=== PATIENT | male | born 1980 | race Caucasian/White ===

== ENCOUNTER 2024-08-05 12:19 | Emergency (ER) | payer OTHER, SELFPAY ==
[2024-08-05 12:33] VITALS: BP 235/115; PULSE 111; TEMP 37; O2SAT 96; BMI 40.0
--- NOTE | 2024-08-05 12:35 | ED_ITS ---
HPI HPI - General Adult General Chief complaint: Extremity Problem, Nontraumatic Stated complaint: LOWER EXTREMITY PAIN/SWELLING Time Seen by Provider: 08/05/24 12:32 History of Present Illness HPI narrative: 44-year-old male presents for swelling in his left leg. He has had this waxing and waning for the last month. No chest pain or shortness of breath. He has never had a problem like this before and he does not have swelling in the right leg. He has never had a DVT. There has been no injury. Related Data Previous Rx's ?Medication ?Instructions ?Recorded metoprolol tartrate 25 mg tablet 25 mg PO BID #30 tabs 08/05/24 Allergies Allergy/AdvReac Type Severity Reaction Status Date / Time No Known Drug Allergies Allergy Verified 08/05/24 12:32 Opioid HPI Opioid Management Most Recent Opioid Data: No Data to Display Review of Systems ROS Narrative A ten point review of systems is negative except as noted above. He had cold symptoms a week ago which resolved. PFSH PFSH Social History Little interest or pleasure in doing things: not at all Feeling down, depressed, or hopeless: not at all Exam Narrative Exam Narrative: Nurses note and vital signs reviewed and patient is not hypoxic. General: The patient appears well and in no apparent distress. Patient is resting comfortably on cart. Skin: Warm, dry, no pallor noted. There is no rash noted. Head: Normocephalic, atraumatic Eye: Normal conjunctiva, no drainage Ears, Nose, Mouth, and Throat: oral mucosa is moist. Nares patent. Cardiovascular: Regular Rate and Rhythm Respiratory: Patient is in no distress, no accessory muscle use, lungs are clear to auscultation, no wheezing, rales or rhonchi Back: non-tender GI: Soft and nontender Musculoskeletal: The right leg is swollen compared to the contralateral, significantly so. Dorsalis pedis pulses are 2+ bilaterally. Neurological: A&O, normal speech Psychiatric: Cooperative Constitutional Vital Signs, click to edit/add: Last Vital Signs Temp 98.6 F 08/05/24 12:33 Pulse 111 H 08/05/24 12:33 Resp 18 08/05/24 12:33 BP 192/100 H 08/05/24 12:50 Pulse Ox 96 08/05/24 12:33 O2 Del Method Room Air 08/05/24 12:33 Course Vital Signs Vital signs: Vital Signs Temperature 98.6 F 08/05/24 12:33 Pulse Rate 111 H 08/05/24 12:33 Respiratory Rate 18 08/05/24 12:33 Blood Pressure 235/115 H 08/05/24 12:33 Pulse Oximetry 96 08/05/24 12:33 Oxygen Delivery Method Room Air 08/05/24 12:33 Temperature 98.6 F 08/05/24 12:33 Pulse Rate 111 H 08/05/24 12:33 Respiratory Rate 18 08/05/24 12:33 Blood Pressure 192/100 H 08/05/24 12:50 Pulse Oximetry 96 08/05/24 12:33 Oxygen Delivery Method Room Air 08/05/24 12:33 Medical Decision Making MDM Narrative Medical decision making narrative: Doppler is negative for DVT. Cause uncertain but he is referred to vascular surgery for follow-up. His blood sugar was elevated but he did not take his insulin this morning and has not at home and he will take it when he gets home. Blood pressure is elevated. He does not recall his blood pressure medication, he has been off of it for a year. He was prescribed metoprolol and was given a list of PCPs to follow-up with. Treatment diagnosis and follow-up were discussed with the patient. Differential Diagnosis Differential Diagnosis: Peripheral edema, DVT Lab Data Lab results reviewed: Yes I reviewed the patient's lab results Labs: Lab Results 08/05/24 Range/Units 12:44 WBC 7.8 (4.0-11.0) 10^3/uL RBC 4.14 L (4.70-6.10) 10^6/uL Hgb 11.9 L (14.0-18.0) g/dL Hct 35.8 L (42.0-54.0) % MCV 86.5 (80.0-94.0) fL MCH 28.7 (25.9-34.0) pg MCHC 33.2 (29.9-35.2) g/dL RDW 13.0 (11.0-15.0) % Plt Count 293 (150-450) 10^3/uL MPV 9.9 (9.5-13.5) fL Neut % (Auto) 59.1 (43.0-75.0) % Lymph % (Auto) 22.2 (20.5-60.0) % [place] % (Auto) 9.2 (1.7-12.0) % Eos % (Auto) 8.0 H (0.9-7.0) % Baso % (Auto) 1.1 (0.2-2.0) % Neut # (Auto) 4.6 (1.4-6.5) 10^3/uL Lymph # (Auto) 1.7 (1.2-3.8) 10^3/uL [place] # (Auto) 0.7 (0.3-0.8) 10^3/uL Eos # (Auto) 0.6 (0.0-0.7) 10^3/uL Baso # (Auto) 0.1 (0.0-0.1) 10^3/uL Abs Immat Gran (auto) 0.03 (0.00-0.03) 10^3/uL Imm/Tot Granulo (auto) 0.4 (0.0-0.5) % Sodium 132 L (136-145) mmol/L Potassium 4.8 (3.5-5.1) mmol/L Chloride 97 L (98-107) mmol/L Carbon Dioxide 28.1 (21.0-32.0) mmol/L Anion Gap 11.7 BUN 25.0 H (7.0-18.0) mg/dL Creatinine 1.40 H (0.70-1.30) mg/dL Est GFR ( Amer) >60 (>=60 mL/min/1.73m^2) Est GFR (Non-Af Amer) 55 L (>=60 mL/min/1.73m^2) BUN/Creatinine Ratio 17.9 Glucose 479 H (74-106) mg/dL Calcium 9.2 (8.5-10.1) mg/dL Imaging Data Left leg Doppler: Radiologist's impression: No DVT in the left lower extremity Discharge Plan Discharge Chief Complaint: Extremity Problem, Nontraumatic Clinical Impression: Left leg swelling Patient Disposition: Home, Self-Care Time of Disposition Decision: 14:05 Condition: Good Mode of Transportation: Private Vehicle Prescriptions / Home Meds: New metoprolol tartrate 25 mg tablet 25 mg PO BID Qty: 30 0RF Print Language: Panamanian Instructions: Leg Edema (ED) Additional Instructions: See list of primary care physicians Referrals: Padmini Hopper MD [Physician] - 1 week Physician,Non-Staff, [Primary Care Provider] - 1 week
[2024-08-05 12:48] LABS: Basophils Absolute Auto 0.1 10^3/uL (0.0-0.1); Basophils Percent Auto 1.1 % (0.2-2.0); Eosinophils Absolute Auto 0.6 10^3/uL (0.0-0.7); Hematocrit 35.8 % (42.0-54.0); Hemoglobin 11.9 g/dL (14.0-18.0); Immature Granulocytes Abs Auto 0.03 10^3/uL (0.00-0.03); Immature Granulocytes Pct Auto 0.4 % (0.0-0.5); Lymphocytes Absolute Auto 1.7 10^3/uL (1.2-3.8); Lymphocytes Percent Auto 22.2 % (20.5-60.0); Mean Corpuscular HGB Conc 33.2 g/dL (29.9-35.2); Mean Corpuscular Hemoglobin 28.7 pg (25.9-34.0); Mean Corpuscular Volume 86.5 fL (80.0-94.0); Mean Platelet Volume 9.9 fL (9.5-13.5); Monocytes Absolute Auto 0.7 10^3/uL (0.3-0.8); Monocytes Percent Auto 9.2 % (1.7-12.0); Neutrophils Absolute Auto 4.6 10^3/uL (1.4-6.5); Neutrophils Percent Auto 59.1 % (43.0-75.0); Platelet Count 293 10^3/uL (150-450); Red Blood Count 4.14 10^6/uL (4.70-6.10); White Blood Count 7.8 10^3/uL (4.0-11.0)
[2024-08-05 12:50] VITALS: BP 192/100
[2024-08-05 12:58] LABS: Anion Gap 11.7; BUN Creatinine Ratio 17.9; Calcium 9.2 mg/dL (8.5-10.1); Carbon Dioxide 28.1 mmol/L (21.0-32.0); Chloride 97 mmol/L (98-107); Estimated GFR (African America >60 (>=60 mL/min/1.73m^2); Estimated GFR (Non-African Ame 55 (>=60 mL/min/1.73m^2); Glucose 479 mg/dL (74-106); Potassium 4.8 mmol/L (3.5-5.1); Sodium 132 mmol/L (136-145)
== END 2024-08-05 14:25 | disposition home or self-care (01) ==
PROVIDERS: Emergency Provider Emergency Medicine
DX: M79.89 Other specified soft tissue disorders (principal); Z79.4 Long term (current) use of insulin
CPT/HCPCS: 36415; 80048; 85025; 93971; 99285

== ENCOUNTER 2024-12-25 13:44 | Inpatient (IN) | payer SELFPAY ==
[2024-12-25 13:48] VITALS: BP 198/100; PULSE 116; TEMP 36.9; O2SAT 96; BMI 40.7
--- NOTE | 2024-12-25 14:04 | XR_ITS ---
The [address] [address] Patient Name: ANIL MORA MRN: [id number] date: 1980 Sex: M Assigned Patient Location: ER Current Patient Location: ER Accession/Order Number: [id number] Exam Date: 12/25/2024 14:38 Report Date: 12/25/2024 14:39 At the request of: TORSTEN CHAWLA Procedure: XR foot RT min 3V XR foot RT min 3V 12/25/2024 2:33 PM SIGNS AND SYMPTOMS: Puncture wound of the right great toe PROTOCOL: Frontal, lateral, and oblique radiographs of the right foot COMPARISON: None FINDINGS: The joint spaces are preserved. No fracture or dislocation. There is mild diffuse soft tissue swelling. No abnormal radiopaque foreign body. Mild subcutaneous emphysema is noted along the plantar aspect of the foot beneath the proximal phalanx of the great toe. XR/XR foot RT min 3V IMPRESSION: Mild subcutaneous emphysema is noted along the plantar aspect of the foot beneath the proximal phalanx of the great toe. No abnormal radiopaque foreign body. No acute bony injury. Impression dictated by: Elliott Braun M.D. 12/25/2024 2:39 PM Dictation Location: [place] [address] Electronically authenticated by: [id number] Y Date: 12/25/2024 14:39
--- NOTE | 2024-12-25 14:05 | ED.LOWEXI1 ---
HPI HPI - Extremity Injury (Lower) General Chief Complaint: Extremity Injury, Lower Stated Complaint: RT LOWER LEG PAIN Time Seen by Provider: 12/25/24 13:46 Source: patient Mode of arrival: walk-in Limitations: no limitations History of Present Illness HPI Narrative: Patient is a 44-year-old male with a history of insulin-dependent diabetes who presents to the emergency department for a puncture wound to the plantar aspect of the right foot. Patient states he inadvertently was poked by a nail that went through his shoe 2 days ago. He did not know the nail was there because he has peripheral neuropathy and did not know he was getting poked multiple times with the nail in the plantar aspect of his foot. He states over the last 2 days the area has become open with bleeding and drainage. In the last day he has noticed his right calf is swollen and red. No fevers or vomiting. Blood sugars have been controlled in the 120s. He has no significant pain at this time. Related Data Home Medications ?Medication ?Instructions ?Recorded ?Confirmed insulin NPH isoph U-100 human 100 40 unit subcut BID 12/25/24 12/25/24 unit/mL (3 mL) subcutaneous pen (Novolin N FlexPen) insulin regular human 100 unit/mL 1 sliding scale dose subcut 12/25/24 12/25/24 injection solution cartridge [id number] Previous Rx's ?Medication ?Instructions ?Recorded metoprolol tartrate 25 mg tablet 25 mg PO BID #30 tabs 08/05/24 Allergies Allergy/AdvReac Type Severity Reaction Status Date / Time No Known Drug Allergies Allergy Verified 12/25/24 13:48 Review of Systems ROS Constitutional Denies: fever or chills Cardiovascular Denies: chest pain Respiratory Denies: shortness of breath or cough Gastrointestinal Denies: nausea or vomiting Musculoskeletal Reports: extremity pain and extremity swelling Integumentary/Breast Reports: redness, skin tenderness and skin swelling Hematologic/Lymphatic Denies: easy bruising or easy bleeding [facility] Social History Little interest or pleasure in doing things: not at all Feeling down, depressed, or hopeless: not at all Exam Narrative Exam Narrative: Gen.: Awake, alert, in no distress Head: Normocephalic, atraumatic ENT: Moist mucous membranes Respiratory: No respiratory distress Extremities: Moves extremities equally, right lower extremity is diffusely edematous and erythematous distal to the knee. Calves are soft and compressible bilaterally. 2+ DP pulse in the right foot. 1 cm puncture wound noted to the plantar aspect of the right foot just proximal to the great toe. Surrounding minimal erythema and swelling. No active drainage. Normal flexion-extension of the toes. Psych: Normal mood and affect Neuro: No focal neuro deficit Skin: Warm, dry Constitutional Vital Signs, click to edit/add: Last Vital Signs Temp 98.4 F 12/25/24 13:48 Pulse 116 H 12/25/24 13:48 Resp 16 12/25/24 13:48 BP 198/100 H 12/25/24 13:48 Pulse Ox 96 12/25/24 13:48 O2 Del Method Room Air 12/25/24 13:48 Course Vital Signs Vital signs: Vital Signs Temperature 98.4 F 12/25/24 13:48 Pulse Rate 116 H 12/25/24 13:48 Respiratory Rate 16 12/25/24 13:48 Blood Pressure 198/100 H 12/25/24 13:48 Pulse Oximetry 96 12/25/24 13:48 Oxygen Delivery Method Room Air 12/25/24 13:48 Temperature 98.4 F 12/25/24 13:48 Pulse Rate 116 H 12/25/24 13:48 Respiratory Rate 16 12/25/24 13:48 Blood Pressure 198/100 H 12/25/24 13:48 Pulse Oximetry 96 12/25/24 13:48 Oxygen Delivery Method Room Air 12/25/24 13:48 MDM - Extremity Injury (Lower) MDM Narrative Medical decision making narrative: Sepsis labs obtained with x-ray of the foot and ultrasound of the right lower extremity. Zosyn and vancomycin ordered for the patient. Zosyn with Pseudomonas coverage. Patient with elevated blood pressures in the ER, likely secondary to noncompliance with his blood pressure medication. Medicated with labetalol. Discussed with hospitalist, Dr. Pandey and the patient is admitted for further evaluation and treatment of diabetic foot wound with cellulitis. Medical Records Attestation: I reviewed the patient's medical records. Lab Data Attestation: I reviewed the patient's lab results. Imaging Data XR foot: Attestation: I have reviewed the pertinent imaging results. Radiologist's impression: ITS Impressions Foot X-Ray 12/25/24 14:04 IMPRESSION: Mild subcutaneous emphysema is noted along the plantar aspect of the foot beneath the proximal phalanx of the great toe. No abnormal radiopaque foreign body. No acute bony injury. Impression dictated by: Elliott Braun M.D. 12/25/2024 2:39 PM Dictation Location: [employer] Electronically authenticated by: [id number] Y Date: 12/25/2024 14:39 Venous US: Attestation: I have reviewed the pertinent imaging results. Radiologist's impression: ITS Impressions Foot X-Ray 12/25/24 14:04 IMPRESSION: Mild subcutaneous emphysema is noted along the plantar aspect of the foot beneath the proximal phalanx of the great toe. No abnormal radiopaque foreign body. No acute bony injury. Impression dictated by: Elliott Braun M.D. 12/25/2024 2:39 PM Dictation Location: [employer] Electronically authenticated by: [id number] Y Date: 12/25/2024 14:39 Discharge Plan Discharge Chief Complaint: Extremity Injury, Lower Clinical Impression: Infected puncture wound of plantar aspect of foot, Type II diabetes mellitus, Cellulitis of leg, right Patient Disposition: Admitted As Inpatient Time of Disposition Decision: 15:05 Condition: Good
[2024-12-25 14:25] LABS: Hematocrit 33.7 % (42.0-54.0); Hemoglobin 11.2 g/dL (14.0-18.0); Immature Granulocytes Abs Auto 0.06 10^3/uL (0.00-0.03); Immature Granulocytes Pct Auto 0.5 % (0.0-0.5); Lymphocytes Absolute Auto 1.4 10^3/uL (1.2-3.8); Mean Corpuscular HGB Conc 33.2 g/dL (29.9-35.2); Mean Corpuscular Hemoglobin 29.2 pg (25.9-34.0); Mean Corpuscular Volume 87.8 fL (80.0-94.0); Platelet Count 196 10^3/uL (150-450); Red Blood Count 3.84 10^6/uL (4.70-6.10); White Blood Count 12.2 10^3/uL (4.0-11.0)
[2024-12-25] MEDS: PIPERACILLIN SODIUM/TAZOBACTAM 4.5 GM in 0.9 % SODIUM CHLORIDE 50 ML IV (14:30)
[2024-12-25] MEDS: DIPHTH,PERTUSS(ACELL),TET VAC 0.5 ML SYRINGE IM (14:31)
[2024-12-25] MEDS: 0.9 % SODIUM CHLORIDE 1,000 ML 999 ML IV (14:31)
[2024-12-25 14:46] LABS: Alanine Aminotransferase 28 U/L (16-63); Albumin Globulin Ratio 0.4; Albumin Level 2.1 g/dL (3.4-5.0); Alkaline Phosphatase 101 U/L (46-116); Anion Gap 12.1; Aspartate Amino Transferase 18 U/L (15-37); Blood Urea Nitrogen 30.0 mg/dL (7.0-18.0); Calcium 9.2 mg/dL (8.5-10.1); Carbon Dioxide 27.9 mmol/L (21.0-32.0); Chloride 93 mmol/L (98-107); Estimated GFR (African America 56 (>=60 mL/min/1.73m^2); Estimated GFR (Non-African Ame 46 (>=60 mL/min/1.73m^2); Globulin 5.1 g/dL; Glucose 325 mg/dL (74-106); Potassium 4.0 mmol/L (3.5-5.1); Sodium 129 mmol/L (136-145); Total Protein 7.2 g/dL (6.4-8.2)
[2024-12-25 14:49] LABS: Lactate/Lactic Acid 2.0 mmol/L (0.4-2.0)
[2024-12-25 14:50] LABS: Magnesium 1.7 mg/dL (1.8-2.4)
[2024-12-25] MEDS: VANCOMYCIN HCL 1,000 MG in 0.9 % SODIUM CHLORIDE 250 ML 250 MG IV (15:03)
[2024-12-25] MEDS: LABETALOL HCL 20 MG/4 ML SYRINGE IVP (15:05)
--- OUTSIDE RECORDS SUMMARY | 2024-12-25 15:05 | XMS_ITS | CCD ---
Author Organization [facility]iniSym[facility] Care Team Providers Care Biomedical Manager Name Role Phone WILFRIDO SONG Attending Unavailable WILFRIDO SONG Primary Care Unavailable Wilfrido Song Unavailable Unavailable Jere Asencio Unavailable Unavailable Kappus, Wilfrido F Unavailable Unavailable Kappus, Wilfrido F Unavailable Unavailable Unavailable MD SERAFIN SAINZ Attending Unavailab taylor Song, Dr. Wilfrido Nevarez Referring Unav ailable Kapp, Dr. Wilfrido Nevarez Primary Care Unav ailable Hanna, Dr. Wilfrido Nevarez Primary Care Unav ailable MD SERAFIN SAINZ Attending Unavailab taylor Song, Dr. Wilfrido Nevarez Referring Unav ailable REQUEST, DR HILL LISTED Primary Care Unavaila ble ASTRID ., DR ROCHELLE Maddox Admitting Unavailable RESENDIZ ., DR ROCHELLE Maddox Attending Unavailable RESENDIZ ., DR ROCHELLE Maddox Consulting Unavailable PAY ., DR ESQUEDA Consulting Unavailable TONI ., JUNIOR Consulting Unavailable SISTER, APOLINAR Consulting Unavailable MENDEZ RUSHING Consulting Unavailable Sherry Beal Unavailable No Pcp, No Pcp Primary Care Provider Unavailabl e Unavailable Primary Care Provider Unavailabl e SAÚL QUINTANA Attending Unavailable NO PCP, NO PCP Primary Care Unavailable SAÚL QUINTANA Referring Unavailable NO PCP, NO PCP Primary Care Unavailable DENA PARADA Attending Unavailable NO PCP, NO PCP Primary Care Unavailable SAÚL QUINTANA Attending Unavailable ALFONSO STUART Referring Unavailable SAÚL QUINTANA Referring Unavailable SAÚL QUINTANA Attending Unavailable NO PCP, NO PCP Primary Care Unavailable SAÚL QUINTANA Referring Unavailable NO PCP, NO PCP Primary Care Unavailable SAÚL QUINTANA Attending Unavailable NO PCP, NO PCP Primary Care Unavailable SAÚL QUINTANA Attending Unavailable NO PCP, NO PCP Primary Care Unavailable SAÚL QUINTANA Referring Unavailable NO PCP, NO PCP Primary Care Unavailable SAÚL QUINTANA Attending Unavailable NO PCP, NO PCP Primary Care Unavailable NO PCP, NO PCP Primary Care Unavailable No Pcp, No Pcp Primary Care Provider Unavailabl e Allergies Allergy Classification Reported Allergen(s) Allergy Type Date of Onset Reaction(s) Facility Latex (1 source) Latex rubber gloves; Translations: [Latex Gloves] Substance Allergy [facility] Work Phone: (1 source) Latex rubber gloves Allergy to drug (finding) [facility] Work Phone: (5 sources) natural latex rubber; Translations: [LATEX, NATURAL RUBBER] Drug allergy (disorder) 2 [facility] Repository (13 sources) Latex Propensity to adverse reactions to drug 2 Hives, Rash [facility] Medications Current Medications Medication Drug Class(es) Dates Sig (Normalized) Sig (Original) amLODIPine 5 mg / valsartan 320 mg oral tablet (1 source) Dihydropyridine Calcium Channel Veronica, Angiotensin 2 Receptor Veronica take 1 tablet by mouth once daily amLODIPine Besylate-Valsarta n 5-320 MG TAKE 1 TABLET BY MOUTH DAILY Oral for 30 Days Active atorvastatin 20 mg oral tablet (1 source) HMG-CoA Reductase Inhibitor take 1 tablet by mouth once daily Atorvastatin Calcium 20 MG TAKE 1 TABLET BY MOUTH DAILY Oral for 30 Days Active clindamycin 300 mg oral capsule (1 source) Lincosamide Antibacterial Start: 05-07-2023 take 1 capsule by mouth every eight hours Clindamycin HCl 300 MG 1 cap(s) Orally tid for 10 day(s) Apr, Active dapagliflozin 10 mg oral tablet (1 source) Sodium-Glucose Cotransporter 2 Inhibitor Farxiga 10 MG Oral for 30 Days Active insulin isophane, human 100 unt/ml injectable suspension (13 sources) inject 0.4 mL by subcutaneous injection in the morning insulin NPH (HumuLIN N,NovoLIN N) 100 unit/mL injection Inject 0.4 mL (40 Units total) under the skin in the morning and 0.4 mL (40 Units total) in the evening. Inject with meals. Active insulin, regular, human 100 unt/ml injectable solution (14 sources) Insulin inject 10-20 [IU] by subcutaneous injection three times daily before mealtime insulin regular (HumuLIN R,NovoLIN R) 100 unit/mL injection Inject under the skin 3 (three) times a day before meals. 10-20 units depending on BSL Active NovoLIN R FlexPe n 100 UNIT/ML INJECT 10-12-15 UNITS to meal size plus ISS#3 expect DAILY dose 50 UNITS Injection for 30 Days Active mupirocin 0.02 mg/mg topical ointment (1 source) RNA Synthetase Inhibitor Antibacterial Start: 05-07-2023 Mupirocin 2 % 1 application Externally Twice a day apply to left lower leg wound Apr, Active Completed/Discontinued Medications Medication Drug Class(es) Dates Sig (Normalized) Sig (Original) aflibercept (EYLEA) intravitreal injection 2 mg (1 source) Start: 07-06-2024 End: 07-06-2024 2 mg, intravitreal, One-Time Injection, Starting on Fri07/06/24 at 1630, For 1 dose 16 ml bevacizumab 25 mg/ml injection (1 source) Vascular Endothelial Growth Factor Inhibitor Start: 08-06-2024 End: 08-06-2024 1.25 mg, intravitreal, One-Time Injection, Starting on Fri08/06/24 at 1116, For 1 dose clomiPHENE citrate 50 mg oral tablet (1 source) Estrogen Agonist/Antagonist Start: 10-18-2020 take 0.5 tablet by mouth once daily clomiPHENE Citrate 50 MG Oral Tablet take 1/2 tablet daily Quantity: 15 Refills: 6 Ordered: 18-Oct-2020 Serafin Sainz MD Start : 18-Oct-2020 Active FreeStyle Lite Device (1 source) Start: 08-28-2018 FreeStyle Lite Device USE DIRECTED. DX; E11.65 testing twice daily Quantity: 1 Refills: 0 Wilfrido Song DO Start : 28-Aug-2018 Active sensor 3 ml insulin glargine 100 unt/ml pen injector (2 sources) Insulin Analog Start: 09-02-2018 Basaglar KwikPen 100 UNIT/ML Subcutaneous Solution Pen-injector TAKE 20 UNITS AT BEDTIME Quantity: 1 Refills: 3 Ordered: 25-Jul-2020 Wilfrido Song DO Start : 02-Sep-2018 Active Start: 09-02-2018 Basaglar KwikP en 100 UNIT/ML Subcutaneous Solution Pen- injector TAKE 20 UNITS AT BEDTIME Quantity: 1 Refills: 3 Wilfrido Song DO Start : 02-Sep-2018 Active 5 x 3 ML Pen metFORMIN hydrochloride 500 mg oral tablet (16 sources) Biguanide Start: 08-28-2018 take 1 tablet by mouth twice daily metFORMIN HCl - 500 MG Oral Tablet Take 1 tablet twice daily Quantity: 180 Refills: 1 Ordered: 25-Jun-2019 Jere Asencio MD Start : 28-Aug-2018 Active take 1 tablet by neda th in the morning, then take 1 tablet by mouth at mealtime metFORMIN (GLUCOPHAGE) 1000 mg tablet Take 1 tablet (1,000 mg total) by mouth in the morning and 1 tablet (1,000 mg total) in the evening. Take with meals. Active take 2 tablets by mouth twice da roberto metFORMIN HCl ER 500 MG TAKE 2 TABLETS BY MOUTH TWICE DAILY Oral for 30 Days Active sulfamethoxazole 800 mg / trimethoprim 160 mg oral tablet (2 sources) Dihydrofolate Reductase Inhibitor Antibacterial, Sulfonamide Antimicrobial Start: 12-27-2013 take 1 tablet by mouth every twelve hours Bactrim DS 800-160 MG 1 tablet Orally bid for 10 day(s) Jul, Not-Taking/PRN tadalafil 5 mg oral tablet (1 source) Phosphodiesterase 5 Inhibitor Start: 08-16-2020 take 1 tablet by mouth once daily Tadalafil 5 MG Oral Tablet Take 1 tablet daily Quantity: 30 Refills: 11 Ordered: 16-Aug-2020 Serafin Sainz MD Start : 16-Aug-2020 Active traMADol hydrochloride 50 mg oral tablet (1 source) Opioid Agonist Start: 12-27-2013 take 1 tablet by mouth every six hours as needed traMADol HCl 50 MG 1 tablet as neededfor severe pain Orally every 6 hrs,may cause fatigue, avoid driving, alcohol and machinery use,potentially addictiv for 5 days Dec, Not-Taking/PRN Problems Active Problems Problem Classification Problem Date Documented Date Episodic/Chronic Diabetes mellitus with complications (20 sources) 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 2 diabetes mellitus; Translations: [Type 2 diabetes mellitus with moderate nonproliferative diabetic retinopathy with macular edema, right eye] Onset: 02-25-2024 06-21-2024 Chronic Diabetes mellitus without complication (2 sources) Diabetes mellitus; Translations: [Diabetes mellitus without mention of complication, type II or unspecified type, not stated as uncontrolled] Chronic Disorders of lipid metabolism (2 sources) Hyperlipidemia; Translations: [Other and unspecified hyperlipidemia] Chronic Essential hypertension (2 sources) Hypertensive disorder; Translations: [Unspecified essential hypertension] Chronic Osteoarthritis (1 source) 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; Translations: [Osteoarthrosis, localized, secondary, pelvic region and thigh] Chronic Other bone disease and musculoskeletal deformities (2 sources) Juvenile osteochondrosis of lower extremity; Translations: [Juvenile osteochondrosis of hip and pelvis] Chronic Other male genital disorders (1 source) Male erectile dysfunction, unspecified; Translations: [Male erectile disorder] Chronic Other male genital disorders (1 source) Phimosis; Translations: [Redundant prepuce and phimosis] Episodic Other non-traumatic joint disorders (1 source) Hip pain; Translations: [Pain in joint, pelvic region and thigh] Episodic Other screening for suspected conditions (not mental disorders or infectious disease) (1 source) Decreased testosterone level ; Translations: [Other nonspecific findings on examination of blood] Episodic Residual codes; unclassified (1 source) History finding; Translations: [Other specified conditions influencing health status] Episodic Residual codes; unclassified (2 sources) Edema of left lower limb; Translations: [Localized edema] 08-09-2024 Episodic Residual codes; unclassified (1 source) Pain, unspecified; Translations: [Pain, unspecified] Onset: 08-06-2024 Episodic Skin and subcutaneous tissue infections (1 source) Cellulitis of left lower limb Episodic Unclassified (1 source) Diabetic retinopathy with macular edema associated with romana Onset: 02-25-2024 Past or Other Problems Problem Classification Problem Date Documented Da te Episodic/Chronic Blindness and vision defects (10 sources) Severe myopia; Translations: [Myopia, bilateral] Onset: 02-25-2024 06-21-2024 Episodic NEGATED: Highlighted row has not occurred!Residual codes; unclassified (5 sources) Disease Episodic Results Test Name Value Interpretation Reference Range Facility Intravitreal Injection, Phar macologic Agent - OD - Right Eyeon 08-06-2024 [facility] No Panel Informationon 08-06 [facility] Intravitreal Injection, Phar macologic Agent - OD - Right Eyeon 07-06-2024 [facility] No Panel Informationon 06-22 OD: DM; persistent D ME, slight increased; treat laser vs injections discussed OS: DM; improving DME; treat vs continue to follow discussed MANUALLY TRANSCRIBED RESULTS [facility] Focal Laser - OS - Left Eyeo n 03-17-2024 [facility] Focal Laser - OD - Right Eye on 03-10-2024 [facility] No Panel Informationon 03-10 OD: 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 Sonia Sommers CK.MB [Mass/Vol] 2.58 ng/mL Normal <=3.60 [facility] Comment on above: Performed By: #### C MREP #### [facility] [address] [address] [address] Sonia Sommers HSTROP 33.2 pg/mL Normal 4.0-76.1 [facility] Comment on above: Result Comment: CUT- OFF POINTS HAVE BEEN ESTABLISHED BASED ON THE FOURTH UNIVERSAL DEFINITIONS OF MYOCARDIAL INFARCTION. THE UPPER REFERENCE LIMIT (URL) OF TROPONIN, DEFINED THE 99TH PERCENTILE OF cTnI DISTRIBUTION IN A REFERENCE POPULATION, HAS BEEN CONFIRMED THE DECISION THRESHOLD FOR [place] DIAGNOSIS. Performed By: #### C MREP #### [facility] [address] [place], [place] [address] Dr. Sonia Sommers CBC AUTO DIFFon 09-07-2022 BASO # 0.0 103/ul Normal 0.0-0.1 [facility] Comment on above: Performed By: #### C BC #### [facility] [address] [address] [address] Sonia Sommers Basophils/100 WBC (Bld) 0.1 % Critically low 0.2-2.0 [facility] Comment on above: Performed By: #### C BC #### [facility] [address] [place] [address] Dr. Sonia Sommers EO # 0.0 103/ul Normal 0.0-0.7 [facility] Comment on above: Performed By: #### C BC #### [facility] [address] [place] [address] Dr. Sonia Sommers Eosinophils/100 WBC (Bld) 0.0 % Critically low 0.9-7.0 [facility] Comment on above: Performed By: #### C BC #### [facility] [address] [place] [address] Dr. Sonia Sommers Erythrocyte distribution width (RBC) [Ratio] 12.8 % Normal 11.0-15.0 [facility] Comment on above: Performed By: #### C BC #### [facility] [address] [place] [address] Dr. Sonia Sommers Hematocrit (Bld) [Volume fraction] 37.5 % Critically low 42.0-54.0 [facility] Comment on above: Performed By: #### C BC #### [facility] [address] [place] [address] Dr. Sonia Sommers Hemoglobin (Bld) [Mass/Vol] 12.7 g/dL Critically low 14.0-18.0 [facility] Comment on above: Performed By: #### C BC #### [facility] [address] [place] [address] Dr. Sonia Sommers IG # 0.05 10e3/ul Critically high 0.00-0.03 [facility] Comment on above: Performed By: #### C BC #### [facility] [address] [place] [address] Dr. Sonia Sommers IG % 0.6 % Critically high 0.0-0.5 [facility] Comment on above: Performed By: #### C BC #### [facility] [address] [place] [address] Dr. Sonia Sommers LYMPH # 0.9 103/ul Critically low 1.2-3.8 [facility] Comment on above: Performed By: #### C BC #### [facility] [address] [place] [address] Dr. Sonia Sommers Lymphocytes/100 WBC (Bld) 10.5 % Critically low 20.5-60.0 [facility] Comment on above: Performed By: #### C BC #### [facility] [address] [place] [address] Dr. Sonia Sommers MANUAL DIFF REQ NO Normal [facility] Comment on above: Performed By: #### C BC #### [facility] [address] [place] [address] Dr. Sonia Sommers MCH (RBC) [Entitic mass] 28.6 pg Normal 25.9-34.0 [facility] Comment on above: Performed By: #### C BC #### [facility] [address] [place] [address] Dr. Sonia Sommers MCHC (RBC) [Mass/Vol] 33.9 g/dL Normal 29.9-35.2 [facility] Comment on above: Performed By: #### C BC #### [facility] [address] [place] [address] Dr. Sonia Sommers MCV (RBC) [Entitic vol] 84.5 fL Normal 80.0-94.0 [facility] Comment on above: Performed By: #### C BC #### [facility] [address] [place] [address] Dr. Sonia Sommers MONO # 0.2 103/ul Critically low 0.3-0.8 [facility] Comment on above: Performed By: #### C BC #### [facility] [address] [place] [address] Dr. Sonia Sommers Monocytes/100 WBC (Bld) 2.1 % Normal 1.7-12.0 [facility] Comment on above: Performed By: #### C BC #### [facility] [address] [place] [address] Dr. Sonia Sommers NEUT # 7.2 103/ul Critically high 1.4-6.5 [facility] Comment on above: Performed By: #### C BC #### [facility] [address] [address] [address] Sonia Sommers Neutrophils/100 WBC (Bld) 86.7 % Critically high 43.0-75.0 [facility] Comment on above: Performed By: #### C BC #### [facility] [address] [address] [address] Sonia Sommers Platelet mean volume (Bld) [Entitic vol] 9.8 fL Normal 9.5-13.5 [facility] Comment on above: Performed By: #### C BC #### [facility] [address] [address] [address] Sonia Sommers PLT 290 103/ul Normal 150-450 [facility] Comment on above: Performed By: #### C BC #### [facility] [address] [address] [address] Sonia Sommers RBC 4.44 106/ul Critically low 4.70-6.10 [facility] Comment on above: Performed By: #### C BC #### [facility] [address] [address] [address] Sonia Sommers WBC 8.3 103/ul Normal 4.0-11.0 [facility] Comment on above: Performed By: #### C BC #### [facility] [address] [address] [address] Sonia Sommers POINT OF CARE GLUCOSEon 08-24 Glucose [Mass/Vol] 413 mg/dL Critically high 74-106 [facility] Comment on above: Performed By: #### P OCGLUC #### [facility] [address] [address] [address] Sonia Sommers Glucose [Mass/Vol] 318 mg/dL Critically high 74-106 [facility] Comment on above: Performed By: #### P OCGLUC ####[facility] [id number] [address]Dr. Sonia Sommers PROF 14(COMP METB)on 023 Albumin [Mass/Vol] 3.4 g/dL Normal 3.4-5.0 [facility] Comment on above: Performed By: #### C MP #### [facility] [address] [place] [address] Dr. Sonia Sommers Albumin/Globulin [Mass ratio] 0.8 {ratio} Normal [facility] Comment on above: Performed By: #### C MP #### [facility] [address] [place] [address] Dr. Sonia Sommres ALP [Catalytic activity/Vol] 104 U/L Normal 46-116 [facility] Comment on above: Performed By: #### C MP #### [facility] [address] [place] [address] Dr. Sonia Sommers ALT [Catalytic activity/Vol] 29 U/L Normal 16-63 [facility] Comment on above: Performed By: #### C MP #### [facility] [address] [place] [address] Dr. Sonia Sommers Anion gap [Moles/Vol] 16.3 mmol/L Normal [facility] Comment on above: Performed By: #### C MP #### [facility] [address] [place] [address] Dr. Sonia Sommers AST [Catalytic activity/Vol] 17 U/L Normal 15-37 [facility] Comment on above: Performed By: #### C MP #### [facility] [address] [place] [address] Dr. Sonia Sommers Bilirubin [Mass/Vol] 0.6 mg/dL Normal 0.2-1.0 [facility] Comment on above: Performed By: #### C MP #### [facility] [address] [place] [address] Dr. Sonia Sommers Calcium [Mass/Vol] 9.0 mg/dL Normal 8.5-10.1 [facility] Comment on above: Performed By: #### C MP #### [facility] [address] [place] [address] Dr. Sonia Sommers Chloride [Moles/Vol] 101 mmol/L Normal 98-107 [facility] Comment on above: Performed By: #### C MP #### [facility] [address] [address] [address] Sonia Sommers CO2 [Moles/Vol] 21.0 mmol/L Normal 21.0-32.0 [facility] Comment on above: Performed By: #### C MP #### [facility] [address] [address] [address] Sonia Sommers Creatinine [Mass/Vol] 1.25 mg/dL Normal 0.70-1.30 [facility] Comment on above: Performed By: #### C MP #### [facility] [address] [place] [address] Dr. Sonia Sommers EGFR-AF CITIZEN [place] >60 Normal >=60 [facility] Comment on above: Performed By: #### C MP #### [facility] [address] [place] [address] Dr. Sonia Sommers EGFR-NON AF CITIZEN OF [place] >60 Normal >=60 [facility] Comment on above: Performed By: #### C MP #### [facility] [address] [place] [address] Dr. Sonia Sommers Globulin (S) [Mass/Vol] 4.2 g/dL Normal [facility] Comment on above: Performed By: #### C MP #### [facility] [address] [place] [address] Dr. Sonia Sommers Glucose [Mass/Vol] 316 mg/dL Critically high 74-106 [facility] Comment on above: Performed By: #### C MP #### [facility] [address] [place] [address] Dr. Sonia Sommers Potassium [Moles/Vol] 5.3 mmol/L Critically high 3.5-5.1 [facility] Comment on above: Performed By: #### C MP #### [facility] [address] [place] [address] Dr. Sonia Sommers Protein [Mass/Vol] 7.6 g/dL Normal 6.4-8.2 [facility] Comment on above: Performed By: #### C MP #### [facility] [address] [place] [address] Dr. Sonia Sommers Sodium [Moles/Vol] 133 mmol/L Critically low 136-145 [facility] Comment on above: Performed By: #### C MP #### [facility] [address] [address] [address] Sonia Sommers Urea nitrogen [Mass/Vol] 42.0 mg/dL Critically high 7.0-18.0 [facility] Comment on above: Performed By: #### C MP #### [facility] [address] [address] [address] Sonia Sommers Urea nitrogen/Creatini ne [Mass ratio] 33.6 mg/mg Normal [facility] Comment on above: Performed By: #### C MP #### [facility] [address] [place] [address] Dr. Sonia Sommers BNPon 09-06-2022 Natriuretic peptide B (Bld) [Mass/Vol] 66.0 pg/mL Normal <=450.0 [facility] Comment on above: Performed By: #### H STROPN, BNP, CMP ####[facility] [id number] [address]Dr. Sonia Sommers CBC AUTO DIFFon 09-06-2022 BASO # 0.1 103/ul Normal 0.0-0.1 [facility] Comment on above: Performed By: #### C BC #### [facility] [address] [place] [address] Dr. Sonia Sommers Basophils/100 WBC (Bld) 0.6 % Normal 0.2-2.0 [facility] Comment on above: Performed By: #### C BC #### [facility] [address] [place] [address] Dr. Sonia Sommers EO # 0.2 103/ul Normal 0.0-0.7 [facility] Comment on above: Performed By: #### C BC #### [facility] Laboratory [address] [address] [address] Sonia Sommers Eosinophils/100 WBC (Bld) 1.9 % Normal 0.9-7.0 [facility] Comment on above: Performed By: #### C BC #### [facility] Laboratory [address] [place] [address] Dr. Sonia Sommers Erythrocyte distribution width (RBC) [Ratio] 12.9 % Normal 11.0-15.0 [facility] Comment on above: Performed By: #### C BC #### [facility] [address] [place] [address] Dr. Sonia Sommers Hematocrit (Bld) [Volume fraction] 41.7 % Critically low 42.0-54.0 [facility] Comment on above: Performed By: #### C BC #### [facility] [address] [place] [address] Dr. Sonia Sommers Hemoglobin (Bld) [Mass/Vol] 14.0 g/dL Normal 14.0-18.0 [facility] Comment on above: Performed By: #### C BC #### [facility] [address] [place] [address] Dr. Sonia Sommers IG # 0.08 10e3/ul Critically high 0.00-0.03 [facility] Comment on above: Performed By: #### C BC #### [facility] [address] [place] [address] Dr. Sonia Sommers IG % 0.7 % Critically high 0.0-0.5 [facility] Comment on above: Performed By: #### C BC #### [facility] [address] [place] [address] Dr. Sonia Sommers LYMPH # 1.6 103/ul Normal 1.2-3.8 [facility] Comment on above: Performed By: #### C BC #### [facility] [address] [place] [address] Dr. Sonia Sommers Lymphocytes/100 WBC (Bld) 13.3 % Critically low 20.5-60.0 [facility] Comment on above: Performed By: #### C BC #### [facility] [address] [place] [address] Dr. Sonia Sommers MANUAL DIFF REQ NO Normal [facility] Comment on above: Performed By: #### C BC #### [facility] [address] [address] [address] Sonia Sommers MCH (RBC) [Entitic mass] 28.9 pg Normal 25.9-34.0 [facility] Comment on above: Performed By: #### C BC #### [facility] [address] [place] [address] Dr. Sonia Sommers MCHC (RBC) [Mass/Vol] 33.6 g/dL Normal 29.9-35.2 [facility] Comment on above: Performed By: #### C BC #### [facility] [address] [place] [address] Dr. Sonia Sommers MCV (RBC) [Entitic vol] 86.0 fL Normal 80.0-94.0 [facility] Comment on above: Performed By: #### C BC #### [facility] [address] [place] [address] Dr. Sonia Sommers MONO # 0.9 103/ul Critically high 0.3-0.8 [facility] Comment on above: Performed By: #### C BC #### [facility] [address] [place] [address] Dr. Sonia Sommers Monocytes/100 WBC (Bld) 7.4 % Normal 1.7-12.0 [facility] Comment on above: Performed By: #### C BC #### [facility] [address] [place] [address] Dr. Sonia Sommers NEUT # 8.9 103/ul Critically high 1.4-6.5 [facility] Comment on above: Performed By: #### C BC #### [facility] [address] [place] [address] Dr. Sonia Sommers Neutrophils/100 WBC (Bld) 76.1 % Critically high 43.0-75.0 [facility] Comment on above: Performed By: #### C BC #### [facility] [address] [place] [address] Dr. Sonia Sommers Platelet mean volume (Bld) [Entitic vol] 10.2 fL Normal 9.5-13.5 [facility] Comment on above: Performed By: #### C BC #### [facility] [address] [place], [place] [address] Dr. Sonia Sommers PLT 378 103/ul Normal 150-450 [facility] Comment on above: Performed By: #### C BC #### [facility] [address] [address] [address] Sonia Sommers RBC 4.85 106/ul Normal 4.70-6.10 [facility] Comment on above: Performed By: #### C BC #### [facility] [address] [place], [place] [address] Dr. Sonia Sommers WBC 11.7 103/ul Critically high 4.0-11.0 [facility] Comment on above: Performed By: #### C BC #### [facility] [address] [address] [address] Sonia Sommers CTA CHEST WO W CONon 023 CTA CHEST WO W CON EXAMINATION: CTA CHEST WO W CON HISTORY: SHORTNESS OF BREATH COMPARISON: None. TECHNIQUE: CT angiography of the pulmonary arteries following the administration of intravenous contrast. Coronal and sagittal MIP (maximum intensity projection) images were performed. Dose reduction techniques were achieved by using automated exposure control and/or adjustment of mA and/or kV according to patient size and/or use of iterative reconstruction technique. FINDINGS: LUNGS/PLEURA: No visible pulmonary disease or effusion. VASCULATURE: No visible pulmonary arterial thrombus or attenuation. JOSE MARIA: No mass or adenopathy. MEDIASTINUM: No mass or adenopathy. CARDIAC: Normal. No enlargement, pericardial thickening, or significant calcification. AORTA: Normal. No aneurysm or dissection. CHEST WALL: No mass or axillary adenopathy LIMITED ABD: Limited images of the upper abdomen are unremarkable. BONES: Multilevel thoracic spondylosis commensurate with age. No bony lesion or fracture. OTHER: Negative. CONCLUSION: 1. No acute intrathoracic abnormality is identified. 2. No evidence for pulmonary embolism. Electronically authenticated by: Gita RUSHING Date: 2022-09-06 17:44 Normal [facility] Covid-19 PCR (CVDTB)on 08-24 SARS-CoV-2 (COVID-19) RNA CARLOS+probe Ql (Unsp spec) Not detected Normal NOT DETECTED [facility] Comment on above: Result Comment: When diagnostic testing is negative, the possibility of a false negative should be considered in the context of a patient's recent exposures and the presence of clinical signs and symptoms consistent with SARS-CoV-2. This test is not yet approved or cleared by the [place] FDA. When there are no FDA-approved or cleared tests available, and other criteria are met, FDA can make tests available under an emergency access mechanism called an Emergency Use Authorization (EUA). The EUA for this test is supported by the [place] of Health and Human Service's declaration that circumstances exist to justify the emergency use of in vitro diagnostics for the detection and/or diagnosis of the virus that causes COVID-19. This EUA will remain in effect for the duration of the COVID-19 declaration justifying emergency of IVDs, unless it is terminated or revoked by the FDA (after which the test may no longer be used). Performed By: #### C VDTB #### [facility] [address] [address] [address] Sonia Sommers PROF 14(COMP METB)on 023 Albumin [Mass/Vol] 4.0 g/dL Normal 3.4-5.0 [facility] Comment on above: Performed By: #### H STROPN, BNP, CMP ####[facility] [address] [address]DrVenkata Sommers Albumin/Globulin [Mass ratio] 0.8 {ratio} Normal [facility] Comment on above: Performed By: #### H STROPN, BNP, CMP ####[facility] [address] [address]DrVenkata Sommers ALP [Catalytic activity/Vol] 106 U/L Normal 46-116 [facility] Comment on above: Performed By: #### H STROPN, BNP, CMP ####[facility] [address] [address]DrVenkata Sommers ALT [Catalytic activity/Vol] 34 U/L Normal 16-63 [facility] Comment on above: Performed By: #### H STROPN, BNP, CMP ####[facility] [address] [address]DrVenkata Sommers Anion gap [Moles/Vol] 19.2 mmol/L Normal [facility] Comment on above: Performed By: #### H STROPN, BNP, CMP ####[facility] [address] [address]Dr. Sonia Sommers AST [Catalytic activity/Vol] 18 U/L Normal 15-37 [facility] Comment on above: Performed By: #### H STROPN, BNP, CMP ####[facility] [address] [address]Dr. Sonia Sommers Bilirubin [Mass/Vol] 1.0 mg/dL Normal 0.2-1.0 [facility] Comment on above: Performed By: #### H STROPN, BNP, CMP ####[facility] [address] [place], [place] [address]Dr. Sonia Sommers Calcium [Mass/Vol] 10.1 mg/dL Normal 8.5-10.1 [facility] Comment on above: Performed By: #### H STROPN, BNP, CMP ####[facility] [address] [place], [place] [address]Dr. Sonia Sommers Chloride [Moles/Vol] 93 mmol/L Critically low 98-107 [facility] Comment on above: Performed By: #### H STROPN, BNP, CMP ####[facility] [address] [place], [place] [address]Dr. Sonia Sommers CO2 [Moles/Vol] 24.0 mmol/L Normal 21.0-32.0 [facility] Comment on above: Performed By: #### H STROPN, BNP, CMP ####[facility] [address] [place], [place] [address]Dr. Sonia Sommers Creatinine [Mass/Vol] 2.23 mg/dL Critically high 0.70-1.30 [facility] Comment on above: Performed By: #### H STROPN, BNP, CMP ####[facility] [address] [place], [place] [address]Dr. Sonia Sommers EGFR[place]IZ[place] 40 mL/min/1.73m2 Critically low >=60 [facility] Comment on above: Performed By: #### H STROPN, BNP, CMP ####[facility] [address] [address]Dr. Sonia Sommers EGFR-NON AF CITIZEN OF [place] 33 mL/min/1.73m2 Critically low >=60 [facility] Comment on above: Performed By: #### H STROPN, BNP, CMP ####[facility] [address] [address]Dr. Sonia Sommers Globulin (S) [Mass/Vol] 5.2 g/dL Normal [facility] Comment on above: Performed By: #### H STROPN, BNP, CMP ####[facility] [address] [address]Dr. Sonia Sommers Glucose [Mass/Vol] 427 mg/dL Critically high 74-106 [facility] Comment on above: Performed By: #### H STROPN, BNP, CMP ####[facility] [address] [place], [place] [address]Dr. Sonia Sommers Potassium [Moles/Vol] 4.2 mmol/L Normal 3.5-5.1 [facility] Comment on above: Performed By: #### H STROPN, BNP, CMP ####[facility] [address] [place], [place] [address]Dr. Sonia Sommers Protein [Mass/Vol] 9.2 g/dL Critically high 6.4-8.2 [facility] Comment on above: Performed By: #### H STROPN, BNP, CMP ####[facility] [address] [place], [place] [address]Dr. Sonia Sommers Sodium [Moles/Vol] 132 mmol/L Critically low 136-145 [facility] Comment on above: Performed By: #### H STROPN, BNP, CMP ####[facility] [address] [place], [place] [address]Dr. Sonia Sommers Urea nitrogen [Mass/Vol] 59.0 mg/dL Critically high 7.0-18.0 [facility] Comment on above: Performed By: #### H STROPN, BNP, CMP ####[facility] [address] [address]Dr. Sonia Sommers Urea nitrogen/Creatini ne [Mass ratio] 26.5 mg/mg Normal [facility] Comment on above: Performed By: #### H STROPN, BNP, CMP ####[facility] [address] [address]Dr. Sonia Sommers PROTIMEon 09-06-2022 INR Coag (PPP) [Relative time] 1.03 {INR} Normal [facility] Comment on above: Performed By: #### P T, PTT #### [facility] [address] [address] [address] Sonia Sommers INR GUIDELINES SEE BELOW Normal [facility] Comment on above: Result Comment: ROSALVA RED INR: 2.0 - 3.0 CONDITIONS NOT LISTED BELOW 2.5 - 3.5 FOR PROSTHETIC HEART VALVE REPLACEMENT 2.5 - 3.5 RECURRENT THROMBOSIS Performed By: #### P T, PTT #### [facility] [address] [place] [address] Dr. Sonia Sommers PT Coag (PPP) [Time] 10.9 s Normal 9.0-11.6 [facility] Comment on above: Performed By: #### P T, PTT #### [facility] Laboratory [address] [place] [address] Dr. Sonia Sommers PTTon 09-06-2022 aPTT Coag (Bld) [Time] 27.3 s Normal 22.3-36.2 [facility] Comment on above: Performed By: #### P T, PTT #### [facility] Laboratory [address] [place] [address] Dr. Sonia Sommers TROPONIN, HIGH SENSITIVITYon 09-06-2022 HSTROP 49.4 pg/mL Normal 4.0-76.1 [facility] Comment on above: Result Comment: CUT- OFF POINTS HAVE BEEN ESTABLISHED BASED ON THE FOURTH UNIVERSAL DEFINITIONS OF MYOCARDIAL INFARCTION. THE UPPER REFERENCE LIMIT (URL) OF TROPONIN, DEFINED THE 99TH PERCENTILE OF cTnI DISTRIBUTION IN A REFERENCE POPULATION, HAS BEEN CONFIRMED THE DECISION THRESHOLD FOR [place] DIAGNOSIS. Performed By: #### H STROPN #### [facility] [address] [place], [place] [address] Dr. Sonia Sommers HSTROP 33.6 pg/mL Normal 4.0-76.1 [facility] Comment on above: Result Comment: CUT- OFF POINTS HAVE BEEN ESTABLISHED BASED ON THE FOURTH UNIVERSAL DEFINITIONS OF MYOCARDIAL INFARCTION. THE UPPER REFERENCE LIMIT (URL) OF TROPONIN, DEFINED THE 99TH PERCENTILE OF cTnI DISTRIBUTION IN A REFERENCE POPULATION, HAS BEEN CONFIRMED THE DECISION THRESHOLD FOR [place] DIAGNOSIS. Performed By: #### H STROPN, BNP, CMP ####[facility] [address] [place], [place] [address]DuDr. Sonia Sommers Office Visiton 04-24-2022 Follow-up visit Diagnoses/Problems Male erectile disorder (607.84) (N52.9) Low testosterone (790.99) (R79.89) Orders Low testosterone Testosterone, Level; Status:Active - Retrospective By Protocol Authorization; Requested for:24Apr2022; Male erectile disorder Start: Sildenafil Citrate 100 MG Oral Tablet; TAKE 1 TABLET DAILY 1 HOUR BEFORE NEEDED Patient Discussion/Summary 41 year old male with ED, DM, HTN, and HLD, presenting for follow up. The patient underwent a circumcision and frenuloplasty on 09/21/2020, performed by Dr. Serafin Sainz. States he is unable to obtain erections and isn't ejaculating. 1) ED -Previously discussed importance of exercise and well-controlled DM -Will start as needed sildenafil 100mg -Recheck T levels Patient was seen today with the complaint of erectile dysfunction (ED). I went over the definition of ED, which is the inability to obtain or maintain an erection sufficient for satisfactory sexual activity. I outlined that erectile function is a complex interplay of neural, vascular, hormonal and psychological factors. Disruption in any of these pathways may lead to ED. We discussed the role of Penile Doppler. It involves an injection of a vasodilator (Trimix) to induce an erection, then using an ultrasound probe we assess the blood flow to the penis, how well the penis traps the blood (venous leak), as well as the presence of plaques, calcifications, or curvature of the penis. He is to consider this option. In terms of treatment options; PDE5i (Viagra, Cialis, etc.), intracavernosal injections (ICI), vacuum erection devices (RADHA) and penile implants were discussed in detail. PDE-5 inhibitor The patient has been diagnosed with erectile dysfunction and cardiac assessment according to the [place] criteria allows use of oral PDE-5 inhibitor. The patient understands that these medications are not initiators of erection and that he will still require sexual stimulation. If prescribed vardenafil or sildenafil, he was advised to take the medication 30-60 minutes prior to sexual activity and that the efficacy of the medication is decreased following a high-fat meal. The patient verbalized understanding that nitrates such as nitroglycerine, isosorbide mononitrate, isosorbide dinitrate and any other nitrate preparations are absolutely contraindicated with the use of a PDE-5 inhibitor. The patient was advised to alert any medical personal of PDE-5 inhibitor use should he seek urgent medical attention for any reason. I explained the common adverse effects of therapy including, but not limited to headache, flushing, dizziness, rash, upset stomach, diarrhea, nasal congestion, abnormal vision, back pain, and myalgia. Less common side effects are lightheadedness or blood pressure drop upon standing. We discussed that patients have after using medications in this class, and sometimes the exact cause of was not able to be determined. There is a very small risk of non-arteritic ischemic optic neuropathy, a rare cause of blindness that may be permanent while using medications in this class. Patient is instructed to immediately stop this medication and seek medical attention if he develops visual disturbances in one or both eyes. We discussed that if he experiences erection lasting longer than four hours, he needs to seek immediate treatment at the emergency department as the longer he waits, the more damage that is done to the penile tissue. The patient states that he is not withholding any information about his condition or the use of medications in order to receive a PDE-5 inhibitor class medication. No barriers to learning were identified. After all of the patient?s questions were satisfactorily answered, he expressed understanding of the risks of therapy and wishes to proceed. Chief Complaint FUV History of Present [age]bw41 year old male with ED, DM, HTN, and HLD, presenting for follow up. In recap: The patient underwent a circumcision and frenuloplasty on 09/21/2020, performed by Dr. Serafin Sainz. Total testosterone 267 ng/dL as of 10/17/2020; previously 283 ng/dL as of 09/12/2020. States he is unable to obtain erections and isn't ejaculating. 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 Normal [employer] FRUCTOSAMINEon 03-09-2021 FRUCTOSAMINE 325 umol/L High 0-285 [facility] Comment on above: Result Comment: Publ ished reference interval for apparently healthy subjects between age 20 and 60 is 205 - 285 umol/L and in a poorly controlled diabetic population is 228 - 563 umol/L with a mean of 396 umol/L. Performed By: #### F RUCT #### [facility] [address] [place], [place] [id number] COMPREHENSIVE PANELon 2020 Albumin [Mass/Vol] 4.1 g/dL Normal 3.4 - 5.0 [facility] Comment on above: Performed By: #### C MP #### [facility] [place] [address] ALP [Catalytic activity/Vol] 89 U/L Normal 33 - 120 [facility] Comment on above: Performed By: #### C MP #### [address] [address] ALT [Catalytic activity/Vol] 20 U/L Normal 10 - 52 [facility] Comment on above: Result Comment: Hannah ents treated with Sulfasalazine may generate falsely decreased results for ALT. Performed By: #### C MP #### [address] [address] Anion gap [Moles/Vol] 14 mmol/L Normal 10 - 20 [facility] Comment on above: Performed By: #### C MP #### [address] [address] AST [Catalytic activity/Vol] 17 U/L Normal 9 - 39 [facility] Comment on above: Performed By: #### C MP #### [address] [address] Bilirubin [Mass/Vol] 0.6 mg/dL Normal 0.0 - 1.2 [facility] Comment on above: Performed By: #### C MP #### [address] [address] Calcium [Mass/Vol] 9.3 mg/dL Normal 8.6 - 10.3 [facility] Comment on above: Performed By: #### C MP #### [address] [address] Chloride [Moles/Vol] 100 mmol/L Normal 98 - 107 [facility] Comment on above: Performed By: #### C MP #### [address] [address] Creatinine [Mass/Vol] 0.87 mg/dL Normal 0.50 - 1.30 [facility] Comment on above: Performed By: #### C MP #### [address] [address] GFR- AM. >60 Normal >60 [facility] Comment on above: Result Comment: CALC ULATIONS OF ESTIMATED GFR ARE PERFORMED USING THE MDRD STUDY EQUATION FOR THE IDMS-TRACEABLE CREATININE METHODS. CLIN CHEM 2007;53:766-72 Performed By: #### C MP #### [address] [address] GFR-NON AM. >60 Normal >60 [facility] Comment on above: Performed By: #### C MP #### [facility] [address] [facility] [place] [address] Glucose [Mass/Vol] 164 mg/dL High 74 - 99 [facility] Comment on above: Performed By: #### C MP #### [facility] [address] [facility] [place] [address] HCO3 (Bld) [Moles/Vol] 27 mmol/L Normal 21 - 32 [facility] Comment on above: Performed By: #### C MP #### [address] [place] [address] Potassium [Moles/Vol] 4.3 mmol/L Normal 3.5 - 5.3 [facility] Comment on above: Performed By: #### C MP #### [address] [place] [address] Protein [Mass/Vol] 7.3 g/dL Normal 6.4 - 8.2 [facility] Comment on above: Performed By: #### C MP #### [address] [place] [address] Sodium [Moles/Vol] 137 mmol/L Normal 136 - 145 [facility] Comment on above: Performed By: #### C MP #### [address] [place] [address] Urea nitrogen [Mass/Vol] 19 mg/dL Normal 6 - 23 [facility] Comment on above: Performed By: #### C MP #### [address] [place] [address] HEMOGLOBIN A1Con 03-07-2021 Glucose [Mass/Vol] 280 mg/dL Normal [facility] Comment on above: Performed By: #### H BA1E #### [address] [place] [address] HbA1c (Bld) [Mass fraction] 11.4 % Abnormal [facility] Comment on above: Result Comment: Diag nosis of Diabetes-Adults Non-Diabetic: < or = 5.6% Increased risk for developing diabetes: 5.7-6.4% Diagnostic of diabetes: > or = 6.5% . Monitoring of Diabetes Age (y) Therapeutic Goal (%) Adults: >18 <7.0 Pediatrics: 13-18 <7.5 7-12 <8.0 0- 6 7.5-8.5 [place] [employer]. Diabetes Care 33(S1), May 2009. Performed By: #### H BA1E #### [facility] [address] [place] [address] VITAMIN D, 25-HYDROXYon 02-23 VITAMIN D, 25-HYDROXY 40 ng/mL Normal [facility] Comment on above: Result Comment: . DEFICIENCY: < 20 NG/ML INSUFFICIENCY: 20-29 NG/ML SUFFICIENCY: 30-100 NG/ML THIS ASSAY ACCURATELY QUANTIFIES THE SUM OF VITAMIN D3, 25-HYDROXY AND VIT D2,25-HYDROXY. Performed By: #### V TDOH #### [facility] [address] [place] [address] ESTRADIOLon 10-19-2020 ESTRADIOL 35 pg/mL Normal [facility] Comment on above: Result Comment: Test was ordered on a male or a child <18 years old. Suggest ordering Tandem Mass Spectrometry for Estradiol, Males or Children, Test Code 9145950. INTERPRETIVE INFORMATION: Estradiol, Adult Premenopausal Female Follicular phase .........27-122 pg/mL Mid Cycle phase ..........95-433 pg/mL Luteal Phase .............49-291 pg/mL Post-Menopausal ....Less than 41 pg/mL Performed By: [employer] [address] [place] [address] Airframe And Powerplant Mechanic: Julianne Whalen MD Performed By: #### 1 [id number] #### [facility] [address] [place] [address] Travel Agent: Edy Gramajo MD CBCNDon 10-17-2020 Erythrocyte distribution width (RBC) [Ratio] 13.7 % Normal 11.5-14.5 [facility] Comment on above: Performed By: #### 1 60631, 235588, 937205, 900397, [id number] #### [facility] [address] [place] [address] Travel Agent: Edy Gramajo MD Hematocrit (Bld) [Volume fraction] 45.1 % Normal 41.0-52.0 [facility] Comment on above: Performed By: #### 1 73694, 862289, 087349, 122202, [id number] #### [facility] [address] [place] [address] Travel Agent: Edy Gramajo MD Hemoglobin (Bld) [Mass/Vol] 15.1 g/dL Normal 13.5-17.5 [facility] Comment on above: Performed By: #### 1 43329, 860743, 000994, 696480, [id number] #### [facility] [address] [place], [place] [id number] Travel Agent: Edy Gramajo MD Instr WBC ND 7.4 Normal [facility] Comment on above: Performed By: #### 1 25006, 219024, 061682, 649406, [id number] #### [facility] [address] [place] [address] Travel Agent: Edy Gramajo MD MCH (RBC) [Entitic mass] 29.1 pg Normal 27.0-34.0 [facility] Comment on above: Performed By: #### 1 91048, 030304, 434766, 570905, [id number] #### [facility] [address] [place] [address] Travel Agent: Edy Gramajo MD MCHC (RBC) [Mass/Vol] 33.4 g/dL Normal 32.0-37.0 [facility] Comment on above: Performed By: #### 1 70143, 102626, 258298, 793428, [id number] #### [facility] [address] [place] [address] Travel Agent: Edy Gramajo MD MCV (RBC) [Entitic vol] 87.3 fL Normal 80.0-100.0 [facility] Comment on above: Performed By: #### 1 21082, 100188, 579253, 161140, [id number] #### [facility] [address] [place] [address] Travel Agent: Edy Gramajo MD Platelet 224 x1000 Normal 150-450 [facility] Comment on above: Performed By: #### 1 62967, 926958, 836460, 714135, [id number] #### [facility] [address] [place] [address] Travel Agent: Edy Gramajo MD Platelet mean volume (Bld) [Entitic vol] 8.8 fL Normal 7.4-10.4 [facility] Comment on above: Performed By: #### 1 80902, 952575, 388736, 341142, 1000769 #### [facility] [address] [place] [address] Travel Agent: Edy Gramajo MD RBC 5.17 x10 Normal 4.70-6.10 [facility] Comment on above: Result Comment: Note : RBC morphology is normal unless otherwise stated. Evaluation performed only if differential is requested. Performed By: #### 1 81614, 594391, 443709, 873826, [id number] #### [facility] [address] [place] [address] Travel Agent: Edy Gramajo MD WBC 7.4 x10 Normal 4.5-11.0 [facility] Comment on above: Performed By: #### 1 93927, 627636, 186100, 690264, [id number] #### [facility] [address] [place] [address] Travel Agent: Edy Gramajo MD FSHon 10-17-2020 FSH 3.8 IU/L Normal [facility] Comment on above: Result Comment: REFE RENCE INTERVAL: FOLLICLE STIMULATING HORMONE Prepubertal 0 - 2.0 IU/L Male (Adult) 1.0 - 8.0 IU/L Female: Follicular 1.0 - 10.0 IU/L Mid-cycle 3.0 - 25.0 IU/L Luteal 1.0 - 8.0 IU/L Postmenopausal 30.0 - 110.0 IU/L Performed By: #### 1 27370, 111691, 989069, 806290, [id number] #### [facility] [address] [place] [address] Travel Agent: Edy Gramajo MD LHon 10-17-2020 Luteinizing Hormone 4.1 IU/L Normal [facility] Comment on above: Result Comment: Refe rence Interval: Luteinizing Hormone Prepubertal 0 - 1.0 IU/L Male (Adult) 1.0 - 6.7 IU/L Female: Follicular 1.0 - 23.0 IU/L Mid-Cycle 25.0 - 60.0 IU/L Luteal 1.0 - 27.0 IU/L Postmenopausal 30.0 - 100.0 IU/L Performed By: #### 1 07087, 572562, 554137, 919127, [id number] #### [facility] [address] [place] [address] Travel Agent: Edy Gramajo MD PSAon 10-17-2020 Prostatic Specific Antigen 0.7 ng/mL Normal 0.0-4.0 [facility] Comment on above: Performed By: #### 1 29970, 479972, 947272, 584620, 2450154 #### [facility] [address] [place] [address] Travel Agent: Edy Gramajo MD TESTOS TOTon 10-17-2020 TESTOS TOT 267 ng/dL Normal 123-814 [facility] Comment on above: Result Comment: Refe rence ranges for females greater than or equal to 21 yrs old: Premenopausal females-Age 21-60 yrs 9 - 48 ng/dl Postmenopausal females-Age 45-89 yrs 0 - 46 ng/dl Samples with biotin concentrations greater than 30 ng/ml will cause erroneus results. Performed By: #### 1 66907, 200653, 170007, 688888, [id number] #### [facility] [address] [place], [place] [id number] Travel Agent: Edy Gramajo MD Tobacco Screening.on 021 Fall risk assessment a) No falls within the last year -[facility] Work Phone: Tobacco Screening. b) No [facility] Work Phone: Laboratory - Chemistry and C hemistry - challengeon 09-21-2020 Glucose [Mass/Vol] 280 mg/dL above high threshold 74 - 99 -[facility] Work Phone: Glucose [Mass/Vol] 282 mg/dL above high threshold 74 - 99 -[facility] Work Phone: No Panel Informationon 09-21 [facility] Work Phone: Coronavirus 2019 RNA by PCR, Screening Asymptomticon 09-19-2020 Coronavirus 2019 RNA by PCR, Screening Asymptomtic Not detected Normal See Below -[facility] Work Phone: Comment on above: SOURCE: Nasal, Nasop haryngealReference Range: Not Detected.This assay is designed to detect the N, ORF1ab and/or S genes of SARS-CoV-2 via nucleic acid amplification. A Negative (NOT DETECTED) result does not preclude 2019-nCoV infection since the adequacy of sample collection and/or low viral burden may result in presence of viral nucleic acids below the clinical sensitivity of this test method. Negative (NOT DETECTED) result should not be used as the sole basis for treatment or other patient management decisions. Rather negative results should be combined with clinical observations, patient history, and epidemiological information to make patient management decisions.Fact sheet for providers: https://www.fda.gov/media/755757/downloadFact sheet for patients: https://www.fda.gov/media/552323/downloadThis test has received FDA Emergency Use Authorization (EUA) and has been verified by [facility] ([facility]). This test is only authorized for the duration of time that circumstances exist to justify the authorization of the emergency use of in vitro diagnostic tests for the detection of SARS-CoV-2 virus and/or diagnosis of COVID-19 infection under section 564(b)(1) of the Act, 21 U.S.C. 360bbb-3(b)(1), unless the authorization is terminated or revoked sooner. [facility] is certified under CLIA-88 as qualified to perform high complexity testing. Testing is performed in the [facility] laboratories located at [address] [place] [address]. [facility] Office-Progress Notes-Pr ovideron 08-29-2020 [facility] Office-Progress Notes-Provider Patient: DANIEL DOWLING Age: 40 years Sex: Male : 1980 Associated Diagnoses: None Author: ELIJAH SHANKAR-MR, SHRUTHI No-show Normal [facility] TESTOS TOTon 08-23-2020 TESTOS TOT 298 ng/dL Normal 123-814 [facility] Comment on above: Result Comment: Refe rence ranges for females greater than or equal to 21 yrs old: Premenopausal females-Age 21-60 yrs 9 - 48 ng/dl Postmenopausal females-Age 45-89 yrs 0 - 46 ng/dl Samples with biotin concentrations greater than 30 ng/ml will cause erroneus results. Performed By: #### 4 [id number] #### [facility] [address] [place] [address] Travel Agent: Edy Gramajo MD Complete Blood Count + Diffe echotialmoriah 08-04-2020 Basophils (Bld) [#/Vol] 0.05 {x10E9/L} See Below [facility] Work Phone: Comment on above: Reference Range: 0.0 0 - 0.10 Basophils/100 WBC (Bld) 0.7 % 0.0 - 2.0 [facility] Work Phone: Eosinophils (Bld) [#/Vol] 0.39 {x10E9/L} See Below [facility] Work Phone: Comment on above: Reference Range: 0.0 0 - 0.70 Eosinophils/100 WBC (Bld) 5.1 % 0.0 - 6.0 [facility] Work Phone: Erythrocyte distribution width (RBC) [Ratio] 12.7 % See Below [facility] Work Phone: Comment on above: Reference Range: 11. 5 - 14.5 Hematocrit (Bld) [Volume fraction] 42.6 % See Below [facility] Work Phone: Comment on above: Reference Range: 41. 0 - 52.0 Hemoglobin (Bld) [Mass/Vol] 14.1 g/dL See Below [facility] Work Phone: Comment on above: Reference Range: 13. 5 - 17.5 Lymphocytes (Bld) [#/Vol] 2.16 {x10E9/L} See Below [facility] Work Phone: Comment on above: Reference Range: 1.2 0 - 4.80 Lymphocytes/100 WBC (Bld) 28.1 % See Below [facility] Work Phone: Comment on above: Reference Range: 13. 0 - 44.0 MCHC (RBC) [Mass/Vol] 33.1 g/dL See Below [facility] Work Phone: Comment on above: Reference Range: 32. 0 - 36.0 MCV (RBC) [Entitic vol] 89 fL 80 - 100 [facility] Work Phone: Monocytes (Bld) [#/Vol] 0.95 {x10E9/L} See Below [facility] Work Phone: Comment on above: Reference Range: 0.1 0 - 1.00 Monocytes/100 WBC (Bld) 12.4 % 2.0 - 10.0 [facility] Work Phone: Neutrophils (Bld) [#/Vol] 4.11 {x10E9/L} See Below [facility] Work Phone: Comment on above: Reference Range: 1.2 0 - 7.70 Neutrophils/100 WBC (Bld) 53.4 % See Below [facility] Work Phone: Comment on above: Reference Range: 40. 0 - 80.0 Platelets (Bld) [#/Vol] 235 {x10E9/L} 150 - 450 [facility] Work Phone: RBC (Bld) [#/Vol] 4.78 {x10E12/L} See Below [facility] Work Phone: Comment on above: Reference Range: 4.5 0 - 5.90 WBC (Bld) [#/Vol] 7.7 {x10E9/L} 4.4 - 11.3 [facility] Work Phone: WBC (Bld) [#/Vol] 0.0 {/100_WBC} 0.0-0.0 [facility] Work Phone: Complete Blood Count + Differential 0.3 % 0.0 - 0.9 [facility] Work Phone: Comment on above: Immature Granulocyte Count (IG) includes promyelocytes, myelocytes and metamyelocytes but does not include bands. Percent differential counts (%) should be interpreted in the context of the absolute cell counts (cells/L). Hemoglobin A1Con 08-04-2020 HbA1c (Bld) [Mass fraction] 332 {MG/DL} [facility] Work Phone: HbA1c (Bld) [Mass fraction] 13.2 % [facility] Work Phone: Comment on above: Diagnosis of Diabete s-Adults Non-Diabetic: < or = 5.6% Increased risk for developing diabetes: 5.7-6.4% Diagnostic of diabetes: > or = 6.5%. Monitoring of Diabetes Age (y) Therapeutic Goal (%) Adults: >18 <7.0 Pediatrics: 13-18 <7.5 7-12 <8.0 0- 6 7.5-8.5 [place] [employer]. Diabetes Care 33(S1), May 2009. Lipid Panelon 08-04-2020 Cholesterol [Mass/Vol] 261 mg/dL above high threshold 0 - 199 [facility] Work Phone: Comment on above: . AGE DESIRABLE BORD THEODORE HIGH HIGH 0-19 Y 0 - 169 170 - 199 >/= 200 20-24 Y 0 - 189 190 - 224 >/= 225 >24 Y 0 - 199 200 - 239 >/= 240 All ranges are based on fasting samples. Specific therapeutic targets will vary based on patient-specific cardiac risk.. Pediatric guidelines reference:Pediatrics 2011, 128(S5). Adult guidelines reference: NCEP ATPIII Guidelines, FLAKO 2001, 258:2486-97. Venipuncture immediately after or during the administration of Metamizole may lead to falsely low results. Testing should be performed immediately prior to Metamizole dosing. Cholesterol in HDL [Mass/Vol] 31.2 mg/dL Abnormal [facility] Work Phone: Comment on above: . AGE VERY LOW LOW N ORMAL HIGH 0-19 Y < 35 < 40 40-45 ---- 20- 24 Y ---- < 40 >45 ---- >24 Y ---- < 40 40-60 >60. Cholesterol in LDL [Mass/Vol] 154 mg/dL above high threshold 0 - 99 [facility] Work Phone: Comment on above: . NEAR BORD AGE ROSALVA RABLE OPTIMAL HIGH HIGH VERY HIGH 0-19 Y 0 - 109 --- 110-129 >/= 130 ---- 20-24 Y 0 - 119 --- 120-159 >/= 160 ---- >24 Y 0 - 99 100-129 130-159 160-189 >/=190. Cholesterol non HDL [Mass/Vol] 230 mg/dL [facility] Work Phone: Comment on above: AGE DESIRABLE BORDER LINE HIGH HIGH VERY HIGH 0-19 Y 0 - 119 120 - 144 >/= 145 >/= 160 20-24 Y 0 - 149 150 - 189 >/= 190 ---- >24 Y 30 MG/DL ABOVE LDL CHOLESTEROL GOAL. Cholesterol.total /Cholesterol in HDL [Mass ratio] 8.4 {ratio} Abnormal [facility] Work Phone: Comment on above: REF VALUESDESIRABLE < 3.4HIGH RISK > 5.0 Triglyceride [Mass/Vol] 378 mg/dL above high threshold 0 - 149 [facility] Work Phone: Comment on above: . AGE DESIRABLE BORD THEODORE HIGH HIGH VERY HIGH 0 D-90 D 19 - 174 ---- ---- ----91 D- 9 Y 0 - 74 75 - 99 >/= 100 ---- 10-19 Y 0 - 89 90 - 129 >/= 130 ---- 20-24 Y 0 - 114 115 - 149 >/= 150 ---- >24 Y 0 - 149 150 - 199 200- 499 >/= 500. Venipuncture immediately after or during the administration of Metamizole may lead to falsely low results. Testing should be performed immediately prior to Metamizole dosing. Lipid Panel 76 mg/dL above high threshold 0 - 40 [facility] Work Phone: Metabolic Panelon 08-04-2020 ALP [Catalytic activity/Vol] 87 U/L 33 - 120 [facility] Work Phone: Anion gap [Moles/Vol] 16 mmol/L 10 - 20 [facility] Work Phone: Bilirubin [Mass/Vol] 0.5 mg/dL 0.0 - 1.2 [facility] Work Phone: Calcium [Mass/Vol] 9.7 mg/dL 8.6 - 10.6 [facility] Work Phone: Chloride [Moles/Vol] 100 mmol/L 98 - 107 [facility] Work Phone: CO2 [Moles/Vol] 27 mmol/L 21 - 32 [facility] Work Phone: Creatinine [Mass/Vol] 0.90 mg/dL See Below [facility] Work Phone: Comment on above: Reference Range: 0.5 0 - 1.30 Glucose [Mass/Vol] 302 mg/dL above high threshold 74 - 99 [facility] Work Phone: Potassium [Moles/Vol] 4.9 mmol/L 3.5 - 5.3 [facility] Work Phone: Protein [Mass/Vol] 7.3 g/dL 6.4 - 8.2 [facility] Work Phone: Sodium [Moles/Vol] 138 mmol/L 136 - 145 [facility] Work Phone: Urea nitrogen [Mass/Vol] 29 mg/dL above high threshold 6 - 23 [facility] Work Phone: Otheron 08-04-2020 Albumin BCP dye [Mass/Vol] 4.2 g/dL 3.4 - 5.0 [facility] Work Phone: ALT With P-5'-P [Catalytic activity/Vol] 30 U/L 10 - 52 [facility] Work Phone: Comment on above: Patients treated wit h Sulfasalazine may generate falsely decreased results for ALT. AST With P-5'-P [Catalytic activity/Vol] 20 U/L 9 - 39 [facility] Work Phone: >60 >60 [facility] Work Phone: Comment on above: CALCULATIONS OF JESUS MATED GFR ARE PERFORMED USING THE MDRD STUDY EQUATION FOR THE IDMS-TRACEABLE CREATININE METHODS. CLIN CHEM 2007;53:766-72 TSH - Thyroid Stimulating Ho rmTheresa mcnair 08-04-2020 TSH Qn 2.25 {mIU/L} See Below -[facility] Work Phone: Comment on above: Reference Range: 0.4 4 - 3.98 TSH testing is performed using different testing methodology at [facility] than [facility]. Direct result comparisons should only be made within the same method. Vital Signs Date Time Vital Sign Value Performing Clinician Facility 08-09-2024 09:34-0400 Body weight 137.89 kg Dena Parada DO [facility] 08-09-2024 09:34-0400 Diastolic blood pressure 92 mm[Hg] Dena [facility] 08-09-2024 09:34-0400 Heart rate 103 /min Dena [facility] DO [facility] 08-09-2024 09:34-0400 Systolic blood pressure 187 mm[Hg] Dena [facility]ada DO [facility] 05-07-2023 11:45-0500 Body height 182.88 cm Sherry Beal Other [employer] Other 05-07-2023 11:45-0500 Body mass index (BMI) [Ratio] 38.24 kg/m2 Sherry Angulomond Other [employer] Other 05-07-2023 11:45-0500 Body temperature 97.9 [degF] Sherry Beal Other [employer] Other 05-07-2023 11:45-0500 Body weight 127.92 kg Sherry Angulomond Other [employer] Other 05-07-2023 11:45-0500 Diastolic blood pressure 96 mm[Hg] Sherry Lian Other [employer] Other 05-07-2023 11:45-0500 Respiratory rate 18 /min Sherry Beal Other [employer] Other 05-07-2023 11:45-0500 SaO2% (BldA) [Mass fraction] 97 % Sherry Beal Other [employer] Other 05-07-2023 11:45-0500 Systolic blood pressure 169 mm[Hg] Sherry Beal Other [employer] Other 10-11-2020 10:11-0400 Body height 182.88 cm Wilfrido Lillie Salehus Work Phone: [facility] Work Phone: 10-11-2020 10:11-0400 Body mass index (BMI) [Ratio] 35.7 kg/m2 Wilfrido Moreira Delfinous Work Phone: [facility] Work Phone: 10-11-2020 10:11-0400 Body surface area Derived from formula 2.39 m2 Wilfrido Moreira Delfinous Work Phone: [facility] Work Phone: 10-11-2020 10:11-0400 Body temperature 96.3 [degF] Wilfrido Moreira Delfinous Work Phone: [facility] Work Phone: 10-11-2020 10:11-0400 Body weight 119.41 kg Wilfrido Moreira Delfinous Work Phone: [facility] Work Phone: 10-11-2020 10:11-0400 Diastolic blood pressure 108 mm[Hg] Wilfrido Moreira Delfinous Work Phone: [facility] Work Phone: 10-11-2020 10:11-0400 Heart rate 111 /min Wilfrido Lillie Salehus Work Phone: [facility] Work Phone: 10-11-2020 10:11-0400 Systolic blood pressure 165 mm[Hg] Wilfrido Lillie Salehus Work Phone: [facility] Work Phone: 08-04-2020 11:56-0500 BMI (Body Mass Index) 36.48 kg/m2 Wilfrido Song -[facility] Work Phone: 08-04-2020 11:56-0500 Body weight 122.02 kg Wilfrido Song -[facility] Work Phone: 08-04-2020 11:56-0500 BP Diastolic 98 mm[Hg] Wilfrido Song -[facility] Work Phone: 08-04-2020 11:56-0500 BP Systolic 140 mm[Hg] Wilfrido Saleh -[facility] Work Phone: 08-04-2020 11:56-0500 BSA (Body Surface Area) 2.42 m2 Wilfrido Song -[facility] Work Phone: 08-04-2020 11:56-0500 Height 182.88 cm Wilfrido Song -[facility] Work Phone: 08-04-2020 11:56-0500 Pulse (Heart Rate) 107 /min Wilfrido Song -[facility] Work Phone: 08-04-2020 11:56-0500 Pulse Oximetry 98 % Wilfrido Song -[facility] Work Phone: Encounters Encounter Date Encounter Type Care Provider Facility Start: 09-24-2024 End: 09-24-2024 Telephone encounter [facility] Start: 08-09-2024 End: 08-09-2024 ambulatory DENA PARADA [facility] Start: 08-09-2024 End: 08-09-2024 Office outpatient new 30 minutes Dena Parada DO Work Phone: [facility] Comment on above: Leg edema, left (Margie libby Dx) Start: 08-06-2024 End: 08-06-2024 ambulatory [facility] Comment on above: Moderate nonprolifer ative diabetic retinopathy of right eye with macular edema associated with type 2 diabetes mellitus (CMS-HCC) Start: 08-06-2024 End: 08-06-2024 Patient encounter procedure Saúl Quintana MD Work Phone: [facility] Comment on above: Moderate nonprolifer ative diabetic retinopathy of right eye with macular edema associated with type 2 diabetes mellitus (CMS-HCC) (Primary Dx); Moderate nonproliferative diabetic retinopathy of left eye with macular edema associated with type 2 diabetes mellitus (CMS-HCC); High myopia, both eyes Start: 08-06-2024 ambulatory NO PCP NO PCP [facility] Start: 07-06-2024 End: 07-06-2024 ambulatory [facility] Rox[facility] Start: 07-06-2024 End: 07-06-2024 Patient encounter procedure Saúl Quintana MD Work Phone: [facility] Comment on above: Moderate nonprolifer ative diabetic retinopathy of right eye with macular edema associated with type 2 diabetes mellitus (CMS-HCC) (Primary Dx); Moderate nonproliferative diabetic retinopathy of left eye with macular edema associated with type 2 diabetes mellitus (CMS-HCC); High myopia, both eyes Start: 06-22-2024 End: 06-22-2024 ambulatory [facility] Comment on above: Moderate nonprolifer ative diabetic retinopathy of right eye with macular edema associated with type 2 diabetes mellitus (CMS-HCC); Moderate nonproliferative diabetic retinopathy of left eye with macular edema associated with type 2 diabetes mellitus (CMS-HCC) Start: 06-22-2024 End: 06-22-2024 Office outpatient visit 15 minutes Saúl Quintana MD Work Phone: [facility] Comment on above: Moderate nonprolifer ative diabetic retinopathy of right eye with macular edema associated with type 2 diabetes mellitus (CMS-HCC) (Primary Dx); Moderate nonproliferative diabetic retinopathy of left eye with macular edema associated with type 2 diabetes mellitus (CMS-HCC); High myopia, both eyes Start: 03-17-2024 End: 03-17-2024 ambulatory SAÚL QUINTANA [facility] Start: 03-17-2024 End: 03-17-2024 Patient encounter procedure Saúl Quintana MD Work Phone: [facility] Comment on above: Moderate nonprolifer ative diabetic retinopathy of left eye with macular edema associated with type 2 diabetes mellitus (CMS-HCC) (Primary Dx); Moderate nonproliferative diabetic retinopathy of right eye with macular edema associated with type 2 diabetes mellitus (CMS-HCC); High myopia, both eyes Start: 03-10-2024 End: 03-10-2024 ambulatory Ppww Ophth Imaging [facility] Comment on above: Moderate nonprolifer ative diabetic retinopathy of left eye with macular edema associated with type 2 diabetes mellitus (CMS-HCC); Moderate nonproliferative diabetic retinopathy of right eye with macular edema associated with type 2 diabetes mellitus (CMS-HCC) Start: 03-10-2024 End: 03-10-2024 Office outpatient visit 15 minutes Saúl Quintana MD Work Phone: [facility] Comment on above: Moderate nonprolifer ative diabetic retinopathy of left eye with macular edema associated with type 2 diabetes mellitus (CMS-HCC) (Primary Dx); Moderate nonproliferative diabetic retinopathy of right eye with macular edema associated with type 2 diabetes mellitus (CMS-HCC); High myopia, both eyes Start: 02-25-2024 End: 02-25-2024 ambulatory Ppww Ophth Imaging [facility] Comment on above: Both eyes affected b y mild nonproliferative diabetic retinopathy with macular edema, associated with type 2 diabetes mellitus (CMS-HCC); High myopia, both eyes Start: 02-25-2024 End: 02-25-2024 Office outpatient new 45 minutes Saúl Quintana MD Work Phone: [facility] Comment on above: Moderate nonprolifer ative diabetic retinopathy of right eye with macular edema associated with type 2 diabetes mellitus (CMS-HCC) (Primary Dx); Moderate nonproliferative diabetic retinopathy of left eye with macular edema associated with type 2 diabetes mellitus (CMS-HCC); High myopia, both eyes Start: 02-25-2024 End: 02-25-2024 ambulatory SAÚL QUINTANA [facility] Start: 02-16-2024 End: 02-25-2024 Telephone encounter Mary Rai [facility] Start: 05-07-2023 End: 05-07-2023 ambulatory Sherry Beal Other [employer] Other Start: 05-07-2023 Office outpatient ne w 20 minutes Sherry Beal [facility] Start: 09-06-2022 End: 09-07-2022 ambulatory NONE LISTED REQUEST Facility: Start: 07-17-[address] Wilfrido Song Facility:[id number] Start: 04-24-2022 ambulatory MD SERAFIN CHUA IN [facility] Facility:[id number] Start: 10-18-2020 Office outpatient vi sit 15 minutes Wilfrido Song Work Phone: [facility] Work Phone: Start: 08-04-2020 Patient encounter procedure Wilfrido Song [facility] Work Phone: Start: 06-28-2020 Patient encounter procedure Wilfrido Song [facility] Work Phone: Start: 06-25-2019 Patient encounter procedure Wilfrido Song [facility] Work Phone: Start: 09-02-2018 Patient encounter procedure Wilfrido Song [facility] Work Phone: Start: 08-28-2018 End: 08-29-2018 Patient encounter procedure WILFRIDO SALEH Facility:[id number] Start: 08-28-2018 Patient encounter procedure Wilfrido Song -[facility] Work Phone: Procedures Date Procedure Procedure Detail Performing Clinician Start: 08-06-2024 Intravitreal njx pharmacologic agt spx Saúl Quintana MD Work Phone: Start: 08-06-2024 Computerized ophthal maryanne imaging retina Saúl Quintana MD Work Phone: Start: 08-06-2024 Diabetic retinal eye exam Saúl Quintana MD Work Phone: Start: 07-06-2024 Intravitreal njx pharmacologic agt spx Saúl Quintana MD Work Phone: Start: 07-06-2024 Diabetic retinal eye exam Saúl Quintana MD Work Phone: Start: 06-22-2024 Computerized ophthal maryanne imaging retina Saúl Quintana MD Work Phone: Start: 06-22-2024 Diabetic retinal eye exam Saúl Quintana MD Work Phone: Start: 03-17-2024 Dstrj loclzd lesion retina 1/> sess pc Saúl Quintana MD Work Phone: Start: 03-17-2024 Diabetic retinal eye exam Saúl Quintana MD Work Phone: Start: 03-10-2024 Dstrj loclzd lesion retina 1/> sess pc Saúl Quintana MD Work Phone: Start: 03-10-2024 Fluorescein angrph w/multiframe i&r uni/bi Saúl Quintana MD Work Phone: Start: 03-10-2024 Diabetic retinal eye exam Saúl Quintana MD Work Phone: Start: 02-25-2024 End: 02-25-2024 Fundus photography w/interpretation & report Saúl Quintana MD Work Phone: Start: 02-25-2024 Diabetic retinal eye exam Mary Rai [employer] Start: 07-17-2022 Follow-up visit Operative procedure on hip B art Song Plan of Treatment Date Care Activity Detail Author Start: 08-09-2025 Tobacco Screening Tobacco Screening [facility] Start: 08-06-2025 Glaucoma screening Diabetic Op hthalmology Exam [facility] Start: 08-06-2025 Tobacco Screening Tobacco Screening [facility] Start: 07-06-2025 Glaucoma screening Diabetic Op hthalmology Exam [facility] Start: 06-22-2025 Glaucoma screening Diabetic Op hthalmology Exam [facility] Start: 06-22-2025 Tobacco Screening Tobacco Screening [facility] Start: 03-17-2025 Tobacco Screening Tobacco Screening [facility] Start: 03-10-2025 Glaucoma screening Diabetic Op hthalmology Exam [facility] Start: 03-10-2025 Tobacco Screening Tobacco Screening [facility] Start: 02-24-2025 Glaucoma screening Diabetic Op hthalmology Exam [facility] Start: 02-24-2025 Tobacco Screening Tobacco Screening [facility] Start: 01-24-2025 Influenza vaccination Influenza Vacc ine [facility] Start: 09-27-2024 End: 09-27-2024 Patient encounter procedure 09/27/2024 2:40 PM EDT Office Visit [facility] [address] [place] [phone] [place] [address] [place] [address], [address] [place] [address] [facility] Start: 09-14-2024 End: 09-14-2024 Patient encounter procedure 09/14/2024 2:30 PM EDT Appointment [facility] [address] [place] [phone] [facility] Start: 09-09-2024 End: 09-09-2024 Patient encounter procedure 09/09/2024 3:40 PM EDT Office Visit [facility] of [facility] [address] [place] [address] Saúl Quintana MD [address] [place] [address] [facility] of [facility] Start: 08-09-2024 End: 08-09-2025 US.doppler Lower extremity vein - left Vas venous duplex insufficiency lwr lt Vascular Ultrasound Routine Leg edema, left Expected: 08/09/2024, Expires: 08/09/2025 [facility] Work Phone: Comment on above: Expected: 08/09/2024 , Expires: 08/09/2025 Start: 08-09-2024 End: 08-09-2024 Patient encounter procedure 08/09/2024 9:10 AM EDT Office Visit [facility] [address] [place] [phone] Dena Parada, DO [facility], [address] [place] [address] [facility] Start: 08-05-2024 End: 08-05-2024 Patient encounter procedure 08/05/2024 3:40 PM EDT Office Visit [facility] [address] [place] [address] Saúl Quintana MD [address] [place] [address] [facility] Start: 07-06-2024 End: 07-06-2024 Patient encounter procedure 07/06/2024 3:40 PM EST Office Visit [facility] [address] [place] [address] Saúl Quintana MD [address] [place] [address] [facility] Start: 06-22-2024 End: 06-22-2024 Patient encounter procedure 06/22/2024 3:40 PM EST Office Visit [facility] [address] [place] [address] Saúl Quintana MD [address] [place] [address] [facility] Start: 03-17-2024 End: 03-17-2024 Patient encounter procedure 03/17/2024 3:40 PM EDT Office Visit [facility] [address] [place] [address] Saúl Quintana MD [address] [place] [address] [facility] Start: 03-10-2024 End: 03-10-2024 Patient encounter procedure 03/10/2024 3:40 PM EDT Office Visit [facility] [address] [place] [address] Saúl Quintana MD [address] [place] [address] [facility] Start: 01-25-2024 Influenza vaccination Influenza Vacc ine [facility] Start: 2000 DTaP,Tdap and Td Vaccines (1 - Tdap) DTaP,Tdap and Td Vaccines (1 - Tdap) [facility] Start: 1999 Adult BMI Screening Adult BMI Screen ing [facility] Start: 1999 Diabetic foot examination Diabetic Foot Exam [facility] Start: 1993 [facility] 1981 Statin Use: Diabetic Statin Use: [facility] Payers Date Payer Category Payer Managed Care Other (unspecified) [employer] [id number] 2022 Private Health Insurance [facility] [employer] [id number] 2022-Present [phone] [address] [address] [place] [address] [id number] 1981 Unknown [id number] 2.16.840.1.877293.3.579. 2.356 1981 Unknown [id number] 2.16.840.1.303380.3.579. 2.356 1981 Unknown [id number] 2.16.840.1.941939.3.579. 2.593 1981 Unknown [id number] 2.16.840.1.974169.3.579. 2.1286 1981 Unknown [id number] 2.16.840.1.456655.3.579. 2.1286 1981 Unknown [id number] 2.16.840.1.971344.3.579. 2.1286 1981 Unknown [id number] 2.16.840.1.331594.3.579. 2.1286 1981 Unknown [id number] 2.16.840.1.456130.3.579. 2.1285 1981 Unknown [id number] 2.16.840.1.869001.3.579. 2.1285 1981 Unknown [id number] 2.16.840.1.892878.3.579. 2.1285 1981 Unknown [id number] 2.16.840.1.113135.3.579. 2.1285 1981 Unknown [id number] 2.16.840.1.783099.3.579. 2.1285 1981 Unknown [id number] 2.16.840.1.312871.3.579. 2.1285 1981 Unknown [id number] 2.16.840.1.851032.3.579. 2.1285 1981 Unknown [id number] 2.16.840.1.295734.3.579. 2.1285 1981 Unknown [id number] 2.16.840.1.425378.3.579. 2.1285 1981 Unknown [id number] 2.16.840.1.484149.3.579. 2.1285 1959 Unknown [id number] Unknown [employer]ERCIAL Unknown [id number] Social History Date Type Detail Facility Start: 11-04-2018 End: 06-22-2024 Social alcohol use Social alcohol use -[facility] Work Phone: Start: 11-04-2018 End: 06-22-2024 Sex Assigned At [employer] Other Start: 02-25-2024 Tobacco smoking status [facility] Never smoked tobacco [facility] Start: 02-25-2024 Tobacco use and exposure Smokeless tobacco non-user [facility] Childcare Unknown [facility] Start: 1980 Sex assigned at Not on file [facility] Start: 12-29-2014 [facility] (finding[facility] Tobacco smoking status [facility] Tobacco smoking consumption unknown [facility] NEGATED: Highlighted row - - [facility] Work Phone: Medical Equipment Procedure Code Equipment Code Equipment Origin al Text Equipment Identifier Dates Tima Naik s Patient to test twice daily DX: 250 Quantity: 1 Refills: 2 Hanna Wilfrido MCKOY Start : 28-Aug-2018 Active 100 Unit Box Start: 08-28-2018 FreeStyle Lite T est In Vitro Strip TEST TWICE DAILY. Quantity: 1 Refills: 2 Wilfrido Song DO Start : 28-Aug-2018 Active 50 Strip Box Start: 08-28-2018 Pen [place] 3/16 31G X 5 MM MISC inject medication once daily Quantity: 1 Refills: 1 Wilfrido Song DO Start : 30-Nov-2018 Active 100 Unit Box Start: 11-30-2018 Functional Status Date Assessment Result Facility NEGATED: Highlighted row Functional performance Functional status health issues are not documented Disease [facility] Work Phone: Mental Status Date Assessment Result Facility NEGATED: Highlighted row Cognitive function [Interpretation] Cognitive status health issues are not documented Disease [facility] Work Phone: Clinical Notes 08-16-2020 to 09-24-2024 Telephone Encounter - Juan José Najera CMA - 09/24/2024 10:07 AM EDTTelephone Encounter - Juan José Najera CMA - 09/24/2024 10:07 AM EDTGkarine Parada DO - 08/09/2024 9:10 AM EDT Note Date & Type Note Facility 09-24-2024 Miscellaneous Notes Called patient and left message to notify him that he no showed to his test and he will need to get his test and his appointment with Dr. Parada rescheduled. documented in this encounter [facility] 09-24-2024 Telephone encounter Note Called patient and left message to notify him that he no showed to his test and he will need to get his test and his appointment with Dr. Parada rescheduled. [facility] 08-09-2024 History of Present illness Narrative Images from the original note were not included. Subjective Patient ID: Daniel Dowling is a 44 y.o. male. Chief Complaint Chief Complaint Patient presents with New Patient HPI Left leg edema. Slowly progressive over time. Is using some form of support stocking but unsure of degree of compression. Gets fairly decent relief of the swelling with use of compression but it will return once he takes it off. Elevation helps overnight and returns the leg almost back to normal. No history of blood clot. No history of significant injury or trauma to the left lower extremity. Venous study showed no evidence of DVT. He is having difficulty with discomfort when it is swollen and he is also having difficulty getting his work boots on due to the edema. Past Medical History Past Medical History: Diagnosis Date Diabetes mellitus ([facility]) Past Surgical History History reviewed. No pertinent surgical history. Family History Family History Problem Relation Age of Onset Hypertension Mother Diabetes Mother Hypertension Father Cataracts Neg Hx Glaucoma Neg Hx Macular degeneration Neg Hx Retinal detachment Neg Hx Social History Social History Socioeconomic History Marital status: Single Spouse name: Not on file Number of children: Not on file Years of education: Not on file Highest education level: Not on file Occupational History Not on file Tobacco Use Smoking status: Never Smokeless tobacco: Never Vaping Use Vaping status: Never Used Substance and Sexual Activity Alcohol use: Not on file Drug use: Not on file Sexual activity: Not on file Other Topics Concern Not on file Social History Narrative Not on file Social Drivers of Health Financial Resource Strain: Not on file Food Insecurity: Not on file Transportation Needs: Not on file Physical Activity: Not on file Stress: Not on file Social Connections: Not on file Interpersonal Safety: Not on file Housing Instability: Not on file Allergies Allergies Allergen Reactions Latex, Natural Rubber Hives and Rash Current Medications Current Outpatient Medications Medication Sig Dispense Refill insulin NPH (HumuLIN N,NovoLIN N) 100 unit/mL injection Inject 0.4 mL (40 Units total) under the skin in the morning and 0.4 mL (40 Units total) in the evening. Inject with meals. insulin regular (HumuLIN R,NovoLIN R) 100 unit/mL injection Inject under the skin 3 (three) times a day before meals. 10-20 units depending on BSL metFORMIN (GLUCOPHAGE) 1000 mg tablet Take 1 tablet (1,000 mg total) by mouth in the morning and 1 tablet (1,000 mg total) in the evening. Take with meals. No current facility-administered medications for this visit. Review of Systems Review of Systems All other systems reviewed and are negative. Objective Vitals BP (!) 187/92 Pulse 103 Wt (!) 137.9 kg (304 lb) Physical Exam Physical Exam Vitals and nursing note reviewed. Constitutional: General: He is not in acute distress. Appearance: Normal appearance. Neck: Vascular: No JVD. Cardiovascular: Rate and Rhythm: Normal rate. Pulses: Normal pulses. Heart sounds: No murmur heard. Comments: Significant swelling of the lower leg from the proximal calf all the way into the forefoot. He has what appears to be some hemosiderin deposition on the anterior lower leg and on the dorsum of the foot, this could also be some excoriation from really dry skin. The dry skin overlying these areas directly. Not sure if this is really consistent with venous stasis. Pulmonary: Breath sounds: Normal breath sounds. Abdominal: Palpations: Abdomen is soft. There is no mass. Tenderness: There is no abdominal tenderness. Musculoskeletal: General: Swelling present. No tenderness. Cervical back: Neck supple. Skin: General: Skin is warm. Coloration: Skin is not pale. Findings: No erythema. Neurological: Mental Status: He is alert and oriented to person, place, and time. CEAP classification (note all that apply or n/a): CEAP - Clinical class Right Left C0 - No visible or palpable signs of venous disease x C1 - Spider telangiectasias or reticular veins C2 - Varicose veins >3-4 mm C3 - Edema C4a - Hyperpigmentation or erythematous dermatitis x C4b - Lipodermatosclerosis or atrophie munira C5 - Healed venous ulcer C6 - Active venous ulcer S or A - Symptomatic, i.e. ache, pain, tightness, skin irritation, heaviness, muscle cramps, other complaints attributable to venous dysfunction vs. asymptomatic. Right C0 Left C4a S Studies Reviewed Venous studies have no DVT Assessment Daniel was seen today for new patient. Diagnoses and all orders for this visit: Leg edema, left - Jobst Compression Stockings, 20-30 Knee High ( at [employer] ) - Vas venous duplex insufficiency lwr lt; Future Plan We discussed proper use of compression. I gave him a prescription for a heavy a grade stocking. He should apply this in the morning when his swelling is the least. He should wear throughout the day on a daily basis until he is able to to elevate the leg in the evening. I will also get a venous insufficiency study to see if there is a venous component to his issues. The pattern of disease is a little bit suspicious for lymphedema with involvement of the foot. We also discussed use of moisturizer for the lower leg. He will return in about 6 weeks to review his testing and see what sort of progress he has made with improved compression. Dena Parada DO 08/09/2024 at 9:49 AM [facility] Note Time Out Confirmed correct patient, procedure, site, and patient consented. Anesthesia Topical anesthesia was used. Anesthetic medications included Proparacaine 0.5%. Procedure Preparation included 5% betadine to ocular surface. Injection: 1.25 mg bevacizumab 25 mg/mL Route: intravitreal, Site: Right Eye [facility]: [id number], Lot: [id number], Expiration date: 08/31/2024, Waste: 0 mL Post-op Post injection exam found visual acuity of at least counting fingers, perfused optic nerve. The patient tolerated the procedure well. There were no complications. The patient received written and verbal post procedure care education. Post injection medications were not given. Notes PROCEDURE: INTRAOCULAR INJECTION RIGHT EYE AVASTIN - 1 drop of 0.5% Proparacaine topical anesthetic was applied to the eye, followed by 1 drop of Polytrim, then a generous amount of 0.5% betadine into the surgical eye. Atken topical lidocaine was applied temporal to the limbus. Anesthetic effectiveness was verified by direct pressure with the blunt end of a sterile cotton tip applicator. Using aseptic technique, the 1ml pre-filled syringe of Avastin was removed from sterile bag; 0.07ml was expelled, the plunger tip was aligned with the 0.05ml melvin; sterile eye lid speculum was then placed into the surgical eye. 0.5% betadine was applied again to the ocular surface. Using the attached #31gauge needle, 0.05 ml of Avastin was injected through the pars plana posterior to the limbus without complication. Immediately after the injection, lid speculum was removed; another application of 0.5% betadine was applied to the ocular surface followed by a generous rinse of sterile eye wash. DESCRIPTION OF PROCEDURE: INTRAOCULAR INJECTION 25mg/ml Avastin (bevacizumab) [facility]#[id number] -plant pathologist overfill was appropriately discarded- The patient tolerated the procedure well and was escorted to the front end architect to schedule a follow up appointment. MANUALLY TRANSCRIBED RESULTS 08-06-2024 Note Right Eye Quality was good. Scan locations included subfoveal. Progression has improved. Findings include cystoid macular edema. Plan: reviewed testing with the patient, discuss intravitreal injection. Discussed intraocular antivegf. Did not discuss intraocular steroid implant. Follow up actions include continue present management. Left Eye Quality was good. Scan locations included subfoveal. Progression has been stable. Findings include cystoid macular edema. Plan: observe & monitor. Did not discuss intraocular antivegf. Did not discuss intraocular steroid implant. Follow up actions include continue present management. Notes OD: DM; improving persistent DME, treat discussed OS: DM; no significant change from prior; improved DME s/p laser; observe MANUALLY TRANSCRIBED RESULTS 08-06-2024 Note Right Eye Quality was good. Scan locations included subfoveal. Progression has improved. Findings include cystoid macular edema. Plan: reviewed testing with the patient, discuss intravitreal injection. Discussed intraocular antivegf. Did not discuss intraocular steroid implant. Follow up actions include continue present management. Left Eye Quality was good. Scan locations included subfoveal. Progression has been stable. Findings include cystoid macular edema. Plan: observe & monitor. Did not discuss intraocular antivegf. Did not discuss intraocular steroid implant. Follow up actions include continue present management. Notes OD: DM; improving persistent DME, treat discussed OS: DM; no significant change from prior; improved DME s/p laser; observe MANUALLY TRANSCRIBED RESULTS 08-06-2024 History of Present illness Narrative Daniel Dowling had concerns including diabetic retinopathy. HPI EP/ 4-5 weeks, Undilated exam, OCT, Possible injection, OD. Pt states no concerns. Pt denies treatment use. Pt denies flashes, floaters or eye pain. Last edited by BRIA Engel on 08/06/2024 10:20 AM. ROS Positive for: Musculoskeletal, Endocrine (DM type 2), Cardiovascular (hypertension), Eyes Negative for: Constitutional, Gastrointestinal, Neurological, Skin, Genitourinary, HENT, Respiratory, Psychiatric, Allergic/Imm, Heme/Lymph Last edited by BRIA Engel on 08/06/2024 10:20 AM. No current outpatient medications on file. (Ophthalmic Drugs) No current facility-administered medications for this visit. (Ophthalmic Drugs) Current Outpatient Medications (Other) Medication Sig insulin NPH (HumuLIN N,NovoLIN N) 100 unit/mL injection Inject 0.4 mL (40 Units total) under the skin in the morning and 0.4 mL (40 Units total) in the evening. Inject with meals. insulin regular (HumuLIN R,NovoLIN R) 100 unit/mL injection Inject under the skin 3 (three) times a day before meals. 10-20 units depending on BSL metFORMIN (GLUCOPHAGE) 1000 mg tablet Take 1 tablet (1,000 mg total) by mouth in the morning and 1 tablet (1,000 mg total) in the evening. Take with meals. No current facility-administered medications for this visit. (Other) Social History Socioeconomic History Marital status: Single Spouse name: Not on file Number of children: Not on file Years of education: Not on file Highest education level: Not on file Occupational History Not on file Tobacco Use Smoking status: Never Smokeless tobacco: Never Vaping Use Vaping status: Never Used Substance and Sexual Activity Alcohol use: Not on file Drug use: Not on file Sexual activity: Not on file Other Topics Concern Not on file Social History Narrative Not on file Social Drivers of Health Financial Resource Strain: Not on file Food Insecurity: Not on file Transportation Needs: Not on file Physical Activity: Not on file Stress: Not on file Social Connections: Not on file Interpersonal Safety: Not on file Housing Instability: Not on file Family History Problem Relation Age of Onset Hypertension Mother Diabetes Mother Hypertension Father Cataracts Neg Hx Glaucoma Neg Hx Macular degeneration Neg Hx Retinal detachment Neg Hx Mr. Dowling has no past medical history on file. He has no past surgical history on file. Base Eye Exam Visual Acuity (Snellen - Linear) Right Left Dist cc 20/25 20/30 Near cc J2 Tonometry (Tonopen, 10:26 AM) Right Left Pressure 15 14 Pupils Pupils Right PERRL Left PERRL Visual Ji Right Left Full Full Extraocular Movement Right Left Full Full Neuro/Psych Oriented x3: Yes Mood/Affect: Normal Additional Tests Amsler Right Left Normal Normal Slit Lamp and Fundus Exam External Exam Right Left External Normal Normal Slit Lamp Exam Right Left Lids/Lashes Normal Normal Conjunctiva/Sclera no injection no injection Cornea Clear Clear Anterior Chamber Deep and quiet Deep and quiet Iris Round and reactive, no NVI Round and reactive, no NVI Lens Clear lens Clear lens Fundus Exam Right Left Vitreous Normal Normal Disc Normal Normal C/D Ratio 0.35 0.25 Macula Moderate NPDR, improving persistent CSDME, Focal laser scars, no CNV Moderate NPDR, continually improving CSDME, Focal laser scars, no CNV Vessels Normal Normal Periphery Hemorrhages, no NVE, No evidence RT/RD Hemorrhages, no NVE, No evidence RT/RD Diagnosis 1. Moderate nonproliferative diabetic retinopathy of right eye with macular edema associated with type 2 diabetes mellitus (CMS-HCC) 2. Moderate nonproliferative diabetic retinopathy of left eye with macular edema associated with type 2 diabetes mellitus (CMS-HCC) 3. High myopia, both eyes ASSESSMENT/PLAN 1. Moderate nonproliferative diabetic retinopathy of right eye with macular edema associated with type 2 diabetes mellitus (CMS-HCC) (Primary) -Non-proliferative diabetic retinopathy present in the right eye -Last FA performed 03/10/24 -DM diagnosis: [id number] ; Last A1c was 10.8 about 2 years ago per pt. (Last one in [facility] was 11.4 on 03/07/21) -Persistent DME secondary to NPDR also noted on previous OCT -Discussed risks/benefits/alternatives to Anti-VEGF injection -Insurance requires step therapy with Avastin as well as Byooviz/Cimerli prior to Eylea use -Questions/concerns addressed. Patient elected to proceed with anti-VEGF treatment today -Avastin [#1] administered in the right eye without complication today -Eylea SAMPLE [#1] administered in the right eye 07/06/24; sample used d/t PA in progress -Currently treating at 4 week treatment interval; okay to go 4-6 at this time -Right eye is also s/p focal laser as of 03/10/24 -Prior treatment: Focal laser OU performed by [facility] about 3-4 years ago -Patient understands to call with any discomfort, vision loss, or changes 2. Moderate nonproliferative diabetic retinopathy of left eye with macular edema associated with type 2 diabetes mellitus ([facility]-HCC) -Non-proliferative diabetic retinopathy present in the left eye -Last FA performed 03/10/2024 -DM diagnosis: [id number] ; Last A1c was 10.8 about 2 years ago per pt. (Last one in Epic was 11.4 on 03/07/21) -Testing performed today reviewed with patient; Improving DME secondary to NPDR also noted -Left eye is now s/p focal laser as of 03/17/24 -No additional treatment warranted for left eye at this time -Prior treatment: Focal laser OU performed by [facility] about 3-4 years ago -Patient understands to call with any discomfort, vision loss, or discharge -Letter sent to PCP and/or gas cutting machine operator yearly 3. High myopia, both eyes -Recent refraction with Dr Stuart; OD -8.00; OS -7.75-0.50 x080 -Diagnosis and increased risk of retinal tear/detachment previously discussed -No signs of tears/detachment noted on previous dilated exam -Symptoms of retinal detachment discussed, including flashes/swarms of floaters/veil/curtain in vision -Patient understands to call with any new symptoms or vision changes ISaúl MD personally performed the services described in the documentation, as scribed by JACK Glasgow in my presence, and it is both accurate and complete. Patient Education: Questions were encouraged to stated satisfaction from the patient. Discussed with patient that failure to follow up as recommended (appointment time, onset of new ocular symptoms) can lead to permanent loss of vision and/or blindness. Patient understands and agrees. Return Visit: 4-6 weeks , Undilated exam, OCT, possible injection, OD Physician: Saúl Quintana MD Scribe: JACK Glasgow Scribe Statement: Scribed for and in the presence of Saúl Quintana MD by JACK Glasgow documented in this encounter [facility] 07-06-2024 Note Time Out Confirmed correct patient, procedure, site, and patient consented. Anesthesia Topical anesthesia was used. Anesthetic medications included Proparacaine 0.5%. Procedure Preparation included 5% betadine to ocular surface. A supplied needle was used. Injection: 2 mg aflibercept 2 mg/0.05 mL (Patient supplied) Route: intravitreal, Site: Right Eye [facility]: 38460-504-46, Lot: [id number], Expiration date: 02/22/2025, Waste: 0 mL Post-op Post injection exam found visual acuity of at least counting fingers, no retinal detachment. The patient tolerated the procedure well. There were no complications. Notes PROCEDURE: INTRAOCULAR INJECTION EYLEA- RIGHT EYE- 1 drop of 0.5% Proparacaine topical anesthetic was applied to the eye, a generous amount of 0.5% betadine into the surgical eye. 3.5% Atken topical lidocaine was applied temporal to the limbus. Anesthetic effectiveness was verified by direct pressure with the blunt end of a sterile cotton tip applicator. Using aseptic technique, pre-filled syringe was removed from sealed package and sterile 32g needle was applied to syringe; 0.15ml was expelled, the plunger tip was aligned with the 0.05ml melvin; sterile speculum was then placed into the surgical eye. 0.5% betadine was applied again to the ocular surface. Using #32gauge needle, 0.05 ml of Eylea was injected through the pars plana posterior to the limbus without complication. Immediately after the injection, lid speculum was removed; another application of 0.5% betadine was applied to the ocular surface followed by a generous rinse of sterile eye wash. DESCRIPTION OF PROCEDURE: INTRAOCULAR INJECTION- 2mg/0.5ml Eylea (aflibercept) -plant pathologist overfill was appropriately discarded- Reviewed with the patient post procedure instructions. Discussed in particular to contact the office immediately if any increase in pain, redness, or decrease in vision occurs. Patient understands. The patient tolerated the procedure well and was escorted to the front end architect to schedule a follow up appointment. MANUALLY TRANSCRIBED RESULTS 07-06-2024 History of Present illness Narrative Daniel Dowling had concerns including Moderate nonproliferative diabetic retinopathy of right eye. HPI EP/ME Patient is here today for 2 week follow up with injection in the right eye. He states no changes since last visit. Last edited by Sharon Hardwick on 07/06/2024 3:49 PM. ROS Positive for: Musculoskeletal, Endocrine (DM type 2), Cardiovascular (hypertension), Eyes Negative for: Constitutional, Gastrointestinal, Neurological, Skin, Genitourinary, HENT, Respiratory, Psychiatric, Allergic/Imm, Heme/Lymph Last edited by Sharon Hardwick on 07/06/2024 3:49 PM. No current outpatient medications on file. (Ophthalmic Drugs) No current facility-administered medications for this visit. (Ophthalmic Drugs) Current Outpatient Medications (Other) Medication Sig insulin NPH (HumuLIN N,NovoLIN N) 100 unit/mL injection Inject 0.4 mL (40 Units total) under the skin in the morning and 0.4 mL (40 Units total) in the evening. Inject with meals. insulin regular (HumuLIN R,NovoLIN R) 100 unit/mL injection Inject under the skin 3 (three) times a day before meals. 10-20 units depending on BSL metFORMIN (GLUCOPHAGE) 1000 mg tablet Take 1 tablet (1,000 mg total) by mouth in the morning and 1 tablet (1,000 mg total) in the evening. Take with meals. No current facility-administered medications for this visit. (Other) Social History Socioeconomic History Marital status: Single Spouse name: Not on file Number of children: Not on file Years of education: Not on file Highest education level: Not on file Occupational History Not on file Tobacco Use Smoking status: Never Smokeless tobacco: Never Vaping Use Vaping status: Never Used Substance and Sexual Activity Alcohol use: Not on file Drug use: Not on file Sexual activity: Not on file Other Topics Concern Not on file Social History Narrative Not on file Social Drivers of Health Financial Resource Strain: Not on file Food Insecurity: Not on file Transportation Needs: Not on file Physical Activity: Not on file Stress: Not on file Social Connections: Not on file Interpersonal Safety: Not on file Housing Instability: Not on file Family History Problem Relation Age of Onset Hypertension Mother Diabetes Mother Hypertension Father Cataracts Neg Hx Glaucoma Neg Hx Macular degeneration Neg Hx Retinal detachment Neg Hx Mr. Dowling has no past medical history on file. He has no past surgical history on file. Base Eye Exam Visual Acuity (Snellen - Linear) Right Left Dist cc 20/30 +2 20/25 -2 Correction: Glasses Tonometry (Tonopen, 3:52 PM) Right Left Pressure 12 15 Pupils Pupils Right PERRL Left PERRL Neuro/Psych Oriented x3: Yes Mood/Affect: Normal Dilation No dilation per chart notes. Slit Lamp and Fundus Exam External Exam Right Left External Normal Normal Slit Lamp Exam Right Left Lids/Lashes Normal Normal Conjunctiva/Sclera White and quiet White and quiet Cornea Clear Clear Anterior Chamber Deep and quiet Deep and quiet Iris Round and reactive, no rubeosis Round and reactive, no rubeosis Lens Clear lens Clear lens Fundus Exam Right Left Vitreous Normal Normal Disc Normal Normal C/D Ratio 0.35 0.25 Macula Moderate NPDR, persistent CSDME, Focal laser scars, no CNV Moderate NPDR, improving CSDME, Focal laser scars, no CNV Vessels Normal Normal Periphery Hemorrhages, no NVE, No evidence tears, holes, or detachments Hemorrhages, no NVE, No evidence tears, holes, or detachments Diagnosis 1. Moderate nonproliferative diabetic retinopathy of right eye with macular edema associated with type 2 diabetes mellitus (CMS-HCC) 2. Moderate nonproliferative diabetic retinopathy of left eye with macular edema associated with type 2 diabetes mellitus (CMS-HCC) 3. High myopia, both eyes ASSESSMENT/PLAN 1. Moderate nonproliferative diabetic retinopathy of right eye with macular edema associated with type 2 diabetes mellitus (CMS-HCC) (Primary) -Non-proliferative diabetic retinopathy present in the right eye -Last FA performed 03/10/24 -DM diagnosis: [id number] ; Last A1c was 10.8 about 2 years ago per pt. (Last one in Epic was 11.4 on 03/07/21) -Persistent DME secondary to NPDR also noted on previous OCT -Patient did not respond as well to focal laser; discussed risks/benefits/alternatives to Anti-VEGF injection -Questions/concerns addressed. Patient elected to proceed with anti-VEGF treatment today -Eylea SAMPLE [#1] administered in the right eye without complication today; sample used d/t PA in progress -Begin 4 week treatment interval for OD -Right eye is also s/p focal laser as of 03/10/24 -Prior treatment: Focal laser OU performed by [facility] about 3-4 years ago -Patient understands to call with any discomfort, vision loss, or changes 2. Moderate nonproliferative diabetic retinopathy of left eye with macular edema associated with type 2 diabetes mellitus (CMS-HCC) -Non-proliferative diabetic retinopathy present in the left eye -Last FA performed 03/10/2024 -DM diagnosis: [id number] ; Last A1c was 10.8 about 2 years ago per pt. (Last one in [facility] was 11.4 on 03/07/21) -Improving DME secondary to NPDR also noted on previous OCT -Left eye is now s/p focal laser as of 03/17/24 -No additional treatment warranted for left eye at this time -Prior treatment: Focal laser OU performed by [facility] about 3-4 years ago -Patient understands to call with any discomfort, vision loss, or discharge -Letter sent to PCP and/or gas cutting machine operator yearly 3. High myopia, both eyes -Recent refraction with Dr Stuart; OD -8.00; OS -7.75-0.50 x080 -Diagnosis and increased risk of retinal tear/detachment previously discussed -No signs of tears/detachment noted on previous dilated exam -Symptoms of retinal detachment discussed, including flashes/swarms of floaters/veil/curtain in vision -Patient understands to call with any new symptoms or vision changes I, Saúl Quintana MD personally performed the services described in the documentation, as scribed by JACK Glasgow in my presence, and it is both accurate and complete. Patient Education: Questions were encouraged to stated satisfaction from the patient. Discussed with patient that failure to follow up as recommended (appointment time, onset of new ocular symptoms) can lead to permanent loss of vision and/or blindness. Patient understands and agrees. Return Visit: 4-5 weeks, Undilated exam, OCT, possible injection, OD Physician: Saúl Quintana MD Scribe: JACK Glasgow Scribe Statement: Scribed for and in the presence of Saúl Quintana MD by JACK Glasgow documented in this encounter [facility] 06-22-2024 History of Present illness Narrative Daniel Dowling had concerns including Moderate nonproliferative diabetic retinopathy of left eye . HPI Ep/Me Patient reports vision OD is foggy. Pt states vision OD resembles it after sleeping in a contact. Pt reports improvement in floaters, denies flashes, ocular discomfort and gtts. BSL was 118. Last A1c was 10.2 years ago. Last edited by Malu Mcdonald on 06/22/2024 3:48 PM. ROS Positive for: Musculoskeletal, Endocrine (DM type 2), Cardiovascular (hypertension), Eyes Negative for: Constitutional, Gastrointestinal, Neurological, Skin, Genitourinary, HENT, Respiratory, Psychiatric, Allergic/Imm, Heme/Lymph Last edited by Malu Mcdonald on 06/22/2024 3:48 PM. No current outpatient medications on file. (Ophthalmic Drugs) No current facility-administered medications for this visit. (Ophthalmic Drugs) Current Outpatient Medications (Other) Medication Sig insulin NPH (HumuLIN N,NovoLIN N) 100 unit/mL injection Inject 0.4 mL (40 Units total) under the skin in the morning and 0.4 mL (40 Units total) in the evening. Inject with meals. insulin regular (HumuLIN R,NovoLIN R) 100 unit/mL injection Inject under the skin 3 (three) times a day before meals. 10-20 units depending on BSL metFORMIN (GLUCOPHAGE) 1000 mg tablet Take 1 tablet (1,000 mg total) by mouth in the morning and 1 tablet (1,000 mg total) in the evening. Take with meals. No current facility-administered medications for this visit. (Other) Social History Socioeconomic History Marital status: Single Spouse name: Not on file Number of children: Not on file Years of education: Not on file Highest education level: Not on file Occupational History Not on file Tobacco Use Smoking status: Never Smokeless tobacco: Never Vaping Use Vaping status: Never Used Substance and Sexual Activity Alcohol use: Not on file Drug use: Not on file Sexual activity: Not on file Other Topics Concern Not on file Social History Narrative Not on file Social Drivers of Health Financial Resource Strain: Not on file Food Insecurity: Not on file Transportation Needs: Not on file Physical Activity: Not on file Stress: Not on file Social Connections: Not on file Interpersonal Safety: Not on file Housing Instability: Not on file Family History Problem Relation Age of Onset Hypertension Mother Diabetes Mother Hypertension Father Cataracts Neg Hx Glaucoma Neg Hx Macular degeneration Neg Hx Retinal detachment Neg Hx Mr. Dowling has no past medical history on file. He has no past surgical history on file. Base Eye Exam Visual Acuity (Snellen - Linear) Right Left Dist cc 20/30 -1 20/30 Correction: Glasses Tonometry (Tonopen, 3:52 PM) Right Left Pressure 18 14 Pupils Pupils Right PERRL Left PERRL Visual Ji (Counting fingers) Right Left Full Full Extraocular Movement Right Left Full, Ortho Full, Ortho Neuro/Psych Oriented x3: Yes Mood/Affect: Normal Dilation Both eyes: 1.0% Tropicamide, 2.5% Phenylephrine Hydrochloride @ 3:52 PM Slit Lamp and Fundus Exam External Exam Right Left External Normal Normal Slit Lamp Exam Right Left Lids/Lashes Normal Normal Conjunctiva/Sclera Quiet and white Quiet and white Cornea Clear Clear Anterior Chamber Deep and quiet Deep and quiet Iris Round and reactive, no neovascularization Round and dilated, no neovascularization Lens Clear Clear Fundus Exam Right Left Vitreous Normal Normal Disc Normal Normal C/D Ratio 0.35 0.25 Macula Moderate NPDR, persistent CSDME, Focal laser scars, no CNV Moderate NPDR, improving CSDME, Focal laser scars, no CNV Vessels Normal Normal Periphery Hemorrhages, no peripheral NVE, No evidence RT/RD Hemorrhages, no peripheral NVE, No evidence RT/RD Diagnosis 1. Moderate nonproliferative diabetic retinopathy of right eye with macular edema associated with type 2 diabetes mellitus (CMS-HCC) 2. Moderate nonproliferative diabetic retinopathy of left eye with macular edema associated with type 2 diabetes mellitus (CMS-HCC) 3. High myopia, both eyes ASSESSMENT/PLAN 1. Moderate nonproliferative diabetic retinopathy of right eye with macular edema associated with type 2 diabetes mellitus (CMS-HCC) (Primary) -Non-proliferative diabetic retinopathy noted on exam -DM diagnosis: [id number] ; Last A1c was 10.8 about 2 years ago per pt. (Last one in Epic was 11.4 on 03/07/21) -Persistent Diabetic macular edema secondary to NPDR also noted. -Patient did not respond as well to focal laser and recommend treating with Antivegf injection. Patient wishes to proceed. -IBI submitted for Eylea -FA performed 03/10/24 showed focal leakage amenable to laser therapy present -Right eyes is s/p focal laser 03/10/2024 -Prior treatment: Focal laser OU performed by [facility] about 3-4 years ago -Patient understands to call with any discomfort, vision loss, or changes - OCT, Retina - OU - Both Eyes; Future 2. Moderate nonproliferative diabetic retinopathy of left eye with macular edema associated with type 2 diabetes mellitus (CMS-HCC) -Non-proliferative diabetic retinopathy noted on exam/imaging -DM diagnosis: [id number] ; Last A1c was 10.8 about 2 years ago per pt. (Last one in [facility] was 11.4 on 03/07/21) -Improving Diabetic macular edema secondary to NPDR also noted -FA performed 03/10/2024 showed focal leakage amenable to laser therapy present -Discussed diagnosis and risks/benefits/alternatives to laser therapy -Questions and concerns addressed -Prior treatment: Focal laser OU performed by [facility] about 3-4 years ago -Laser Treatment OS 03/17/24 -Patient understands to call with any discomfort, vision loss, or discharge -Letter sent to PCP and/or gas cutting machine operator yearly - OCT, [facility] - OU - Both Eyes; Future 3. High myopia, both eyes -Recent refraction with Dr Stuart; OD -8.00; OS -7.75-0.50 x080 -Diagnosis previously discussed -Previously discussed increased risk of retinal tear/detachment -No signs of tears/detachment noted on previous exam -Symptoms of retinal detachment discussed, including flashes/swarms of floaters/veil/curtain in vision -Patient understands to call with any new symptoms or vision changes ISaúl MD personally performed the services described in the documentation, as scribed by JACK Kendall in my presence, and it is both accurate and complete. Patient Education: Questions were encouraged to stated satisfaction from the patient. Discussed with patient that failure to follow up as recommended (appointment time, onset of new ocular symptoms) can lead to permanent loss of vision and/or blindness. Patient understands and agrees. Return Visit: 2 weeks injection only OD, no dilation Physician: Saúl Quintana MD Scribe: JACK KENDALL Scribe Statement: Scribed for and in the presence of Saúl Quintana MD by JACK KENDALL documented in this encounter [facility] 03-17-2024 Note Time Out Confirmed correct patient, procedure, site, and patient consented. Anesthesia Topical anesthesia was used. Anesthetic medications included Proparacaine 0.5%. Laser Information The type of laser was diode. Color was yellow. The duration in seconds was 50. The spot size was 50 microns. Laser power was 100. Total spots was 44. Post-op The patient tolerated the procedure well. There were no complications. The patient received written and verbal post procedure care education. Notes Time Out: Confirmed correct patient, procedure, site. Patient consented to treatment. Procedure diagnosis: NPDR with ME, LEFT EYE Procedure: Focal Laser, Left eye Physician: Saúl Quintana M.D. Anesthesia: Topical anesthesia was used: Proparacaine 0.5% Procedure Note: After appropriate informed consents, the patient was brought to the laser suite. Topical anesthesia and a contact laser lens was placed in the Left eye. Laser spots were carried out with the following parameters: Duration(seconds): 50 Spot size(microns): 50 Laser power: 100 Total spots: 44 The contact lens was removed. There were no complications. Sterile eye wash was used to rinse the conjunctival cul-de-sac. The patient tolerated the procedure well and left the laser suite in good condition. The patient was given post-procedure instructions, with particular emphasis on returning to the office immediately if any decrease in visual activity or increased pain is experienced. MANUALLY TRANSCRIBED RESULTS 03-17-2024 History of Present illness Narrative Daniel Dowling had concerns including Moderate nonproliferative diabetic retinopathy of left eye . HPI Patient here for a focal laser OS. Patient says his vision has been stable since his last visit. He states he has still been experiencing floaters OU but not as bad as before, denies any flashes or any discomfort. He denies using any ocular drops. BSL was 108 this morning Last edited by Ashley Fernandes on 03/17/2024 4:00 PM. ROS Positive for: Musculoskeletal, Endocrine (DM type 2), Cardiovascular (hypertension), Eyes Negative for: Constitutional, Gastrointestinal, Neurological, Skin, Genitourinary, HENT, Respiratory, Psychiatric, Allergic/Imm, Heme/Lymph Last edited by Ashley Fernandes on 03/17/2024 4:00 PM. No current outpatient medications on file. (Ophthalmic Drugs) No current facility-administered medications for this visit. (Ophthalmic Drugs) Current Outpatient Medications (Other) Medication Sig insulin NPH (HumuLIN N,NovoLIN N) 100 unit/mL injection Inject 0.4 mL (40 Units total) under the skin in the morning and 0.4 mL (40 Units total) in the evening. Inject with meals. insulin regular (HumuLIN R,NovoLIN R) 100 unit/mL injection Inject under the skin 3 (three) times a day before meals. 10-20 units depending on BSL metFORMIN (GLUCOPHAGE) 1000 mg tablet Take 1 tablet (1,000 mg total) by mouth in the morning and 1 tablet (1,000 mg total) in the evening. Take with meals. No current facility-administered medications for this visit. (Other) Family History Problem Relation Age of Onset Hypertension Mother Diabetes Mother Hypertension Father Cataracts Neg Hx Glaucoma Neg Hx Macular degeneration Neg Hx Retinal detachment Neg Hx Social History Socioeconomic History Marital status: Single Spouse name: Not on file Number of children: Not on file Years of education: Not on file Highest education level: Not on file Occupational History Not on file Tobacco Use Smoking status: Never Smokeless tobacco: Never Vaping Use Vaping status: Never Used Substance and Sexual Activity Alcohol use: Not on file Drug use: Not on file Sexual activity: Not on file Other Topics Concern Not on file Social History Narrative Not on file Social Drivers of Health Financial Resource Strain: Not on file Food Insecurity: Not on file Transportation Needs: Not on file Physical Activity: Not on file Stress: Not on file Social Connections: Not on file Interpersonal Safety: Not on file Housing Instability: Not on file Mr. Dowling has no past medical history on file. He has no past surgical history on file. Base Eye Exam Visual Acuity (Snellen - Linear) Right Left Dist cc 20/40 20/25 Dist ph cc 20/30 -2 Correction: Glasses Tonometry (Tonopen, 4:03 PM) Right Left Pressure 17 15 Neuro/Psych Oriented x3: Yes Mood/Affect: Normal Dilation Left eye: 1.0% Tropicamide, 2.5% Phenylephrine Hydrochloride @ 4:03 PM Diagnosis 1. Moderate nonproliferative diabetic retinopathy of left eye with macular edema associated with type 2 diabetes mellitus (CMS-HCC) 2. Moderate nonproliferative diabetic retinopathy of right eye with macular edema associated with type 2 diabetes mellitus (CMS-HCC) 3. High myopia, both eyes 1. Moderate nonproliferative diabetic retinopathy of left eye with macular edema associated with type 2 diabetes mellitus (CMS-HCC) (Primary) -Non-proliferative diabetic retinopathy noted on exam/imaging -DM diagnosis: [id number] ; Last A1c was 10.8 about 2 years ago per pt. (Last one in [facility] was 11.4 on 03/07/21) -Diabetic macular edema secondary to NPDR also noted -FA performed 03/10/2024 showed focal leakage amenable to laser therapy present -Discussed diagnosis and risks/benefits/alternatives to laser therapy -Questions and concerns addressed -Patient elects to proceed with left eye Focal laser treatment today -Procedure tolerated well -Prior treatment: Focal laser OU performed by [facility] about 3-4 years ago -Patient understands to call with any discomfort, vision loss, or discharge -Letter sent to PCP and/or gas cutting machine operator yearly 2. Moderate nonproliferative diabetic retinopathy of right eye with macular edema associated with type 2 diabetes mellitus ([facility]) -Non-proliferative diabetic retinopathy noted on exam -DM diagnosis: [id number] ; Last A1c was 10.8 about 2 years ago per pt. (Last one in [facility] was 11.4 on 03/07/21) -Diabetic macular edema secondary to NPDR also noted -FA performed 03/10/24 showed focal leakage amenable to laser therapy present -Right eyes is s/p focal laser 03/10/2024 -Prior treatment: Focal laser OU performed by [facility] about 3-4 years ago -Patient understands to call with any discomfort, vision loss, or discharge -Letter sent to PCP and/or gas cutting machine operator yearly 3. High myopia, both eyes -Recent refraction with Dr Stuart; OD -8.00; OS -7.75-0.50 x080 -Diagnosis previously discussed -Previously discussed increased risk of retinal tear/detachment -No signs of tears/detachment noted on previous exam -Symptoms of retinal detachment discussed, including flashes/swarms of floaters/veil/curtain in vision -Patient understands to call with any new symptoms or vision changes ISaúl MD personally performed the services described in the documentation, as scribed by BRIA Coelho in my presence, and it is both accurate and complete. Patient Education: Questions were encouraged to stated satisfaction from the patient. Discussed with patient that failure to follow up as recommended (appointment time, onset of new ocular symptoms) can lead to permanent loss of vision and/or blindness. Patient understands and agrees. Return Visit: 3 months DFE/OCT Physician: Saúl Quintana MD Digital Media Sales Consultant: JACK Coelho Scribed for and in the presence of Saúl Quintana MD by JACK Coelho Patient accompanied by Self. documented in this encounter [facility] 03-10-2024 Note Time Out Confirmed correct patient, procedure, site, and patient consented. Anesthesia Topical anesthesia was used. Anesthetic medications included Lidocaine 2%. Laser Information The type of laser was argon. Color was yellow. The duration in seconds was 0.08. The spot size was 50 microns. Laser power was 100. Total spots was 35. Post-op The patient tolerated the procedure well. There were no complications. Notes Time Out Confirmed correct patient, procedure, site, and patient consented. Anesthesia Topical anesthesia was used. Laser Information The type of laser was argon. Color was yellow. The duration in seconds was .08 . The spot size was 50 microns. Laser power was 100. Total spots was 35. Post-op The patient tolerated the procedure well. There were no complications. The patient received written and verbal post procedure care education. Notes Focal OD for NPDR c DME MANUALLY TRANSCRIBED RESULTS 03-10-2024 History of Present illness Narrative Daniel Dowling had concerns including Moderate nonproliferative diabetic retinopathy of right eye. HPI Patient says his vision OD has been hazy since his last visit, OS has been stable. He states since his last visit he has also started to notice more floaters. He denies any flashes or any discomfort. BSL was 120 before lunch Last edited by Ashley Fernandes on 03/10/2024 3:53 PM. ROS Positive for: Musculoskeletal, Endocrine (DM type 2), Cardiovascular (hypertension), Eyes Negative for: Constitutional, Gastrointestinal, Neurological, Skin, Genitourinary, HENT, Respiratory, Psychiatric, Allergic/Imm, Heme/Lymph Last edited by Ashley Fernandes on 03/10/2024 3:53 PM. No current outpatient medications on file. (Ophthalmic Drugs) No current facility-administered medications for this visit. (Ophthalmic Drugs) Current Outpatient Medications (Other) Medication Sig insulin NPH (HumuLIN N,NovoLIN N) 100 unit/mL injection Inject 0.4 mL (40 Units total) under the skin in the morning and 0.4 mL (40 Units total) in the evening. Inject with meals. insulin regular (HumuLIN R,NovoLIN R) 100 unit/mL injection Inject under the skin 3 (three) times a day before meals. 10-20 units depending on BSL metFORMIN (GLUCOPHAGE) 1000 mg tablet Take 1 tablet (1,000 mg total) by mouth in the morning and 1 tablet (1,000 mg total) in the evening. Take with meals. No current facility-administered medications for this visit. (Other) Social History Socioeconomic History Marital status: Single Spouse name: Not on file Number of children: Not on file Years of education: Not on file Highest education level: Not on file Occupational History Not on file Tobacco Use Smoking status: Never Smokeless tobacco: Never Vaping Use Vaping status: Never Used Substance and Sexual Activity Alcohol use: Not on file Drug use: Not on file Sexual activity: Not on file Other Topics Concern Not on file Social History Narrative Not on file Social Drivers of Health Financial Resource Strain: Not on file Food Insecurity: Not on file Transportation Needs: Not on file Physical Activity: Not on file Stress: Not on file Social Connections: Not on file Interpersonal Safety: Not on file Housing Instability: Not on file Family History Problem Relation Age of Onset Hypertension Mother Diabetes Mother Hypertension Father Cataracts Neg Hx Glaucoma Neg Hx Macular degeneration Neg Hx Retinal detachment Neg Hx Mr. Dowling has no past medical history on file. He has no past surgical history on file. Base Eye Exam Visual Acuity (Snellen - Linear) Right Left Dist cc 20/70 20/30 Dist ph cc 20/50 -2 Correction: Glasses Tonometry (Tonopen, 3:59 PM) Right Left Pressure 15 15 Pupils Pupils Right PERRL Left PERRL Visual Ji (Counting fingers) Right Left Full Full Extraocular Movement Right Left Full Full Neuro/Psych Oriented x3: Yes Mood/Affect: Normal Dilation Both eyes: 2.5% Phenylephrine Hydrochloride @ 3:59 PM Slit Lamp and Fundus Exam External Exam Right Left External Normal Normal Slit Lamp Exam Right Left Lids/Lashes Normal Normal Conjunctiva/Sclera White and quiet White and quiet Cornea Clear Clear Anterior Chamber Deep and quiet Deep and quiet Iris Round and dilated Round and dilated Lens Clear lens Clear lens Fundus Exam Right Left Vitreous Normal Normal Disc Normal Normal C/D Ratio 0.35 0.25 Macula Moderate NPDR, persistent CSDME, Focal laser scars, no CNV Moderate NPDR, persistent CSDME, Focal laser scars, no CNV Vessels Normal Normal Periphery Hemorrhages, no peripheral NVE, No evidence RT/RD Hemorrhages, no peripheral NVE, No evidence RT/RD Diagnosis 1. Moderate nonproliferative diabetic retinopathy of left eye with macular edema associated with type 2 diabetes mellitus (CMS-HCC) 2. Moderate nonproliferative diabetic retinopathy of right eye with macular edema associated with type 2 diabetes mellitus (CMS-HCC) 3. High myopia, both eyes ASSESSMENT/PLAN 1. Moderate nonproliferative diabetic retinopathy of left eye with macular edema associated with type 2 diabetes mellitus (CMS-HCC) (Primary) -Testing performed today reviewed with patient; Non-proliferative diabetic retinopathy noted on exam/imaging -DM diagnosis: [id number] ; Last A1c was 10.8 about 2 years ago per pt. (Last one in [facility] was 11.4 on 03/07/21) -Diabetic macular edema secondary to NPDR also noted -FA performed today showed focal leakage amenable to laser therapy present -Discussed diagnosis and risks/benefits/alternatives to laser therapy -Questions and concerns addressed -Patient elects to proceed with Focal laser treatment -Will schedule left eye today -Prior treatment: none -Patient understands to call with any discomfort, vision loss, or discharge -Letter sent to PCP and/or gas cutting machine operator yearly 2. Moderate nonproliferative diabetic retinopathy of right eye with macular edema associated with type 2 diabetes mellitus ([facility]) -Testing performed today reviewed with patient; Non-proliferative diabetic retinopathy noted on exam/imaging -DM diagnosis: [id number] ; Last A1c was 10.8 about 2 years ago per pt. (Last one in [facility] was 11.4 on 03/07/21) -Diabetic macular edema secondary to NPDR also noted -FA performed today showed focal leakage amenable to laser therapy present -Discussed diagnosis and risks/benefits/alternatives to laser therapy -Questions and concerns addressed -Patient elects to proceed with right eye Focal laser treatment today -Procedure tolerated well -Prior treatment: none -Patient understands to call with any discomfort, vision loss, or discharge -Letter sent to PCP and/or gas cutting machine operator yearly 3. High myopia, both eyes -Diagnosis previously discussed -Recent refraction with Dr Stuart; OD -8.00; OS -7.75-0.50 x080 -Previously discussed increased risk of retinal tear/detachment -Testing performed today reviewed with patient; no signs of tears/detachment noted on exam/imaging -Symptoms of retinal detachment discussed, including flashes/swarms of floaters/veil/curtain in vision -Patient understands to call with any new symptoms or vision changes ISaúl MD personally performed the services described in the documentation, as scribed by JACK Glasgow in my presence, and it is both accurate and complete. Patient Education: Questions were encouraged to stated satisfaction from the patient. Discussed with patient that failure to follow up as recommended (appointment time, onset of new ocular symptoms) can lead to permanent loss of vision and/or blindness. Patient understands and agrees. Return Visit: 1-3 weeks for Focal laser OS Physician: Saúl Quintana MD Scribe: JACK Glasgow Scribe Statement: Scribed for and in the presence of Saúl Quintana MD by JACK Glasgow documented in this encounter [facility] 02-25-2024 History of Present illness Narrative Daniel Funez Nitesh had concerns including Diabetic retinopathy with macular edema associated with romana. HPI Patient here per Dr. Stuart with concerns of diabetic retinopathy with probable DME OU. Patient says his vision has been stable for distance, he has noticed difficulty for near, he feels that is due to him needing a new glasses Rx (just given a new Rx, has not gotten it yet). He denies any flashes, floaters or any discomfort. He denies using any ocular drops. Dx with type 2 diabetes 6-7yrs ago BSL was 180 this morning A1c was 10.8 about 2 years ago per pt. (Last one in [facility] was 11.4 on 03/07/21) Last edited by Ashley Fernandes on 02/25/2024 3:21 PM. ROS Positive for: Musculoskeletal, Endocrine (DM type 2), Cardiovascular (hypertension), Eyes Negative for: Constitutional, Gastrointestinal, Neurological, Skin, Genitourinary, HENT, Respiratory, Psychiatric, Allergic/Imm, Heme/Lymph Last edited by Ashley Fernandes on 02/25/2024 3:30 PM. No current outpatient medications on file. (Ophthalmic Drugs) No current facility-administered medications for this visit. (Ophthalmic Drugs) Current Outpatient Medications (Other) Medication Sig insulin NPH (HumuLIN N,NovoLIN N) 100 unit/mL injection Inject 0.4 mL (40 Units total) under the skin in the morning and 0.4 mL (40 Units total) in the evening. Inject with meals. insulin regular (HumuLIN R,NovoLIN R) 100 unit/mL injection Inject under the skin 3 (three) times a day before meals. 10-20 units depending on BSL metFORMIN (GLUCOPHAGE) 1000 mg tablet Take 1 tablet (1,000 mg total) by mouth in the morning and 1 tablet (1,000 mg total) in the evening. Take with meals. No current facility-administered medications for this visit. (Other) Social History Socioeconomic History Marital status: Single Spouse name: Not on file Number of children: Not on file Years of education: Not on file Highest education level: Not on file Occupational History Not on file Tobacco Use Smoking status: Never Smokeless tobacco: Never Vaping Use Vaping status: Never Used Substance and Sexual Activity Alcohol use: Not on file Drug use: Not on file Sexual activity: Not on file Other Topics Concern Not on file Social History Narrative Not on file Social Determinants of Health Financial Resource Strain: Not on file Food Insecurity: Not on file Transportation Needs: Not on file Physical Activity: Not on file Stress: Not on file Social Connections: Not on file Interpersonal Safety: Not on file Housing Instability: Not on file Family History Problem Relation Age of Onset Hypertension Mother Diabetes Mother Hypertension Father Cataracts Neg Hx Glaucoma Neg Hx Macular degeneration Neg Hx Retinal detachment Neg Hx Mr. Dowling has no past medical history on file. He has no past surgical history on file. Base Eye Exam Visual Acuity (Snellen - Linear) Right Left Dist cc 20/25 20/20 -1 Correction: Glasses Tonometry (Tonopen, 3:37 PM) Right Left Pressure 14 14 Pupils Pupils Right PERRL Left PERRL Visual Ji (Counting fingers) Right Left Full Full Extraocular Movement Right Left Full Full Neuro/Psych Oriented x3: Yes Mood/Affect: Normal Dilation Both eyes: 1.0% Tropicamide, 2.5% Phenylephrine Hydrochloride @ 3:37 PM Slit Lamp and Fundus Exam External Exam Right Left External Normal Normal Slit Lamp Exam Right Left Lids/Lashes Normal Normal Conjunctiva/Sclera White and quiet White and quiet Cornea Clear Clear Anterior Chamber Deep and quiet Deep and quiet Iris Round and dilated Round and dilated Lens Clear capsule, cortex, nucleus Clear capsule, cortex, nucleus Fundus Exam Right Left Vitreous Normal Normal Disc Normal Normal C/D Ratio 0.35 0.25 Macula Moderate NPDR, Clinically significant macular edema, Focal laser scars, no CNV Moderate NPDR, Clinically significant macular edema, Focal laser scars, no CNV Vessels Normal Normal Periphery Hemorrhages, no lizbeth NVE, No evidence tears, holes, or detachments Hemorrhages, no lizbeth NVE, No evidence tears, holes, or detachments Refraction Wearing Rx Age: 21yrs Diagnosis 1. Moderate nonproliferative diabetic retinopathy of right eye with macular edema associated with type 2 diabetes mellitus (CMS-HCC) 2. Moderate nonproliferative diabetic retinopathy of left eye with macular edema associated with type 2 diabetes mellitus (CMS-HCC) 3. High myopia, both eyes ASSESSMENT/PLAN -Referral note dated 02/10/[address] Stuart reviewed at length ~BCVA: OD 20/20 OS 20/25; note states diabetic retinopathy with probable DME OU 1. Moderate nonproliferative diabetic retinopathy of right eye with macular edema associated with type 2 diabetes mellitus (CMS-HCC) 2. Moderate nonproliferative diabetic retinopathy of left eye with macular edema associated with type 2 diabetes mellitus (CMS-HCC) -Testing performed today reviewed with patient -Moderate Non-proliferative diabetic retinopathy noted in both eyes on exam/imaging -DM diagnosis: [id number] ; Last A1c was 10.8 about 2 years ago per pt. 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 High myopia, both eyes -Diagnosis discussed -Refraction with Dr Stuart; OD -8.00; OS -7.75-0.50 x080 -Discussed increased risk of retinal tear/detachment -Testing performed today reviewed with patient; no signs of tears/detachment noted on exam/imaging -Symptoms of retinal detachment discussed, including flashes/swarms of floaters/veil/curtain in vision -Patient understands to call with any new symptoms or vision changes ISaúl MD personally performed the services described in the documentation, as scribed by JACK Glasgow in my presence, and it is both accurate and complete. Patient Education: Questions were encouraged to stated satisfaction from the patient. Discussed with patient that failure to follow up as recommended (appointment time, onset of new ocular symptoms) can lead to permanent loss of vision and/or blindness. Patient understands and agrees. Return Visit: 1-3 weeks, FA OU, Focal OD Physician: Saúl Quintana MD Scribe: JACK Glasgow Scribe Statement: Scribed for and in the presence of Saúl Quintana MD by JACK Glasgow documented in this encounter [facility] 02-16-2024 Miscellaneous Notes Patient called and wanted to know if you would accept him as a patient? Okay Could not leave a message due to know mailbox set up but okay for new patient. documented in this encounter [facility] 02-16-2024 Telephone encounter Note Patient called and wanted to know if you would accept him as a patient? [facility] 02-16-2024 Telephone encounter Note Okay [employer] Work Phone: 02-16-2024 Telephone encounter Note Could not leave a message due to know mailbox set up but okay for new patient. [employer] [facility] 05-07-2023 Evaluation note Encounter Date Diagnosis Assessment Notes Apr, Cellulitis of left lower leg (ICD-10 - L03.116) Continue home medications as prescribed. Take the clindamycin as prescribed until gone. Use the mupirocin ointment as prescribed until the wound is improved. Make an appointment with your doctor for recheck next week. Keep the wound clean and dry. Cover with dressing when out about, leave open to air when at home. Follow-up with your doctor sooner if the symptoms worsen. [employer] Other 05-26-2021 Chief complaint Narrative - Reported* An interactive audio and video telecommunication system which permits real time communications between the patient (at the originating site) and provider (at the distant site) was utilized to providethis telehealth service. * Verbal consent was requested and obtained from DANIEL DOWLING on this date, 10/18/2020 02:30 PM , for [facility] visit. * s/p [facility]cision [facility] Work Phone: [phone] History of Present illness Narrative* 40 year old male with ED, DM, HTN, and HLD, presenting for follow up. * In recap: * The patient was seen 08/16/2020. He reported that he is able to orgasm, but that 90% of the time, he does not produce ejaculate. He also notes buried penis, as well as difficulty with both obtaining and maintaining erections, and states that his libido has been decreasing. He denies curvature or pain with erections. Patient reports no issues with urination. Patient is not circumcised, and is unable to retract foreskin. Patient's DM is not well-controlled; * The patient was seen 09/13/2020. He reported that he has been taking the Cialis, and that this has improved his erections, but not much . * The patient underwent a circumcision and frenuloplasty on 09/21/2020, performed by Dr. Serafin Sainz. * The patient was last seen 10/11/2020. He reported that he has been doing well since the procedure. Has not been taking Cialis since the procedure. Plan for hip surgery soon. * The patient reports today that he has been healing well. Presenting to discuss lab work. * Total testosterone 267 ng/dL as of 10/17/2020; previously 283 ng/dL as of 09/12/2020. [facility] Work Phone: Evaluation note* Diagnosis Moderate nonproliferative diabetic retinopathy of right eye with macular edema associated with type 2 diabetes mellitus (CMS-HCC)- Primary Moderate nonproliferative diabetic retinopathy of left eye with macular edema associated with type 2 diabetes mellitus (CMS-HCC) High myopia, both eyes Myopia Moderate nonproliferative diabetic retinopathy of right eye with macular edema associated with type 2 diabetes mellitus (CMS-HCC) Moderate nonproliferative diabetic retinopathy of left eye with macular edema associated with type 2 diabetes mellitus (CMS-HCC) documented [facility] Diagnosis Moderate nonproliferative diabetic retinopathy of right eye with macular edema associated with type 2 diabetes mellitus (CMS-HCC) Moderate nonproliferative diabetic retinopathy of left eye with macular edema associated with type 2 diabetes mellitus (CMS-HCC) documented in this encounter [facility]* Diagnosis Moderate nonproliferative diabetic retinopathy of right eye with macular edema associated with type 2 diabetes mellitus (CMS-HCC)- Primary Moderate nonproliferative diabetic retinopathy of left eye with macular edema associated with type 2 diabetes mellitus (CMS-HCC) High myopia, both eyes Myopia documented in this encounter [facility]* Diagnosis Moderate nonproliferative diabetic retinopathy of right eye with macular edema associated with type 2 diabetes mellitus (CMS-HCC)- Primary Moderate nonproliferative diabetic retinopathy of left eye with macular edema associated with type 2 diabetes mellitus (CMS-HCC) High myopia, both eyes Myopia Both eyes affected by mild nonproliferative diabetic retinopathy with macular edema, associated with type 2 diabetes mellitus (CMS-HCC) High myopia, both eyes Myopia Both eyes affected by mild nonproliferative diabetic retinopathy with macular edema, associated with type 2 diabetes mellitus (CMS-HCC) High myopia, both eyes Myopia [facility] Diagnosis Both eyes affected by mild nonproliferative diabetic retinopathy with macular edema, associated with type 2 diabetes mellitus (CMS-HCC) High myopia, both eyes Myopia [facility] Diagnosis Moderate nonproliferative diabetic retinopathy of left eye with macular edema associated with type 2 diabetes mellitus (CMS-HCC) Moderate nonproliferative diabetic retinopathy of right eye with macular edema associated with type 2 diabetes mellitus (CMS-HCC) [facility] Diagnosis Moderate nonproliferative diabetic retinopathy of left eye with macular edema associated with type 2 diabetes mellitus (CMS-HCC)- Primary Moderate nonproliferative diabetic retinopathy of right eye with macular edema associated with type 2 diabetes mellitus (CMS-HCC) High myopia, both eyes Myopia Moderate nonproliferative diabetic retinopathy of left eye with macular edema associated with type 2 diabetes mellitus (CMS-HCC) Moderate nonproliferative diabetic retinopathy of right eye with macular edema associated with type 2 diabetes mellitus (CMS-HCC) documented [facility] Diagnosis Moderate nonproliferative diabetic retinopathy of left eye with macular edema associated with type 2 diabetes mellitus (CMS-HCC)- Primary Moderate nonproliferative diabetic retinopathy of right eye with macular edema associated with type 2 diabetes mellitus (CMS-HCC) High myopia, both eyes Myopia documented in this encounter [facility] Diagnosis Moderate nonproliferative diabetic retinopathy of right eye with macular edema associated with type 2 diabetes mellitus (CMS-HCC)- Primary Moderate nonproliferative diabetic retinopathy of left eye with macular edema associated with type 2 diabetes mellitus (CMS-HCC) High myopia, both eyes Myopia Moderate nonproliferative diabetic retinopathy of right eye with macular edema associated with type 2 diabetes mellitus (CMS-HCC) [facility] Diagnosis Moderate nonproliferative diabetic retinopathy of right eye with macular edema associated with type 2 diabetes mellitus (CMS-HCC) [facility] Diagnosis Leg edema, left- Primary [facility] N[facility]ative - Reported* Type Description Date Medical History Perthes Disease Medical History HTN (hypertension) Medical History Hypercholesteremia Medical History Diabetes Surgical History Multiple surgeries, right hip Hospitalization History See past surgical hx [employer] Other Instructions* Attachments The following attachments cannot be sent through Care Everywhere. * Diabetes and diet ([place]) [facility]ructions[facility] documented in [facility] SystemInstructionsNot on file documented in [facility] SystemInstructions* Attachments The following attachments cannot be sent through Care Everywhere. * Diabetes and diet ([place]) [facility] System[facility]ructionsNot on file documented in [facility] Summary Purpose Family History Unknown Family Member Name Dates Details Family history of malignant neoplasm: Maternal Grandmother(V16.9, Z80.9) Status:Active Advance Directives No Advanced Directives Records FoundNo Advanced Directives Records FoundNo Advanced Directives Records FoundNo Advanced Directives Records FoundNo Advanced Directives Records FoundNo Advanced Directives Records FoundNo Advanced Directives Records FoundNo Advanced Directives Records FoundNo Advanced Directives Records Found Additional Source Comments (unrecognized sect ion and content) No Status Records FoundNo Status Records FoundNo Status Records FoundNo Status Records FoundNo Status Records FoundNo Status Records FoundNo Status Records FoundNo Status Records FoundNo Status Records Found INFORMATION SOURCE (unrecogn ized section and content) DATE CREATED AUTHOR 08/30/2018 [facility] DATE CREATED AUTHOR AUTHOR'S ORGANIZ ATION 10/21/2020 [facility] DATE CREATED AUTHOR AUTHOR'S ORGANIZ ATION 04/10/2021 [facility] DATE CREATED AUTHOR AUTHOR'S ORGANIZ ATION 2022 [facility] DATE CREATED AUTHOR AUTHOR'S ORGANIZ ATION 2022 [employer] DATE CREATED AUTHOR AUTHOR'S ORGANIZ ATION 09/10/2022 [facility] DATE CREATED AUTHOR AUTHOR'S ORGANIZ ATION 08/09/2024 [facility] DATE CREATED AUTHOR AUTHOR'S ORGANIZ ATION 08/10/2024 [facility] DATE CREATED AUTHOR AUTHOR'S ORGANIZ ATION 08/13/2024 [facility] REASON FOR VISIT (unrecogniz ed section and content) Reason Comments Moderate nonproliferative diabetic retin opathy of left eye Reason Comments Moderate nonproliferative diabetic retin opathy of right eye Reason Comments Diabetic retinopathy with macular edema associated with romana Specialty Diagnoses / Procedures Referred By Contac t Referred To Contact Ophthalmology Diagnoses Diabetic retinopathy with macular edema associated with diabetes mellitus due to underlying condition, unspecified laterality, unspecified retinopathy severity ([facility]) Alfonso Stuart, OD [address] [place] [address] Saúl Quintana MD [address] [place] [address] Referral ID Status Reason Start Date Expiration Date V isits Requested Visits Authorized [id number] Closed Specialty Services Required 02/10/2024 02/09/2025 1 1 Reason Comments diabetic retinopathy Reason Comments New Patient Care Teams (unrecognized sec tion and content) Biomedical Manager Relationship Specialty Start Date End Date No Pcp, [place] [address] PCP - General Family Medicine 03/10/24 Biomedical Manager Relationship Specialty Start Date End Date No Pcp, [place] [address] PCP - General Family Medicine 03/10/24 Biomedical Manager Relationship Specialty Start Date End Date No Pcp, [place] [address] PCP - General Family Medicine 03/10/24 Biomedical Manager Relationship Specialty Start Date End Date No Pcp, [place] [address] PCP - General Family Medicine 03/10/24 Biomedical Manager Relationship Specialty Start Date End Date No Pcp, [place] [address] PCP - General Family Medicine 03/10/24 Biomedical Manager Relationship Specialty Start Date End Date No Pcp, [place] [address] PCP - General Family Medicine 03/10/24 Biomedical Manager Relationship Specialty Start Date End Date No Pcp, [place] [address] PCP - General Family Medicine 03/10/24 Biomedical Manager Relationship Specialty Start Date End Date No Pcp, [place] [address] PCP - General Family Medicine 03/10/24 FOR RECORDS PERTAINING TO PATIENTS WHO ARE OR HAVE BEEN ENROLLED IN A CHEMICAL DEPENDENCY/SUBSTANCEABUSE PROGRAM, SOME INFORMATION MAY BE OMITTED. This clinical summary was aggregated from multiple sources. Caution should be exercised in using it in the provision of clinical care. This summary normalizes information from multiple sources, and as a consequence, information in this document may materially change the coding, format and clinical context of patient data. In addition, data may be omitted in some cases. CLINICAL DECISIONS SHOULD BE BASED ON THE PRIMARY CLINICAL RECORDS. [facility]. provides no warranty or guarantee of the accuracy or completeness of information in this document.
[2024-12-25 15:09] VITALS: BP 155/86
--- NOTE | 2024-12-25 15:12 | P.HP_ITS ---
HPI H&P: HPI History of Present Illness Chief complaint: RT LOWER LEG PAIN Narrative: This is a 44-year-old man who came to the emergency room here on Friday afternoon after discovering a puncture wound on his right foot at the base of the right great toe on . In the ER he had cellulitis streaking up his leg almost up to the level of the knee, the blood pressure of 198/100, heart rate of 116 bpm, and an elevated white blood count of 12.2. The patient says that 3 days ago in the evening he took off his shoe and discovered that it was full of blood. And there had been a screw in the shoe that had been poking him at the first MTP joint. He said at that time there was a lot of pain right in the base of the foot. But the next day the pain in the foot went away, and then sometime over the last 24 hours he began to notice a lot of pain in the skin spreading up from his ankle towards his knee. He denies having fevers or chills and he says that he feels sweaty all the time but he said that he had a lot of nausea going on 24 hours ago but did not actually vomit. He has diabetes, high blood pressure, BMI of 40.7, and evidence of Charcot changes to the other foot (left.). 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 He says that right now his right hip joint is one giant ball of spur. He also had some surgeries to repair a tendon the great toe of his left foot many years ago. Review of Systems ROS Constitutional Reports: malaise and night sweats Eyes Denies: change in vision or blurry vision Ears, nose, mouth, and throat Denies: throat pain or neck pain Cardiovascular Denies: chest pain or palpitations Respiratory Denies: shortness of breath, cough, wheezing or stridor Gastrointestinal Reports: nausea; Denies: abdominal pain or vomiting Genitourinary Denies: painful urination, urinary frequency or urinary urgency Musculoskeletal Denies: back pain or neck pain Integumentary/Breast Reports: rash and skin pain Neurological Denies: headache, numbness in extremities, weakness in extremities or lack of coordination Psychiatric Denies: anxiety, mood swings or panic attacks Endocrine Denies: excessive urination or excessive thirst Hematologic/Lymphatic Denies: easy bruising or easy bleeding Allergic/Immunologic Denies: hives, throat swelling or tongue swelling PFSH PFSH Surgical History (Updated 12/25/24 @ 15:18 by NORA SINGH) History of toe surgery ?Z98.890 - Other specified postprocedural states (ICD-10) History of repair of left hip joint ?Z98.890 - Other specified postprocedural states (ICD-10) Social History Little interest or pleasure in doing things: not at all Feeling down, depressed, or hopeless: not at all Meds Home Medications and Allergies Home Medications ?Medication ?Instructions ?Recorded ?Confirmed ?Type metoprolol tartrate 25 mg tablet 25 mg PO BID #30 tabs 08/05/24 12/25/24 Rx insulin NPH isoph U-100 human 100 40 unit subcut BID 0 12/25/24 12/25/24 History unit/mL (3 mL) subcutaneous pen (Novolin N FlexPen) insulin regular human 100 unit/mL 1 sliding scale dose subcut 12/25/24 12/25/24 History injection solution cartridge USEASDIRECTD Allergies Allergy/AdvReac Type Severity Reaction Status Date / Time No Known Drug Allergies Allergy Verified 12/25/24 13:48 Exam Narrative Exam Narrative: General: Lying on the ER cot in ER bed 1 completing a venous Doppler ultrasound of the right lower extremity. To my view the images of the ultrasound of the [facility] lower extremity are normal without evidence of thrombus. Neuro: Awake alert and oriented x 3. Psychiatric: Bright affect and appropriate mood. Neck: No lymphadenopathy. No thyromegaly. Eyes: EOMI. No scleral icterus. Cardiac: Regular rate and rhythm to auscultation. No murmurs to auscultation. Pulmonary: Clear to auscultation throughout. No wheezing. No rhonchi. No crackles. GI: Abdomen soft, normal bowel sounds throughout. Right lower extremity: Cellulitis starts around the ankle and goes up his leg circumferentially almost all the way to the knee. This is a light pink cellulitis. It is moderately warm to touch. It is moderately reddened. No erysipelas. Right foot: Right over the distal aspect of the first MTP is a puncture wound. No purulence or fluid is being expressed from this. It is about 7 mm in diameter. Left foot: No acute changes. Does have some collapse of the arch which I think is early Charcot changes. Constitutional Vital Signs, click to edit/add: Last Vital Signs Temp 98.4 F 12/25/24 13:48 Pulse 116 H 12/25/24 13:48 Resp 16 12/25/24 13:48 BP 198/100 H 12/25/24 13:48 Pulse Ox 96 12/25/24 13:48 O2 Del Method Room Air 12/25/24 13:48 Results Labs Labs: Short CBC 12/25/24 Range/Units 14:11 WBC 12.2 H (4.0-11.0) 10^3/uL Hgb 11.2 L (14.0-18.0) g/dL Hct 33.7 L (42.0-54.0) % Plt Count 196 (150-450) 10^3/uL BMP 12/25/24 14:11 Sodium 129 L Potassium 4.0 Chloride 93 L Carbon Dioxide 27.9 BUN 30.0 H Creatinine 1.63 H Glucose 325 H Calcium 9.2 Liver Function 12/25/24 Range/Units 14:11 Total Bilirubin 0.4 (0.2-1.0) mg/dL AST 18 (15-37) U/L ALT 28 (16-63) U/L Alkaline Phosphatase 101 (46-116) U/L Albumin 2.1 L (3.4-5.0) g/dL Additional Findings Additional findings: X-ray of the foot was done. Read by radiologist as mild subcutaneous emphysema is noted along the plantar aspect of the foot beneath the proximal phalanx of the great toe. No abnormal radiopaque foreign body. No acute bony injury. Assessment and Plan Assessment and Plan (1) Infected puncture wound of plantar aspect of foot: Qualifiers: Encounter type: initial encounter Laterality: right Qualified Code(s): S91.331A - Puncture wound without foreign body, right foot, initial encounter; L08.9 - Local infection of the skin and subcutaneous tissue, unspecified (2) Cellulitis of leg, right: (3) Left leg swelling: (4) Type II diabetes mellitus: Qualifiers: Diabetes mellitus [employer] insulin use: without detention use Diabetes mellitus complication status: with neurologic complications Diabetes mellitus complication detail: with polyneuropathy Qualified Code(s): E11.42 - Type 2 diabetes mellitus with diabetic polyneuropathy (5) Hypertension: Qualifiers: Hypertension type: primary hypertension Qualified Code(s): I10 - Essential (primary) hypertension (6) BMI 40.0-44.9, adult: Plan Assessment: Puncture wound at the plantar aspect of the right foot. Acute cellulitis spreading of the right lower extremity towards the knee. Diabetes mellitus type 2. Hypertension. This is accelerated because of rebound hypertension because he has not taken his metoprolol in the last few days. BMI of 40.7. Plan: Hospital admission, inpatient status. Continue IV vancomycin, dose adjusted by pharmacy for his renal clearance. Continue Unasyn. Restart metoprolol to control his blood pressure. Sliding-scale insulin. Check hemoglobin A1c. Consult to podiatry. DVT prophylaxis with Heparin 5000 units SC TID.
[2024-12-25 15:31] VITALS: BP 157/80
--- OUTSIDE RECORDS SUMMARY | 2024-12-25 16:01 | XMS_ITS | CCD ---
Author Organization [facility]ini[facility] Care Team Providers Care Rewards Consultant Name Role Phone WILFRIDO SONG Attending Unavailable [...] ASTRID ., DR ROCHELLE Maddox Admitting Unavailable RSEENDIZ ., DR ROCHELLE Maddox Attending Unavailable RESENDIZ [...] rubber gloves; Translations: [Latex Gloves] Substance Allergy [facility] Work Phone: (1 source) Latex rubber gloves Allergy to drug (finding) [facility] Work Phone: (5 sources) natural latex rubber; Translations: [LATEX, NATURAL RUBBER] Drug allergy (disorder) 2 [facility] Repository (13 sources) Latex Propensity to adverse reactions to drug 2 Hives, Rash [facility] Medications Current Medications Medication Drug Class(es) [...] Agent - OD - Right Eyeon 08-06-2024 [facility] No Panel Informationon 08-06 [facility] Intravitreal Injection, Phar macologic Agent - OD - Right Eyeon 07-06-2024 [facility] No Panel Informationon 06-22 OD: DM; persistent D ME, slight increased; treat laser vs injections discussed OS: DM; improving DME; treat vs continue to follow discussed MANUALLY TRANSCRIBED RESULTS [facility] Focal Laser - OS - Left Eyeo n 03-17-2024 [facility] Focal Laser - OD - Right Eye on 03-10-2024 [facility] No Panel Informationon 03-10 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 Sonia Sommers CK.MB [Mass/Vol] 2.58 ng/mL Normal <=3.60 [facility] Comment on above: Performed By: #### C MREP #### [facility] [address] [address] [address] Sonia Sommers HSTROP 33.2 pg/mL Normal 4.0-76.1 [facility] Comment on above: Result Comment: CUT- OFF POINTS HAVE BEEN ESTABLISHED BASED ON THE FOURTH UNIVERSAL DEFINITIONS OF MYOCARDIAL INFARCTION. THE UPPER REFERENCE LIMIT (URL) OF TROPONIN, DEFINED THE 99TH PERCENTILE OF cTnI DISTRIBUTION IN A REFERENCE POPULATION, HAS BEEN CONFIRMED THE DECISION THRESHOLD FOR IA DIAGNOSIS. Performed By: #### C MREP #### [facility] [address] [place], [place] [address] Dr. Sonia Sommers CBC AUTO DIFFon 09-07-2022 BASO # 0.0 103/ul Normal 0.0-0.1 [facility] Comment on above: Performed By: #### C BC #### [facility] [address] [address] [address] Sonia Sommers Basophils/100 WBC (Bld) 0.1 % Critically low 0.2-2.0 [facility] Comment on above: Performed By: #### C BC #### [facility] [address] [place] [address] Dr. Sonia Sommers EO # 0.0 103/ul Normal 0.0-0.7 [facility] Comment on above: Performed By: #### C BC #### [facility] [address] [place] [address] Dr. Sonia Sommers Eosinophils/100 WBC (Bld) 0.0 % Critically low 0.9-7.0 [facility] Comment on above: Performed By: #### C BC #### [facility] [address] [place] [address] Dr. Sonia Sommers Erythrocyte distribution width (RBC) [Ratio] 12.8 % Normal 11.0-15.0 [facility] Comment on above: Performed By: #### C BC #### [facility] [address] [place] [address] Dr. Sonia Sommers Hematocrit (Bld) [Volume fraction] 37.5 % Critically low 42.0-54.0 [facility] Comment on above: Performed By: #### C BC #### [facility] [address] [place] [address] Dr. Sonia Sommers Hemoglobin (Bld) [Mass/Vol] 12.7 g/dL Critically low 14.0-18.0 [facility] Comment on above: Performed By: #### C BC #### [facility] [address] [place] [address] Dr. Sonia Sommers IG # 0.05 10e3/ul Critically high 0.00-0.03 [facility] Comment on above: Performed By: #### C BC #### [facility] [address] [place] [address] Dr. Sonia Sommers IG % 0.6 % Critically high 0.0-0.5 [facility] Comment on above: Performed By: #### C BC #### [facility] [address] [place] [address] Dr. Sonia Sommers LYMPH # 0.9 103/ul Critically low 1.2-3.8 [facility] Comment on above: Performed By: #### C BC #### [facility] [address] [place] [address] Dr. Sonia Sommers Lymphocytes/100 WBC (Bld) 10.5 % Critically low 20.5-60.0 [facility] Comment on above: Performed By: #### C BC #### [facility] [address] [place] [address] Dr. Sonia Sommers MANUAL DIFF REQ NO Normal [facility] Comment on above: Performed By: #### C BC #### [facility] [address] [place] [address] Dr. Sonia Sommers MCH (RBC) [Entitic mass] 28.6 pg Normal 25.9-34.0 [facility] Comment on above: Performed By: #### C BC #### [facility] [address] [place] [address] Dr. Sonia Sommers MCHC (RBC) [Mass/Vol] 33.9 g/dL Normal 29.9-35.2 [facility] Comment on above: Performed By: #### C BC #### [facility] [address] [place] [address] Dr. Sonia Sommers MCV (RBC) [Entitic vol] 84.5 fL Normal 80.0-94.0 [facility] Comment on above: Performed By: #### C BC #### [facility] [address] [place] [address] Dr. Sonia Sommers MONO # 0.2 103/ul Critically low 0.3-0.8 [facility] Comment on above: Performed By: #### C BC #### [facility] [address] [place] [address] Dr. Sonia Sommers Monocytes/100 WBC (Bld) 2.1 % Normal 1.7-12.0 [facility] Comment on above: Performed By: #### C BC #### [facility] [address] [place] [address] Dr. Sonia Sommers NEUT # 7.2 103/ul Critically high 1.4-6.5 [facility] Comment on above: Performed By: #### C BC #### [facility] [address] [address] [address] Sonia Sommers Neutrophils/100 WBC (Bld) 86.7 % Critically high 43.0-75.0 [facility] Comment on above: Performed By: #### C BC #### [facility] [address] [address] [address] Sonia Sommers Platelet mean volume (Bld) [Entitic vol] 9.8 fL Normal 9.5-13.5 [facility] Comment on above: Performed By: #### C BC #### [facility] [address] [address] [address] Sonia Sommers PLT 290 103/ul Normal 150-450 [facility] Comment on above: Performed By: #### C BC #### [facility] [address] [address] [address] Sonia Sommers RBC 4.44 106/ul Critically low 4.70-6.10 [facility] Comment on above: Performed By: #### C BC #### [facility] [address] [address] [address] Sonia Sommers WBC 8.3 103/ul Normal 4.0-11.0 [facility] Comment on above: Performed By: #### C BC #### [facility] [address] [address] [address] Sonia Sommers POINT OF CARE GLUCOSEon 08-24 Glucose [Mass/Vol] 413 mg/dL Critically high 74-106 [facility] Comment on above: Performed By: #### P OCGLUC #### [facility] [address] [address] [address] Sonia Sommers Glucose [Mass/Vol] 318 mg/dL Critically high 74-106 [facility] Comment on above: Performed By: #### P OCGLUC ####[facility] [id number] [address]Dr. Sonia Sommers PROF 14(COMP METB)on 023 Albumin [Mass/Vol] 3.4 g/dL Normal 3.4-5.0 [facility] Comment on above: Performed By: #### C MP #### [facility] [address] [place] [address] Dr. Sonia Sommers Albumin/Globulin [Mass ratio] 0.8 {ratio} Normal [facility] Comment on above: Performed By: #### C MP #### [facility] [address] [place] [address] Dr. Sonia Sommers ALP [Catalytic activity/Vol] 104 U/L Normal 46-116 [facility] Comment on above: Performed By: #### C MP #### [facility] [address] [place] [address] Dr. Sonia Sommers ALT [Catalytic activity/Vol] 29 U/L Normal 16-63 [facility] Comment on above: Performed By: #### C MP #### [facility] [address] [place] [address] Dr. Sonia Sommers Anion gap [Moles/Vol] 16.3 mmol/L Normal [facility] Comment on above: Performed By: #### C MP #### [facility] [address] [place] [address] Dr. Sonia Sommers AST [Catalytic activity/Vol] 17 U/L Normal 15-37 [facility] Comment on above: Performed By: #### C MP #### [facility] [address] [place] [address] Dr. Sonia Sommers Bilirubin [Mass/Vol] 0.6 mg/dL Normal 0.2-1.0 [facility] Comment on above: Performed By: #### C MP #### [facility] [address] [place] [address] Dr. Sonia Sommers Calcium [Mass/Vol] 9.0 mg/dL Normal 8.5-10.1 [facility] Comment on above: Performed By: #### C MP #### [facility] [address] [place] [address] Dr. Sonia Sommers Chloride [Moles/Vol] 101 mmol/L Normal 98-107 [facility] Comment on above: Performed By: #### C MP #### [facility] [address] [address] [address] Sonia Sommers CO2 [Moles/Vol] 21.0 mmol/L Normal 21.0-32.0 [facility] Comment on above: Performed By: #### C MP #### [facility] [address] [address] [address] Sonia Sommers Creatinine [Mass/Vol] 1.25 mg/dL Normal 0.70-1.30 [facility] Comment on above: Performed By: #### C MP #### [facility] [address] [place] [address] Dr. Sonia Sommers EGFR-AF CITIZ[place] >60 Normal >=60 [facility] Comment on above: Performed By: #### C MP #### [facility] [address] [place] [address] Dr. Snoia Sommers EGFR-NON AF CITIZEN [place] >60 Normal >=60 [facility] Comment on above: Performed By: #### C MP #### [facility] [address] [place] [address] Dr. Sonia Sommers Globulin (S) [Mass/Vol] 4.2 g/dL Normal [facility] Comment on above: Performed By: #### C MP #### [facility] [address] [place] [address] Dr. Sonia Sommers Glucose [Mass/Vol] 316 mg/dL Critically high 74-106 [facility] Comment on above: Performed By: #### C MP #### [facility] [address] [place] [address] Dr. Sonia Sommers Potassium [Moles/Vol] 5.3 mmol/L Critically high 3.5-5.1 [facility] Comment on above: Performed By: #### C MP #### [facility] [address] [place] [address] Dr. Sonia Sommers Protein [Mass/Vol] 7.6 g/dL Normal 6.4-8.2 [facility] Comment on above: Performed By: #### C MP #### [facility] [address] [place] [address] Dr. Sonia Sommers Sodium [Moles/Vol] 133 mmol/L Critically low 136-145 [facility] Comment on above: Performed By: #### C MP #### [facility] [address] [address] [address] Sonia Sommers Urea nitrogen [Mass/Vol] 42.0 mg/dL Critically high 7.0-18.0 [facility] Comment on above: Performed By: #### C MP #### [facility] [address] [address] [address] Sonia Sommers Urea nitrogen/Creatini ne [Mass ratio] 33.6 mg/mg Normal [facility] Comment on above: Performed By: #### C MP #### [facility] [address] [place] [address] Dr. Sonia Sommers BNPon 09-06-2022 Natriuretic peptide B (Bld) [Mass/Vol] 66.0 pg/mL Normal <=450.0 [facility] Comment on above: Performed By: #### H STROPN, BNP, CMP ####[facility] [id number] [address]Dr. Sonia Sommers CBC AUTO DIFFon 09-06-2022 BASO # 0.1 103/ul Normal 0.0-0.1 [facility] Comment on above: Performed By: #### C BC #### [facility] [address] [place] [address] Dr. Sonia Sommers Basophils/100 WBC (Bld) 0.6 % Normal 0.2-2.0 [facility] Comment on above: Performed By: #### C BC #### [facility] [address] [place] [address] Dr. Sonia Sommers EO # 0.2 103/ul Normal 0.0-0.7 [facility] Comment on above: Performed By: #### C BC #### [facility] [address] [address] [address] Sonia Sommers Eosinophils/100 WBC (Bld) 1.9 % Normal 0.9-7.0 [facility] Comment on above: Performed By: #### C BC #### [facility] [address] [place] [address] Dr. Sonia Sommers Erythrocyte distribution width (RBC) [Ratio] 12.9 % Normal 11.0-15.0 [facility] Comment on above: Performed By: #### C BC #### [facility] [address] [place] [address] Dr. Sonia Sommers Hematocrit (Bld) [Volume fraction] 41.7 % Critically low 42.0-54.0 [facility] Comment on above: Performed By: #### C BC #### [facility] [address] [place] [address] Dr. Sonia Sommers Hemoglobin (Bld) [Mass/Vol] 14.0 g/dL Normal 14.0-18.0 [facility] Comment on above: Performed By: #### C BC #### [facility] [address] [place] [address] Dr. Sonia Sommers IG # 0.08 10e3/ul Critically high 0.00-0.03 [facility] Comment on above: Performed By: #### C BC #### [facility] [address] [place] [address] Dr. Sonia Sommers IG % 0.7 % Critically high 0.0-0.5 [facility] Comment on above: Performed By: #### C BC #### [facility] [address] [place] [address] Dr. Sonia Sommers LYMPH # 1.6 103/ul Normal 1.2-3.8 [facility] Comment on above: Performed By: #### C BC #### [facility] [address] [place] [address] Dr. Sonia Sommers Lymphocytes/100 WBC (Bld) 13.3 % Critically low 20.5-60.0 [facility] Comment on above: Performed By: #### C BC #### [facility] [address] [place] [address] Dr. Sonia Sommers MANUAL DIFF REQ NO Normal [facility] Comment on above: Performed By: #### C BC #### [facility] [address] [address] [address] Sonia Sommers MCH (RBC) [Entitic mass] 28.9 pg Normal 25.9-34.0 [facility] Comment on above: Performed By: #### C BC #### [facility] [address] [place] [address] Dr. Sonia Sommers MCHC (RBC) [Mass/Vol] 33.6 g/dL Normal 29.9-35.2 [facility] Comment on above: Performed By: #### C BC #### [facility] [address] [place] [address] Dr. Sonia Sommers MCV (RBC) [Entitic vol] 86.0 fL Normal 80.0-94.0 [facility] Comment on above: Performed By: #### C BC #### [facility] [address] [place] [address] Dr. Sonia Sommers MONO # 0.9 103/ul Critically high 0.3-0.8 [facility] Comment on above: Performed By: #### C BC #### [facility] [address] [place] [address] Dr. Sonia Sommers Monocytes/100 WBC (Bld) 7.4 % Normal 1.7-12.0 [facility] Comment on above: Performed By: #### C BC #### [facility] [address] [place] [address] Dr. Sonia Sommers NEUT # 8.9 103/ul Critically high 1.4-6.5 [facility] Comment on above: Performed By: #### C BC #### [facility] [address] [place] [address] Dr. Sonia Sommers Neutrophils/100 WBC (Bld) 76.1 % Critically high 43.0-75.0 [facility] Comment on above: Performed By: #### C BC #### [facility] [address] [place] [address] Dr. Sonia Sommers Platelet mean volume (Bld) [Entitic vol] 10.2 fL Normal 9.5-13.5 [facility] Comment on above: Performed By: #### C BC #### [facility] [address] [place], [place] [address] Dr. Sonia Sommers PLT 378 103/ul Normal 150-450 [facility] Comment on above: Performed By: #### C BC #### [facility] [address] [address] [address] Sonia Sommers RBC 4.85 106/ul Normal 4.70-6.10 [facility] Comment on above: Performed By: #### C BC #### [facility] [address] [place], [place] [address] Dr. Sonia Sommers WBC 11.7 103/ul Critically high 4.0-11.0 [facility] Comment on above: Performed By: #### C BC #### [facility] [address] [address] [address] Sonia Sommers CTA CHEST WO W [...] Gita RUSHING Date: 2022-09-06 17:44 Normal [facility] Covid-19 PCR (CVDTB)on 08-24 SARS-CoV-2 (COVID-19) RNA CARLOS+probe Ql (Unsp spec) Not detected Normal NOT DETECTED [facility] Comment on above: Result Comment: When diagnostic [...] for this test is supported by the [place] [employer] and Human Service's declaration that [...] used). Performed By: #### C VDTB #### [facility] [address] [address] [address] Sonia Sommers PROF 14(COMP METB)on 023 Albumin [Mass/Vol] 4.0 g/dL Normal 3.4-5.0 [facility] Comment on above: Performed By: #### H STROPN, BNP, CMP ####[facility] [id number] [address]DrVenkata Sommers Albumin/Globulin [Mass ratio] 0.8 {ratio} Normal [facility] Comment on above: Performed By: #### H STROPN, BNP, CMP ####[facility] [address] [address]DrVenkata Sommers ALP [Catalytic activity/Vol] 106 U/L Normal 46-116 [facility] Comment on above: Performed By: #### H STROPN, BNP, CMP ####[facility] [address] [address]DrVenkata Sommers ALT [Catalytic activity/Vol] 34 U/L Normal 16-63 [facility] Comment on above: Performed By: #### H STROPN, BNP, CMP ####[facility] [address] [address]DrVenkata Sommers Anion gap [Moles/Vol] 19.2 mmol/L Normal [facility] Comment on above: Performed By: #### H STROPN, BNP, CMP ####[facility] [id number] [address]Dr. Sonia Sommers AST [Catalytic activity/Vol] 18 U/L Normal 15-37 [facility] Comment on above: Performed By: #### H STROPN, BNP, CMP ####[facility] [address] [address]Dr. Sonia Sommers Bilirubin [Mass/Vol] 1.0 mg/dL Normal 0.2-1.0 [facility] Comment on above: Performed By: #### H STROPN, BNP, CMP ####[facility] [address] [place], [place] [address]Dr. Sonia Sommers Calcium [Mass/Vol] 10.1 mg/dL Normal 8.5-10.1 [facility] Comment on above: Performed By: #### H STROPN, BNP, CMP ####[facility] [address] [place], [place] [address]Dr. Sonia Sommers Chloride [Moles/Vol] 93 mmol/L Critically low 98-107 [facility] Comment on above: Performed By: #### H STROPN, BNP, CMP ####[facility] [address] [place], [place] [address]Dr. Sonia Sommers CO2 [Moles/Vol] 24.0 mmol/L Normal 21.0-32.0 [facility] Comment on above: Performed By: #### H STROPN, BNP, CMP ####[facility] [address] [place], [place] [address]Dr. Sonia Sommers Creatinine [Mass/Vol] 2.23 mg/dL Critically high 0.70-1.30 [facility] Comment on above: Performed By: #### H STROPN, BNP, CMP ####[facility] [address] [place], [place] [address]Dr. Sonia Sommers EGFR-AF [place]IZ[place] 40 mL/min/1.73m2 Critically low >=60 [facility] Comment on above: Performed By: #### H STROPN, BNP, CMP ####[facility] [address] [address]Dr. Sonia Sommers EGFR-NON AF [place]IZ[place] 33 mL/min/1.73m2 Critically low >=60 [facility] Comment on above: Performed By: #### H STROPN, BNP, CMP ####[facility] [address] [address]Dr. Sonia Sommers Globulin (S) [Mass/Vol] 5.2 g/dL Normal [facility] Comment on above: Performed By: #### H STROPN, BNP, CMP ####[facility] [address] [address]Dr. Sonia Sommers Glucose [Mass/Vol] 427 mg/dL Critically high 74-106 [facility] Comment on above: Performed By: #### H STROPN, BNP, CMP ####[facility] [address] [place], [place] [address]Dr. Sonia Sommers Potassium [Moles/Vol] 4.2 mmol/L Normal 3.5-5.1 [facility] Comment on above: Performed By: #### H STROPN, BNP, CMP ####[facility] [address] [place], [place] [address]Dr. Sonia Sommers Protein [Mass/Vol] 9.2 g/dL Critically high 6.4-8.2 [facility] Comment on above: Performed By: #### H STROPN, BNP, CMP ####[facility] [address] [place], [place] [address]Dr. Sonia Sommers Sodium [Moles/Vol] 132 mmol/L Critically low 136-145 [facility] Comment on above: Performed By: #### H STROPN, BNP, CMP ####[facility] [address] [place], [place] [address]Dr. Sonia Sommers Urea nitrogen [Mass/Vol] 59.0 mg/dL Critically high 7.0-18.0 [facility] Comment on above: Performed By: #### H STROPN, BNP, CMP ####[facility] [address] [address]Dr. Sonia Sommers Urea nitrogen/Creatini ne [Mass ratio] 26.5 mg/mg Normal [facility] Comment on above: Performed By: #### H STROPN, BNP, CMP ####[facility] [address] [address]Dr. Sonia Sommers PROTIMEon 09-06-2022 INR Coag (PPP) [Relative time] 1.03 {INR} Normal [facility] Comment on above: Performed By: #### P T, PTT #### [facility] [place] [facility] Laboratory [address] [address] [address] Sonia Sommers INR GUIDELINES SEE BELOW Normal [facility] Comment on above: Result Comment: ROSALVA RED INR: 2.0 - 3.0 CONDITIONS NOT LISTED BELOW 2.5 - 3.5 FOR PROSTHETIC HEART VALVE REPLACEMENT 2.5 - 3.5 RECURRENT THROMBOSIS Performed By: #### P T, PTT #### [facility] Laboratory [address] [place] [address] Dr. Sonia Sommers PT Coag (PPP) [Time] 10.9 s Normal 9.0-11.6 [facility] [place] [facility] Comment on above: Performed By: #### P T, PTT #### [facility] [address] [place] [address] Dr. Sonia Sommers PTTon 09-06-2022 aPTT Coag (Bld) [Time] 27.3 s Normal 22.3-36.2 [facility] Comment on above: Performed By: #### P T, PTT #### [facility] [address] [place] [address] Dr. Sonia Sommers TROPONIN, HIGH SENSITIVITYon 09-06-2022 HSTROP 49.4 pg/mL Normal 4.0-76.1 [facility] Comment on above: Result Comment: CUT- OFF POINTS HAVE BEEN ESTABLISHED BASED ON THE FOURTH UNIVERSAL DEFINITIONS OF MYOCARDIAL INFARCTION. THE UPPER REFERENCE LIMIT (URL) OF TROPONIN, DEFINED THE 99TH PERCENTILE OF cTnI DISTRIBUTION IN A REFERENCE POPULATION, HAS BEEN CONFIRMED THE DECISION THRESHOLD FOR IA DIAGNOSIS. Performed By: #### H STROPN #### [facility] [address] [place], [place] [address] Dr. Sonia Sommers HSTROP 33.6 pg/mL Normal 4.0-76.1 [facility] Comment on above: Result Comment: CUT- OFF POINTS HAVE BEEN ESTABLISHED BASED ON THE FOURTH UNIVERSAL DEFINITIONS OF MYOCARDIAL INFARCTION. THE UPPER REFERENCE LIMIT (URL) OF TROPONIN, DEFINED THE 99TH PERCENTILE OF cTnI DISTRIBUTION IN A REFERENCE POPULATION, HAS BEEN CONFIRMED THE DECISION THRESHOLD FOR IA DIAGNOSIS. Performed By: #### H STROPN, BNP, CMP ####[facility] [address] [place], [place] [address]FoDr. Sonia Sommers Office Visiton 04-24-2022 Follow-up visit [...] dysfunction and cardiac assessment according to the [place] criteria allows use of oral PDE-5 inhibitor. [...] proceed. Chief Complaint FUV History of Present Hyvkvni47 year old male with ED, DM, HTN, [...] FRUCTOSAMINEon 03-09-2021 FRUCTOSAMINE 325 umol/L High 0-285 [facility] Comment on above: Result Comment: Publ ished reference interval for apparently healthy subjects between age 20 and 60 is 205 - 285 umol/L and in a poorly controlled diabetic population is 228 - 563 umol/L with a mean of 396 umol/L. Performed By: #### F RUCT #### [facility] [address] [place], [place] [id number] COMPREHENSIVE PANELon 2020 Albumin [Mass/Vol] 4.1 g/dL Normal 3.4 - 5.0 [facility] Comment on above: Performed By: #### C MP #### [facility] [place] [address] ALP [Catalytic activity/Vol] 89 U/L Normal 33 - 120 [facility] Comment on above: Performed By: #### C MP #### [address] [address] ALT [Catalytic activity/Vol] 20 U/L Normal 10 - 52 [facility] Comment on above: Result Comment: Hannah ents treated with Sulfasalazine may generate falsely decreased results for ALT. Performed By: #### C MP #### [address] [address] Anion gap [Moles/Vol] 14 mmol/L Normal 10 - 20 [facility] Comment on above: Performed By: #### C MP #### [address] [address] AST [Catalytic activity/Vol] 17 U/L Normal 9 - 39 [facility] Comment on above: Performed By: #### C MP #### [address] [address] Bilirubin [Mass/Vol] 0.6 mg/dL Normal 0.0 - 1.2 [facility] Comment on above: Performed By: #### C MP #### [address] [address] Calcium [Mass/Vol] 9.3 mg/dL Normal 8.6 - 10.3 [facility] Comment on above: Performed By: #### C MP #### [address] [address] Chloride [Moles/Vol] 100 mmol/L Normal 98 - 107 [facility] Comment on above: Performed By: #### C MP #### [address] [address] Creatinine [Mass/Vol] 0.87 mg/dL Normal 0.50 - 1.30 [facility] Comment on above: Performed By: #### C MP #### [address] [address] GFR- AM. >60 Normal >60 [facility] Comment on above: Result Comment: CALC ULATIONS OF ESTIMATED GFR ARE PERFORMED USING THE MDRD STUDY EQUATION FOR THE IDMS-TRACEABLE CREATININE METHODS. CLIN CHEM 2007;53:766-72 Performed By: #### C MP #### [address] [address] GFR-NON AM. >60 Normal >60 [facility] Comment on above: Performed By: #### C MP #### [facility] [address] [place] [address] Glucose [Mass/Vol] 164 mg/dL High 74 - 99 [facility] Comment on above: Performed By: #### C MP #### [facility] [address] [place] [address] HCO3 (Bld) [Moles/Vol] 27 mmol/L Normal 21 - 32 [facility] Comment on above: Performed By: #### C MP #### [address] [place] [address] Potassium [Moles/Vol] 4.3 mmol/L Normal 3.5 - 5.3 [facility] Comment on above: Performed By: #### C MP #### [address] [place] [address] Protein [Mass/Vol] 7.3 g/dL Normal 6.4 - 8.2 [facility] Comment on above: Performed By: #### C MP #### [address] [place] [address] Sodium [Moles/Vol] 137 mmol/L Normal 136 - 145 [facility] Comment on above: Performed By: #### C MP #### [address] [place] [address] Urea nitrogen [Mass/Vol] 19 mg/dL Normal 6 - 23 [facility] Comment on above: Performed By: #### C MP #### [address] [place] [address] HEMOGLOBIN A1Con 03-07-2021 Glucose [Mass/Vol] 280 mg/dL Normal [facility] Comment on above: Performed By: #### H BA1E #### [address] [place] [address] HbA1c (Bld) [Mass fraction] 11.4 % Abnormal [facility] Comment on above: Result Comment: Diag nosis of Diabetes-Adults Non-Diabetic: < or = 5.6% Increased risk for developing diabetes: 5.7-6.4% Diagnostic of diabetes: > or = 6.5% . Monitoring of Diabetes Age (y) Therapeutic Goal (%) Adults: >18 <7.0 Pediatrics: 13-18 <7.5 7-12 <8.0 0- 6 7.5-8.5 [place] [employer]. Diabetes Care 33(S1), May 2009. Performed By: #### H BA1E #### [facility] [address] [place] [address] VITAMIN D, 25-HYDROXYon 02-23 VITAMIN D, 25-HYDROXY 40 ng/mL Normal [facility] Comment on above: Result Comment: . DEFICIENCY: < 20 NG/ML INSUFFICIENCY: 20-29 NG/ML SUFFICIENCY: 30-100 NG/ML THIS ASSAY ACCURATELY QUANTIFIES THE SUM OF VITAMIN D3, 25-HYDROXY AND VIT D2,25-HYDROXY. Performed By: #### V TDOH #### [facility] [address] [place] [address] ESTRADIOLon 10-19-2020 ESTRADIOL 35 pg/mL Normal [facility] Comment on above: Result Comment: Test was ordered on a male or a child <18 years old. Suggest ordering Tandem Mass Spectrometry for Estradiol, Males or Children, Test Code [id number]. INTERPRETIVE INFORMATION: Estradiol, Adult Premenopausal Female Follicular phase .........27-122 pg/mL Mid Cycle phase ..........95-433 pg/mL Luteal Phase .............49-291 pg/mL Post-Menopausal ....Less than 41 pg/mL Performed By: [employer] [address] [place] [address] Leaf Conditioner Helper: Julianne Whalen MD Performed By: #### 1 63962 #### [facility] [place] [facility] [address] [place] [address] Cmo & President: Edy Gramajo MD CBCNDon 10-17-2020 Erythrocyte distribution width (RBC) [Ratio] 13.7 % Normal 11.5-14.5 [facility] Comment on above: Performed By: #### 1 30197, 369502, 122340, 693951, [id number] #### [facility] [place] [facility] [address] [place] [address] [employer]mo [employer] President: Edy Gramajo MD Hematocrit (Bld) [Volume fraction] 45.1 % Normal 41.0-52.0 [facility] Comment on above: Performed By: #### 1 27215, 499976, 222171, 525139, [id number] #### [facility] [place] [facility] [address] [place] [address] Cmo & President: Edy Gramajo MD Hemoglobin (Bld) [Mass/Vol] 15.1 g/dL Normal 13.5-17.5 [facility] Comment on above: Performed By: #### 1 01534, 353475, 194460, 622497, [id number] #### [facility] [place] [facility] [address] [place], [place] [id number] Cmo & President: Edy Gramajo MD Instr WBC ND 7.4 Normal [facility] Comment on above: Performed By: #### 1 00328, 433411, 042407, 791600, 2975527 #### [facility] [place] [facility] [address] [place] [address] Cmo & President: Edy Gramajo MD MCH (RBC) [Entitic mass] 29.1 pg Normal 27.0-34.0 [facility] Comment on above: Performed By: #### 1 51918, 616524, 775057, 651441, 5756019 #### [facility] [place] [facility] [address] [place] [address] Cmo & President: Edy Gramajo MD MCHC (RBC) [Mass/Vol] 33.4 g/dL Normal 32.0-37.0 [facility] Comment on above: Performed By: #### 1 26104, 350801, 215860, 887202, 4490892 #### [facility] [place] [facility] [address] [place] [address] Cmo & President: Edy Gramajo MD MCV (RBC) [Entitic vol] 87.3 fL Normal 80.0-100.0 [facility] Comment on above: Performed By: #### 1 94691, 598671, 598654, 888040, 2460249 #### [facility] [place] [facility] [address] [place] [address] Cmo & President: Edy Gramajo MD Platelet 224 x1000 Normal 150-450 [facility] Comment on above: Performed By: #### 1 00124, 081825, 057892, 118844, 8201309 #### [facility] [place] [facility] [address] [place] [address] Cmo & President: Edy Gramajo MD Platelet mean volume (Bld) [Entitic vol] 8.8 fL Normal 7.4-10.4 [facility] Comment on above: Performed By: #### 1 97184, 673411, 292708, 713593, 7610533 #### [facility] [place] [facility] [address] [place] [address] Cmo & President: Edy Gramajo MD RBC 5.17 x10 Normal 4.70-6.10 [facility] Comment on above: Result Comment: Note : RBC morphology is normal unless otherwise stated. Evaluation performed only if differential is requested. Performed By: #### 1 06244, 109163, 182349, 640584, 9584561 #### [facility] [place] [facility] [address] [place] [address] Cmo & President: Edy Gramajo MD WBC 7.4 x10 Normal 4.5-11.0 [facility] Comment on above: Performed By: #### 1 59592, 705886, 328872, 150159, 1212965 #### [facility] [place] [facility] [address] [place] [address] Cmo & President: Edy Gramajo MD FSHon 10-17-2020 FSH 3.8 IU/L Normal [facility] Comment on above: Result Comment: REFE RENCE INTERVAL: FOLLICLE STIMULATING HORMONE Prepubertal 0 - 2.0 IU/L Male (Adult) 1.0 - 8.0 IU/L Female: Follicular 1.0 - 10.0 IU/L Mid-cycle 3.0 - 25.0 IU/L Luteal 1.0 - 8.0 IU/L Postmenopausal 30.0 - 110.0 IU/L Performed By: #### 1 16627, 219119, 142920, 242223, 0313693 #### [facility] [place] [facility] [address] [place] [address] Cmo & President: Edy Gramajo MD LHon 10-17-2020 Luteinizing Hormone 4.1 IU/L Normal [facility] Comment on above: Result Comment: Refe rence Interval: Luteinizing Hormone Prepubertal 0 - 1.0 IU/L Male (Adult) 1.0 - 6.7 IU/L Female: Follicular 1.0 - 23.0 IU/L Mid-Cycle 25.0 - 60.0 IU/L Luteal 1.0 - 27.0 IU/L Postmenopausal 30.0 - 100.0 IU/L Performed By: #### 1 61995, 040348, 648394, 225765, 2900427 #### [facility] [place] [facility] [address] [place] [address] Cmo & President: Edy Gramajo MD PSAon 10-17-2020 Prostatic Specific Antigen 0.7 ng/mL Normal 0.0-4.0 [facility] Comment on above: Performed By: #### 1 36329, 978376, 881336, 725653, 8311566 #### [facility] [address] [place] [address] Cmo & President: Edy Gramajo MD TESTOS TOTon 10-17-2020 TESTOS TOT 267 ng/dL Normal 123-814 [facility] Comment on above: Result Comment: Refe rence ranges for females greater than or equal to 21 yrs old: Premenopausal females-Age 21-60 yrs 9 - 48 ng/dl Postmenopausal females-Age 45-89 yrs 0 - 46 ng/dl Samples with biotin concentrations greater than 30 ng/ml will cause erroneus results. Performed By: #### 1 43572, 003192, 552510, 242669, [id number] #### [facility] [place] [facility] [address] [place], [place] [id number] Cmo & President: Edy Gramajo MD Tobacco Screening.on 021 Fall risk assessment a) No falls within the last year -[facility] Work Phone: Tobacco Screening. b) No [facility] Work Phone: Laboratory - Chemistry and C hemistry - challengeon 09-21-2020 Glucose [Mass/Vol] 280 mg/dL above high threshold 74 - 99 -[facility] Work Phone: Glucose [Mass/Vol] 282 mg/dL above high threshold 74 - 99 -[facility] Work Phone: No Panel Informationon 09-21 [facility] Work Phone: Coronavirus 2019 RNA by PCR, Screening Asymptomticon 09-19-2020 Coronavirus 2019 RNA by PCR, Screening Asymptomtic Not detected Normal See Below -[facility] Work Phone: Comment on above: SOURCE: Nasal, [...] make patient management decisions.Fact sheet for providers: https://www.fda.gov/media/516744/downloadFact sheet for patients: https://www.fda.gov/media/498524/downloadThis test has received FDA Emergency Use Authorization (EUA) and has been verified by [facility] ([facility]). This test is only authorized for the duration of time that circumstances exist to justify the authorization of the emergency use of in vitro diagnostic tests for the detection of SARS-CoV-2 virus and/or diagnosis of COVID-19 infection under section 564(b)(1) of the Act, 21 U.S.C. 360bbb-3(b)(1), unless the authorization is terminated or revoked sooner. [facility] is certified under CLIA-88 as qualified to perform high complexity testing. Testing is performed in the [facility] laboratories located at [address] [place] [address]. [facility] Office-Progress Notes-Pr ovideron 08-29-2020 [facility] Office-Progress Notes-Provider Patient: DANIEL DOWLING Age: 40 years Sex: Male : 1980 Associated Diagnoses: None Author: ELIJAH SHANKAR-MR, SHRUTHI No-show Normal [facility] TESTOS TOTon 08-23-2020 TESTOS TOT 298 ng/dL Normal 123-814 [facility] Comment on above: Result Comment: Refe rence ranges for females greater than or equal to 21 yrs old: Premenopausal females-Age 21-60 yrs 9 - 48 ng/dl Postmenopausal females-Age 45-89 yrs 0 - 46 ng/dl Samples with biotin concentrations greater than 30 ng/ml will cause erroneus results. Performed By: #### 4 [id number] #### [facility] [address] [place] [address] Cmo & President: Edy Garmajo MD Complete Blood Count + Diffe echotialmoriah 08-04-2020 Basophils (Bld) [#/Vol] 0.05 {x10E9/L} See Below [facility] Work Phone: Comment on above: Reference Range: 0.0 0 - 0.10 Basophils/100 WBC (Bld) 0.7 % 0.0 - 2.0 [facility] Work Phone: Eosinophils (Bld) [#/Vol] 0.39 {x10E9/L} See Below [facility] Work Phone: Comment on above: Reference Range: 0.0 0 - 0.70 Eosinophils/100 WBC (Bld) 5.1 % 0.0 - 6.0 [facility] Work Phone: Erythrocyte distribution width (RBC) [Ratio] 12.7 % See Below [facility] Work Phone: Comment on above: Reference Range: 11. 5 - 14.5 Hematocrit (Bld) [Volume fraction] 42.6 % See Below [facility] Work Phone: Comment on above: Reference Range: 41. 0 - 52.0 Hemoglobin (Bld) [Mass/Vol] 14.1 g/dL See Below [facility] Work Phone: Comment on above: Reference Range: 13. 5 - 17.5 Lymphocytes (Bld) [#/Vol] 2.16 {x10E9/L} See Below [facility] Work Phone: Comment on above: Reference Range: 1.2 0 - 4.80 Lymphocytes/100 WBC (Bld) 28.1 % See Below [facility] Work Phone: Comment on above: Reference Range: 13. 0 - 44.0 MCHC (RBC) [Mass/Vol] 33.1 g/dL See Below [facility] Work Phone: Comment on above: Reference Range: 32. 0 - 36.0 MCV (RBC) [Entitic vol] 89 fL 80 - 100 [facility] Work Phone: Monocytes (Bld) [#/Vol] 0.95 {x10E9/L} See Below [facility] Work Phone: Comment on above: Reference Range: 0.1 0 - 1.00 Monocytes/100 WBC (Bld) 12.4 % 2.0 - 10.0 [facility] Work Phone: Neutrophils (Bld) [#/Vol] 4.11 {x10E9/L} See Below [facility] Work Phone: Comment on above: Reference Range: 1.2 0 - 7.70 Neutrophils/100 WBC (Bld) 53.4 % See Below [facility] Work Phone: Comment on above: Reference Range: 40. 0 - 80.0 Platelets (Bld) [#/Vol] 235 {x10E9/L} 150 - 450 [facility] Work Phone: RBC (Bld) [#/Vol] 4.78 {x10E12/L} See Below [facility] Work Phone: Comment on above: Reference Range: 4.5 0 - 5.90 WBC (Bld) [#/Vol] 7.7 {x10E9/L} 4.4 - 11.3 [facility] Work Phone: WBC (Bld) [#/Vol] 0.0 {/100_WBC} 0.0-0.0 [facility] Work Phone: Complete Blood Count + Differential 0.3 % 0.0 - 0.9 [facility] Work Phone: Comment on above: Immature Granulocyte Count (IG) includes promyelocytes, myelocytes and metamyelocytes but does not include bands. Percent differential counts (%) should be interpreted in the context of the absolute cell counts (cells/L). Hemoglobin A1Con 08-04-2020 HbA1c (Bld) [Mass fraction] 332 {MG/DL} [facility] Work Phone: HbA1c (Bld) [Mass fraction] 13.2 % [facility] Work Phone: Comment on above: Diagnosis of Diabete s-Adults Non-Diabetic: < or = 5.6% Increased risk for developing diabetes: 5.7-6.4% Diagnostic of diabetes: > or = 6.5%. Monitoring of Diabetes Age (y) Therapeutic Goal (%) Adults: >18 <7.0 Pediatrics: 13-18 <7.5 7-12 <8.0 0- 6 7.5-8.5 [place] [employer]. Diabetes Care 33(S1), May 2009. Lipid Panelon 08-04-2020 Cholesterol [Mass/Vol] 261 mg/dL above high threshold 0 - 199 [facility] Work Phone: Comment on above: . AGE [...] Cholesterol in HDL [Mass/Vol] 31.2 mg/dL Abnormal [facility] Work Phone: Comment on above: . AGE VERY LOW LOW N ORMAL HIGH 0-19 Y < 35 < 40 40-45 ---- 20- 24 Y ---- < 40 >45 ---- >24 Y ---- < 40 40-60 >60. Cholesterol in LDL [Mass/Vol] 154 mg/dL above high threshold 0 - 99 [facility] Work Phone: Comment on above: . NEAR BORD AGE ROSALVA RABLE OPTIMAL HIGH HIGH VERY HIGH 0-19 Y 0 - 109 --- 110-129 >/= 130 ---- 20-24 Y 0 - 119 --- 120-159 >/= 160 ---- >24 Y 0 - 99 100-129 130-159 160-189 >/=190. Cholesterol non HDL [Mass/Vol] 230 mg/dL [facility] Work Phone: Comment on above: AGE DESIRABLE BORDER LINE HIGH HIGH VERY HIGH 0-19 Y 0 - 119 120 - 144 >/= 145 >/= 160 20-24 Y 0 - 149 150 - 189 >/= 190 ---- >24 Y 30 MG/DL ABOVE LDL CHOLESTEROL GOAL. Cholesterol.total /Cholesterol in HDL [Mass ratio] 8.4 {ratio} Abnormal [facility] Work Phone: Comment on above: REF VALUESDESIRABLE < 3.4HIGH RISK > 5.0 Triglyceride [Mass/Vol] 378 mg/dL above high threshold 0 - 149 [facility] Work Phone: Comment on above: . AGE [...] mg/dL above high threshold 0 - 40 [facility] Work Phone: Metabolic Panelon 08-04-2020 ALP [Catalytic activity/Vol] 87 U/L 33 - 120 [facility] Work Phone: Anion gap [Moles/Vol] 16 mmol/L 10 - 20 [facility] Work Phone: Bilirubin [Mass/Vol] 0.5 mg/dL 0.0 - 1.2 [facility] Work Phone: Calcium [Mass/Vol] 9.7 mg/dL 8.6 - 10.6 [facility] Work Phone: Chloride [Moles/Vol] 100 mmol/L 98 - 107 [facility] Work Phone: CO2 [Moles/Vol] 27 mmol/L 21 - 32 [facility] Work Phone: Creatinine [Mass/Vol] 0.90 mg/dL See Below [facility] Work Phone: Comment on above: Reference Range: 0.5 0 - 1.30 Glucose [Mass/Vol] 302 mg/dL above high threshold 74 - 99 [facility] Work Phone: Potassium [Moles/Vol] 4.9 mmol/L 3.5 - 5.3 [facility] Work Phone: Protein [Mass/Vol] 7.3 g/dL 6.4 - 8.2 [facility] Work Phone: Sodium [Moles/Vol] 138 mmol/L 136 - 145 [facility] Work Phone: Urea nitrogen [Mass/Vol] 29 mg/dL above high threshold 6 - 23 [facility] Work Phone: Otheron 08-04-2020 Albumin BCP dye [Mass/Vol] 4.2 g/dL 3.4 - 5.0 [facility] Work Phone: ALT With P-5'-P [Catalytic activity/Vol] 30 U/L 10 - 52 [facility] Work Phone: Comment on above: Patients treated wit h Sulfasalazine may generate falsely decreased results for ALT. AST With P-5'-P [Catalytic activity/Vol] 20 U/L 9 - 39 [facility] Work Phone: >60 >60 [facility] Work Phone: Comment on above: CALCULATIONS OF JESUS MATED GFR ARE PERFORMED USING THE MDRD STUDY EQUATION FOR THE IDMS-TRACEABLE CREATININE METHODS. CLIN CHEM 2007;53:766-72 TSH - Thyroid Stimulating Ho rmTheresa mcnair 08-04-2020 TSH Qn 2.25 {mIU/L} See Below -[facility] Work Phone: Comment on above: Reference Range: 0.4 4 - 3.98 TSH testing is performed using different testing methodology at [facility] than at [facility]. Direct result comparisons should only be made within the same method. Vital Signs Date Time Vital Sign Value Performing Clinician Facility 08-09-2024 09:34-0400 Body weight 137.89 kg Dena Parada DO [facility] 08-09-2024 09:34-0400 Diastolic blood pressure 92 mm[Hg] Dena Parada DO [facility] 08-09-2024 09:34-0400 Heart rate 103 /min Dena Parada DO [facility] 08-09-2024 09:34-0400 Systolic blood pressure 187 mm[Hg] Dena Parada DO [facility] 05-07-2023 11:45-0500 Body height 182.88 cm Sherry Beal Other Hall Other 05-07-2023 11:45-0500 Body mass index (BMI) [Ratio] 38.24 kg/m2 Sherry Angulomond Other Hall Other 05-07-2023 11:45-0500 Body temperature 97.9 [degF] Sherry Beal Other Hall Other 05-07-2023 11:45-0500 Body weight 127.92 kg Sherry Angulomond Other Hall Other 05-07-2023 11:45-0500 Diastolic blood pressure 96 mm[Hg] Sherry Lian Other Hall Other 05-07-2023 11:45-0500 Respiratory rate 18 /min Sherry Beal Other Hall Other 05-07-2023 11:45-0500 SaO2% (BldA) [Mass fraction] 97 % Sherry Beal Other Hall Other 05-07-2023 11:45-0500 Systolic blood pressure 169 mm[Hg] Sherry Beal Other Hall Other 10-11-2020 10:11-0400 Body height 182.88 cm Wilfrido Lillie Salehus Work Phone: [facility] Work Phone: 10-11-2020 10:11-0400 Body mass index (BMI) [Ratio] 35.7 kg/m2 Wilfrido Moreira Delfinous Work Phone: [facility] Work Phone: 10-11-2020 10:11-0400 Body surface area Derived from formula 2.39 m2 Wilfrido Moreira Delfinous Work Phone: [facility] Work Phone: 10-11-2020 10:11-0400 Body temperature 96.3 [degF] Wilfrido Moreira Delfinous Work Phone: [facility] Work Phone: 10-11-2020 10:11-0400 Body weight 119.41 kg Wilfrido Moreira Delfinous Work Phone: [facility] Work Phone: 10-11-2020 10:11-0400 Diastolic blood pressure 108 mm[Hg] Wilfrido Moreira Delfinous Work Phone: [facility] Work Phone: 10-11-2020 10:11-0400 Heart rate 111 /min Wilfrido Lillie Salehus Work Phone: [facility] Work Phone: 10-11-2020 10:11-0400 Systolic blood pressure 165 mm[Hg] Wilfrido Lillie Salehus Work Phone: [facility] Work Phone: 08-04-2020 11:56-0500 BMI (Body Mass Index) 36.48 kg/m2 Wilfrido Song -[facility] Work Phone: 08-04-2020 11:56-0500 Body weight 122.02 kg Wilfrido Song -[facility] Work Phone: 08-04-2020 11:56-0500 BP Diastolic 98 mm[Hg] Wilfrido Song -[facility] Work Phone: 08-04-2020 11:56-0500 BP Systolic 140 mm[Hg] Wilfrido Saleh -[facility] Work Phone: 08-04-2020 11:56-0500 BSA (Body Surface Area) 2.42 m2 Wilfrido Song -[facility] Work Phone: 08-04-2020 11:56-0500 Height 182.88 cm Wilfrido Song -[facility] Work Phone: 08-04-2020 11:56-0500 Pulse (Heart Rate) 107 /min Wilfrido Song -[facility] Work Phone: 08-04-2020 11:56-0500 Pulse Oximetry 98 % Wilfrido Song -[facility] Work Phone: Encounters Encounter Date Encounter Type Care Provider Facility Start: 09-24-2024 End: 09-24-2024 Telephone encounter [facility] Start: 08-09-2024 End: 08-09-2024 ambulatory DENA PARADA [facility] Start: 08-09-2024 End: 08-09-2024 Office outpatient new 30 minutes Dena Parada DO Work Phone: [facility] Comment on above: Leg edema, left (Margie libby Dx) Start: 08-06-2024 End: 08-06-2024 ambulatory [facility] Comment [...] Start: 08-06-2024 ambulatory NO PCP NO PCP [facility] Start: 07-06-2024 End: 07-06-2024 ambulatory [facility] Start: 07-06-2024 End: 07-06-2024 Patient [...] Start: 03-17-2024 End: 03-17-2024 ambulatory SAÚL QUINTANA [facility] Start: 03-17-2024 End: 03-17-2024 Patient [...] 45 minutes Saúl Quintana MD Work Phone: [facility] Comment on above: 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 Start: 09-06-2022 End: 09-07-2022 ambulatory NONE LISTED REQUEST Facility: Start: 07-17-[address] Wilfrido Song Facility:[id number] Start: 04-24-2022 ambulatory MD SERAFIN CHUA IN [facility] Facility:[id number] Start: 10-18-2020 Office outpatient vi sit 15 minutes Wilfrido Song Work Phone: [facility] Work Phone: Start: 08-04-2020 Patient encounter procedure Wilfrido Song [facility] Work Phone: Start: 06-28-2020 Patient encounter procedure Wilfrido Song [facility] Work Phone: Start: 06-25-2019 Patient encounter procedure Wilfrido Song [facility] Work Phone: Start: 09-02-2018 Patient encounter procedure Wilfrido Song [facility] Work Phone: Start: 08-28-2018 End: 08-29-2018 Patient encounter procedure WILFRIDO SALEH Facility:[id number] Start: 08-28-2018 Patient encounter procedure Wilfrido Song -[facility] Work Phone: Procedures Date Procedure [...] 02-25-2024 Diabetic retinal eye exam Mary Rai [employer]IOR [employer]LYST Start: 07-17-2022 Follow-up visit Operative procedure on hip B art Song Plan of Treatment Date Care Activity Detail Author Start: 08-09-2025 Tobacco Screening Tobacco Screening [facility] Start: 08-06-2025 Glaucoma screening Diabetic Op hthalmology Exam [facility] Start: 08-06-2025 Tobacco Screening Tobacco Screening [facility] Start: 07-06-2025 Glaucoma screening Diabetic Op hthalmology Exam [facility] Start: 06-22-2025 Glaucoma screening Diabetic Op hthalmology Exam [facility] Start: 06-22-2025 Tobacco Screening Tobacco Screening [facility] Start: 03-17-2025 Tobacco Screening Tobacco Screening [facility] Start: 03-10-2025 Glaucoma screening Diabetic Op hthalmology Exam [facility] Start: 03-10-2025 Tobacco Screening Tobacco Screening [facility] Start: 02-24-2025 Glaucoma screening Diabetic Op hthalmology Exam [facility] Start: 02-24-2025 Tobacco Screening Tobacco Screening [facility] Start: 01-24-2025 Influenza vaccination Influenza Vacc ine [facility] Start: 09-27-2024 End: 09-27-2024 Patient encounter procedure 09/27/2024 2:40 PM EDT Office Visit [facility] [address] [place] [phone] [place] [address] [place] [address], [address] [place] [address] [facility] Start: 09-14-2024 End: 09-14-2024 Patient encounter procedure 09/14/2024 2:30 PM EDT Appointment [facility] [address] [place] [phone] [facility] Start: 09-09-2024 End: 09-09-2024 Patient encounter procedure 09/09/2024 3:40 PM EDT Office Visit [facility] of [facility] [address] [place] [address] Saúl Quintana MD [address] [place] [address] [facility] Start: 08-09-2024 End: 08-09-2025 US.doppler Lower extremity vein - left Vas venous duplex insufficiency lwr lt [facility] Ultrasound Routine Leg edema, left Expected: 08/09/2024, Expires: 08/09/2025 [facility] Work Phone: Comment on above: Expected: 08/09/2024 , Expires: 08/09/2025 Start: 08-09-2024 End: 08-09-2024 Patient encounter procedure 08/09/2024 9:10 AM EDT Office Visit [facility] [address] [place] [phone] Dena Parada, DO [facility] [facility], [address] [place] [address] [facility] Start: 08-05-2024 End: 08-05-2024 Patient encounter procedure 08/05/2024 3:40 PM EDT Office Visit [facility] [address] [place] [address] Saúl Quintana MD [address] [place] [address] [facility] Start: 07-06-2024 End: 07-06-2024 Patient encounter procedure 07/06/2024 3:40 PM EST Office Visit [facility] [address] [place] [address] Saúl Quintana MD [address] [place] [address] [facility] Start: 06-22-2024 End: 06-22-2024 Patient encounter procedure 06/22/2024 3:40 PM EST Office Visit [facility] [address] [place] [address] Saúl Quintana MD [address] [place] [address] [facility] Start: 03-17-2024 End: 03-17-2024 Patient encounter procedure 03/17/2024 3:40 PM EDT Office Visit [facility] [address] [place] [address] Saúl Quintana MD [address] [place] [address] [facility] Start: 03-10-2024 End: 03-10-2024 Patient encounter procedure 03/10/2024 3:40 PM EDT Office Visit [facility] [address] [place] [address] Saúl Quintana MD [address] [place] [address] [facility] Start: 01-25-2024 Influenza vaccination Influenza Vacc ine [facility] Start: 2000 DTaP,Tdap and Td Vaccines (1 - Tdap) DTaP,Tdap and Td Vaccines (1 - Tdap) [facility] Start: 1999 Adult BMI Screening Adult BMI Screen ing [facility] Start: 1999 Diabetic foot examination Diabetic Foot Exam [facility] Start: 1993 [facility] Start: 1981 Statin Use: Diabetic Statin Use: [facility] Payers Date Payer Category Payer Managed Care Other (unspecified) [employer] [id number] 2022 Private Health Insurance [facility] [employer] [id number] 2022-Present [phone] [address] [address] [place] [address] [id number] 1981 Unknown [id number] 2.16.840.1.526884.3.579. 2.356 1981 Unknown [id number] 2.16.840.1.269944.3.579. 2.356 1981 Unknown [id number] 2.16.840.1.869052.3.579. 2.593 1981 Unknown [id number] 2.16.840.1.643831.3.579. 2.1286 1981 Unknown [id number] 2.16.840.1.321002.3.579. 2.1286 1981 Unknown [id number] 2.16.840.1.078202.3.579. 2.1286 1981 Unknown [id number] 2.16.840.1.547018.3.579. 2.1286 1981 Unknown [id number] 2.16.840.1.119845.3.579. 2.1285 1981 Unknown [id number] 2.16.840.1.474114.3.579. 2.1285 1981 Unknown [id number] 2.16.840.1.608402.3.579. 2.1285 1981 Unknown [id number] 2.16.840.1.877810.3.579. 2.1285 1981 Unknown [id number] 2.16.840.1.563109.3.579. 2.1285 1981 Unknown [id number] 2.16.840.1.350005.3.579. 2.1285 1981 Unknown [id number] 2.16.840.1.626423.3.579. 2.1285 1981 Unknown [id number] 2.16.840.1.099005.3.579. 2.1285 1981 Unknown [id number] 2.16.840.1.304130.3.579. 2.1285 1981 Unknown [id number] 2.16.840.1.949675.3.579. 2.1285 1959 Unknown [id number] Unknown COMMERCIAL Unknown [id number] Social History Date Type Detail Facility Start: 11-04-2018 End: 06-22-2024 Social alcohol use Social alcohol use -[facility] Work Phone: Start: 11-04-2018 End: 06-22-2024 Sex Assigned At Hall Other Start: 02-25-2024 Tobacco smoking status [facility] Never smoked tobacco [facility] Start: 02-25-2024 Tobacco use and exposure Smokeless tobacco non-user [facility] Childcare Unknown [facility] Start: 1980 Sex assigned at Not on file [facility] Start: 12-29-2014 Sex Male (finding) [facility] Tobacco smoking status [facility] Tobacco smoking consumption unknown [facility] NEGATED: Highlighted row - - [facility] [...] Active 50 Strip Box Start: 08-28-2018 [place] 3/16 31G X 5 MM MISC inject medication once daily Quantity: 1 Refills: 1 Wilfrido Song DO Start : 30-Nov-2018 Active 100 Unit Box Start: 11-30-2018 Functional Status Date Assessment Result Facility NEGATED: Highlighted row Functional performance Functional status health issues are not documented Disease [facility] Work Phone: Mental Status Date Assessment Result Facility NEGATED: Highlighted row Cognitive function [Interpretation] Cognitive status health issues are not documented Disease [facility] Work Phone: Clinical Notes 08-16-2020 [...] Dr. Parada rescheduled. documented in this encounter [facility] 09-24-2024 Telephone encounter Note Called patient and left message to notify him that he no showed to his test and he will need to get his test and his appointment with Dr. Parada rescheduled. [facility] 08-09-2024 History of Present illness Narrative Images [...] Past Medical History: Diagnosis Date Diabetes mellitus ([facility]) Past Surgical History History reviewed. No pertinent [...] at 9:49 AM [facility] Time Out Confirmed correct patient, procedure, site, and patient consented. Anesthesia Topical anesthesia was used. Anesthetic medications included Proparacaine 0.5%. Procedure Preparation included 5% betadine to ocular surface. Injection: 1.25 mg bevacizumab 25 mg/mL Route: intravitreal, Site: Right Eye [facility]: 17217-744-71, Lot: [id number], Expiration date: 08/31/2024, Waste: 0 mL Post-op [...] OF PROCEDURE: INTRAOCULAR INJECTION 25mg/ml Avastin (bevacizumab) [facility]#[id number] -erp engineer overfill was appropriately discarded- The patient tolerated the procedure well and was escorted to the front desk host to schedule a follow up appointment. MANUALLY [...] 08-06-2024 History of Present illness Narrative Daniel Dowlign had concerns including diabetic retinopathy. HPI EP/ [...] eye -Last FA performed 03/10/24 -DM diagnosis: [id number] ; Last A1c was 10.8 about 2 years ago per pt. (Last one in [facility] was 11.4 on 03/07/21) -Persistent DME [...] Focal laser OU performed by [facility] about 3-4 years ago -Patient understands to call with any discomfort, vision loss, or changes 2. Moderate nonproliferative diabetic retinopathy of left eye with macular edema associated with type 2 diabetes mellitus ([facility]) -Non-proliferative diabetic retinopathy present in the left eye -Last FA performed 03/10/2024 -DM diagnosis: [id number] ; Last A1c was 10.8 about 2 years ago per pt. (Last one in Epic was 11.4 on 03/07/21) -Testing performed today reviewed with patient; Improving DME secondary to NPDR also noted -Left eye is now s/p focal laser as of 03/17/24 -No additional treatment warranted for left eye at this time -Prior treatment: Focal laser OU performed by [facility] about 3-4 years ago -Patient understands to call with any discomfort, vision loss, or discharge -Letter sent to PCP and/or tool chaser yearly 3. High myopia, both eyes -Recent [...] by JACK Glasgow documented in this encounter [facility] 07-06-2024 Note Time Out Confirmed correct patient, procedure, site, and patient consented. Anesthesia Topical anesthesia was used. Anesthetic medications included Proparacaine 0.5%. Procedure Preparation included 5% betadine to ocular surface. A supplied needle was used. Injection: 2 mg aflibercept 2 mg/0.05 mL (Patient supplied) Route: intravitreal, Site: Right Eye [facility]: 68084-631-40, Lot: [id number], Expiration date: 02/22/2025, Waste: 0 mL Post-op [...] OF PROCEDURE: INTRAOCULAR INJECTION- 2mg/0.5ml Eylea (aflibercept) -erp engineer overfill was appropriately discarded- Reviewed with the patient post procedure instructions. Discussed in particular to contact the office immediately if any increase in pain, redness, or decrease in vision occurs. Patient understands. The patient tolerated the procedure well and was escorted to the front desk host to schedule a follow up appointment. MANUALLY [...] eye -Last FA performed 03/10/24 -DM diagnosis: [id number] ; Last A1c was 10.8 about 2 [...] Focal laser OU performed by [facility] about 3-4 years ago -Patient understands to call with any discomfort, vision loss, or changes 2. Moderate nonproliferative diabetic retinopathy of left eye with macular edema associated with type 2 diabetes mellitus (CMS-HCC) -Non-proliferative diabetic retinopathy present in the left eye -Last FA performed 03/10/2024 -DM diagnosis: [id number] ; Last A1c was 10.8 about 2 years ago per pt. (Last one in [facility] was 11.4 on 03/07/21) -Improving DME secondary to NPDR also noted on previous OCT -Left eye is now s/p focal laser as of 03/17/24 -No additional treatment warranted for left eye at this time -Prior treatment: Focal laser OU performed by [facility] about 3-4 years ago -Patient understands to call with any discomfort, vision loss, or discharge -Letter sent to PCP and/or tool chaser yearly 3. High myopia, both eyes -Recent [...] by JACK Glasgow documented in this encounter [facility] 06-22-2024 History of Present illness Narrative Daniel [...] diabetic retinopathy noted on exam -DM diagnosis: [id number] ; Last A1c was 10.8 about 2 [...] Focal laser OU performed by [facility] about 3-4 years ago -Patient understands to call with any discomfort, vision loss, or changes - OCT, [facility] - OU - Both Eyes; Future 2. Moderate nonproliferative diabetic retinopathy of left eye with macular edema associated with type 2 diabetes mellitus (CMS-HCC) -Non-proliferative diabetic retinopathy noted on exam/imaging -DM diagnosis: [id number] ; Last A1c was 10.8 about 2 years ago per pt. (Last one in [facility] was 11.4 on 03/07/21) -Improving Diabetic macular edema secondary to NPDR also noted -FA performed 03/10/2024 showed focal leakage amenable to laser therapy present -Discussed diagnosis and risks/benefits/alternatives to laser therapy -Questions and concerns addressed -Prior treatment: Focal laser OU performed by [facility] about 3-4 years ago -Laser Treatment OS 03/17/24 -Patient understands to call with any discomfort, vision loss, or discharge -Letter sent to PCP and/or tool chaser yearly - OCT, [facility] - OU - [...] by JACK KENDALL documented in this encounter [facility] 03-17-2024 Note Time Out Confirmed correct [...] Psychiatric, Allergic/Imm, Heme/Lymph Last edited by Ashley eFrnandes on 03/17/2024 4:00 PM. No current outpatient [...] diabetic retinopathy noted on exam/imaging -DM diagnosis: [id number] ; Last A1c was 10.8 about 2 years ago per pt. (Last one in [facility] was 11.4 on 03/07/21) -Diabetic macular edema secondary to NPDR also noted -FA performed 03/10/2024 showed focal leakage amenable to laser therapy present -Discussed diagnosis and risks/benefits/alternatives to laser therapy -Questions and concerns addressed -Patient elects to proceed with left eye Focal laser treatment today -Procedure tolerated well -Prior treatment: Focal laser OU performed by [facility] about 3-4 years ago -Patient understands to call with any discomfort, vision loss, or discharge -Letter sent to PCP and/or tool chaser yearly 2. Moderate nonproliferative diabetic retinopathy of right eye with macular edema associated with type 2 diabetes mellitus ([facility]) -Non-proliferative diabetic retinopathy noted on exam -DM diagnosis: [id number] ; Last A1c was 10.8 about 2 years ago per pt. (Last one in [facility] was 11.4 on 03/07/21) -Diabetic macular edema secondary to NPDR also noted -FA performed 03/10/24 showed focal leakage amenable to laser therapy present -Right eyes is s/p focal laser 03/10/2024 -Prior treatment: Focal laser OU performed by [facility] about 3-4 years ago -Patient understands to call with any discomfort, vision loss, or discharge -Letter sent to PCP and/or tool chaser yearly 3. High myopia, both eyes -Recent [...] 3 months DFE/OCT Physician: Saúl Quintana MD Website/Blog Editor: JACK Coelho Scribed for and in the presence of Saúl Quintana MD by JACK Coelho Patient accompanied by Self. documented in this encounter [facility] 03-10-2024 Note Time Out Confirmed correct [...] diabetic retinopathy noted on exam/imaging -DM diagnosis: [id number] ; Last A1c was 10.8 about 2 years ago per pt. (Last one in [facility] was 11.4 on 03/07/21) -Diabetic macular [...] or discharge -Letter sent to PCP and/or tool chaser yearly 2. Moderate nonproliferative diabetic retinopathy of right eye with macular edema associated with type 2 diabetes mellitus ([facility]) -Testing performed today reviewed with patient; Non-proliferative diabetic retinopathy noted on exam/imaging -DM diagnosis: [id number] ; Last A1c was 10.8 about 2 years ago per pt. (Last one in [facility] was 11.4 on 03/07/21) -Diabetic macular [...] or discharge -Letter sent to PCP and/or tool chaser yearly 3. High myopia, both eyes -Diagnosis [...] by JACK Glasgow documented in this encounter [facility] 02-25-2024 History of Present illness Narrative [...] in both eyes on exam/imaging -DM diagnosis: [id number] ; Last A1c was 10.8 about 2 years ago per pt. (Last one in [facility] was 11.4 on 03/07/21) -Diabetic macular edema possibly amenable to laser therapy secondary to NPDR also noted -Discussed diagnosis and risks/benefits/alternatives to laser therapy -Questions and concerns addressed -Patient elects to proceed with Focal laser treatment; will perform right eye then left -Will plan for FA prior to focal laser -Prior treatment: Focal laser OU performed by [facility] about 3-4 years ago -Patient understands to call with any discomfort, vision loss, or discharge -Letter sent to PCP and/or tool chaser yearly 3. High myopia, both eyes -Diagnosis [...] by JACK Glasgow documented in this encounter [facility] 02-16-2024 Miscellaneous Notes Patient called and wanted to know if you would accept him as a patient? Okay Could not leave a message due to know mailbox set up but okay for new patient. documented in this encounter [facility] 02-16-2024 Telephone encounter Note Patient called and wanted to know if you would accept him as a patient? [facility] 02-16-2024 Telephone encounter Note Okay [facility] Work Phone: 02-16-2024 Telephone encounter Note Could not leave a message due to know mailbox set up but okay for new patient. [facility] 05-07-2023 Evaluation note Encounter Date Diagnosis [...] your doctor sooner if the symptoms worsen. Hall Other 05-26-2021 Chief complaint Narrative - Reported* An interactive audio and video telecommunication system which permits real time communications between the patient (at the originating site) and provider (at the distant site) was utilized to providethis telehealth service. * Verbal consent was requested and obtained from DANIEL DOWLING on this date, 10/18/2020 02:30 PM , [facility]. * s[facility] Work Phone: [phone] History of Present illness Narrative* 40 year [...] previously 283 ng/dL as of 09/12/2020. [facility] Work Phone: Evaluation note* Diagnosis Moderate nonproliferative [...] diabetes mellitus (CMS-HCC) documented in this encounter [facility]* Diagnosis Moderate nonproliferative diabetic retinopathy of right eye with macular edema associated with type 2 diabetes mellitus (CMS-HCC) Moderate nonproliferative diabetic retinopathy of left eye with macular edema associated with type 2 diabetes mellitus (CMS-HCC) documented in this encounter [facility]* Diagnosis Moderate nonproliferative diabetic retinopathy of right eye with macular edema associated with type 2 diabetes mellitus (CMS-HCC)- Primary Moderate nonproliferative diabetic retinopathy of left eye with macular edema associated with type 2 diabetes mellitus (CMS-HCC) High myopia, both eyes Myopia documented in this encounter [facility]* Diagnosis Moderate nonproliferative diabetic retinopathy [...] both eyes Myopia [facility] Diagnosis Both eyes affected by mild nonproliferative diabetic retinopathy with macular edema, associated with type 2 diabetes mellitus (CMS-HCC) High myopia, both eyes Myopia documented [facility] Diagnosis Moderate nonproliferative diabetic retinopathy of left eye with macular edema associated with type 2 diabetes mellitus (CMS-HCC) Moderate nonproliferative diabetic retinopathy of right eye with macular edema associated with type 2 diabetes mellitus (CMS-HCC) documented [facility] Diagnosis Moderate nonproliferative diabetic retinopathy [...] diabetes mellitus (CMS-HCC) documented [facility] Diagnosis Moderate nonproliferative diabetic retinopathy of left eye with macular edema associated with type 2 diabetes mellitus (CMS-HCC)- Primary Moderate nonproliferative diabetic retinopathy of right eye with macular edema associated with type 2 diabetes mellitus (CMS-HCC) High myopia, both eyes Myopia documented in this encounter [facility] Diagnosis Moderate nonproliferative diabetic [...] diabetes mellitus (CMS-HCC) [facility]* Diagnosis Moderate nonproliferative diabetic retinopathy of right eye with macular edema associated with type 2 diabetes mellitus (CMS-HCC) documented [facility]* Diagnosis Leg edema, left- Primary documented in this encounter [facility] general Narrative - Reported* Type Description Date Medical History Perthes Disease Medical History HTN (hypertension) Medical History Hypercholesteremia Medical History Diabetes Surgical History Multiple surgeries, right hip Hospitalization History See past surgical hx Hall Other Instructions* Attachments The following attachments cannot be sent through Care Everywhere. * Diabetes and diet (Togolese) [facility] on [facility] documented in this [facility] SystemInstructionsNot on file documented in this [facility] System[facility]ructions* Attachments The following attachments cannot be sent through Care Everywhere. * Diabetes and diet (Togolese) [facility]ructionsNot on file [facility] Summary Purpose Family History [...] section and content) DATE CREATED AUTHOR 08/30/2018 [facility] DATE CREATED AUTHOR AUTHOR'S ORGANIZ ATION 10/21/2020 [facility] DATE CREATED AUTHOR AUTHOR'S ORGANIZ ATION 04/10/2021 [facility] DATE CREATED AUTHOR AUTHOR'S ORGANIZ ATION 2022 [facility] DATE CREATED AUTHOR AUTHOR'S ORGANIZ ATION 2022 [facility] DATE CREATED AUTHOR AUTHOR'S ORGANIZ ATION 09/10/2022 [facility] DATE CREATED AUTHOR AUTHOR'S ORGANIZ ATION 08/09/2024 [facility] DATE CREATED AUTHOR AUTHOR'S ORGANIZ ATION 08/10/2024 [facility] DATE CREATED AUTHOR AUTHOR'S ORGANIZ ATION 08/13/2024 [...] underlying condition, unspecified laterality, unspecified retinopathy severity ([facility]) Alfonso Stuart, OD [address] [place] [address] Saúl Quintana MD [address] [place] [address] Referral ID Status Reason Start Date Expiration Date V isits Requested Visits Authorized [id number] Closed Specialty Services Required 02/10/2024 02/09/2025 1 1 Reason Comments diabetic retinopathy Reason Comments New Patient Care Teams (unrecognized sec tion and content) Rewards Consultant Relationship Specialty Start Date End Date No Pcp, [place] [address] PCP - General Family Medicine 03/10/24 Rewards Consultant Relationship Specialty Start Date End Date No Pcp, [place] [address] PCP - General Family Medicine 03/10/24 Rewards Consultant Relationship Specialty Start Date End Date No Pcp, [place] [address] PCP - General Family Medicine 03/10/24 Rewards Consultant Relationship Specialty Start Date End Date No Pcp, [place] [address] PCP - General Family Medicine 03/10/24 Rewards Consultant Relationship Specialty Start Date End Date No Pcp, [place] [address] PCP - General Family Medicine 03/10/24 Rewards Consultant Relationship Specialty Start Date End Date No Pcp, [place] [address] PCP - General Family Medicine 03/10/24 Rewards Consultant Relationship Specialty Start Date End Date No Pcp, [place] [address] PCP - General Family Medicine 03/10/24 Rewards Consultant Relationship Specialty Start Date End Date No Pcp, [place] [address] PCP - General Family Medicine 03/10/24 FOR [...] BE BASED ON THE PRIMARY CLINICAL RECORDS. [email or web address] [facility]. provides no warranty or guarantee of the accuracy or completeness of information in this document.
[2024-12-25 16:10] VITALS: BP 160/95; PULSE 98; TEMP 36.8; O2SAT 96; BMI 42.6
[2024-12-25] MEDS: HYDROCHLOROTHIAZIDE 25 MG TABLET 12.5 MG PO (17:06)
[2024-12-25] MEDS: METOPROLOL TARTRATE 25 MG TABLET PO ×2 (17:06→21:35)
[2024-12-25] MEDS: LOSARTAN POTASSIUM 50 MG TABLET PO (17:06)
[2024-12-25] MEDS: INSULIN ASPART 300 UNIT/3 ML PEN SUBQ ×2 (17:31→21:32)
[2024-12-25 19:31] VITALS: BP 153/81; PULSE 91; TEMP 36.7; O2SAT 93
[2024-12-25] MEDS: INSULIN NPH HUMAN ISOPHANE 100 UNIT/ML 10ML MDV 40 UNIT SQ (21:34)
[2024-12-25] MEDS: HEPARIN SODIUM (PORCINE) 5,000 UNIT/ML VIAL 5000 UNIT SUBQ (21:34)
[2024-12-25] MEDS: AMPICILLIN SODIUM/SULBACTAM NA 3 GM in 0.9 % SODIUM CHLORIDE 100 ML IV (21:35)
[2024-12-25 23:23] VITALS: BP 138/85; PULSE 95; TEMP 36.9; O2SAT 92
[2024-12-26] MEDS: AMPICILLIN SODIUM/SULBACTAM NA 3 GM in 0.9 % SODIUM CHLORIDE 100 ML IV ×4 (03:08→21:15)
[2024-12-26] MEDS: 0.9 % SODIUM CHLORIDE 250 ML 10 ML IV (03:09)
[2024-12-26 03:15] VITALS: BP 156/90; PULSE 90; TEMP 36.8; O2SAT 93
[2024-12-26] MEDS: HEPARIN SODIUM (PORCINE) 5,000 UNIT/ML VIAL 5000 UNIT SUBQ ×3 (05:27→21:15)
[2024-12-26 06:07] LABS: Hematocrit 29.5 % (42.0-54.0); Hemoglobin 9.6 g/dL (14.0-18.0); Immature Granulocytes Abs Auto 0.08 10^3/uL (0.00-0.03); Immature Granulocytes Pct Auto 0.8 % (0.0-0.5); Lymphocytes Absolute Auto 2.1 10^3/uL (1.2-3.8); Mean Corpuscular HGB Conc 32.5 g/dL (29.9-35.2); Mean Corpuscular Hemoglobin 28.8 pg (25.9-34.0); Mean Corpuscular Volume 88.6 fL (80.0-94.0); Platelet Count 178 10^3/uL (150-450); Red Blood Count 3.33 10^6/uL (4.70-6.10); White Blood Count 10.3 10^3/uL (4.0-11.0)
[2024-12-26 06:14] LABS: Anion Gap 7.9; Blood Urea Nitrogen 44.0 mg/dL (7.0-18.0); Calcium 8.5 mg/dL (8.5-10.1); Carbon Dioxide 29.0 mmol/L (21.0-32.0); Chloride 97 mmol/L (98-107); Estimated GFR (African America 49 (>=60 mL/min/1.73m^2); Estimated GFR (Non-African Ame 40 (>=60 mL/min/1.73m^2); Glucose 286 mg/dL (74-106); Potassium 3.9 mmol/L (3.5-5.1); Sodium 130 mmol/L (136-145)
[2024-12-26 07:46] VITALS: BP 166/90; PULSE 90; TEMP 36.6; O2SAT 91
[2024-12-26] MEDS: INSULIN ASPART 300 UNIT/3 ML PEN SUBQ ×4 (07:57→21:15)
[2024-12-26] MEDS: INSULIN NPH HUMAN ISOPHANE 100 UNIT/ML 10ML MDV 40 UNIT SQ ×2 (08:00→21:15)
[2024-12-26] MEDS: HYDROCHLOROTHIAZIDE 25 MG TABLET 12.5 MG PO (08:57)
[2024-12-26] MEDS: METOPROLOL TARTRATE 25 MG TABLET PO ×2 (08:57→21:14)
[2024-12-26] MEDS: LOSARTAN POTASSIUM 50 MG TABLET PO (08:57)
[2024-12-26 09:40] VITALS: BP 143/87
[2024-12-26] MEDS: AMLODIPINE BESYLATE 5 MG TABLET 2.5 MG PO (09:41)
[2024-12-26 11:26] VITALS: BP 148/89
--- NOTE | 2024-12-26 11:30 | PM.PN ---
Progress Note: Subjective Subjective Interval history: The patient's blood pressures improved after he had arrived in emergency room yesterday, but still has blood pressures that are elevated such as 138/85, 156/90, 166/90. When he lived in [place] he remembers taking a few different blood pressure medicines but he does not remember what those names are. Now that he is moved back to the [facility] he has not yet established with a primary care physician. The metoprolol that he was using at home was from a few months ago when he visited the ER and it was prescribed by Dr. Foss. The patient says that when he lived in [place] he did have a contract administration specialist. He has been buying his insulin from [employer] [facility] [email or web address] and he has been getting insulin pens the cost of about $45 a month. At home he is checking his blood sugars about once a day. He looked into getting a continuous glucose meter but the lai jhaveri is high. He said that when he lived in [place] he tried to get on a continuous glucose meter but his insurance company would not pay for it. His white blood count has improved from 12.2 down to 10.3 today. His hemoglobin is low at 9.6. I have ordered anemia labs to be done tomorrow morning. His sodium is low at 130. His glucoses have improved from 479 down to 325 and then down to 286. His CRP is high. Yesterday it was 30.1. Today it is 17.11. His ESR is greater than 130 yesterday and today. The patient reports that the pain in his leg is a little bit better today. It is less hot and less tender to touch. He has no pain in the foot at all. He has not been having draining or any bleeding from the puncture wound at the base of his right great toe MTP. Exam Narrative Exam Narrative: General: Reclining in bed in room 221. Looks much more comfortable than he did yesterday in the ER. Back then the pain in the leg was fairly bad and he looked moderately toxic with some diaphoresis at that time. Those things are better today. Cardiac: Regular rate and rhythm to auscultation. No murmurs to auscultation. Pulmonary: Clear to auscultation anteriorly. Respirations calm and easy. No wheezing. GI: Normal bowel sounds to auscultation. Right leg: The area of cellulitis has been outlined by the nursing staff with a pen. The cellulitis is not extended any further up his leg. The light redness is a little bit better today. The warmth is a little bit better today. All of this starts in a bandlike fashion right about at the ankle. On the right foot the puncture wound is now dry. He does not have any drainage purulence. It was nonpainful and no fluid was expelled when I pushed on this. Constitutional Vital Signs, click to edit/add: Last Vital Signs Temp 97.9 F 12/26/24 07:46 Pulse 90 12/26/24 07:46 Resp 20 12/26/24 07:46 BP 148/89 H 12/26/24 11:26 Pulse Ox 91 L 12/26/24 07:46 O2 Del Method Room Air 12/26/24 07:46 Progress Note: Objective Labs Labs: Short CBC 12/25/24 12/26/24 Range/Units 14:11 05:39 WBC 12.2 H 10.3 (4.0-11.0) 10^3/uL Hgb 11.2 L 9.6 L (14.0-18.0) g/dL Hct 33.7 L 29.5 L (42.0-54.0) % Plt Count 196 178 (150-450) 10^3/uL BMP 12/25/24 12/26/24 14:11 05:39 Sodium 129 L 130 L Potassium 4.0 3.9 Chloride 93 L 97 L Carbon Dioxide 27.9 29.0 BUN 30.0 H 44.0 H Creatinine 1.63 H 1.84 H Glucose 325 H 286 H Calcium 9.2 8.5 Liver Function 12/25/24 Range/Units 14:11 Total Bilirubin 0.4 (0.2-1.0) mg/dL AST 18 (15-37) U/L ALT 28 (16-63) U/L Alkaline Phosphatase 101 (46-116) U/L Albumin 2.1 L (3.4-5.0) g/dL Progress Note: A&P Assessment and Plan (1) Infected puncture wound of plantar aspect of foot: Qualifiers: Encounter type: initial encounter Laterality: right Qualified Code(s): S91.331A - Puncture wound without foreign body, right foot, initial encounter; L08.9 - Local infection of the skin and subcutaneous tissue, unspecified (2) Cellulitis of leg, right: (3) Left leg swelling: (4) Type II diabetes mellitus: Qualifiers: Diabetes mellitus complication detail: with polyneuropathy Diabetes mellitus complication status: with neurologic complications Diabetes mellitus intermediate insulin use: without roasterman use Qualified Code(s): E11.42 - Type 2 diabetes mellitus with diabetic polyneuropathy (5) Hypertension: Qualifiers: Hypertension type: primary hypertension Qualified Code(s): I10 - Essential (primary) hypertension (6) BMI 40.0-44.9, adult: Plan Assessment: Puncture wound at the plantar aspect of the right foot, causing: Acute cellulitis spreading of the right lower extremity towards the knee. Diabetes mellitus type 2. Uncontrolled, with acute hyperglycemia Hypertension. This is accelerated because of rebound hypertension because he has not taken his metoprolol in the last few days. BMI of 40.7. Finding of anemia... of an uncertain etiology. Finding of renal insufficiency. May have a component of of chronic kidney disease already. He has had diabetes for the last 10 years. Plan: Continue Unasyn. Continue IV vancomycin. Restarted oral metoprolol 25 mg po BID to control his blood pressure. Given the elevated creatinine I will not use LISA, ARB, or diuretics at this time. Will start him on Norvasc 2.5 mg daily. Sliding-scale insulin. Awaiting results hemoglobin A1c. Consult to podiatry. DVT prophylaxis with Heparin 5000 units SC TID. Will check anemia labs with tomorrow morning's labs.
[2024-12-26] MEDS: VANCOMYCIN HCL 2,000 MG in 0.9 % SODIUM CHLORIDE 500 ML 250 MG IV (15:02)
[2024-12-26 15:31] VITALS: BP 148/92; PULSE 85; TEMP 36.8; O2SAT 96
[2024-12-26 19:50] VITALS: BP 146/92; PULSE 90; TEMP 36.9; O2SAT 94
[2024-12-27] VITALS (7 sets, daily range): BP systolic 144–178; BP diastolic 76–105; PULSE 83–88; TEMP 36.4–36.8; O2SAT 91–96
[2024-12-27] MEDS: AMPICILLIN SODIUM/SULBACTAM NA 3 GM in 0.9 % SODIUM CHLORIDE 100 ML IV ×3 (03:02→14:56)
[2024-12-27] MEDS: HEPARIN SODIUM (PORCINE) 5,000 UNIT/ML VIAL 5000 UNIT SUBQ (05:02)
[2024-12-27 06:18] LABS: Hematocrit 26.8 % (42.0-54.0); Hemoglobin 8.8 g/dL (14.0-18.0); Immature Granulocytes Abs Auto 0.11 10^3/uL (0.00-0.03); Immature Granulocytes Pct Auto 1.1 % (0.0-0.5); Lymphocytes Absolute Auto 2.1 10^3/uL (1.2-3.8); Mean Corpuscular HGB Conc 32.8 g/dL (29.9-35.2); Mean Corpuscular Hemoglobin 28.9 pg (25.9-34.0); Mean Corpuscular Volume 87.9 fL (80.0-94.0); Platelet Count 222 10^3/uL (150-450); Red Blood Count 3.05 10^6/uL (4.70-6.10); White Blood Count 9.7 10^3/uL (4.0-11.0)
[2024-12-27 06:32] LABS: INR 0.96; Partial Thromboplastin Time 25.7 sec (22.3-36.2); Prothrombin Time 10.2 sec (9.0-11.6)
[2024-12-27 06:36] LABS: Anion Gap 10.7; Blood Urea Nitrogen 42.0 mg/dL (7.0-18.0); Calcium 8.8 mg/dL (8.5-10.1); Carbon Dioxide 28.0 mmol/L (21.0-32.0); Chloride 99 mmol/L (98-107); Estimated GFR (African America >60 (>=60 mL/min/1.73m^2); Estimated GFR (Non-African Ame 51 (>=60 mL/min/1.73m^2); Glucose 131 mg/dL (74-106); Iron 24.0 ug/dL (65.0-175.0); Percent Iron Saturation 11.0 %; Potassium 3.7 mmol/L (3.5-5.1); Sodium 134 mmol/L (136-145); Total Iron Binding Capacity 219.0 ug/dL (250.0-450.0)
[2024-12-27 06:53] LABS: Ferritin 332.0 ng/mL (26.0-388.0); Folate 15.60 ng/mL (8.60-58.90)
[2024-12-27] MEDS: AMLODIPINE BESYLATE 5 MG TABLET 2.5 MG PO ×2 (08:27→13:48)
[2024-12-27] MEDS: METOPROLOL TARTRATE 25 MG TABLET PO (08:27)
[2024-12-27] MEDS: INSULIN NPH HUMAN ISOPHANE 100 UNIT/ML 10ML MDV 40 UNIT SQ (08:35)
--- NOTE | 2024-12-27 10:00 | CM.NOTE ---
Rounds made with Dr. Cortez, discussed with pt plan of care. Dr. Wong will consult today for further recommendations. Possible discharge to home today, pt will need to f/u with PCP. Pt at this time does not have PCP. Pt in agreement to f/u with [facility]. Pt will also need f/u with [facility] at discharge. Updated Med-Surg audio visual secretary.
[2024-12-27] MEDS: INSULIN ASPART 300 UNIT/3 ML PEN SUBQ (11:22)
--- NOTE | 2024-12-27 13:00 | CM.NOTE ---
Discussed with pt about PCP, pt is in agreement to fill out online form for [facility]. Assisted pt with form and pt now awaiting for confirmation e-mail. Pt was seeing patient transport officer in [place], work schedule did not allow for him to set up appointments. Pt now is unemployed and will return to seeing patient transport officer. Pt has been unemployed for about 3 weeks and is actively looking for employment and insurance. Talked with pt about diabetes and eduction moving forward. Pt states he only checks his BS first thing in the AM because that is when he gets the best reading. Talked with pt about checking BS AC and HS and recording, take this information with you when you see patient transport officer. Pt verbalizes understanding. Talked with pt about assisted affects of DM with noncompliance and controlling BS. Pt provided informational booklets on diet, exercise and controlling BS. Pt at this time does not have a provider that is prescribing insulin, he states he is able to excelsior picker without a prescription. Plan is for patient to f/u with [facility] and patient transport officer at discharge.
[2024-12-27 13:03] LABS: BOX Test Date Sent 8/3/25; BOX Test Reference Lab FIRELANDS; BOX Test Sent Out A1C
--- NOTE | 2024-12-27 14:30 | CM.NOTE ---
[facility] unable to give pt f/u appointment after filling out online for (this could take up to 48hrs). Called Dr. Bloom's office and they are able to accept pt. Appointment put on pt's discharge along with address and telephone number.
--- NOTE | 2024-12-27 14:56 | P.DS_ITS ---
DS: Providers Provider Date of admission: 12/25/24 15:52 Primary care physician: Non-Staff PhysicianMD Consults: 12/25/24 15:23 Consult to Podiatry Routine Consulting Provider: Juan Wong Reason for consultation: puncture wound right foot 1st mtp. Has provider been notified: No Discharging clinician: GABBIE LOCK DS: Diagnosis Discharge Diagnosis (1) Infected puncture wound of plantar aspect of foot: Qualifiers: Encounter type: initial encounter Laterality: right Qualified Code(s): S91.331A - Puncture wound without foreign body, right foot, initial encounter; L08.9 - Local infection of the skin and subcutaneous tissue, unspecified (2) Cellulitis of leg, right: (3) Left leg swelling: (4) Type II diabetes mellitus: Qualifiers: Diabetes mellitus complication detail: with polyneuropathy Diabetes mellitus complication status: with neurologic complications Diabetes mellitus terminal operator insulin use: without intermediate use Qualified Code(s): E11.42 - Type 2 diabetes mellitus with diabetic polyneuropathy (5) Hypertension: Qualifiers: Hypertension type: primary hypertension Qualified Code(s): I10 - Essential (primary) hypertension (6) BMI 40.0-44.9, adult: DS: Summary Hospital Course Hospital Course: Mr Dowling is a 44-year-old male who was admitted to the hospital the morning of December 25 for right lower leg cellulitis. At home he discovered a puncture wound in his right foot prior to that, he had streaking with evidence of lymphangitis spreading from the foot up to the knee on the right leg. He did not notice the wound on his foot until he realized his shoe was full of blood. He does have very poorly controlled type 2 diabetes. The patient was admitted to the hospital, his ESR was his ESR was greater than 130 on 2 separate checks and again trending down on the morning of December 27. His CRP was significant elevated at 30 on admission. He was started on Unasyn and vancomycin. His home insulin regimen was continued and this did appear to control his blood sugar somewhat though he was hyperglycemic for the first 36 hours of admission. His A1c was checked and found to be 11.2. On the afternoon of December 27, his redness and streaking had greatly improved with time of admission, he was able to ambulate with only minimal pain in the right leg. He was evaluated by podiatry who recommended . He was significantly hypertensive throughout the mission as well, we did initiate him on amlodipine 5 mg daily, his blood pressure did seem to respond well to this. He is also discharged with no changes in his long-acting insulin however I did feel it was better to control his blood sugar with fast acting insulin with each meal rather than the Humulin R which she was using. I did have a long talk to him about his diabetic control, diet options and checking his blood sugars with each meal and keeping a very close log of it. 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 Time Spent with Patient Time attestation: Total time spent providing and/or coordinating discharge services: Time spent: greater than 30 minutes Exam Narrative Exam Narrative: General: Awake and alert, no acute distress HEENT: Normocephalic, atraumatic, no scleral icterus noted Lungs: Clear to auscultation bilaterally Cardiac: Regular rate and rhythm, no murmurs appreciated GI: Soft, nontender, regular bowel sounds. Extremities: Active and passive range of motion intact throughout, +1 pitting edema in his right lower extremity, the right leg does have the line of demarcation from the erythema and regular skin, the is a slight redness in the center of this region however it has greatly improved and is nowhere near this line of demarcation at this point in time. He does have a large eschar on the plantar aspect of the base of his great toe. Neuro: Cranial nerves II through XII intact, no focal deficits noted Skin: No rashes or lesions, no signs of jaundice Constitutional Vital Signs, click to edit/add: Last Vital Signs Temp 98.1 F 12/27/24 11:19 Pulse 86 12/27/24 11:19 Resp 18 12/27/24 11:19 BP 149/76 H 12/27/24 13:48 Pulse Ox 95 12/27/24 11:19 O2 Del Method Room Air 12/27/24 11:19 DS: Data Data Completed and Pending Labs on day of discharge: Labs from last 24 hours 12/27/24 12/27/24 12/27/24 11:19 08: 05:50 WBC 9.7 RBC 3.05 L Hgb 8.8 L Hct 26.8 L MCV 87.9 MCH 28.9 MCHC 32.8 RDW 13.4 Plt Count 222 MPV 10.3 Neut % (Auto) 58.1 Lymph % (Auto) 21.2 [place] % (Auto) 11.4 Eos % (Auto) 7.6 H Baso % (Auto) 0.6 Neut # (Auto) 5.6 Lymph # (Auto) 2.1 [place] # (Auto) 1.1 H Eos # (Auto) 0.7 Baso # (Auto) 0.1 Abs Immat Gran (auto) 0.11 H Imm/Tot Granulo (auto) 1.1 H ESR 114 H PT 10.2 INR 0.96 APTT 25.7 Sodium 134 L Potassium 3.7 Chloride 99 Carbon Dioxide 28.0 Anion Gap 10.7 BUN 42.0 H Creatinine 1.49 H Est GFR ( Amer) >60 Est GFR (Non-Af Amer) 51 L BUN/Creatinine Ratio 28.2 Glucose 131 H Estimat Average Glucose 272 Hemoglobin A1c 11.1 H Calcium 8.8 Iron 24.0 L TIBC 219.0 L % Saturation 11.0 Ferritin 332.0 C-Reactive Protein 7.76 H Folate 15.60 Ref Lab Order Date Ref Lab Test Name Ref Test Result Date Ref Test Addition Info POC Glucose 240 H 132 H 12/26/24 12/26/24 12/26/24 21:13 16:50 05:39 WBC RBC Hgb Hct MCV MCH MCHC RDW Plt Count MPV Neut % (Auto) Lymph % (Auto) [place] % (Auto) Eos % (Auto) Baso % (Auto) Neut # (Auto) Lymph # (Auto) [place] # (Auto) Eos # (Auto) Baso # (Auto) Abs Immat Gran (auto) Imm/Tot Granulo (auto) ESR PT INR APTT Sodium Potassium Chloride Carbon Dioxide Anion Gap BUN Creatinine Est GFR ( Amer) Est GFR (Non-Af Amer) BUN/Creatinine Ratio Glucose Estimat Average Glucose Hemoglobin A1c Calcium Iron TIBC % Saturation Ferritin C-Reactive Protein Folate Ref Lab Order Date 12/26/24 Ref Lab Test Name A1c Ref Test Result Date See scanned report Ref Test Addition Info [facility] POC Glucose 295 H 212 H Discharge Plan Discharge Disposition: Home, Self-Care Condition: Good Plan of Treatment: Please keep close eye on the redness and swelling of your affected leg, if the redness returns despite taking antibiotics you will likely need to return for more IV antibiotics. Please take the entire prescription of antibiotics that are being sent. Please follow-up with podiatry and/or wound care as noted. Please check your blood sugar 3 times a day and keep a log of this to bring to your next doctor's appointment to adjust your insulin dosing. I have ordered 7 units fast acting with each meal, this will likely need to be adjusted depending on your blood sugar results. If he feels symptomatic please check blood sugar, if it is low please drink some juice and eat a high carb meal. Discharge Medications: New amlodipine 5 mg Tablet 5 mg PO QD 90 Days Qty: 90 0RF insulin aspart U-100 100 unit/mL (3 mL) insulin pen 7 unit subcut TID Qty: 15 0RF (DME) diabetic supplies, miscellan. Misc See Rx Instructions .Route Qty: 1 0RF Rx Instructions: As directed amoxicillin-pot clavulanate [Augmentin] 500-125 mg tablet 1 tab PO TID Qty: 21 0RF Continued Novolin N FlexPen 100 unit/mL (3 mL) insulin pen 40 unit subcut BID metoprolol tartrate 25 mg tablet 25 mg PO BID Qty: 30 0RF Discontinued insulin regular human 100 unit/mL cartridge 1 sliding scale dose subcut USEASDIRECTD Outpatient Diagnostics: Complete Blood Count Auto Diff (Routine) Timeframe: 1 Day Facility: [facility] - Location: Patient Own Location Ordered By: GABBIE LOCK Activity: resume usual activities as tolerated Diet: advance to your usual diet Print Language: Honduran Patient Instructions: Amoxicillin/Clavulanate Potassium (By mouth), Amlodipine (By mouth), Cellulitis (GEN), Diabetic Neuropathy (DC), Chronic Hypertension (DC), Acute Wounds (DC) 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 Bloom for f/u January 03 3:[address] [facility] Forms: Portal Instructions Follow Up Appointments: Liseth from wound clinic will call to schedule follow up appt. [phone] Discharge Date/Time: 12/27/24 17:47
--- NOTE | 2024-12-27 16:50 | P.CN_ITS ---
Consult Note: [facility] Data of Consult Consult date: 12/27/24 Requesting Physician: GABBIE LOCK DO Primary Care Provider: Non-Staff Physician, MD Consult Narrative Reason for consult: Right diabetic foot infection Narrative: Patient is a 44 year old male with T2DM with neuropathy who presented to the ER on 12/25 with acute infection on his right foot. He reportedly had stepped on a nail which he did not feel. He was admitted to the hospitalist and at that time had leukocytosis and significant elevation in inflammatory markers. He was start ed on vancomycin and unasyn. Over the last 48 hrs he reportedly improved. At bedside he is resting comfortably and has no complaints. He relates that he is having no pain and feels systemically well. His appetite is good. He relates that he has Medihoney at home and is hopeful for discharge today I was consulted on date of admission but was not notified until this afternoon. 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 [[id number]-[id number]-[id number]], unspecified leg (ICD-10) Surgical History (Updated 12/25/24 @ 16:40 by lEvi Bledsoe) History of toe surgery ?Z98.890 - Other specified postprocedural states (ICD-10) History of repair of left hip joint ?Z98.890 - Other specified postprocedural states (ICD-10) Family History (Updated 12/25/24 @ 16:43 by Elvi Bledsoe) Grandfather Family history of CHF (congestive heart failure) Family history of diabetes mellitus Family history of stroke Grandfather Family history of cancer Family history of stroke Grandmother Family history of cancer Aunt Family history of diabetes mellitus Mother Family history of diabetes mellitus Family history of hypertension Sister Family history of diabetes mellitus Family history of hypertension Social History Highest level of school completed/degree received: some college, no degree Little interest or pleasure in doing things: not at all Feeling down, depressed, or hopeless: not at all Meds Home Medications and Allergies Home Medications ?Medication ?Instructions ?Recorded ?Confirmed ?Type metoprolol tartrate 25 mg tablet 25 mg PO BID #30 tabs 08/05/24 12/25/24 Rx insulin NPH isoph U-100 human 100 40 unit subcut BID 0 12/25/24 12/25/24 History unit/mL (3 mL) subcutaneous pen (Novolin N FlexPen) amlodipine 5 mg tablet 5 mg PO QD 90 days #90 tabs 12/27/24 Rx amoxicillin 500 mg-potassium 1 tab PO TID #21 tabs 09/17 Rx clavulanate 125 mg tablet (Augmentin) [facility], [facility] #1 ea 12/27/24 Rx insulin aspart U-100 100 unit/mL 7 unit (0.07 mL) subc ut TID #15 mL 12/27/24 Rx (3 mL) subcutaneous pen Allergies Allergy/AdvReac Type Severity Reaction Status Date / Time No Known Drug Allergies Allergy Verified 12/25/24 13:48 Exam Narrative Exam Narrative: Skin: 1.4 x 0.8 cm ulceration noted at the plantar aspect of the right first metatarsal phalangeal joint. There is no fluctuance or purulent drainage. There is no surrounding erythema. Negative probe to bone. Ulcer base has mixed fibrotic and granular tissue but there is no surrounding signs of infection Neuro: Absent protective and vibratory sensation Vascular: Pedal pulses are palpable. No calf pain on squeeze. MSK: No pain on palpation. No obvious deformity. No pain with range of motion of the toes or ankle Constitutional Vital Signs, click to edit/add: Last Vital Signs Temp 98.2 F 12/27/24 15:40 Pulse 87 12/27/24 15:40 Resp 18 12/27/24 15:40 BP 162/95 H 12/27/24 15:40 Pulse Ox 95 12/27/24 15:40 O2 Del Method Room Air 12/27/24 15:40 Results Labs Labs: Short CBC 12/27/24 Range/Units 05:50 WBC 9.7 (4.0-11.0) 10^3/uL Hgb 8.8 L (14.0-18.0) g/dL Hct 26.8 L (42.0-54.0) % Plt Count 222 (150-450) 10^3/uL BMP 12/27/24 05:50 Sodium 134 L Potassium 3.7 Chloride 99 Carbon Dioxide 28.0 BUN 42.0 H Creatinine 1.49 H Glucose 131 H Calcium 8.8 Assessment and Plan Assessment and Plan (1) Infected puncture wound of plantar aspect of foot: Qualifiers: Encounter type: initial encounter Laterality: right Qualified Code(s): S91.331A - Puncture wound without foreign body, right foot, initial encounter; L08.9 - Local infection of the skin and subcutaneous tissue, unspecified (2) Cellulitis of leg, right: (3) Left leg swelling: (4) Type II diabetes mellitus: Qualifiers: Diabetes mellitus complication detail: with polyneuropathy Diabetes mellitus complication status: with neurologic complications Diabetes mellitus predatory animal exterminator insulin use: without predatory animal exterminator use Qualified Code(s): E11.42 - Type 2 diabetes mellitus with diabetic polyneuropathy (5) Hypertension: Qualifiers: Hypertension type: primary hypertension Qualified Code(s): I10 - Essential (primary) hypertension (6) BMI 40.0-44.9, adult: Plan Patient seen at bedside and is okay for discharge home on oral antibiotics I strongly urged him to follow-up with Dr. Bloom or other local PCP for diabetic management. I explained that his uncontrolled diabetes could be detrimental to his recovery. He is to follow-up in our wound center within 7 to 10 days and he is to call tomorrow morning for an appointment I strongly recommended rest and elevation. He is to keep the ulcer clean and dry. He does have Medihoney at home which she is to apply daily with a dry sterile dressing. He may weight-bear as tolerated to his right heel with the use of a surgical shoe He is to closely monitor the ulcer for any sign of infection and if occurs he should call the wound center or go to the emergency department.
[2024-12-28 04:07] LABS: Vitamin B12 335 pg/mL (232-1245)
--- NOTE | 2024-12-29 14:33 | CM.DCFOLLOWU ---
12/29- No answer 1st attempt.
--- NOTE | 2024-12-31 15:09 | CM.DCFOLLOWU ---
2nd attempt 12/31/24, no answer
== END 2024-12-27 17:47 | disposition home or self-care (01) | DRG 603 ==
LOC: ER 15:10 → MS 15:59
PROVIDERS: Physician Assistant; Admitting Provider Hospitalist; Emergency Provider Emergency Medicine; Visit Provider Internal Medicine
DX: L03.115 Cellulitis of right lower limb (principal); L08.9 Local infection of the skin and subcutaneous tissue, unspecified; E11.42 Type 2 diabetes mellitus with diabetic polyneuropathy; Z23 Encounter for immunization; S91.331A Puncture wound without foreign body, right foot, initial encounter; W45.0XXA Nail entering through skin, initial encounter; Z79.4 Long term (current) use of insulin; I10 Essential (primary) hypertension; E11.65 Type 2 diabetes mellitus with hyperglycemia; T44.7X6A Underdosing of beta-adrenoreceptor antagonists, initial encounter; Z91.128 Patient's intentional underdosing of medication regimen for other reason; D64.9 Anemia, unspecified; N28.9 Disorder of kidney and ureter, unspecified; Z82.3 Family history of stroke; Z82.49 Family history of ischemic heart disease and other diseases of the circulatory system
CPT/HCPCS: 36415; 73630; 80048; 80053; 82607; 82728; 82746; 82948; 83036; 83540; 83550; 83605; 83735; 85025; 85610; 85652; 85730; 86140; 87040; 87070; 87075; 90471; 93971; 96365; 96366; 96368; 96375; 99285; J0295; J1644; J1815; J1920; J2543; J3373

== ENCOUNTER 2025-04-19 18:33 | Emergency (ER) | payer SELFPAY ==
[2025-04-19] VITALS (33 sets, daily range): BP systolic 148–178; BP diastolic 92–110; PULSE 103–116; TEMP 37.2; O2SAT 83–95; BMI 42.7
--- NOTE | 2025-04-19 19:00 | ECG_ITS ---
The [facility] Test Date: 2025-04-19 Pat Name: ANIL MORA Department: Room: - Gender: Male Medical Education Specialist: : 1980 Requested By: [id number] Order Number: [id number] Reading MD: BELINDA BASS M.D. Measurements Intervals Pierce Rate: 107 P: 63 ND: 152 QRS: 66 QRSD: 88 T: 109 QT: 338 QTc: 400 Interpretive Statements 1120 Sinus tachycardia [address] depression 4564 Twave abnormality, possible lateral ischemia 9150 abnormal ECG Compared to ECG 09/07/2022 08:39:59 ST (T wave) deviation now present T-wave abnormality no longer present Possible ischemia still present Electronically Signed On 04-19-2025 22:12:26 EST by BELINDA BASS M.D.
--- NOTE | 2025-04-19 19:30 | CT_ITS ---
The [address] [address] Patient Name: ANIL MORA MRN: [id number] date: 1980 Sex: M Assigned Patient Location: ER Current Patient Location: ED.MAIN Accession/Order Number: [id number] Exam Date: 04/19/2025 19:47 Report Date: 04/19/2025 21:42 At the request of: GLENN MISHRA MD Procedure: CT foot RT wo con CT RIGHT FOOT WITHOUT CONTRAST WITH 3D RECONSTRUCTIONS: CLINICAL HISTORY: osteomyelitis COMPARISON: Foot x-ray 12/25/2024 TECHNIQUE: Spiral axial unenhanced images were obtained through the right foot without contrast. 3D volume-rendered reconstructions were also reviewed. This CT exam was performed using one or more following dose reduction techniques: Automated exposure control, adjustment of the mA and/or kV according to patient size, or use of iterative reconstruction technique. FINDINGS: No fracture or desiccation identified. There is evidence of cortical erosions and periosteal reaction involving the distal fifth metatarsal at level of the MA TT joint. Overlying soft tissue swelling identified. Focal skin ulceration noted. No definite loculated collections. CT/CT foot RT wo con IMPRESSION: Osteomyelitis involving the distal fifth metatarsal with overlying ulceration and likely soft tissue cellulitis and phlegmon. Impression dictated by: Juan Viera M.D. 04/19/2025 9:42 PM Dictation Location: [place] [address] Electronically authenticated by: [id number] Y Date: 04/19/2025 21:42
--- NOTE | 2025-04-19 19:30 | XR_ITS ---
The [place] [id number] Patient Name: ANIL MORA MRN: [id number] date: 1980 Sex: M Assigned Patient Location: ER Current Patient Location: ED.MAIN Accession/Order Number: [id number] Exam Date: 04/19/2025 19:47 Report Date: 04/19/2025 21:34 At the request of: GLENN MISHRA MD Procedure: XR chest 1V PA CHEST: CLINICAL HISTORY: short of breath COMPARISON: CT chest 09/06/2022 FINDINGS: Mildly enlarged cardiomediastinal. Perihilar pulmonary vasculature.. Left base opacity noted. No right-sided effusion. No pneumothorax. XR/XR chest 1V IMPRESSION: Mild CHF. Left basilar opacity noted. Impression dictated by: Juan Viera M.D. 04/19/2025 9:34 PM Dictation Location: [place] [address] Electronically authenticated by: [id number] Y Date: 04/19/2025 21:34
--- NOTE | 2025-04-19 19:34 | ED_ITS ---
HPI - SOB/Dyspnea General Chief Complaint: Shortness of Breath/Dyspnea Stated Complaint: DIABETIC ULCER ON HIS FOOT/ SOB Time Seen by Provider: 04/19/25 19:22 Source: patient Mode of arrival: Wheelchair Limitations: no limitations History of Present Illness HPI Narrative: history of diabetes and hypertension. IDDM. Also has Perthes disease. Presents complaining of dyspnea for the past 3 weeks and a diabetic ulcer right foot that started about 3 weeks ago and has worsened. Has low grade fever. No nausea, vomiting or chest pain. Is very weak. Related Data Home Medications ?Medication ?Instructions ?Recorded ?Confirmed insulin NPH isoph U-100 human 100 40 unit subcut BID 0 12/25/24 04/19/25 unit/mL (3 mL) subcutaneous pen (Novolin N FlexPen) insulin regular human 100 unit/mL 1 sliding scale dose subcut 04/19/25 04/19/25 (3 mL) subcutaneous pen (Novolin R USEASDIRECTD FlexPen) Previous Rx's ?Medication ?Instructions ?Recorded amlodipine 5 mg tablet 5 mg PO QD 90 days #90 tabs 12/27/24 diabetic supplies, [employer]. #1 ea 12/27/24 Allergies Allergy/AdvReac Type Severity Reaction Status Date / Time No Known Drug Allergies Allergy Verified 04/19/25 18:40 Review of Systems ROS Status of ROS 10 or more systems reviewed and unremark able except as noted in history and below [facility] Medical History (Updated 04/19/25 @ 21:59 by Ari Howe MD) BMI 40.0-44.9, adult ?Z68.41 - Body mass index [BMI] 40.0-44.9, adult (ICD-10) Hypertension ?I10 - Essential (primary) hypertension (ICD-10) Cellulitis of leg, right ?L03.115 - Cellulitis of right lower limb (ICD-10) Type II diabetes mellitus ?E11.9 - Type 2 diabetes mellitus without complications (ICD-10) Infected puncture wound of plantar aspect of foot ?S91.339A - Puncture wound without foreign body, unspecified foot, initial encounter (ICD-10) ?L08.9 - Local infection of the skin and subcutaneous tissue, unspecified (ICD-10) Left leg swelling ?M79.89 - Other specified soft tissue disorders (ICD-10) 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 [[id number]-[id number]], unspecified leg (ICD-10) Surgical History (Updated 12/25/24 @ 16:40 by Elvi Bledsoe) History of toe surgery ?Z98.890 - Other specified postprocedural states (ICD-10) History of repair of left hip joint ?Z98.890 - Other specified postprocedural states (ICD-10) Family History (Updated 12/25/24 @ 16:43 by Elvi Bledsoe) Grandfather Family history of CHF (congestive heart failure) Family history of diabetes mellitus Family history of stroke Grandfather Family history of cancer Family history of stroke Grandmother Family history of cancer Aunt Family history of diabetes mellitus Mother Family history of diabetes mellitus Family history of hypertension Sister Family history of diabetes mellitus Family history of hypertension Social History Highest level of school completed/degree received: some college, no degree Little interest or pleasure in doing things: not at all Feeling down, depressed, or hopeless: not at all Exam Constitutional Vital Signs, click to edit/add: Last Vital Signs Temp 99.0 F 04/19/25 18:51 Pulse 107 H 04/19/25 21:30 Resp 25 H 04/19/25 21:30 BP 157/94 H 04/19/25 21:10 Pulse Ox 93 L 04/19/25 21:32 O2 Del Method Nasal Cannula 04/19/25 21:32 O2 Flow Rate 2 04/19/25 21:32 Common normals: oriented x3 General appearance: in distress (short of breath when conversing. No use of accessory muscles) HENMT Common normals: normocephalic and head/scalp atraumatic Eye Common normals: EOMs intact bilaterally and conjunctivae normal Respiratory Common normals: no use of accessory muscles and clear to auscultation bilaterally Cardio Common normals: S1 normal heart sound and S2 normal heart sound Rate: tachycardic GI Common normals: Normal to inspection, nondistended, normoactive bowel sounds present, soft to palpation and non-tender Extremity Other: edema bilat lower ext. diabetic ulcer lat. aspect right foot at th distal metatarsal . exudate in the wound and there is surrouding erythema Neuro Common normals: oriented x3, CN's II-XII intact bilaterally, moves all extremities and no focal motor deficits Psych Appearance: grossly normal Course Vital Signs Vital signs: Vital Signs Blood Pressure 158/99 H 04/19/25 18:49 Pulse Oximetry 93 L 04/19/25 18:49 Temperature 99.0 F 04/19/25 18:51 Pulse Rate 107 H 04/19/25 21:30 Respiratory Rate 25 H 04/19/25 21:30 Blood Pressure 157/94 H 04/19/25 21:10 Pulse Oximetry 93 L 04/19/25 21:32 Oxygen Delivery Method Nasal Cannula 04/19/25 21:32 Oxygen Delivery Flow Rate 2 04/19/25 21:32 MDM - SOB/Dyspnea MDM Narrative Medical decision making narrative: patient presents complaining of shortness of breath that started about 3 weeks ago. Also has right foot diabetic ulcer that has worsened over the past 3 weeks. He is very weak and has low grade fever. No chest pain. No abdominal pain. EKG with diffuse low voltage with mild ST depression I, II, aVf, V3-V6. cxray with f indings of CHF, troponin mildly elevated. CT confirms osteomyelitis right foot and cellulitis. Patient treated with vanco and zosyn. Discussed with hospitalist at [facility] and patient accepted in transfer Lab Data Labs: Lab Results 04/19/25 Range/Units 19:30 WBC 16.0 H (4.0-11.0) 10^3/uL RBC 3.40 L (4.70-6.10) 10^6/uL Hgb 9.2 L (14.0-18.0) g/dL Hct 28.8 L (42.0-54.0) % MCV 84.7 (80.0-94.0) fL MCH 27.1 (25.9-34.0) pg MCHC 31.9 (29.9-35.2) g/dL RDW 14.3 (11.0-15.0) % Plt Count 360 (150-450) 10^3/uL MPV 9.8 (9.5-13.5) fL Neut % (Auto) 84.4 H (43.0-75.0) % Lymph % (Auto) 6.1 L (20.5-60.0) % [place] % (Auto) 8.0 (1.7-12.0) % Eos % (Auto) 0.4 L (0.9-7.0) % Baso % (Auto) 0.6 (0.2-2.0) % Neut # (Auto) 13.5 H (1.4-6.5) 10^3/uL Lymph # (Auto) 1.0 L (1.2-3.8) 10^3/uL [place] # (Auto) 1.3 H (0.3-0.8) 10^3/uL Eos # (Auto) 0.1 (0.0-0.7) 10^3/uL Baso # (Auto) 0.1 (0.0-0.1) 10^3/uL Abs Immat Gran (auto) 0.08 H (0.00-0.03) 10^3/uL Imm/Tot Granulo (auto) 0.5 (0.0-0.5) % ESR >130 H (<=15) mm/hr Sodium 131 L (136-145) mmol/L Potassium 4.0 (3.5-5.1) mmol/L Chloride 97 L (98-107) mmol/L Carbon Dioxide 28.6 (21.0-32.0) mmol/L Anion Gap 9.4 BUN 21.0 H (7.0-18.0) mg/dL Creatinine 1.44 H (0.70-1.30) mg/dL Est GFR ( Amer) >60 (>=60 mL/min/1.73m^2) Est GFR (Non-Af Amer) 54 L (>=60 mL/min/1.73m^2) BUN/Creatinine Ratio 14.6 Glucose 99 (74-106) mg/dL Lactate 0.9 (0.4-2.0) mmol/L Calcium 8.5 (8.5-10.1) mg/dL Troponin I High Sens 92.4 H* (4.0-76.1) pg/mL C-Reactive Protein 9.28 H (<=0.50) mg/dL NT-Pro-B Natriuret Pep 5653.0 H* (<=450.0) pg/mL Discharge Plan Discharge Chief Complaint: Shortness of Breath/Dyspnea Clinical Impression: Osteomyelitis of foot, right, acute, CHF (congestive heart failure), Elevated troponin Patient Disposition: [facility]
[2025-04-19 19:49] LABS: Hematocrit 28.8 % (42.0-54.0); Hemoglobin 9.2 g/dL (14.0-18.0); Immature Granulocytes Abs Auto 0.08 10^3/uL (0.00-0.03); Immature Granulocytes Pct Auto 0.5 % (0.0-0.5); Lymphocytes Absolute Auto 1.0 10^3/uL (1.2-3.8); Mean Corpuscular HGB Conc 31.9 g/dL (29.9-35.2); Mean Corpuscular Hemoglobin 27.1 pg (25.9-34.0); Mean Corpuscular Volume 84.7 fL (80.0-94.0); Platelet Count 360 10^3/uL (150-450); Red Blood Count 3.40 10^6/uL (4.70-6.10); White Blood Count 16.0 10^3/uL (4.0-11.0)
[2025-04-19 20:16] LABS: Lactate/Lactic Acid 0.9 mmol/L (0.4-2.0)
[2025-04-19 20:19] LABS: Anion Gap 9.4; Blood Urea Nitrogen 21.0 mg/dL (7.0-18.0); Calcium 8.5 mg/dL (8.5-10.1); Carbon Dioxide 28.6 mmol/L (21.0-32.0); Chloride 97 mmol/L (98-107); Estimated GFR (African America >60 (>=60 mL/min/1.73m^2); Estimated GFR (Non-African Ame 54 (>=60 mL/min/1.73m^2); Glucose 99 mg/dL (74-106); Potassium 4.0 mmol/L (3.5-5.1); Sodium 131 mmol/L (136-145)
[2025-04-19] MEDS: 0.9 % SODIUM CHLORIDE 1,000 ML 999 ML IV (20:23)
--- OUTSIDE RECORDS SUMMARY | 2025-04-19 20:48 | XMS_ITS | CCD ---
Author Organization [facility] CliniSyoh Care Team Providers Care Simulation Developer Name Role Phone WILFRIDO SONG Attending Unavailable WILFRIDO SONG Primary Care Unavailable Wilfrido Song Unavailable Unavailable Jere Asencio Unavailable Unavailable Wilfrido Song F Unavailable Unavailable Kapp, Wilfrido F Unavailable Unavailable Unavailable MD SERAFIN SAINZ Attending Unavailab taylor Song, Dr. Wilfrido Nevarez Referring Unav ailable Hanna, Dr. Wilfrido Nevarez Primary Care Unav ailable Hanna, Dr. Wilfrido Nevarez Primary Care Unav ailable MD SERAFIN SAINZ Attending Unavailab taylor Song, Dr. Wilfrido Nevarez Referring Unav ailable REQUEST, DR HILL LISTED Primary Care Unavaila ble ASTRID ., DR ROCHELLE aMddox Admitting Unavailable RESENDIZ ., DR ROCHELLE Maddox Attending Unavailable RESENDIZ ., DR ROCHELLE Maddox Consulting Unavailable PAY ., DR ESQUEDA Consulting Unavailable TONI ., JUNIOR Consulting Unavailable SISTER, APOLINAR Consulting Unavailable MENDEZ RUSHING Consulting Unavailable Sherry Beal Unavailable No Pcp, No Pcp Primary Care Provider Unavailabl e Unavailable Primary Care Provider Unavailabl e SAÚL DELANEY Attending Unavailable NO PCP, NO PCP Primary Care Unavailable SAÚL DELANEY Referring Unavailable NO PCP, NO PCP Primary Care Unavailable DENA AGUILAR Attending Unavailable NO PCP, NO PCP Primary Care Unavailable SAÚL DELANEY Attending Unavailable ALFONSO CARLSON Referring Unavailable SAÚL DELANEY Referring Unavailable SAÚL DELANEY Attending Unavailable NO PCP, NO PCP Primary Care Unavailable SAÚL DELANEY Referring Unavailable NO PCP, NO PCP Primary Care Unavailable SAÚL DELANEY Attending Unavailable NO PCP, NO PCP Primary Care Unavailable SAÚL DELANEY Attending Unavailable NO PCP, NO PCP Primary Care Unavailable SAÚL DELANEY Referring Unavailable NO PCP, NO PCP Primary Care Unavailable SAÚL DELANEY Attending Unavailable NO PCP, NO PCP Primary Care Unavailable NO PCP, NO PCP Primary Care Unavailable No Pcp, No Pcp Primary Care Provider Mitchell Ann DO Attending Provider Mitchell Pandey Attending UnavailMitchell Licona Admitting Unavailabl e Allergies Allergy ClassificationReported Allergen(s)Allergy TypeDate of OnsetReaction(s) FacilityLatex (1 source)Latex rubber gloves; Translations: [Latex Gloves]Substance [facility] Work Phone: (1 source)Latex rubber glovesAllergy to drug (finding)[facility] Work Phone: (5 sources)natural latex rubber; Translations: [LATEX, NATURAL RUBBER]Drug allergy (disorder)20-60-6796[facility] (13 sources)LatexPropensity to adverse reactions to [id number], Rash [facility] Medications Current Medications MedicationDrug Class(es)DatesSig (Normalized)Sig (Original)amLODIPine 5 mg / valsartan 320 mg oral tablet (1 source)Dihydropyridine Calcium Channel Veronica, Angiotensin 2 Receptor Blockertake 1 tablet by mouth once dailyamLODIPine Besylate-Valsartan 5-320 MG TAKE 1 TABLET BY MOUTH DAILY Oral for 30 Days Activeatorvastatin 20 mg oral tablet (1 source)HMG-CoA Reductase Inhibitortake 1 tablet by mouth once daily Atorvastatin Calcium 20 MG TAKE 1 TABLET BY MOUTH DAILY Oral for 30 Days Active clindamycin 300 mg oral capsule (1 source)Lincosamide AntibacterialStart: 48-78-2468yohc 1 capsule by mouth every eight hoursClindamycin HCl 300 MG 1 cap(s) Orally tid for 10 day(s) Apr, Activedapagliflozin 10 mg oral tablet (1 source)Sodium-Glucose Cotransporter 2 InhibitorFarxiga 10 MG Oral for 30 Days Activeinsulin isophane, human 100 unt/ml injectable suspension (13 sources)inject 0.4 mL by subcutaneous injection in the morninginsulin NPH (HumuLIN N,NovoLIN N) 100 unit/mL injection Inject 0.4 mL (40 Units total) under the skin in the morning and 0.4 mL (40 Units total) in the evening. Inject with meals. Activeinsulin, regular, human 100 unt/ml injectable solution (14 sources)Insulininject 10-20 [IU] by subcutaneous injection three times daily before mealtimeinsulin regular (HumuLIN R,NovoLIN R) 100 unit/mL injection Inject under the skin 3 (three) times aday before meals. 10-20 units depending on BSL ActiveNovoLIN R FlexPen 100 UNIT/ML INJECT 10-12-15 UNITS to meal size plus ISS#3 expect DAILY dose 50 UNITS Injection for 30 Days Activemupirocin 0.02 mg/mg topical ointment (1 source)RNA Synthetase Inhibitor AntibacterialStart: 07-65-8034Cpimyynuc 2 % 1 application Externally Twice a day apply to left lower leg wound Apr, Active Completed/Discontinued Medications MedicationDrug Class(es)DatesSig (Normalized)Sig (Original)aflibercept (EYLEA) intravitreal injection 2 mg (1 source)Start: 07-06-2024 End: mg, intravitreal, One-Time Injection, Starting on Fri07/06/24 at 1630, For 1 dose16 ml bevacizumab 25 mg/ml injection (1 source)Vascular Endothelial Growth Factor InhibitorStart: 08-06-2024 End: .25 mg, intravitreal, One-Time Injection, Starting on Fri08/06/24 at 1116, For 1 doseclomiPHENE citrate 50 mg oral tablet (1 source)Estrogen Agonist/AntagonistStart: 93-08-9118cxmf 0.5 tablet by mouth once dailyclomiPHENE Citrate 50 MG Oral Tablet take 1/2 tablet daily Quantity: 15 Refills: 6 Ordered: 18-Oct-2020 Serafin Sainz MD Start : 18-Oct-2020 Active FreeStyle Lite Device (1 source)Start: 14-65-8324DshfGndui Lite Device USE DIRECTED. DX; E11.65 testing twice daily Quantity: 1 Refills: 0 Wilfrido Rodriguez Start : 28-Aug-2018 Activesensor 3 ml insulin glargine 100 unt/ml pen injector (2 sources)Insulin AnalogStart: 66-31-7897Cepxvjoy KwikPen 100 UNIT/ML Subcutaneous Solution Pen-injector TAKE 20 UNITS AT BEDTIME Quantity: 1 Refills: 3 Ordered: 25-Jul-2020 Wilfrido Song DO Start : 02-Sep-2018 ActiveStart: 47-33-0325Fqkbxmhv KwikPen 100 UNIT/ML Subcutaneous Solution Pen-injector TAKE 20 UNITS AT BEDTIME Quantity: 1 Refills: 3 Wilfrido Song DO Start : 02-Sep-2018 Active 5 x 3 ML PenmetFORMIN hydrochloride 500 mg oral tablet (16 sources)BiguanideStart: 43-28-6872vkxv 1 tablet by mouth twice daily metFORMIN HCl - 500 MG Oral Tablet Take 1 tablet twice daily Quantity: 180 Refills: 1 Ordered: 25-Jun-2019 Jere Asencio MD Start : 28-Aug-2018 Activetake 1 tablet by mouth in the morning, then take 1 tablet by mouth at mealtimemetFORMIN (GLUCOPHAGE) 1000 mg tablet Take 1 tablet (1,000 mg total) by mouth in the morning and 1 tablet (1,000 mg total) in the evening. Take with meals. Active take 2 tablets by mouth twice dailymetFORMIN HCl ER 500 MG TAKE 2 TABLETS BY MOUTH TWICE DAILY Oral for 30 Days Activesulfamethoxazole 800 mg / trimethoprim 160 mg oral tablet (2 sources)Dihydrofolate Reductase Inhibitor Antibacterial, Sulfonamide AntimicrobialStart: 66-06-9592cmaz 1 tablet by mouth every twelve hoursBactrim DS 800-160 MG 1 tablet Orally bid for 10 day(s) Jul, Not-Taking/PRN tadalafil 5 mg oral tablet (1 source)Phosphodiesterase 5 InhibitorStart: 10-87-2962mowp 1 tablet by mouth once dailyTadalafil 5 MG Oral Tablet Take 1 tablet daily Quantity: 30 Refills: 11 Ordered: 16-Aug-2020 Serafin Sainz MD Start : 16-Aug-2020 ActivetraMADol hydrochloride 50 mg oral tablet (1 source)Opioid AgonistStart: 25-52-5121crkb 1 tablet by mouth every six hours as neededtraMADol HCl 50 MG 1 tablet as neededfor severe pain Orally every 6 hrs,may cause fatigue, avoid driving, alcohol and machinery use,potentially addictiv for 5 days Dec, Not-Taking/PRN Problems Active Problems Problem ClassificationProblemDateDocumented DateEpisodic/ChronicDiabetes mellitus with complications (20 sources)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 2 diabetes mellitus; Translations: [Type 2 diabetes mellitus with moderate nonproliferative diabetic retinopathy with macular edema, right eye]Onset: hronic Diabetes mellitus without complication (2 sources)Diabetes mellitus; Translations: [Diabetes mellitus without mention of complication, type II or unspecified type, not stated as uncontrolled]Chronic Disorders of lipid metabolism (2 sources)Hyperlipidemia; Translations: [Other and unspecified hyperlipidemia] ChronicEssential hypertension (2 sources)Hypertensive disorder; Translations: [Unspecified essential hypertension]ChronicOsteoarthritis (1 source)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; Translations: [Osteoarthrosis, localized, secondary, pelvic region and thigh]ChronicOther bone disease and musculoskeletal deformities (2 sources)Juvenile osteochondrosis of lower extremity; Translations: [Juvenile osteochondrosis of hip and pelvis]ChronicOther male genital disorders (1 source)Male erectile dysfunction, unspecified; Translations: [Male erectile disorder]ChronicOther male genital disorders (1 source)Phimosis; Translations: [Redundant prepuce and phimosis]EpisodicOther non-traumatic joint disorders (1 source)Hip pain; Translations: [Pain in joint, pelvic region and thigh] EpisodicOther screening for suspected conditions (not mental disorders or infectious disease) (1 source)Decreased testosterone level ; Translations: [Other nonspecific findings on examination of blood]EpisodicResidual codes; unclassified (1 source)History finding; Translations: [Other specified conditions influencing health status]EpisodicResidual codes; unclassified (2 sources)Edema of left lower limb; Translations: [Localized edema]08-09-2024 EpisodicResidual codes; unclassified (1 source)Pain, unspecified; Translations: [Pain, unspecified]Onset: 08-06-2024 EpisodicSkin and subcutaneous tissue infections (1 source)Cellulitis of left lower limbEpisodicUnclassified (1 source)Diabetic retinopathy with macular edema associated with diaOnset: 02-25-2024 Past or Other Problems Problem ClassificationProblemDateDocumented DateEpisodic/ChronicBlindness and vision defects (10 sources)Severe myopia; Translations: [Myopia, bilateral]Onset: 02-25-2024 18-20-5829ReavhgwiPALAMQT: Highlighted row has not occurred!Residual codes; unclassified (5 sources)DiseaseEpisodic Results Test NameValueInterpretationReference EnkllUvfobshbJ9P with Estimated Average Gluon 39-73-3398Vnkaglo [Mass/Vol]295 mg/dLNormalThe [facility] Comment on above:Result Comment: PERFORMED BY: [place] [address] PATHOLOGIST SAND MIXER MACHINE FERNANDO ALMAGUER M.D.Performed By: #### A1C WT eA #### [facility] [address] [id number] IXYBbI9p (Bld) [Mass fraction]11.9 %High4.3-5.6The [facility]health Physician GroupComment on above:Result Comment: Increased risk for diabetes: 5.7 - 6.4 diabetes: >6.4 glycemic control for adults with diabetes: <7.0Performed By: #### A1C WT eA #### [facility] [address] [id number] USAIntravitreal Injection, Pharmacologic Agent - OD - Right Eyeon 88-97-3006QozLmnnra Health SystemNo Panel Informationon 08-06-2024 [facility] SystemIntravitreal Injection, Pharmacologic Agent - OD - Right Eyeon 05-85-5329OqiUcixcl Health Havenwyck HospitalNo Panel Informationon 20-07-7451YI: DM; persistent DME, slight increased; treat laser vs injections discussed OS: DM; improving DME; treat vs continue to follow discussedMANUALLY TRANSCRIBED RESULTSProTrihealth [facility] SystemFocal Laser - OS - Left Eyeon 60-62-7713OaiFhugtn CleveX SystemFocal Laser - OD - Right Eyeon 14-66-0753GmbBxpeeg CleveX [facility] HospitalNo Panel Informationon 72-85-9437TG: NPDR s/p focal laser with areas of active focal leakage; no NVE; observe discussedMANUALLY TRANSCRIBED RESULTSProOhiohealth Pickerington Methodist HospitalLiveGO Havenwyck HospitalNo Panel Informationon 41-46-1729LC: DM; early DME; treat discussedMANUALLY TRANSCRIBED RESULTSACMC Healthcare System GlenbeighLiveGO SystemOU: Moderate NPDR with DME; treat discussed (consider focal laser)MANUALLY TRANSCRIBED RESULTSProTrihealth Bet[facility] Hospital SystemCARDIAC MELVIN 3-6on 53-76-7500MT [Catalytic activity/Vol]239 U/HIrkxhc02-385Cst Uc HealthComment on above:Performed By: #### CMREP #### [facility] [address] [place] [address] Dr. Sonia Aguiar.MB [Mass/Vol]2.58 ng/mLNormal<=3.60The [facility] Comment on above:Performed By: #### CMREP #### [facility] [address] [place] [address] Dr. Sonia SommersHSTROP33.2 pg/mLNormal4.0-76.1The Uc HealthComment on above:Result Comment: CUT-OFF POINTS HAVE BEEN ESTABLISHED BASED ON THE FOURTH UNIVERSAL DEFINITIONS OF MYOCARDIAL INFARCTION. THE UPPER REFERENCE LIMIT (URL) OF TROPONIN, DEFINED THE 99TH PERCENTILE OF cTnI DISTRIBUTION IN A REFERENCE POPULATION, HAS BEEN CONFIRMED THE DECISION THRESHOLD FOR IA DIAGNOSIS.Performed By: #### CMREP #### [facility] [address] [place] [address] Dr. Sonia Sigala AUTO DIFFon 53-92-9682LHNQ #0.0 103/ulNormal0.0-0.1The Uc HealthComment on above:Performed By: #### CBC #### [facility] [address] [place] [address] Dr. Sonia SommersBasophils/100 WBC (Bld)0.1 %Critically low0.2-2.0The Uc HealthComment on above:Performed By: #### CBC #### [facility] [address] [place] [address] Dr. Sonia Ye #0.0 103/ulNormal0.0-0.7The Uc HealthComment on above: Performed By: #### CBC #### [facility] [address] [place] [address] Dr. Sonia Loomisosinophils/100 WBC (Bld)0.0 %Critically low0.9-7.0The Uc HealthComment on above:Performed By: #### CBC #### [facility] [address] [address] [address] Sonia Loomisrythrocyte distribution width (RBC) [Ratio]12.8 %Sbhhiw26.0-15.0 [facility] HospitalComment on above:Performed By: #### CBC #### [facility] [address] [address] [address] Sonia SommersHematocrit (Bld) [Volume fraction]37.5 %Critically low42.0-54.0 The Uc HealthComment on above:Performed By: #### CBC #### [facility] [address] [address] [address] Sonia SommersHemoglobin (Bld) [Mass/Vol]12.7 g/dLCritically low14.0-18.0[facility] HospitalComment on above:Performed By: #### CBC #### [facility] [address] [place] [address] Dr. Sonia Reina #0.05 10e3/ulCritically high0.00-0.03[facility] Comment on above:Performed By: #### CBC #### [facility] [address] [place] [address] Dr. Sonia Reina %0.6 %Critically high0.0-0.5ThAvita Health System Bucyrus HospitalComhuron valley-[facility] hospital on above:Performed By: #### CBC #### [facility] [address] [place] [address] Dr. Sonia HernandezH #0.9 103/ulCritically low1.2-3.8The [facility] Comment on above:Performed By: #### CBC #### [facility] [address] [place] [address] Dr. Sonia Zamarripamphocytes/100 WBC (Bld)10.5 %Critically low20.5-60.0[facility] on above:Performed By: #### CBC #### [facility] [address] [place] [address] Dr. Sonia De JesusUAL DIFF REQNONormalThe Uc HealthComment on above: Performed By: #### CBC #### [facility] [address] [address] [address] Sonia Shanks (RBC) [Entitic mass]28.6 ayIhxugt08.9-34.0The Uc HealthComment on above:Performed By: #### CBC #### [facility] [address] [place] [address] Dr. Sonia Shanks (RBC) [Mass/Vol]33.9 g/rZWvxubx67.9-35.2The [facility] HospitalComment on above:Performed By: #### CBC #### [facility] [address] [place] [address] Dr. Sonia Shanks (RBC) [Entitic vol]84.5 bEChtaqp01.0-94.0The [facility]c HealthComment on above:Performed By: #### CBC #### [facility] [address] [place] [address] Dr. Sonia Estrada #0.2 103/ulCritically low0.3-0.8The [facility]c HealthComment on above:Performed By: #### CBC #### [facility] [address] [place] [address] Dr. Sonia Robinsocytes/100 WBC (Bld)2.1 %Normal1.7-12.0[facility] Comment on above:Performed By: #### CBC #### [facility] [address] [place] [address] Dr. Sonia Mayers #7.2 103/ulCritically high1.4-6.5The [facility] Comment on above:Performed By: #### CBC #### [facility] [address] [place] [address] Dr. Sonia Hamlinutrophils/100 WBC (Bld)86.7 %Critically high43.0-75.0The [facility]c HealthComment on above:Performed By: #### CBC #### [facility] [address] [place] [address] Dr. Sonia Adam mean volume (Bld) [Entitic vol]9.8 fLNormal9.5-13.5The [facility] HealthComment on above:Performed By: #### CBC #### [facility] [address] [address] [address] Sonia SommersPLT290 103/vlYddgdr817-601Zlp [facility] HealthComment on above: Performed By: #### CBC #### [facility] [address] [address] [address] Sonia SommersRBC4.44 106/ulCritically low4.70-6.10The [facility] HospitalComment on above:Performed By: #### CBC #### [facility] [address] [address] [address] Sonia SommersWBC8.3 103/ulNormal4.0-11.0The [facility]c HealthComment on above: Performed By: #### CBC #### [facility] [address] [address] [address] Sonia SommersPOINT OF CARE GLUCOSEon 89-82-3391Vaqccxv [Mass/Vol]413 mg/dL Critically fjfn83-380Efz [facility]c HealthComment on above:Performed By: #### POCGLUC #### [facility] [address] [address] [address] Sonia SommersGlucose [Mass/Vol]318 mg/dLCritically eona52-225Ilz [facility] HealthComment on above:Performed By: #### POCGLUC ####[facility] [address] [address]Dr. Sonia SommersPROF 14(COMP METB)on 56-09-0215Hewjdsj [Mass/Vol]3.4 g/dLNormal3.4-5.0The [facility] Comment on above:Performed By: #### CMP #### [facility] [address] [place] [address] Dr. Sonia SommersAlbumin/Globulin [Mass ratio]0.8 {ratio}NormalThe [facility]c HealthComment on above:Performed By: #### CMP #### [facility] [address] [address] [address] Sonia DaoP [Catalytic activity/Vol]104 U/DBecmzt74-537Lwi [facility]c HealthComment on above:Performed By: #### CMP #### [facility] [address] [address] [address] Sonia DaoT [Catalytic activity/Vol]29 U/SQyodzs31-85Dfx [facility] HealthComment on above:Performed By: #### CMP #### [facility] [address] [address] [address] Sonia Enamoradoon gap [Moles/Vol]16.3 mmol/LNormalToledo Hospital Comment on above:Performed By: #### CMP #### [facility] [address] [address] [address] Sonia SommersAST [Catalytic activity/Vol]17 U/TWekwdq40-05Ehf [facility] HealthComment on above:Performed By: #### CMP #### [facility] [address] [place] [address] Dr. Sonia SommersBilirubin [Mass/Vol]0.6 mg/dLNormal0.2-1.0[facility] Comment on above:Performed By: #### CMP #### [facility] [address] [place] [address] Dr. Sonia SommersCalcium [Mass/Vol]9.0 mg/dLNormal8.5-10.1[facility] Comment on above:Performed By: #### CMP #### [facility] [address] [place] [address] Dr. Sonia SommersChloride [Moles/Vol]101 mmol/ZVstfub92-781Euh [facility] Comment on above:Performed By: #### CMP #### [facility] [address] [place] [address] Dr. Sonia SommersCO2 [Moles/Vol]21.0 mmol/MKfmvtq30.0-32.0The [facility] Comment on above:Performed By: #### CMP #### [facility] [address] [place] [address] Dr. Sonia SommersCreatinine [Mass/Vol]1.25 mg/dLNormal0.70-1.30The [facility] HealthComment on above:Performed By: #### CMP #### [facility] [address] [address] [address] Sonia LoomisGFR-AF SERBIAN>60Normal>=60The [facility] HealthComment on above:Performed By: #### CMP #### [facility] [address] [address] [address] Sonia LoomisGFR-NON AF SERBIAN>60Normal>=60The [facility] HealthComment on above:Performed By: #### CMP #### [facility] [address] [address] [address] Sonia SommersGlobulin (S) [Mass/Vol]4.2 g/dLNormalThe [facility] HealthComment on above:Performed By: #### CMP #### [facility] [address] [place] [address] Dr. Sonia SommersGlucose [Mass/Vol]316 mg/dLCritically pljm50-877Del [facility] HealthComment on above:Performed By: #### CMP #### [facility] [address] [address] [address] Sonia SommersPotassium [Moles/Vol]5.3 mmol/LCritically high3.5-5.1The [facility] HealthComment on above:Performed By: #### CMP #### [facility] [address] [address] [address] Sonia SommersProtein [Mass/Vol]7.6 g/dLNormal6.4-8.2The [facility] Comment on above:Performed By: #### CMP #### [facility] [address] [address] [address] Sonia SommersSodium [Moles/Vol]133 mmol/LCritically zdh986-971Zyn [facility] Hospitalment on above:Performed By: #### CMP #### [facility] [address] [address] [address] Sonia SommersUrea nitrogen [Mass/Vol]42.0 mg/dLCritically high7.0-18.0The [facility] HealthComment on above:Performed By: #### CMP #### [facility] [address] [address] [address] Sonia SommersUrea nitrogen/Creatinine [Mass ratio]33.6 mg/mgNormalThe [facility] HealthComhuron [facility] on above:Performed By: #### CMP #### [facility] [address] [address] [address] Sonia Ramos 74-91-6443Yptwixvvsgk peptide B (Bld) [Mass/Vol]66.0 pg/mL Normal<=450.0The [facility]Comh[facility] on above:Performed By: #### HSTROPN, BNP, CMP ####[facility] [address] [address]. Sonia BowenC AUTO DIFFon 88-22-9336QTPX #0.1 103/ulNormal0.0-0.1The [facility] HealthComment on above:Performed By: #### CBC #### [facility] [address] [place] [address] Dr. Sonia SommersBasophils/100 WBC (Bld)0.6 %Normal0.2-2.0The [facility] Comment on above:Performed By: #### CBC #### [facility] [address] [place] [address] Dr. Sonia Ye #0.2 103/ulNormal0.0-0.7The [facility]Comh[facility] on above: Performed By: #### CBC #### [facility] [address] [address] [address] Sonia Loomisosinophils/100 WBC (Bld)1.9 %Normal0.9-7.0The [facility] Comment on above:Performed By: #### CBC #### [facility] [address] [place] [address] Dr. Sonia Loomisrythrocyte distribution width (RBC) [Ratio]12.9 %Bvcwgr88.0-15.0 The [facility] HealthComment on above:Performed By: #### CBC #### [facility] [address] [place], [place] [id number] Dr. Sonia SommersHematocrit (Bld) [Volume fraction]41.7 %Critically low42.0-54.0 The [facility]c HealthComment on above:Performed By: #### CBC #### [facility] [address] [place] [address] Dr. Sonia SommersHemoglobin (Bld) [Mass/Vol]14.0 g/cSLzoonf95.0-18.0The [facility] HealthComment on above:Performed By: #### CBC #### [facility] [address] [place] [address] Dr. Sonia SomemrsIG #0.08 10e3/ulCritically high0.00-0.03The [facility] Comment on above:Performed By: #### CBC #### [facility] [address] [place] [address] Dr. Sonia SommersIG %0.7 %Critically high0.0-0.5The [facility] HealthComment on above:Performed By: #### CBC #### [facility] [address] [place] [address] Dr. Sonia Bruce #1.6 103/ulNormal1.2-3.8The [facility] HealthComment on above:Performed By: #### CBC #### [facility] [address] [place] [address] Dr. Sonia Zamarripamphocytes/100 WBC (Bld)13.3 %Critically low20.5-60.0The [facility] HealthComment on above:Performed By: #### CBC #### [facility] [address] [place] [address] Dr. Sonia SommersMANUAL DIFF REQNONormalThe [facility]c HealthComment on above: Performed By: #### CBC #### [facility] [address] [place] [address] Dr. Sonia Fong (RBC) [Entitic mass]28.9 jqHbkois10.9-34.0The [facility] HealthComment on above:Performed By: #### CBC #### [facility] [address] [address] [address] Sonia ShanksHC (RBC) [Mass/Vol]33.6 g/cBCprdor04.9-35.2The [facility] HealthComment on above:Performed By: #### CBC #### [facility] [address] [place] [address] Dr. Sonia ShanksV (RBC) [Entitic vol]86.0 jBVzjnro41.0-94.0The [facility] HealthComment on above:Performed By: #### CBC #### [facility] [address] [place] [address] Dr. Sonia Estrada #0.9 103/ulCritically high0.3-0.8The [facility] Comment on above:Performed By: #### CBC #### [facility] [address] [place] [address] Dr. Sonia Robinsocytes/100 WBC (Bld)7.4 %Normal1.7-12.0[facility] Comment on above:Performed By: #### CBC #### [facility] [address] [place] [address] Dr. Sonia Mayers #8.9 103/ulCritically high1.4-6.5The [facility] Comment on above:Performed By: #### CBC #### [facility] [address] [place] [address] Dr. Sonia Hamlinutrophils/100 WBC (Bld)76.1 %Critically high43.0-75.0The [facility] HealthComment on above:Performed By: #### CBC #### [facility] [address] [place] [address] Dr. Sonia Hankslet mean volume (Bld) [Entitic vol]10.2 fLNormal9.5-13.5The [facility]c HealthComment on above:Performed By: #### CBC #### [facility] [address] [place] [address] Dr. Sonia SommersPLT378 103/npClyror142-953Qsn Uc HealthComment on above: Performed By: #### CBC #### [facility] [address] [address] [address] Sonia SommersRBC4.85 106/ulNormal4.70-6.10The [facility] on above:Performed By: #### CBC #### [facility] [address] [place], [place] [address] Dr. Sonia SommersWBC11.7 103/ulCritically high4.0-11.0The [facility] on above:Performed By: #### CBC #### [facility] [address] [address] [address] Sonia Smith CHEST WO W CONon 61-14-9045FBC CHEST WO W CONEXAMINATION: CTA CHEST WO W CON HISTORY: SHORTNESS [...] Electronically authenticated by: Gita RUSHING Date: 2022-09-06 17:44NormCleveland Clinic Union Hospitale [facility] HealthCovid-19 PCR (CVDTBH)on 52-86-9900LUOE-CoV-2 (COVID-19) RNA CARLOS+probe Ql (Unsp spec)Not detectedNormalNOT DETECTEDThe [facility] on above: Result Comment: When diagnostic testing [...] for this test is supported by the Bottom Presser of Health and Human Service's declaration that circumstances exist to justify the emergency use of in vitro diagnostics for the detection and/or diagnosis of the virus that causes COVID-19. This EUA will remain in effect for the duration of the COVID-19 declaration justifying emergency of IVDs, unless it is terminated or revoked by the FDA (after which the test may no longer be used).Performed By: #### CVDTBH #### [facility] [address] [address] [address] Sonia SommersPROF 14(COMP METB)on 80-28-3051Gqtjfxr [Mass/Vol]4.0 g/dLNormal 3.4-5.0The [facility]c HealthComment on above:Performed By: #### HSTROPN, BNP, CMP ####[facility] [address] [address]Dr. Sonia SommersAlbumin/Globulin [Mass ratio]0.8 {ratio}NormalThe [facility] Comment on above:Performed By: #### HSTROPN, BNP, CMP ####[facility] [address] [address]Dr. Sonia SommersALP [Catalytic activity/Vol]106 U/KVtclmf46-853Hdl [facility] HealthComment on above:Performed By: #### HSTROPN, BNP, CMP ####[facility] [address] [address]Dr. Sonia SommersALT [Catalytic activity/Vol]34 U/LNormal 16-63The [facility] HealthComment on above:Performed By: #### HSTROPN, BNP, CMP ####[facility] [address] [address]Dr. Sonia SommersAnion gap [Moles/Vol]19.2 mmol/LNormalThe [facility]c HealthComment on above:Performed By: #### HSTROPN, BNP, CMP ####[facility] [address] [address]Dr. Yilan ChangAST [Catalytic activity/Vol] 18 U/BQckzku62-91Vcr [facility] HealthComment on above:Performed By: #### HSTROPN, BNP, CMP ####[facility] [address] [address]Dr. Yilan ChangBilirubin [Mass/Vol]1.0 mg/dLNormal0.2-1.0The [facility]c HealthComment on above:Performed By: #### SILVATROPN, BNP, CMP ####[facility] [address] [place], [place] [address]Dr. Sonia Sommers Calcium [Mass/Vol]10.1 mg/dLNormal8.5-10.1The [facility]c HealthComment on above: Performed By: #### SILVATROPN, BNP, CMP ####[facility] [address] [place], [place] [address]Dr. Yilan ChangChloride [Moles/Vol]93 mmol/L Critically pax30-932Ydc [facility] on above:Performed By: #### SILVATROPN, BNP, CMP ####[facility] [address] [address]Dr. Yilan ChangCO2 [Moles/Vol]24.0 mmol/HRwlyne44.0-32.0The Uc HealthComment on above:Performed By: #### HSTROPN, BNP, CMP ####[facility] [address] [place], [place] [address]Dr. Maralan Sommers Creatinine [Mass/Vol]2.23 mg/dLCritically high0.70-1.30The [facility] Comment on above:Performed By: #### HSTROPN, BNP, CMP ####[facility] [address] [place], [place] [address]Dr. Yilan ChangEGFR-AF SMXPOHWZ24 mL/min/1.17q4Ajmxilmina low>=60The [facility]c HealthComment on above: Performed By: #### HSTROPN, BNP, CMP ####[facility] [address] [address]Dr. Yilan ChangEGFR-NON AF EIQVUPFN63 mL/min/1.75n1Dbywvazzzt low>=60The [facility] HealthComment on above:Performed By: #### HSTROPN, BNP, CMP ####[facility] [address] [address]Dr. Yilan ChangGlobulin (S) [Mass/Vol]5.2 g/dLNormalThe [facility]c HealthComment on above:Performed By: #### HSTROPN, BNP, CMP ####[facility] [address] [place], [place] [address]Dr. Yilan ChangGlucose [Mass/Vol]427 mg/dLCritically mylr39-245Zek [facility] Comment on above:Performed By: #### HSTROPN, BNP, CMP ####[facility] [address] [place], [place] [address]Dr. Yilan ChangPotassium [Moles/Vol]4.2 mmol/LNormal3.5-5.1The [facility]c HealthComment on above: Performed By: #### HSTROPN, BNP, CMP ####[facility] [address] [place], [place] [address]Dr. Yilan ChangProtein [Mass/Vol]9.2 g/dL Critically high6.4-8.2The [facility]c HealthComment on above:Performed By: #### HSTROPN, BNP, CMP ####[facility] [address] [place], [place] [address]Dr. Yilan ChangSodium [Moles/Vol]132 mmol/LCritically ypq499-461Ugl [facility] HealthComment on above:Performed By: #### HSTROPN, BNP, CMP ####[facility] [address] [place], [place] [address]Dr. Yilan ChangUrea nitrogen [Mass/Vol]59.0 mg/dLCritically high7.0-18.0The [facility]c HealthComment on above:Performed By: #### HSTROPN, BNP, CMP ####[facility] [address] [address]Dr. Sonia Howell nitrogen/Creatinine [Mass ratio]26.5 mg/mgNoUK HealthcareComment on above:Performed By: #### HSTROPN, BNP, CMP ####[facility] [address] [address]Dr. Sonia SommersPROTIMEon 46-39-2078[facility] Coag (PPP) [Relative time]1.03 {INR}NormalThe [facility]c HealthComment on above: Performed By: #### PT, PTT #### [facility] [address] [place] [address] Dr. Sonia Reyes GUIDELINESSEE [facility] Memorial HospitalComment on above:Result Comment: DESIRED INR: 2.0 - 3.0 CONDITIONS NOT LISTED BELOW 2.5 - 3.5 FOR PROSTHETIC HEART VALVE REPLACEMENT 2.5 - 3.5 RECURRENT THROMBOSIS Performed By: #### PT, PTT #### [facility] [address] [place] [address] Dr. Sonia SommersPT Coag (PPP) [Time]10.9 sNormal9.0-11.6The [facility] Comment on above:Performed By: #### PT, PTT #### [facility] [address] [place] [address] Dr. Sonia Larry 12-06-3934nNRT Coag (Bld) [Time]27.3 rVuuyzg61.3-36.2The [facility]c HealthComment on above:Performed By: #### PT, PTT #### [facility] [address] [place] [address] Dr. Sonia Srinivasan, HIGH SENSITIVITYon 39-22-5063UHAIFL32.4 pg/mLNormal 4.0-76.1The [facility] on above:Result Comment: CUT-OFF POINTS HAVE BEEN ESTABLISHED BASED ON THE FOURTH UNIVERSAL DEFINITIONS OF MYOCARDIAL INFARCTION. THE UPPER REFERENCE LIMIT (URL) OF TROPONIN, DEFINED THE 99TH PERCENTILE OF cTnI DISTRIBUTION IN A REFERENCE POPULATION, HAS BEEN CONFIRMED THE DECISION THRESHOLD FOR IA DIAGNOSIS.Performed By: #### HSTROPN #### [facility] [address] [place], [place] [address] Dr. Sonia HartmannTROP33.6 pg/mLNormal4.0-76.1The Uc HealthComment on above:Result Comment: CUT-OFF POINTS HAVE BEEN ESTABLISHED BASED ON THE FOURTH UNIVERSAL DEFINITIONS OF MYOCARDIAL INFARCTION. THE UPPER REFERENCE LIMIT (URL) OF TROPONIN, DEFINED THE 99TH PERCENTILE OF cTnI DISTRIBUTION IN A REFERENCE POPULATION, HAS BEEN CONFIRMED THE DECISION THRESHOLD FOR IA DIAGNOSIS.Performed By: #### HSTROPN, BNP, CMP ####[facility] [address] [place], [place] [address]YpDr. Sonia Chauhan Visiton 70-63-8345Mwqlpw-up visitDiagnoses/Problems Male erectile disorder (607.84) (N52.9) Low testosterone [...] as the presence of plaques, calcifications, or curvatureof the penis. He is to consider this option. In terms of treatment options; PDE5i (Viagra, Cialis, etc.), intracavernosal injections (ICI), vacuum erection devices (RADHA) and penile implants were discussed in detail. PDE-5 inhibitor The patient has been diagnosed with erectile dysfunction and cardiac assessment according to the [place] criteria allows use of oral PDE-5 inhibitor. The patient understands that these medications are not initiators of erection and that he will still require sexual stimulation. If prescribed vardenafil or sildenafil, he was advised to take the medication 30-60 minutes prior to sexual activity and that the efficacy of the medication is decreased following a high- fat meal. The patient verbalized understanding that nitrates [...] therapy including, but not limited to headache, flushing,dizziness, rash, upset stomach, diarrhea, nasal congestion, abnormal [...] this class. Patient is instructed to immediately stopthis medication and seek medical attention if he [...] proceed. Chief Complaint FUV History of Present [age]wcroxl32 year old male with ED, DM, HTN, [...] Solution Pen-injectorTAKE 20 UN (more content not included)...NormalUH TouchworksFRUCTOSAMINEon 36-29-2831SSOMVMGYETLC 325 umol/LHigh0-285[facility] CenterComment on above:Result Comment: Published reference interval for apparently healthy subjects between age 20 and 60 is 205 - 285 umol/L and in a poorly controlled diabetic population is 228 - 563 umol/L with a mean of 396 umol/L.Performed By: #### FRUCT #### [facility] [address] [place], [place] [id number] PANELon 79-27-2935Dpwrrsa [Mass/Vol]4.1 g/dL Normal3.4 - 5.0[facility] CenterComment on above:Performed By: #### CMP #### [facility] [address] [place], [place] [address]EQZ [Catalytic activity/Vol]89 U/BPdsfbp54 - 120UH [facility] HospitalComment on above:Performed By: #### CMP #### [address], [place] [address]GJR [Catalytic activity/Vol]20 U/JXjsqnk57 - 52UH [facility] HospitalComment on above:Result Comment: Patients treated with Sulfasalazine may generate falsely decreased results for ALT.Performed By: #### CMP #### [address], [place] [address]Lfgrd gap [Moles/Vol]14 mmol/YUhunre36 - 20UH [facility] HospitalComment on above:Performed By: #### CMP #### [address], [place] [address]ZBK [Catalytic activity/Vol]17 U/LNormal9 - 39UH [facility] HospitalComment on above:Performed By: #### CMP #### [address], [place] [address]Fncfzqrxr [Mass/Vol]0.6 mg/dLNormal0.0 - 1.2[facility] HospitalComment on above:Performed By: #### CMP #### [address], [place] [address]Ssznebd [Mass/Vol]9.3 mg/dLNormal8.6 - 10.3[facility] HospitalComment on above:Performed By: #### CMP #### [address], [place] [address]Zavqjjbf [Moles/Vol]100 mmol/KBfbqfj30 - 107UH [facility] HospitalComment on above:Performed By: #### CMP #### [address], [place] [address]Bvjcfmtzbb [Mass/Vol]0.87 mg/dLNormal0.50 - 1.30[facility] HospitalComment on above:Performed By: #### CMP #### [address], [place] [address]QZX-BZTLZQE AM.>60Normal>60UH [facility] HospitalComment on above:Result Comment: CALCULATIONS OF ESTIMATED GFR ARE PERFORMED USING THE MDRD STUDY EQUATION FOR THE IDMS-TRACEABLE CREATININE METHODS. CLIN CHEM 2007;53:766-72Performed By: #### CMP #### [address], [place] [address]HCV-DMM AM.>60Normal>60UH [facility] HospitalComment on above:Performed By: #### CMP #### [address], [place] [address]Isbhrih [Mass/Vol]164 mg/rYBmpw55 - 99[facility] Comment on above:Performed By: #### CMP #### [address], [place] [address]KEH6 (Bld) [Moles/Vol]27 mmol/JBcloft91 - 32[facility] CenterComment on above:Performed By: #### CMP #### [address], [place] [address]Vlrhoukpw [Moles/Vol]4.3 mmol/LNormal3.5 - 5.3[facility] HospitalComment on above:Performed By: #### CMP #### [address], [place] [address]Owjsxjr [Mass/Vol]7.3 g/dLNormal6.4 - 8.2[facility] Comment on above:Performed By: #### CMP #### [address], [place] [address]Gwaepj [Moles/Vol]137 mmol/QCmrxvd940 - 145[facility] CenterComment on above:Performed By: #### CMP #### [address], [place] [address]Hzni nitrogen [Mass/Vol]19 mg/dLNormal6 - 23[facility] CenterComment on above:Performed By: #### CMP #### [address], [place] [address]FBRZUAODZT A1Con 87-57-7424Hzjymrn [Mass/Vol]280 mg/dLNormalUH Washington HospitalComment on above:Performed By: #### HBA1E #### [address], [place] [address]UdM2a (Bld) [Mass fraction]11.4 %AbnormalSutter Roseville Medical Center Comment on above:Result Comment: Diagnosis of Diabetes-Adults Non-Diabetic: < or = 5.6% Increased risk for developing diabetes: 5.7-6.4% Diagnostic of diabetes: > or = 6.5% . Monitoring of Diabetes Age (y) Therapeutic Goal (%) Adults: >18 <7.0 Pediatrics: 13-18 <7.5 7-12 <8.0 0- 6 7.5-8.5 [employer] [employer]. Diabetes Care 33(S1), May 2009.Performed By: #### HBA1E #### [facility] [address] [place], [place] [address]MHKXXDI D, 25-HYDROXYon 37-55-6789YOATGIL D, 25-XXWVLQM84 ng/mL NormalSutter Roseville Medical CenterComment on above:Result Comment: . DEFICIENCY: < 20 NG/ML INSUFFICIENCY: 20-29 NG/ML SUFFICIENCY: 30-100 NG/ML THIS ASSAY ACCURATELY QUANTIFIES THE SUM OF VITAMIN D3, 25-HYDROXY AND VIT D2,25-HYDROXY.Performed By: #### VTDOH #### [facility] [address] [place], [place] [address]WPPUVCMCXmx 18-53-3500UGUVCPOVL22 pg/mLNSelect Medical TriHealth Rehabilitation HospitalComment on above:Result Comment: Test was ordered on a male or a child <18 years old. Suggest ordering Tandem Mass Spectrometry for Estradiol, Males or Children, Test Code 1964461. INTERPRETIVE INFORMATION: Estradiol, Adult Premenopausal Female Follicular phase .........27-122 pg/mL Mid Cycle phase ..........95-433 pg/mL Luteal Phase .............49-291 pg/mL Post-Menopausal ....Less than 41 pg/mL Performed By: [employer] [address] [place] [address] Reliability Technicians: MANDY Solareserformed By: #### [id number] #### [facility] [address] [place] [address] Director Of Diversity And Inclusion: Marvin Logan 22-25-9860Rcnnkyzuafz distribution width (RBC) [Ratio]13.7 %Grykhb78.5-14.5SProMedica Bay Park HospitalComment on above:Performed By: #### 749226, 854819, 298255, 227109, 8971424 #### [facility] [address] [place] [address] Director Of Diversity And Inclusion: Edy Gramajo MDHematocrit (Bld) [Volume fraction]45.1 % Xqputw97.0-52.0[facility] County HospitalComment on above:Performed By: #### 965709, 685416, 647853, 781258, 3004139 #### [facility] [address] [place] [address] Director Of Diversity And Inclusion: Edy Gramajo MDHemoglobin (Bld) [Mass/Vol]15.1 g/dL Ijzbne75.5-17.5SProMedica Bay Park HospitalComment on above:Performed By: #### 838781, 545775, 854252, 107068, 4713086 #### [facility] [address] [place] [address] Director Of Diversity And Inclusion: Edy Gramajo MDInstr WBC ND7.4NormalSProMedica Bay Park HospitalComment on above:Performed By: #### 663114, 048791, 530895, 254089, 9326636 #### [facility] [address] [place] [address] Director Of Diversity And Inclusion: PAUL LoganCH (RBC) [Entitic mass]29.1 pgNormal 27.0-34.0[facility] HospitalComment on above:Performed By: #### 731419, 147509, 739502, 840161, 8154006 #### [facility] [address] [place] [address] Director Of Diversity And Inclusion: NITESH LoganC (RBC) [Mass/Vol]33.4 g/dLNormal 32.0-37.0[facility] HospitalComment on above:Performed By: #### 064018, 322457, 906485, 581787, 1343162 #### [facility] [address] [place] [address] Director Of Diversity And Inclusion: AUBREY Logan (RBC) [Entitic vol]87.3 fLNormal 80.0-100.0[facility] HospitalComment on above:Performed By: #### 838248, 035309, 368530, 024166, 5497874 #### [facility] [address] [place] [address] Director Of Diversity And Inclusion: Caty Logan224 x3740Wsycwu110-969DyyqdziocWood County HospitalComment on above:Performed By: #### 255356, 738502, 530036, 394649, 2805905 #### [facility] [address] [place] [address] Director Of Diversity And Inclusion: Caty Logan mean volume (Bld) [Entitic vol] 8.8 fLNormal7.4-10.4SProMedica Bay Park HospitalComment on above:Performed By: #### 190055, 521991, 242876, 180297, 4971861 #### [facility] [address] [place] [address] Director Of Diversity And Inclusion: RUSS LoganBC5.17 n98Nlmkbw6.70-6.10Wood County HospitalComment on above:Result Comment: Note: RBC morphology is normal unless otherwise stated. Evaluation performed only if differential is requested.Performed By: #### 527589, 629458, 815318, 261492, 4005050 #### [facility] [address] [place] [address] Director Of Diversity And Inclusion: Edy Gramajo MDWBC7.4 w24Ejfvci4.5-11.0[facility] HospitalComment on above:Performed By: #### 488600, 489309, 536106, 194759, 2005300 #### [facility] [address] [place] [address] Director Of Diversity And Inclusion: Yin Logan 73-68-5986VQD3.8 IU/LNormal [facility] HospitalComment on above:Result Comment: REFERENCE INTERVAL: FOLLICLE STIMULATING HORMONE Prepubertal 0 - 2.0 IU/L Male (Adult) 1.0 - 8.0 IU/L Female: Follicular 1.0 - 10.0 IU/L Mid-cycle 3.0 - 25.0 IU/L Luteal 1.0 - 8.0 IU/L Postmenopausal 30.0 - 110.0 IU/LPerformed By: #### 482723, 202022, 847649, 609720, 5460679 #### [facility] [address] [place] [address] Director Of Diversity And Inclusion: Codie Logan 61-66-4871Xftdommuueh Hormone4.1 IU/LNormalWood County HospitalComment on above:Result Comment: Reference Interval: Luteinizing Hormone Prepubertal 0 - 1.0 IU/L Male (Adult) 1.0 - 6.7 IU/L Female: Follicular 1.0 - 23.0 IU/L Mid-Cycle 25.0 - 60.0 IU/L Luteal 1.0 - 27.0 IU/L Postmenopausal 30.0 - 100.0 IU/LPerformed By: #### 602493, 688997, 728342, 715059, 5431099 #### [facility] [address] [place], [place] [address] Director Of Diversity And Inclusion: MANDY LoganSAmoriah 73-13-7181Pextxzstm Specific Antigen0.7 ng/mLNormal0.0-4.0[facility] County HospitalComment on above: Performed By: #### 614266, 719938, 446659, 653552, 5695663 #### [facility] [address] [place] [address] Director Of Diversity And Inclusion: Edy Gramajo MDTESTOS TOTon 84-15-0373YXTZRM DPY501 ng/lTPkxeho117-007BrtzbxuohWood County HospitalComment on above:Result Comment: Reference ranges for females greater than or equal to 21 yrs old: Premenopausal females-Age 21-60 yrs 9 - 48 ng/dl Postmenopausal females-Age 45-89 yrs 0 - 46 ng/dl Samples with biotin concentrations greater than 30 ng/ml will cause erroneus results.Performed By: #### 785774, 375106, 555447, 904014, 8123944 #### [facility] [address] [place] [address] Director Of Diversity And Inclusion: Edy Gramajo MDTobacco Screening.on 42-26-1914Sytq risk assessmenta) No falls within the last yearSaint [facility] Work Phone: Tobacco Screening.b) NoMP-[facility] Work Phone: Laboratory - Chemistry and Chemistry - challengeon 55-11-0649Gnjwlwa [Mass/Vol]280 mg/dLabove high aiutrkugb79 - 99MP-[facility] Work Phone: Glucose [Mass/Vol]282 mg/dLabove high twkzkfedm43 - 99 [address]-[facility] Work Phone: No Panel Informationon 86-94-6775WL-[facility] Work Phone: Coronavirus 2019 RNA by PCR, Screening Asymptomticon 30-17-7119Jirqktcjylc 2019 RNA by PCR, Screening AsymptomticNot detectedNormal See Jaqueline [facility] Work Phone: Comment on above:SOURCE: Nasal, NasopharyngealReference Range: Not Detected.This assay is designed to detect the N, ORF1ab and/or S genes of SARS-CoV-2 via nucleic acid amplification. A Negative (NOT DETECTED) resultdoes not preclude 2019-nCoV infection since the adequacy of sample collection and/or low viral burden may result in presence of viral nucleic acids below the clinical sensitivity of this test method.Negative (NOT DETECTED) result should not be used as the sole basis for treatment or other patient management decisions. Rather negative results should be combined with clinical observations, patienthistory, and epidemiological information to make patient management decisions.Fact sheet for providers: https://www.fda.gov/media/047482/downloadFact sheet for patients: https://www.fda.gov/media/080956/downloadThis test has received FDA Emergency Use Authorization (EUA) and has been verified by [facility] ([facility]). This test is only authorized for the duration of time that circumstances exist to justify the authorization of the emergency use of in vitro diagnostic tests for the detection of SARS-CoV-2 virus and/or diagnosis of COVID-19 infection under section 564(b)(1) of the Act, 21 U.S.C. 360bbb- 3(b)(1), unless the authorization is terminated or revoked sooner. [facility] is certified under CLIA-88 as qualified to perform high complexity testing. Testing is performed in the [facility] laboratories located at [address] [place] [address].Amb Office-Progress Notes-Provideron 39-16-0645Twr Office-Progress Notes-ProviderPatient: DANIEL DOWLING Age: 40 years Sex: Male : 1980 Associated Diagnoses: None Author: ELIJAH SHANKAR-MR, SHRUTHI No-showNormalWood County HospitalTESTOS TOTon 70-79-6500TVKNUU THP559 ng/bNMqyrnm071-951UbehotlbdWood County HospitalComment on above:Result Comment: Reference ranges for females greater than or equal to 21 yrs old: Premenopausal females-Age 21-60 yrs 9 - 48 ng/dl Postmenopausal females-Age 45-89 yrs 0 - 46 ng/dl Samples with biotin concentrations greater than 30 ng/ml will cause erroneus results.Performed By: #### [id number] #### [facility] [address] [place] [address] Director Of Diversity And Inclusion: SANA Loganomplete Blood Count + Differentialon 18-07-5543Kzgohbzod (Bld) [#/Vol]0.05 {x10E9/L}See BelowSelect Medical Specialty [facility] Work Phone: Comment on above:Reference Range: 0.00 - 0.10 Basophils/100 WBC (Bld)0.7 %0.0 - 2.0[facility] Work Phone: Eosinophils (Bld) [#/Vol]0.39 {x10E9/L}See [facility] Work Phone: Comment on above:Reference Range: 0.00 - 0.70 Eosinophils/100 WBC (Bld)5.1 %0.0 - 6.0[facility] Work Phone: Erythrocyte distribution width (RBC) [Ratio]12.7 %See [facility] Work Phone: Comment on above:Reference Range: 11.5 - 14.5 Hematocrit (Bld) [Volume fraction]42.6 %See [facility] Work Phone: Comment on above:Reference Range: 41.0 - 52.0 Hemoglobin (Bld) [Mass/Vol]14.1 g/dLSee [facility] Work Phone: Comment on above:Reference Range: 13.5 - 17.5 Lymphocytes (Bld) [#/Vol]2.16 {x10E9/L}See [facility] Work Phone: Comment on above:Reference Range: 1.20 - 4.80 Lymphocytes/100 WBC (Bld)28.1 %See BelowSelect Medical Specialty [facility] [place] Work Phone: Comment on above:Reference Range: 13.0 - 44.0MCHC (RBC) [Mass/Vol]33.1 g/dLSee BelowSelect Medical Specialty Hospital - [place] Work Phone: Comment on above:Reference Range: 32.0 - 36.0MCV (RBC) [Entitic vol]89 fL80 - 100MP-[facility] Work Phone: Monocytes (Bld) [#/Vol]0.95 {x10E9/L}See BelowC[facility] Work Phone: Comment on above:Reference Range: 0.10 - 1.00 Monocytes/100 WBC (Bld)12.4 %2.0 - 10.0[facility] Work Phone: Neutrophils (Bld) [#/Vol]4.11 {x10E9/L}See BelowCleveland Clinic [facility] Work Phone: Comment on above:Reference Range: 1.20 - 7.70 Neutrophils/100 WBC (Bld)53.4 %See BelowSelect Medical Specialty [facility] [place] Work Phone: Comment on above:Reference Range: 40.0 - 80.0Platelets (Bld) [#/Vol]235 {x10E9/L}150 - 450MP-[facility] Work Phone: RBC (Bld) [#/Vol]4.78 {x10E12/L}See BelowSelect Medical Specialty [facility] [place] Work Phone: Comment on above:Reference Range: 4.50 - 5.90WBC (Bld) [#/Vol]7.7 {x10E9/L}4.4 - 11.3MP-[facility] Work Phone: WBC (Bld) [#/Vol]0.0 {/100_WBC}0.0-0.0-[facility] Work Phone: Complete Blood Count + Differential0.3 %0.0 - 0.9- [facility] Work Phone: Comment on above:Immature Granulocyte Count (IG) includes promyelocytes, myelocytes and metamyelocytes but does not include bands. Percent differential counts (%) should be interpreted in the context of the absolute cell counts (cells/L).Hemoglobin A1Con 52-06-8105YrA1j (Bld) [Mass fraction]332 {MG/DL}-[facility] Work Phone: HbA1c (Bld) [Mass fraction]13.2 %[facility] Work Phone: Comment on above:Diagnosis of Diabetes-Adults Non- Diabetic: < or = 5.6% Increased risk for developing diabetes: 5.7-6.4% Diagnostic of diabetes: > or = 6.5%. Monitoring of Diabetes Age (y) Therapeutic Goal (%) Adults: >18 <7.0 Pediatrics: 13-18 <7.5 7-12 <8.0 0- 6 7.5-8.5 [place] [employer]. Diabetes Care 33(S1), May 2009.Lipid Panelon 08-04-2020 Cholesterol [Mass/Vol]261 mg/dLabove high threshold0 - 199-[facility] Work Phone: Comment on above:. AGE DESIRABLE BORDERLINE HIGH HIGH 0-19 Y 0 - 169 [...] should be performed immediately prior to Metamizole dosing.Cholesterol in HDL [Mass/Vol]31.2 mg/dLAbnormalSelect Medical Specialty Hospital [facility] [place] Work Phone: Comment on above:. AGE VERY LOW LOW NORMAL HIGH 0-19 Y < 35 < 40 40-45 ---- 20-24 Y ---- < 40 >45 ---- >24 Y ---- < 40 40-60 >60. Cholesterol in LDL [Mass/Vol]154 mg/dLabove high threshold0 - 99MPCh[facility]ic[facility] Work Phone: Comment on above:. NEAR BORD AGE DESIRABLE OPTIMAL HIGH HIGH VERY HIGH 0-19 Y 0 - 109 --- 110-129 >/= 130 ---- 20-24 Y 0 - 119 --- 120-159 >/= 160 ---- >24 Y 0 - 99 100-129 130-159 160-189 >/=190.Cholesterol non HDL [Mass/Vol]230 mg/dLSelect Medical Specialty [facility] [place] Work Phone: Comment on above:AGE DESIRABLE BORDERLINE HIGH HIGH VERY HIGH 0-19 Y 0 - 119 120 - 144 >/= 145 >/= 160 20-24 Y0 - 149 150 - 189 >/= 190 ---- >24 Y 30 MG/DL ABOVE LDL CHOLESTEROL GOAL.Cholesterol.total/Cholesterol in HDL [Mass ratio]8.4 {ratio}AbnormalSelect [facility]ty [facility] [place] Work Phone: Comment on above:REF VALUESDESIRABLE < 3.4HIGH RISK > 5.0Triglyceride [Mass/Vol]378 mg/dLabove high threshold0 - 149[facility] Work Phone: Comment on above:. AGE DESIRABLE BORDERLINE HIGH HIGH VERY HIGH 0 D-90 D [...] should be performed immediately prior to Metamizole dosing.Lipid Panel76 mg/dLabove high threshold0 - 40MP-[facility] Work Phone: Metabolic Panelon 75-13-8206QOX [Catalytic activity/Vol]87 U/L33 - 120MP-[facility] Work Phone: Ynion gap [Moles/Vol]16 mmol/L10 - 20MP-[facility] Work Phone: [phone] [Mass/Vol]0.5 mg/dL0.0 - 1.2MP-[facility] Work Phone: [phone] [Mass/Vol]9.7 mg/dL8.6 - 10.6MP-[facility] Work Phone: Chloride [Moles/Vol]100 mmol/L98 - 107MP-[facility] Work Phone: [phone] [Moles/Vol]27 mmol/L21 - 32MP-[facility] Work Phone: Creatinine [Mass/Vol]0.90 mg/dLSee BelowMP-[facility] Work Phone: Comment on above:Reference Range: 0.50 - 1.30Glucose [Mass/Vol]302 mg/dLabove high dovfrdohw48 - 99MP-[facility] Work Phone: [phone] [Moles/Vol]4.9 mmol/L3.5 - 5.3MP-[facility] Work Phone: Protein [Mass/Vol]7.3 g/dL6.4 - 8.2MP-[facility] Work Phone: [phone] [Moles/Vol]138 mmol/L136 - 145MP-[facility] Work Phone: [phone] nitrogen [Mass/Vol]29 mg/dLabove high threshold6 - 23MP-[facility] Work Phone: [phone] 71-00-7324Exwgybx BCP dye [Mass/Vol]4.2 g/dL 3.4 - 5.0MP-[facility] Work Phone: aLT With P-5'-P [Catalytic activity/Vol]30 U/L10 - 52 -[facility] Work Phone: Comment on above:Patients treated with Sulfasalazine may generate falsely decreased results for ALT.AST With P-5'-P [Catalytic activity/Vol]20 U/L9 - 39MP-[facility] Work Phone: >60>60-[facility] Work Phone: Comment on above:CALCULATIONS OF ESTIMATED GFR ARE PERFORMED USING THE MDRD STUDY EQUATION FOR THE IDMS-TRACEABLE CREATININE METHODS. CLIN CHEM 2007;53:766-72TSH - Thyroid Stimulating Hormone, Serumon 77-79-3259YCE Qn2.25 {mIU/L}See Below-[facility] Work Phone: Comment on above:Reference Range: 0.44 - 3.98 TSH testing is performed using different testing methodology at [facility] than at [facility]. Direct result comparisons should only be made within the same method. Vital Signs Date TimeVital SignValuePerforming DxacvrjisTzazqlnz03-29-7974 09:34-0400Body pefjls286.89 kgDena Aguilar DO Work Phone: [phone] Ohtjgp63-49-6480 09:34-0400Diastolic blood ncmqqtew52 mm[Hg]Dena Aguilar DO Work Phone: [phone] Gjvtbo78-70-7640 09:34-0400Heart rate 103 /minDena Aguilar DO Work Phone: [phone] Yoalwe82-47-7323 09:34-0400Systolic blood nljekwme755 mm[Hg]Dena Aguilar DO Work Phone: [phone] Fhlmyx07-56-9841 11:45-0500Body irzzrl170.88 Dandy Beal Other [place] [facility] Other 12-13-2023 11:45-0500Body mass index (BMI) [Ratio] 38.24 kg/q1YjwdliSherry Beal Other [employer] Other 12-13-2023 11:45-0500Body ghetkrazvjr15.9 [degF]Sherry Beal Other [employer] Other 12-13-2023 11:45-0500Body tymitx434.92 kgSherry Beal Other [employer] Other 12-13-2023 11:45-0500Diastolic blood kljfnfod16 mm[Hg] Sherry Beal Other [employer] Other 12-13-2023 11:45-0500Respiratory rate18 /minSherry Beal Other [employer] Other 12-13-2023 11:45-1080CaS5% (BldA) [Mass fraction]97 % Sherry Beal Other [employer] Other 12-13-2023 11:45-0500Systolic blood vuszvupp059 mm[Hg] Sherry Beal Other [employer] Other 05-19-2021 10:11-0400Body .88 cmBredemetrius Lillie [employer] Work Phone: [facility] Work Phone: [phone] 308-267305-19-2021 10:11-0400Body mass index (BMI) [Ratio]35.7 kg/s3Upoaptv Lillie Salehv2tel Work Phone: [facility] Work Phone: [phone] 10:11-0400Body surface area Derived from formula2.39 f7TrheebxWilfrido Salehus Work Phone: mp-[facility] Work Phone: [phone] 10:11-0400Body oyyfsbqcgvm75.3 [degF] Wilfrido Salehus Work Phone: mp-[facility] Work Phone: [phone] 10:11-0400Body nqmito130.41 kgWilfrido Song Work Phone: mp-[facility] Work Phone: [phone] 462-250005-19-2021 10:11-0400Diastolic blood emdgbvcf858 mm[Hg]Wilfrido Song Work Phone: mp[facility] Work Phone: [phone] 561-289505-19-2021 10:11-0400Heart azfc758 /minWilfrido Song Work Phone: mp[facility] Work Phone: [phone] 10:11-0400Systolic blood kutfzkax305 mm[Hg] Wilfrido Song Work Phone: [facility] Work Phone: [phone] 555-277403-12-2021 11:56-0500BMI (Body Mass Index)36.48 kg/m2 Wilfrido [facility] Work Phone: [phone] 11:56-0500Body uywnag099.02 kgWilfrido [facility] Medicine Work Phone: [phone] 174-307403-12-2021 11:56-0500BP Tsoswrgpt32 mm[Hg]Wilfrido [facility] Medicine Work Phone: [phone] 560-199403-12-2021 11:56-0500BP Uwgvrtmf885 mm[Hg]Wilfrido [facility] Medicine Work Phone: [phone] 11:56-0500BSA (Body Surface Area)2.42 m2 Wilfrido [facility] Work Phone: 1([phone] 699-690903-12-2021 11:56-0072Dbiswg162.88 cmWilfrido [facility] Work Phone: [phone] 11:56-0500Pulse (Heart Rate)107 /minBasilkeli [facility] Work Phone: [phone] 136-287103-12-2021 11:56-0500Pulse Irarqfwl36 %Wilfrido [facility] Work Phone: Encounters Encounter DateEncounter TypeCare ProviderFacilityStart: 12-26-2024 End: 70-05-6599rwqglbermqCljeyklutt [facility]St[facility] Work Phone: Start: 12-26-2024 End: 74-41-0160Jhjcrjht ReferredMitchell Pandey DO-LAB Path Spec [facility] HospStart: 09-24-2024 End: 59-27-3216Xfnyaxlva encounterNakatlyn Najera CMAProMedica Physicians - Jobst VascularStart: 08-09-2024 End: 72-31-1218zrlpfnspzxDTCFDAB W WALKERCleveland Clinic [facility] Start: 08-09-2024 End: 84-28-2737Mezndm outpatient new 30 minutesGregashtyn Aguilar DO Work Phone: [facility] Jobst VascularComment on above: Leg edema, left (Primary Dx)Start: 08-06-2024 End: 53-98-3071cizcukhzixNxg Ophth ImagingProMedica Physicians Eye CareComment on above:Moderate nonproliferative diabetic retinopathy of right eye with macular edema associated with type2 diabetes mellitus ([facility]-HCC)Start: 08-06-2024 End: 04-47-1285Achakca encounter procedureSaúl Delaney MD Work Phone: [facility] Eye CareComment on above:Moderate nonproliferative diabetic retinopathy of right eye with macular edema associated with type2 diabetes mellitus (CMS-HCC) (Primary Dx); Moderate nonproliferative diabetic retinopathy of left eye with macular edema associated with type 2 diabetes mellitus (CMS-HCC); High myopia, both eyesStart: 56-10-5105nyubxungnkOY [facility] Ambulatory PPGStart: 07-06-2024 End: 44-36-7521isgpwtxptxIFFDRYMartin [facility] Ambulatory PPGStart: 07-06-2024 End: 95-07-7602Ulkzcvd encounter procedureSaúl Delaney MD Work Phone: [facility] RetinaComment on above:Moderate nonproliferative diabetic retinopathy of right eye with macular edema associated with type2 diabetes mellitus (CMS-HCC) (Primary Dx); Moderate nonproliferative diabetic retinopathy of left eye with macular edema associated with type 2 diabetes mellitus (CMS-HCC); High myopia, both eyesStart: 06-22-2024 End: 16-25-5499azwgpcfzuwNrlm Ophth ImagingMemorial Hospital Physicians RetinaComment on above:Moderate nonproliferative diabetic retinopathy of right eye with macular edema associated with type2 diabetes mellitus (CMS-HCC); Moderate nonproliferative diabetic retinopathy of left eye with macular edema associated with type 2 diabetes mellitus (CMS-HCC)Start: 06-22-2024 End: 87-52-0140Ihvbxd outpatient visit 15 minutesSaúl Delaney MD Work Phone: [facility] Phys[facility] RetinaComment on above:Moderate nonproliferative diabetic retinopathy of right eye with macular edema associated with type2 diabetes mellitus (CMS-HCC) (Primary Dx); Moderate nonproliferative diabetic retinopathy of left eye with macular edema associated with type 2 diabetes mellitus (CMS-HCC); High myopia, both eyesStart: 03-17-2024 End: 59-04-9440dgwsiuheaxCNQTXLMartin Luther [facility] Ambulatory PPGStart: 03-17-2024 End: 45-52-4367Rkqpicu encounter procedureSaúl Delaney MD Work Phone: [facility] RetinaComment on above:Moderate nonproliferative diabetic retinopathy of left eye with macular edema associated with type 2 diabetes mellitus (CMS-HCC) (Primary Dx); Moderate nonproliferative diabetic retinopathy of right eye with macular edema associated with type2 diabetes mellitus (CMS-HCC); High myopia, both eyesStart: 03-10-2024 End: 23-10-9164wvrdednrkjMqvq Oph ImagingProOhiohealth Pickerington Methodist Hospitalca Physicians RetinaComment on above:Moderate nonproliferative diabetic retinopathy of left eye with macular edema associated with type 2 diabetes mellitus (CMS-HCC); Moderate nonproliferative diabetic retinopathy of right eye with macular edema associated with type2 diabetes mellitus (CMS-HCC)Start: 03-10-2024 End: 86-36-4257Pwdoeo outpatient visit 15 minutesSaúl Delaney MD Work Phone: [facility] Phys[facility] RetinaComment on above:Moderate nonproliferative diabetic retinopathy of left eye with macular edema associated with type 2 diabetes mellitus (CMS-HCC) (Primary Dx); Moderate nonproliferative diabetic retinopathy of right eye with macular edema associated with type2 diabetes mellitus (CMS-HCC); High myopia, both eyesStart: 02-25-2024 End: 16-08-6008ehrkyzpbcvUarl Ophth ImagingMemorial Hospital Physicians RetinaComment on above:Both eyes affected by mild nonproliferative diabetic retinopathy with macular edema, associated with type 2 diabetes mellitus (CMS-HCC); High myopia, both eyesStart: 02-25-2024 End: 92-55-9234Tstrzc outpatient new 45 minutesSaúl Delaney MD Work Phone: [facility] Phys[facility] RetinaComment on above:Moderate nonproliferative diabetic retinopathy of right eye with macular edema associated with type2 diabetes mellitus (CMS-HCC) (Primary Dx); Moderate nonproliferative diabetic retinopathy of left eye with macular edema associated with type 2 diabetes mellitus (CMS-HCC); High myopia, both eyesStart: 02-25-2024 End: 69-54-2603zalifbafxgQGXPSH M [facility] Ambulatory PPGStart: 02-16-2024 End: 91-44-9581Cbghryrrk Devan Rai [facility] HOSPITALProMedifl Physicians Internal Medicine - Family MedicineStart: 05-07-2023 End: 60-57-3302kblwbmrwpuFgnjem Dymond Other [facility] Other Start: 46-34-4448Wvjwey outpatient new 20 minutes Sherry BealFPG Urgent Care ClydeStart: 09-06-2022 End: 99-21-0809isgdqmzbyvGX NONE LISTED REQUESTFacility:W9Msjwf: 07-17-2022 [address]Dr[address] Wilfridokeli Nevarez DelfinousFacility:9338Start: 14-52-4987xuwhpeozuzJM SERAFIN GILMORE SYLVIEFacility:9338Start: 33-39-5298Myrxnv outpatient visit 15 minutesBredemetrius Song Work Phone: [phone] Work Phone: Start: 35-78-8231Qzotlmh encounter procedureBanner Thunderbird Medical Centerdemetrius [facility] Work Phone: Start: 03-33-0346Nahqdlj encounter procedureBanner Thunderbird Medical Centerdemetrius [facility] Work Phone: Start: 39-24-4888Unopqxe encounter procedureNorth Mississippi State Hospitalkeli [facility] Work Phone: Start: 57-70-4195Xhflwsl encounter procedureNorth Mississippi State Hospitalkeli [facility] Work Phone: Start: 08-28-2018 End: 38-60-1933Saifxon encounter procedureBREDEMETRIUS SONGFacility:41419Oaawg: 37-26-6075Btwohmk encounter procedureBanner Thunderbird Medical Centerdemetrius [facility] Work Phone: Procedures DateProcedureProcedure DetailPerforming ClinicianStart: 94-77-8404Stnaltulnwni njx pharmacologic agt spxSaúl Delaney MD Work Phone: Start: 39-20-5277Oikxjbfquway ophthalmic imaging Kamran Delaney MD Work Phone: Start: 58-32-6183Silzzhyp retinal eye examSaúl Delaney MD Work Phone: Start: 72-87-1956Doeumtzkroqo njx pharmacologic agt spxSaúl Delaney MD Work Phone: Start: 10-27-1078Fmukrjyn retinal eye examSaúl Delaney MD Work Phone: Start: 94-23-5517Awzgjuwwbgrr ophthalmic imaging retinaSaúl Delaney MD Work Phone: Start: 76-03-0174Qpamyznq retinal eye examSaúl Delaney MD Work Phone: Start: 23-96-9919Gfumo loclzd lesion retina 1/> sess pcMtono Delaney MD Work Phone: Start: 63-08-5580Jjroixwp retinal eye examSaúl Delaney MD Work Phone: Start: 60-54-0439Fungi loclzd lesion retina 1/> sess Richard Delaney MD Work Phone: Start: 40-93-9701Xjugzhuyhcl angrph w/multiframe i&r uni/biMtono Delaney MD Work Phone: Start: 82-05-7923Kpftxxpi retinal eye examSaúl Delaney MD Work Phone: Start: 02-25-2024 End: 26-29-6021Icluvr photography w/interpretation & reportSaúl Delaney MD Work Phone: Start: 13-00-1322Nubztdys retinal eye examNicole Fredi CMAStart: 04-23-9850Mhtznj-up visitOperative procedure on hipBrendan Kappus Plan of Treatment DateCare ActivityDetailAuthorStart: 90-62-0126Ibhjajf ScreeningTobacco Screening [facility] SystemStart: 85-28-6827Zsjhzaot screeningDiabetic Ophthalmology ExamProMedica Health SystemStart: 12-09-9840Uqogdzb ScreeningTobacco Screening [facility] SystemStart: 35-48-8053Vqvmxxhs screeningDiabetic Ophthalmology ExamOhioHealth Hardin Memorial Hospital SystemStart: 33-53-5058Cmpgppxi screeningDiabetic Ophthalmology ExamOhioHealth Hardin Memorial Hospital SystemStart: 03-19-6912Lnibtqu Screening Tobacco ScreeningOhioHealth Hardin Memorial Hospital SystemStart: 10-44-7207Eyzzujp Screening Tobacco ScreeningOhioHealth Hardin Memorial Hospital SystemStart: 29-89-5243Uapyskaz screening Diabetic Ophthalmology ExamOhioHealth Hardin Memorial Hospital SystemStart: 82-50-4537Gngomav ScreeningTobacco ScreeningOhioHealth Hardin Memorial Hospital SystemStart: 71-88-3025Cvchhpjc screeningDiabetic Ophthalmology ExamOhioHealth [facility]in Memorial Hospital SystemStart: 02-24-2025 Tobacco ScreeningTobacco ScreeningOhioHealth Hardin Memorial Hospital SystemStart: 01-24-2025 Influenza vaccinationInfluenza VaccineOhioHealth Hardin Memorial Hospital SystemStart: 12-26-[address] [facility] Hospitaltart: 09-27-2024 End: 78-00-7596Aysognv encounter /05/2025 2:40 PM EDT Office Visit [facility] [address] [place] [phone] Dena Aguilar, DO [address] [place] [address], [address] [place] [address] [facility] Jobst VascularStart: 09-14-2024 End: 83-39-6636Wqtenye encounter /22/2025 2:30 PM EDT Appointment [facility] [address] [place] [phone] SbdJlplfdUniversity Hospitals Geaug[facility] - VascularStart: 09-09-2024 End: 26-16-8768Pitkzaj encounter esnojtvcs04/17/2025 3:40 PM EDT Office Visit Jean Paul Kc Department of [facility] [address] [place] [address] Saúl Delaney MD [address] [place] [phone] [facility] HospitalStart: 08-09-2024 End: 94-60-5699YD.doppler Lower extremity vein - leftVas venous duplex insufficiency lwr lt Vascular Ultrasound Routine Leg edema, left Expected: 08/09/2024, Expires: 08/09/2025[facility] Work Phone: Comment on above:Expected: 08/09/2024, Expires: 08/09/2025Start: 08-09-2024 End: 15-49-5551Popsijx encounter ojsmmzdhl67/17/2025 9:10 AM EDT [facility] Visit [facility] [address] [place] [address] Dena Aguilar, DO [address], [address] [place] [address] [facility]sdonaldo VascularStart: 08-05-2024 End: 46-58-0367Ectuvdl encounter ofskrldwx37/13/2025 3:40 PM EDT Office Visit [facility] [address] [place] [phone] Saúl Delaney MD [address] [place] [address] [facility] RetinaStart: 07-06-2024 End: 77-34-9738Vxliqmd encounter dyauhhker68/11/2025 3:40 PM EST Office Visit [facility] [address] [place] [address] Saúl Delaney MD [address] [place] [address] [facility] RetinaStart: 06-22-2024 End: 46-28-7335Amccdew encounter mkaiynalw08/28/2025 3:40 PM EST Office Visit [facility] [address] [place] [address] Saúl Delaney MD [address] [place] [address] [facility] RetinaStart: 03-17-2024 End: 14-75-5994Vswfjfq encounter /23/2024 3:40 PM EDT Office Visit [facility] [address] [place] [address] Saúl Delaney MD [address] [place] [address] [facility] RetinaStart: 03-10-2024 End: 45-93-0208Gpwrpca encounter ddfouwppg92/16/2024 3:40 PM EDT Office Visit [facility] [address] [place] [address] Saúl Delaney MD [address] [place] [address] [facility] RetinaStart: 50-69-7697Iroociusb vaccinationInfluenza VaccineProTrihealth [facility] SystemStart: 50-15-8790OKzL,Tdap and Td Vaccines (1 - Tdap)DTaP,Tdap and Td Vaccines (1 - Tdap)[facility] SystemStart: 69-02-4815Hywlk BMI ScreeningAdult BMI ScreeningOhioHealth Hardin Memorial Hospital SystemStart: 72-53-9711Rbflsbmt foot examination Diabetic Foot ExamOhioHealth Hardin Memorial Hospital SystemStart: 50-06-0013Xanxsceufu Screening Depression ScreeningOhioHealth Hardin Memorial Hospital SystemStart: 79-05-9930Qjedqt Use: Diabetic Statin Use: DiabeticHolzer Medical Center – JacksonGlucose measurement estimated from glycated hemoglobinMemorial HospitalHemoglobin A1c/Hemoglobin.total in [facility] Payers DatePayer CategoryPayerPolicy [id number] [id number] Care Other (unspecified) [employer] .[id number] 50-31-7149Iazzqco Health InsuranceUNRIDGEVIEW MED[facility]ALTH[facility] [employer] [id number] 2022-Present [phone] [address] [address] [place], [place] [id number]Rtkhmfo [id number] 2.840.1.894887.3.57[id number] 2.840.1.334884.3.57[id number] 2.840.1.715007.3.57[id number] 2.840.1.628976.3.57[id number] 2.840.1.501991.3.57[id number] 2.840.1.156266.3.579.[id number] 2.840.1.764200.3.57[id number] 2.840.1.542348.3.57[id number] 2.840.1.011415.3.57[id number] 2.840.1.692854.3.57[id number] 2.840.1.945046.3.57[id number] 2.0.1.502304.3.57[id number] 2.0.1.019278.3.57[id number] 2.0.1.085560.3.57[id number] 2.0.1.869421.3.57[id number] 2.840.1.019516.3.57[id number] 2..1.643293.3.57[id number] [id number] 2.0.1.209575.3.579.2.531 Social History DateTypeDetailFacilityStart: 11-04-2018 End: 60-46-8427Aejqun alcohol useSocial alcohol useAlomere Health Hospital Work Phone: Start: 11-04-2018 End: 98-51-8039Ryc Assigned At [facility] Other Start: 05-07-2023 End: 89-84-8924Zravakz smoking status NHISNever smoked tobaccoOhioHealth Hardin Memorial Hospital SystemStart: 37-13-5112Zhfdpmj use and exposureSmokeless tobacco non-user [facility] – JacksonChildcareUnknowKettering Health Dayton SystemStart: 1981 Sex assigned at birthNot on fileOhioHealth Hardin Memorial Hospital SystemStart: 29-76-4298ChmUvbb (finding)[facility] – JacksonTobacco smoking status NHISTobacco smoking consumption unknownOhioHealth Hardin Memorial Hospital SystemStart: 38-63-6715Qjo Assigned At [facility] HospitalNEGATED: Highlighted row--[facility] Work Phone: Medical Equipment Procedure CodeEquipment CodeEquipment Original TextEquipment IdentifierDates FreeStyle Lancets Patient to test twice daily DX: 250 Quantity: 1 Refills: 2 Wilfrido Song DO Start : 28-Aug-2018 Active 100 Unit BoxStart: 08-28-2018 FreeStyle Lite Test In Vitro Strip TEST TWICE DAILY. Quantity: 1 Refills: 2 Wilfrido Song DO Start : 28-Aug-2018 Active 50 Strip BoxStart: 78-40-3880Kce [place] 3/16 31G X 5 MM MISC inject medication once daily Quantity: 1 Refills: 1 Wilfrido Song DO Start : 30-Nov-2018 Active 100 Unit BoxStart: 11-30-2018 Functional Status DateAssessmentResultFacilityNEGATED: Highlighted rowFunctional performance Functional status health issues are not documented [facility] Internal Medicine Work Phone: Mental Status DateAssessmentResultFacilityNEGATED: Highlighted rowCognitive function [Interpretation]Cognitive status health issues are not documented [facility] Internal Medicine Work Phone: Clinical Notes 08-16-2020 to 09-24-2024 Note Date & [id number] Miscellaneous Notes* Telephone Encounter - Juan José Najera CMA - 09/24/2024 10:07 AM EDT Called patient and left message to notify him that he no showed to his test and he will need to gethis test and his appointment with Dr. Aguilar rescheduled. documented in [facility] [place] Telephone encounter Note* Telephone Encounter - Juan José Najera CMA - 09/24/2024 10:07 AM EDT Called patient and left message to notify him that he no showed to his test and he will need to gethis test and his appointment with Dr. Aguilar rescheduled. [facility] [place] History of Present illness Narrative* Dena Aguilar, - 08/09/2024 9:10 AM EDT Images from the original note were not included. Subjective Patient ID: Daniel Dowling is a 44 y.o. male. Chief Complaint Chief Complaint Patient presents with New Patient HPI Left leg edema. Slowly progressive over time. Is using some form of support stocking but unsure of degree of compression. Gets fairly decent relief of the swelling with use of compression but it willreturn once he takes it off. Elevation helps [...] Past Medical History: Diagnosis Date Diabetes mellitus ([facility]) Past Surgical History History reviewed. No pertinent [...] Inject under the skin 3 (three) times aday before meals. 10-20 units depending on BSL [...] the anterior lower leg and on the dorsumof the foot, this could also be some excoriation from really dry skin. The dry skin overlying theseareas directly. Not sure if this is really [...] the foot. We also discussed use of moisturizerfor the lower leg. He will return in about 6 weeks to review his testing and see what sort of progress he has made with improved compression. Dena Aguilar DO 08/09/2024 at 9:49 AM documented in this encounterHol[facility] [place]03-14-2025 NoteTime Out Confirmed correct patient, procedure, site, and patient consented. Anesthesia Topical anesthesia was used. Anesthetic medications included Proparacaine 0.5%. Procedure Preparation included 5% betadine to ocular surface. Injection: 1.25 mg bevacizumab 25 mg/mL Route: intravitreal, Site: Right Eye [facility]: [id number], Lot: [id number], Expiration date: 08/31/2024, Waste: 0 mL Post-op [...] OF PROCEDURE: INTRAOCULAR INJECTION 25mg/ml Avastin (bevacizumab) [facility]#[id number] -mgmt specialist overfill was appropriately discarded- The patient tolerated the procedure well and was escorted to the administrative assistant front desk to schedule a follow up appointment. MANUALLY TRANSCRIBED [id number] NoteRight Eye Quality was good. Scan locations included [...] improved DME s/p laser; observe MANUALLY TRANSCRIBED [id number] NoteRight Eye Quality was good. Scan locations included [...] improved DME s/p laser; observe MANUALLY TRANSCRIBED [id number] History of Present illness Narrative* Saúl Delaney MD - 08/06/2024 10:10 AM EDT Daniel Dowling had concerns including diabetic retinopathy. [...] Inject under the skin 3 (three) times aday before meals. 10-20 units depending on BSL [...] eye -Last FA performed 03/10/24 -DM diagnosis: [id number] ; Last A1c was 10.8 about 2 years ago per pt. (Last one in [facility] was 11.4 on 03/07/21) -Persistent DME secondary [...] treatment: Focal laser OU performed by [facility] about 3-4 years ago -Patient understands to call with any discomfort, vision loss, or changes 2. Moderate nonproliferative diabetic retinopathy of left eye with macular edema associated with type 2 diabetes mellitus ([facility]) -Non-proliferative diabetic retinopathy present in the left eye -Last FA performed 03/10/2024 -DM diagnosis: [id number] ; Last A1c was 10.8 about 2 years ago per pt. (Last one in [facility] was 11.4 on 03/07/21) -Testing performed today reviewed with patient; Improving DME secondary to NPDR also noted -Left eye is now s/p focal laser as of 03/17/24 -No additional treatment warranted for left eye at this time -Prior treatment: Focal laser OU performed by [facility] about 3-4 years ago -Patient understands to call with any discomfort, vision loss, or discharge -Letter sent to PCP and/or pressure tester operator yearly 3. High myopia, both eyes -Recent refraction with Dr Carlson; OD -8.00; OS -7.75-0.50 x080 -Diagnosis and increased risk of retinal tear/detachment previously discussed -No signs of tears/detachment noted on previous dilated exam -Symptoms of retinal detachment discussed, including flashes/swarms of floaters/veil/curtain in vision -Patient understands to call with any new symptoms or vision changes Saúl Mclain MD personally performed the services described in [...] exam, OCT, possible injection, OD Physician: Saúl Delaney MD Scribe: JACK Glasgow Scribe Statement: Scribed for and in the presence of Saúl Delaney MD by JACK Glasgow documented in this encounterHolzer [facility] [place]02-11-2025 NoteTime Out Confirmed correct patient, procedure, site, and patient consented. Anesthesia Topical anesthesia was used. Anesthetic medications included Proparacaine 0.5%. Procedure Preparation included 5% betadine to ocular surface. A supplied needle was used. Injection: 2 mg aflibercept 2 mg/0.05 mL (Patient supplied) Route: intravitreal, Site: Right Eye [place]: [id number], Lot: [id number], Expiration date: 02/22/2025, Waste: 0 mL Post-op [...] OF PROCEDURE: INTRAOCULAR INJECTION- 2mg/0.5ml Eylea (aflibercept) -mgmt specialist overfill was appropriately discarded- Reviewed with the patient post procedure instructions. Discussed in particular to contact the office immediately if any increase in pain, redness, or decrease in vision occurs. Patient understands. The patient tolerated the procedure well and was escorted to the administrative assistant front desk to schedule a follow up appointment.MANUALLY TRANSCRIBED [id number] History of Present illness Narrative* Saúl Delaney MD - 07/06/2024 3:40 PM EST Daniel Dowling had concerns including Moderate nonproliferative [...] Inject under the skin 3 (three) times aday before meals. 10-20 units depending on BSL [...] edema associated with type 2 diabetes mellitus ([facility]) 2. Moderate nonproliferative diabetic retinopathy of left eye with macular edema associated with type 2 diabetes mellitus ([facility]) 3. High myopia, both eyes ASSESSMENT/PLAN 1. Moderate nonproliferative diabetic retinopathy of right eye with macular edema associated with type 2 diabetes mellitus ([facility]) (Primary) -Non-proliferative diabetic retinopathy present in the right eye -Last FA performed 03/10/24 -DM diagnosis: [id number] ; Last A1c was 10.8 about 2 years ago per pt. (Last one in [facility] was 11.4 on 03/07/21) -Persistent DME secondary to NPDR also noted on previous OCT -Patient did not respond as well to focal laser; discussed risks/benefits/alternatives to Anti-VEGFinjection -Questions/concerns addressed. Patient elected to proceed with anti-VEGF treatment today -Eylea SAMPLE [#1] administered in the right eye without complication today; sample used d/t PA in progress -Begin 4 week treatment interval for OD -Right eye is also s/p focal laser as of 03/10/24 -Prior treatment: Focal laser OU performed by [facility] about 3-4 years ago -Patient understands to call with any discomfort, vision loss, or changes 2. Moderate nonproliferative diabetic retinopathy of left eye with macular edema associated with type 2 diabetes mellitus ([facility]) -Non-proliferative diabetic retinopathy present in the left eye -Last FA performed 03/10/2024 -DM diagnosis: [id number] ; Last A1c was 10.8 about 2 years ago per pt. (Last one in [facility] was 11.4 on 03/07/21) -Improving DME secondary to NPDR also noted on previous OCT -Left eye is now s/p focal laser as of 03/17/24 -No additional treatment warranted for left eye at this time -Prior treatment: Focal laser OU performed by [facility] about 3-4 years ago -Patient understands to call with any discomfort, vision loss, or discharge -Letter sent to PCP and/or pressure tester operator yearly 3. High myopia, both eyes -Recent refraction with Dr Carlson; OD -8.00; OS -7.75-0.50 x080 -Diagnosis and increased risk of retinal tear/detachment previously discussed -No signs of tears/detachment noted on previous dilated exam -Symptoms of retinal detachment discussed, including flashes/swarms of floaters/veil/curtain in vision -Patient understands to call with any new symptoms or vision changes Saúl Mclain MD personally performed the services described in [...] exam, OCT, possible injection, OD Physician: Saúl Delaney MD Scribe: JACK Glasgow Scribe Statement: Scribed for and in the presence of Saúl Delaney MD by JACK Glasgow documented in this encounterHolzer [facility] [place]01-28-2025 History of Present illness Narrative* Saúl Delaney MD - 06/22/2024 3:40 PM EST Daniel Dowling had concerns including Moderate nonproliferative diabetic retinopathy of left eye . HPI Ep/Me Patient reports vision OD is foggy. Pt states vision OD resembles it after sleeping in a contact.Pt reports improvement in floaters, denies flashes, ocular discomfort and gtts. BSL was 118. Last A1c was 10.2 years ago. Last edited by Malu Harry on 06/22/2024 3:48 PM. ROS Positive for: Musculoskeletal, Endocrine (DM type 2), Cardiovascular (hypertension), Eyes Negative for: Constitutional, Gastrointestinal, Neurological, Skin, Genitourinary, HENT, Respiratory, Psychiatric, Allergic/Imm, Heme/Lymph Last edited by Malu Harry on 06/22/2024 3:48 PM. No current outpatient [...] Inject under the skin 3 (three) times aday before meals. 10-20 units depending on BSL [...] edema associated with type 2 diabetes mellitus ([facility]) 2. Moderate nonproliferative diabetic retinopathy of left eye with macular edema associated with type 2 diabetes mellitus ([facility]) 3. High myopia, both eyes ASSESSMENT/PLAN 1. Moderate nonproliferative diabetic retinopathy of right eye with macular edema associated with type 2 diabetes mellitus ([facility]) (Primary) -Non-proliferative diabetic retinopathy noted on exam -DM diagnosis: [id number] ; Last A1c was 10.8 about 2 years ago per pt. (Last one in [facility] was 11.4 on 03/07/21) -Persistent Diabetic macular edema secondary to NPDR also noted. -Patient did not respond as well to focal laser and recommend treating with Antivegf injection. Patient wishes to proceed. -IBI submitted for Eylea -FA performed 03/10/24 showed focal leakage amenable to laser therapy present -Right eyes is s/p focal laser 03/10/2024 -Prior treatment: Focal laser OU performed by [facility] about 3-4 years ago -Patient understands to call with any discomfort, vision loss, or changes - OCT, [facility] - OU - Both Eyes; Future 2. Moderate nonproliferative diabetic retinopathy of left eye with macular edema associated with type 2 diabetes mellitus ([facility] -Non-proliferative diabetic retinopathy noted on exam/imaging -DM diagnosis: 4302-3151 ; Last A1c was 10.8 about 2 years ago per pt. (Last one in [facility] was 11.4 on 03/07/21) -Improving Diabetic macular edema secondary to NPDR also noted -FA performed 03/10/2024 showed focal leakage amenable to laser therapy present -Discussed diagnosis and risks/benefits/alternatives to laser therapy -Questions and concerns addressed -Prior treatment: Focal laser OU performed by [facility] about 3-4 years ago -Laser Treatment OS 03/17/24 -Patient understands to call with any discomfort, vision loss, or discharge -Letter sent to PCP and/or pressure tester operator yearly - OCT, [facility] - OU - Both Eyes; Future 3. High myopia, both eyes -Recent refraction with Dr Carlson; OD -8.00; OS -7.75-0.50 x080 -Diagnosis previously discussed -Previously discussed increased risk of retinal tear/detachment -No signs of tears/detachment noted on previous exam -Symptoms of retinal detachment discussed, including flashes/swarms of floaters/veil/curtain in vision -Patient understands to call with any new symptoms or vision changes ISaúl MD personally performed the services described in the documentation, as scribed by JACK Timmons in my presence, and it is both accurate and complete. Patient Education: Questions were encouraged to stated satisfaction from the patient. Discussed with patient that failure to follow up as recommended (appointment time, onset of new ocular symptoms) can lead to permanent loss of vision and/or blindness. Patient understands and agrees. Return Visit: 2 weeks injection only OD, no dilation Physician: Saúl Delaney MD Scribe: JACK TIMMONS Scribe Statement: Scribed for and in the presence of Saúl Delaney MD by JACK TIMMONS documented in this encounterHolzer Medical Center [facility] [place]10-23-2024 NoteTime Out Confirmed correct patient, procedure, site, and [...] Procedure: Focal Laser, Left eye Physician: Saúl Delaney M.D. Anesthesia: Topical anesthesia was used: Proparacaine [...] in visual activity or increased pain is experienced.MANUALLY TRANSCRIBED [id number] History of Present illness Narrative* Saúl Delaney MD - 03/17/2024 3:40 PM EDT Daniel Dowling had concerns including Moderate nonproliferative diabetic retinopathy of left eye . HPI Patient here for a focal laser OS. Patient says his vision has been stable since his last visit. Hestates he has still been experiencing floaters OU [...] Inject under the skin 3 (three) times aday before meals. 10-20 units depending on BSL [...] diabetic retinopathy noted on exam/imaging -DM diagnosis: [id number] ; Last A1c was 10.8 about 2 years ago per pt. (Last one in [facility] was 11.4 on 03/07/21) -Diabetic macular edema secondary to NPDR also noted -FA performed 03/10/2024 showed focal leakage amenable to laser therapy present -Discussed diagnosis and risks/benefits/alternatives to laser therapy -Questions and concerns addressed -Patient elects to proceed with left eye Focal laser treatment today -Procedure tolerated well -Prior treatment: Focal laser OU performed by [facility] about 3-4 years ago -Patient understands to call with any discomfort, vision loss, or discharge -Letter sent to PCP and/or pressure tester operator yearly 2. Moderate nonproliferative diabetic retinopathy of right eye with macular edema associated with type 2 diabetes mellitus ([facility]) -Non-proliferative diabetic retinopathy noted on exam -DM diagnosis: 7667-2375 ; Last A1c was 10.8 about 2 years ago per pt. (Last one in [facility] was 11.4 on 03/07/21) -Diabetic macular edema secondary to NPDR also noted -FA performed 03/10/24 showed focal leakage amenable to laser therapy present -Right eyes is s/p focal laser 03/10/2024 -Prior treatment: Focal laser OU performed by [facility] about 3-4 years ago -Patient understands to call with any discomfort, vision loss, or discharge -Letter sent to PCP and/or pressure tester operator yearly 3. High myopia, both eyes -Recent refraction with Dr Carlson; OD -8.00; OS -7.75-0.50 x080 -Diagnosis previously [...] Return Visit: 3 months DFE/OCT Physician: Saúl Delaney MD Physician Relations Manager: JACK Coelho Scribed for and in the presence of Saúl Delaney MD by JACK Coelho Patient accompanied by Self. documented in this encounterHolzer Medical Center [facility] [place]10-16-2024 NoteTime Out Confirmed correct patient, procedure, site, and [...] OD for NPDR c DME MANUALLY TRANSCRIBED [id number] History of Present illness Narrative* Saúl Delaney MD - 03/10/2024 3:40 PM EDT Daniel Dowling had concerns including Moderate nonproliferative [...] Inject under the skin 3 (three) times aday before meals. 10-20 units depending on BSL [...] edema associated with type 2 diabetes mellitus ([facility]) 2. Moderate nonproliferative diabetic retinopathy of right eye with macular edema associated with type 2 diabetes mellitus ([facility]) 3. High myopia, both eyes ASSESSMENT/PLAN 1. Moderate nonproliferative diabetic retinopathy of left eye with macular edema associated with type 2 diabetes mellitus ([facility]) (Primary) -Testing performed today reviewed with patient; Non-proliferative diabetic retinopathy noted on exam/imaging -DM diagnosis: 1739-0063 ; Last A1c was 10.8 about 2 years ago per pt. (Last one in [facility] was 11.4 on 03/07/21) -Diabetic macular edema [...] or discharge -Letter sent to PCP and/or pressure tester operator yearly 2. Moderate nonproliferative diabetic retinopathy of right eye with macular edema associated with type 2 diabetes mellitus ([facility] -Testing performed today reviewed with patient; Non-proliferative diabetic retinopathy noted on exam/imaging -DM diagnosis: 0688-8175 ; Last A1c was 10.8 about 2 years ago per pt. (Last one in Epic was 11.4 on 03/07/21) -Diabetic macular edema [...] or discharge -Letter sent to PCP and/or pressure tester operator yearly 3. High myopia, both eyes -Diagnosis previously discussed -Recent refraction with Dr Carlson; OD -8.00; OS -7.75-0.50 x080 -Previously discussed increased risk of retinal tear/detachment -Testing performed today reviewed with patient; no signs of tears/detachment noted on exam/imaging -Symptoms of retinal detachment discussed, including flashes/swarms of floaters/veil/curtain in vision -Patient understands to call with any new symptoms or vision changes I, Saúl Delaney MD personally performed the services described in [...] weeks for Focal laser OS Physician: Saúl Delaney MD Scribe: JACK Glasgow Scribe Statement: Scribed for and in the presence of Saúl Delaney MD by JACK Glasgow documented in this encounterHolzer Medical Center [facility] [place]10-02-2024 History of Present illness Narrative* Saúl Delaney MD - 02/25/2024 3:00 PM EDT Daniel Dowling had concerns including Diabetic retinopathy with macular edema associated with romana. HPI Patient here per Dr. Carlson with concerns of diabetic retinopathy with probable DME OU. Patient says his vision has been stable for distance, he has noticed difficulty for near, he feels that is due tohim needing a new glasses Rx (just given [...] Inject under the skin 3 (three) times aday before meals. 10-20 units depending on BSL [...] evidence tears, holes, or detachments Hemorrhages, no frankNVE, No evidence tears, holes, or detachments Refraction Wearing Rx Age: 21yrs Diagnosis 1. Moderate nonproliferative diabetic retinopathy of right eye with macular edema associated with type 2 diabetes mellitus ([facility]) 2. Moderate nonproliferative diabetic retinopathy of left eye with macular edema associated with type 2 diabetes mellitus ([facility]) 3. High myopia, both eyes ASSESSMENT/PLAN -Referral note dated 02/10/[address] Carlson reviewed at length ~BCVA: OD 20/20 OS 20/25; note states diabetic retinopathy with probable DME OU 1. Moderate nonproliferative diabetic retinopathy of right eye with macular edema associated with type 2 diabetes mellitus ([facility]) 2. Moderate nonproliferative diabetic retinopathy of left eye with macular edema associated with type 2 diabetes mellitus ([facility]) -Testing performed today reviewed with patient -Moderate Non-proliferative diabetic retinopathy noted in both eyes on exam/imaging -DM diagnosis: [id number] ; Last A1c was 10.8 about 2 years ago per pt. (Last one in Epic was 11.4 on 03/07/21) -Diabetic macular edema possibly amenable to laser therapy secondary to NPDR also noted -Discussed diagnosis and risks/benefits/alternatives to laser therapy -Questions and concerns addressed -Patient elects to proceed with Focal laser treatment; will perform right eye then left -Will plan for FA prior to focal laser -Prior treatment: Focal laser OU performed by [facility] about 3-4 years ago -Patient understands to call with any discomfort, vision loss, or discharge -Letter sent to PCP and/or pressure tester operator yearly 3. High myopia, both eyes -Diagnosis discussed -Refraction with Dr Carlson; OD -8.00; OS -7.75-0.50 x080 -Discussed increased [...] weeks, FA OU, Focal OD Physician: Saúl Delaney MD Scribe: JACK Glasgow Scribe Statement: Scribed for and in the presence of Saúl Delaney MD by JACK Glasgow documented in this encounterHolzer Medical Center – [place]09-23-2024 Miscellaneous Notes* Telephone Encounter - Mary Rai CMA - 02/16/2024 4:29 PM EDT Patient called and wanted to know if you would accept him as a patient? * Telephone Encounter - Rylan Bowman DO - 02/16/2024 4:29 PM EDT Okay * Telephone Encounter - Mary Rai CMA - 02/16/2024 4:29 PM EDT Could not leave a message due to know mailbox set up but okay for new patient. documented in this encounterHolzer Medical Center – [place]09-23-2024 Telephone encounter Note* Telephone Encounter - Mary Rai CMA - 02/16/2024 4:29 PM EDT Patient called and wanted to know if you would accept him as a patient? [facility] [place] Telephone encounter Note* Telephone Encounter - Rylan Bowman DO - 02/16/2024 4:29 PM EDT [facility] Work Phone: [phone] Telephone encounter Note* Telephone Encounter - Mary Rai CMA - 02/16/2024 4:29 PM EDT Could not leave a message due to know mailbox set up but okay for new patient. [employer] [id number] Evaluation note* Encounter Date Diagnosis Assessment Notes Treatment Notes Treatment Clinical Notes Apr, Cellulitis of left lower leg (IC D-10 - L03.116) Continue home medications as prescribed. Take the clindamycin as prescribed until gone. Use the mupirocin ointment as prescribed until the wound is improved. Make an appointment with your doctor for recheck next week. Keep the wound clean and dry. Cover with dressing when out about, leave open to air when at home. Follow-up with your doctor sooner if the symptoms worsen. [employer] Other 05-26-2021 Chief complaint Narrative - Reported* An interactive audio and video telecommunication system which permits real time communications between the patient (at the originating site) and provider (at the distant site) was utilized to providethis telehealth service. * Verbal consent was requested and obtained from DANIEL DOWLING on this date, 10/18/2020 02:30 PM , for atelehealth visit. * s/p circumcision -[facility] Work Phone: [phone] 590-978403-24-2021 History of Present illness Narrative* 40 year [...] previously 283 ng/dL as of 09/12/2020. [facility] Work Phone: Evaluation note* Diagnosis Moderate nonproliferative diabetic retinopathy of right eye with macular edema associated with type2 diabetes mellitus (CMS-HCC)- Primary Moderate nonproliferative diabetic retinopathy of left eye with macular edema associated with type 2 diabetes mellitus (CMS-HCC) High myopia, both eyes Myopia Moderate nonproliferative diabetic retinopathy of right eye with macular edema associated with type2 diabetes mellitus (CMS-HCC) Moderate nonproliferative diabetic retinopathy of left eye with macular edema associated with type 2 diabetes mellitus (CMS-HCC) [facility] Diagnosis Moderate nonproliferative diabetic retinopathy of right eye with macular edema associated with type2 diabetes mellitus (CMS-HCC) Moderate nonproliferative diabetic retinopathy of left eye with macular edema associated with type 2 diabetes mellitus (CMS-HCC) documented [facility]* Diagnosis Moderate nonproliferative diabetic retinopathy of right eye with macular edema associated with type2 diabetes mellitus (CMS-HCC)- Primary Moderate nonproliferative diabetic retinopathy of left eye with macular edema associated with type 2 diabetes mellitus (CMS-HCC) High myopia, both eyes Myopia documented in this encounter [facility]* Diagnosis Moderate nonproliferative diabetic retinopathy of right eye with macular edema associated with type2 diabetes mellitus (CMS-HCC)- Primary Moderate nonproliferative diabetic [...] both eyes Myopia [facility] Diagnosis Both eyes affected by mild nonproliferative diabetic retinopathy with macular edema, associated with type 2 diabetes mellitus (CMS-HCC) High myopia, both eyes Myopia [facility] Diagnosis Moderate nonproliferative diabetic retinopathy of left eye with macular edema associated with type 2 diabetes mellitus (CMS-HCC) Moderate nonproliferative diabetic retinopathy of right eye with macular edema associated with type2 diabetes mellitus (CMS-HCC) [facility] Diagnosis Moderate nonproliferative diabetic retinopathy of left eye with macular edema associated with type 2 diabetes mellitus (CMS-HCC)- Primary Moderate nonproliferative diabetic retinopathy of right eye with macular edema associated with type2 diabetes mellitus (CMS-HCC) High myopia, both eyes Myopia Moderate nonproliferative diabetic retinopathy of left eye with macular edema associated with type 2 diabetes mellitus (CMS-HCC) Moderate nonproliferative diabetic retinopathy of right eye with macular edema associated with type2 diabetes mellitus (CMS-HCC) [facility] Diagnosis Moderate nonproliferative diabetic retinopathy of left eye with macular edema associated with type 2 diabetes mellitus (CMS-HCC)- Primary Moderate nonproliferative diabetic retinopathy of right eye with macular edema associated with type2 diabetes mellitus (CMS-HCC) High myopia, both eyes Myopia [facility] Diagnosis Moderate nonproliferative diabetic retinopathy of right eye with macular edema associated with type2 diabetes mellitus (CMS-HCC)- Primary Moderate nonproliferative diabetic retinopathy of left eye with macular edema associated with type 2 diabetes mellitus (CMS-HCC) High myopia, both eyes Myopia Moderate nonproliferative diabetic retinopathy of right eye with macular edema associated with type2 diabetes mellitus (CMS-HCC) [facility] Diagnosis Moderate nonproliferative diabetic retinopathy of right eye with macular edema associated with type2 diabetes mellitus (CMS-HCC) [facility]* Diagnosis Leg edema, left- Primary [facility] noteNo assessment information available [facility] Work Phone: History general Narrative - Reported* Type Description Date Medical History Perthes Disease Medical HistoryHTN (hypertension)Medical HistoryHypercholesteremiaMedical HistoryDiabetesSurgical HistoryMultiple surgeries, right hipHospitalization HistorySee past surgical hx PeopleJar Other Instructions* Attachments The following attachments cannot be sent through Care Everywhere. * Diabetes and diet (Dutch) [facility] System[facility]ructionsNot on file documented in this encounterPro[facility] SystemInstructionsNot on file documented in this encounterPro[facility] SystemInstructions* Attachments The following attachments cannot be sent through Care Everywhere. * Diabetes and diet (Dutch) [facility] SystemInstructionsNot on file documented in this encounterPro[facility] SystemReason for referral (narrative)No reason for referral information availableUniversity [facility] Work Phone: Summary Purpose Family History No Family History Records FoundUnknown Family Member Name Dates Details Family history of malignant neoplasm: Maternal Grandmother(V16.9, Z80.9) Status:Active Relationship Condition Age at Onset Recorded Date/T nadia father Hypertension Unknown motherHypertensionUnknown Advance Directives No Advanced Directives Records FoundNo [...] section and content) DATE CREATED AUTHOR 08/30/2018 [facility] DATE CREATED AUTHOR AUTHOR'S ORGANIZ ATION 10/21/2020 [facility] DATE CREATED AUTHOR AUTHOR'S ORGANIZ ATION 04/10/2021 [facility] DATE CREATED AUTHOR AUTHOR'S ORGANIZ ATION 2022 [facility] DATE CREATED AUTHOR AUTHOR'S ORGANIZ ATION 2022 [facility] DATE CREATED AUTHOR AUTHOR'S ORGANIZ ATION 09/10/2022 [facility] DATE CREATED AUTHOR AUTHOR'S ORGANIZ ATION 08/09/2024 [facility] DATE CREATED AUTHOR AUTHOR'S ORGANIZ ATION 08/10/2024 [facility] DATE CREATED AUTHOR AUTHOR'S ORGANIZ ATION 08/13/2024 [facility] DATE CREATED AUTHOR AUTHOR'S ORGANIZ ATION 12/27/2024 [facility] REASON FOR VISIT (unrecogniz ed section and content) ReasonCommentsModerate nonproliferative diabetic retinopathy of left eyeReason CommentsModerate nonproliferative diabetic retinopathy of right eyeReason CommentsDiabetic retinopathy with macular edema associated with diaSpecialty Diagnoses / ProceduresReferred By ContactReferred To ContactOphthalmology Diagnoses Diabetic retinopathy with macular edema associated with diabetes mellitus due to underlying condition, unspecified laterality, unspecified retinopathy severity ([facility]) Alfonso Carlson, OD [address] [place] [address] Saúl Delaney MD [address] [place] [address] Referral IDStatusReasonStart DateExpiration DateVisits RequestedVisits [id number] Specialty Services Required [id number]z retinopathyReasonCommentsNew Patient Care Teams (unrecognized sec tion and content) Team MemberRelationshipSpecialtyStart DateEnd Date No Pcp, [place] [address] PCP - GeneralFamily Hndzjthf53/16/24Team MemberRelationshipSpecialtyStart Date End Date No Pcp, [place] [address] PCP - GeneralFamily Yrqqajha49/16/24Team MemberRelationshipSpecialtyStart Date End Date No Pcp, [place] [address] PCP - GeneralFamily Hefgfnke97/16/24Team MemberRelationshipSpecialtyStart Date End Date No Pcp, [place] [address] PCP - GeneralFamily Ljwnpter45/16/24Team MemberRelationshipSpecialtyStart Date End Date No Pcp, [place] [address] PCP - GeneralFamily Kywgcogg35/16/24Team MemberRelationshipSpecialtyStart Date End Date No Pcp, [place] [address] PCP - GeneralFamily Vkupoucw87/16/24Team MemberRelationshipSpecialtyStart Date End Date No Pcp, [place] [address] PCP - GeneralFamily Hblhcjtv37/16/24Team MemberRelationshipSpecialtyStart Date End Date No Pcp, [place] [address] PCP - GeneralFamily Hdbsratu64/16/24 Team Status: Inactive Member Role Status Dates Mitchell Pandey DO Attending Provider Active Start: December 26, 2024 End: December 26, 2024 Goals (unrecognized section and content) Goals may be documented in a n alternate section FOR RECORDS PERTAINING TO PATIENTS WHO ARE [...] BE BASED ON THE PRIMARY CLINICAL RECORDS. [facility]. provides no warranty or guarantee of the accuracy or completeness of information in this document.
--- OUTSIDE RECORDS SUMMARY | 2025-04-19 20:49 | XMS_ITS | Clinical Summary ---
Author Organization Financial Guard tem Address [id number] [address] [place] [address] Care Team Providers Care Demand Planning Analyst Name Role Phone No Pcp, No Pcp Primary Care Provider Unavailabl e Allergies Active AllergyReactionsCriticalityNoted DateCommentsLatex, Natural RubberHives, LkrlQeldix83/25/2022 Medications MedicationSigDispense QuantityRefillsLast FilledStart DateEnd DateStatus metFORMIN (GLUCOPHAGE) 1000 mg tablet Take 1 tablet (1,000 mg total) by mouth in the morning and 1 tablet (1,000 mg total) in the evening. Take with meals.Active insulin NPH (HumuLIN N,NovoLIN N) 100 unit/mL injection Inject 0.4 mL (40 Units total) under the skin in the morning and 0.4 mL (40 Units total) in the evening. Inject with meals.Active insulin regular (HumuLIN R,NovoLIN R) 100 unit/mL injection Inject under the skin 3 (three) times a day before meals. 10-20 units depending on BSLActive Active Problems No known active problems Family History Medical HistoryRelationNameCommentsHypertensionFatherDiabetesMotherHypertension MotherCataractsNeg HxGlaucomaNeg HxMacular degenerationNeg HxRetinal detachment Neg HxRelationNameStatusCommentsFatherMother Social History Tobacco UseTypesPacks/DayYears UsedDateSmoking Tobacco: NeverSmokeless Tobacco: Never Tobacco Cessation:Counseling Given: Not Answered ChildcareAnswerDate NwpsihdeQwftrmrsfWmpoatx72/12/2019EmploymentAnswerDate SdhvgniuSnuhzccgagGemqoft15/12/2019Sex and Gender InformationValueDate Recorded Sex Assigned at BirthNot on fileLegal KbwDovo3912/29/2014 11:59 AM EDTGender IdentityNot on fileSexual OrientationNot on file Last Filed Vital Signs Vital SignReadingTime TakenCommentsBlood Ixngxvtk356/9208/09/2024 9:34 AM EDT Xnwoe75155/17/2025 9:34 AM EDTTemperature--Respiratory Rate--Oxygen Saturation-- Inhaled Oxygen Concentration--Zvdxwc898.9 kg (304 lb)08/09/2024 9:34 AM EDT Height--Body Mass Index-- Plan of Treatment Health MaintenanceDue DateLast DoneCommentsStatin Use: Usnfakqz65/23/1982 Depression Lkbgzpwfg67/23/1994Adult BMI Gvtsaeate26/23/2000Diabetic Foot Exam 1999DTaP,Tdap and Td Vaccines (1 - Tdap)2000Influenza Vaccine 01/24/2025Diabetic Ophthalmology ExamTobacco Screening Medical Devices Not on file Insurance Care Teams Team MemberRelationshipSpecialtyStart DateEnd Date No Pcp, [place] [address] PCP - GeneralFamily Xrrmqbyu63/16/24
--- OUTSIDE RECORDS SUMMARY | 2025-04-19 20:49 | XMS_ITS | Clinical Summary ---
Author Organization [facility] Address [address] [place] [address] Care Team Providers Care Pharmacy Clerk Name Role Phone Unavailable Primary Care Provider Unavailabl e Allergies Active AllergyReactionsCriticalityNoted DateCommentsLatexHives,RashMedium 12/17/2021 Medications MedicationSigDispense QuantityRefillsLast FilledStart DateEnd DateStatus metFORMIN (Glucophage) 1000 MG tablet Take 1,000 mg by mouth in the morning and 1,000 mg in the evening. Take with meals.Active insulin regular (HumuLIN R) 100 UNIT/ML injection Inject 10-20 Units under the skin in the morning and 10-20 Units at noon and 10- 20 Units in the evening. Inject with meals.Active insulin NPH, Isophane, (HumuLIN N,NovoLIN N) 100 UNIT/ML injection Inject 40 Units under the skin in the morning and 40 Units in the evening. Inject with meals.Active aspirin 81 MG EC tablet Take 1 tablet by mouth DailyActive amLODIPine-valsartan (Exforge) 5-320 MG tablet Take 1 tablet by mouth DailyActive dapagliflozin (Farxiga) 10 MG Take 1 tablet by mouth DailyActive atorvastatin (Lipitor) 20 MG tablet Take 1 tablet by mouth DailyActive Family History Medical HistoryRelationNameCommentsBack PainFatherGoutFatherPrediabetesMother RelationNameStatusCommentsFatherAliveMotherAlive Social History Tobacco UseTypesPacks/DayYears UsedDateSmoking Tobacco: Never Tobacco Cessation:Counseling Given: Not Answered Alcohol UseStandard Drinks/WeekCommentsYes0 (1 standard drink = 0.6 oz pure alcohol)weeklySex and Gender InformationValueDate RecordedSex Assigned at Not on fileLegal TppMwqo0808/07/2022 11:13 PM EDTGender IdentityNot on fileSexual OrientationNot on file Last Filed Vital Signs Vital SignReadingTime TakenCommentsBlood Xxukajyq369/9006 9:35 AM EDT Eimsq6242 9:35 AM EDTTemperature--Respiratory Wwff006911/05/2022 9:35 AM EDTOxygen Qchduntyxf47%11/05/2022 9:35 AM EDTInhaled Oxygen Concentration-- Dehejd354 kg (282 lb)11/05/2022 9:35 AM ONRVbrkgb912.9 cm (6')11/05/2022 9:35 AM EDTBody Mass Index38.25011/05/2022 9:35 AM EDT Plan of Treatment Not on file
--- OUTSIDE RECORDS SUMMARY | 2025-04-19 20:49 | XMS_ITS | Clinical Summary ---
Author Organization [facility] Address [address] [place] [address] Phone Care Team Providers Care Help Desk Consultant Name Role Phone Murali Ferreira DO Primary Care Provider Social History Tobacco UseTypesPacks/DayYears UsedDateSmoking Tobacco: Never AssessedSex and Gender InformationValueDate RecordedSex Assigned at BirthNot on fileLegal Sex Male04/20/2022 12:44 AM ESTGender IdentityNot on fileSexual OrientationNot on file Last Filed Vital Signs Vital SignReadingTime TakenCommentsBlood Tviytkrq917/8704/24/2022 9:10 AM EST Xkngw808604/24/2022 9:10 AM EHXJfmxepweomg60.3 ??C (95.5 ??F)04/24/2022 9:10 AM ESTRespiratory Ylsn331009/21/2020 7:58 AM EDTOxygen Shzulcnrhn33%08/04/2020 9:56 AM ESTInhaled Oxygen Concentration--Ykjhxi585 kg (279 lb 8 oz)04/24/2022 9:10 AM TYHDxrfwf014.9 cm (6')10/11/2020 10:11 AM EDTBody Mass Index37.9110/11/2020 10:11 AM EDT Plan of Treatment Health MaintenanceDue DateLast DoneCommentsHIV Dmsysgbcm38/23/1982Yearly Adult Bnpozkos56/23/1982MMR Vaccines (1 of 1 - Standard series)1982Hepatitis C Zckacraos59/23/2000Hepatitis B Vaccines (1 of 3 - 19+ 3-dose series)2000 DTaP/Tdap/Td Vaccines (1 - Tdap)2003HPV Vaccines (1 - 3-dose standard series)2008Diabetes Ctbnajxyp88/13/991520, 03/07/2021, 09/21/2020, Additional history existsInfluenza Vaccine (#1)5COVID-19 Vaccine ( - season)2025Lipid Panel6008/04/2020, 06/25/2019Zoster Vaccines (1 of 2)2031HIB VaccinesAged OutNo longer eligible based on patient's age to complete this topicHepatitis A VaccinesAged OutNo longer eligible based on patient's age to complete this topicIPV VaccinesAged OutNo longer eligible based on patient's age to complete this topicMeningococcal VaccineAged OutNo longer eligible based on patient's age to complete this topic Pneumococcal Vaccine: Pediatrics and At-Risk Adult PatientsAged OutNo longer eligible based on patient's age to complete this topicRotavirus VaccinesAged Out No longer eligible based on patient's age to complete this topic Procedures Procedure NamePriorityDate/TimeAssociated DiagnosisCommentsHEMOGLOBIN O9HXschcww 03/07/2021 8:33 AM EDT LIPID PGPPUEmhpbnk97/12/2021 10:47 AM EST from Last 3 Months or Most Recently Relevant to Health Maintenance Results * (ABNORMAL) Hemoglobin A1C (03/07/2021 8:33 AM EDT)ComponentValueRef RangeTest MethodAnalysis TimePerformed AtPathologist SignatureHemoglobin A1C11.4(A)% [facility] LABComment: ? Diagnosis of Diabetes-Adults Non-Diabetic: < or = 5.6% Increased risk for developing diabetes: 5.7-6.4% Diagnostic of diabetes: > or = 6.5% . ? Monitoring of Diabetes ?Age (y) ? Therapeutic Goal (%) Adults: >18 <7.0 Pediatrics: 13-18 <7.5 7-12 <8.0 ? 0- 6 ?7.5-8.5 [place] [employer]. Diabetes Care 33(S1), May 2009. Estimated Average Qzpdklj368BJ/DLTUSTIN HOSPITAL MEDICAL [facility]ENTER LABSpecimen (Source) Anatomical Location / LateralityCollection Method / VolumeCollection Time Received Time03/07/2021 8:33 AM EDT1 9:04 AM EDT Narrative Authorizing ProviderResult TypeResult StatusZulouisa ROLDAN BLOOD ORDERABLESFinal ResultPerforming OrganizationAddressCity/State/ZIP CodePhone Number [facility] * (ABNORMAL) Lipid Panel (08/04/2020 10:47 AM EST)ComponentValueRef RangeTest MethodAnalysis TimePerformed AtPathologist YypyowspdGmrtrtrgqbj984(H)0 - 199 mg/dLBR[facility] LABComment: . ?AGE ?DESIRABLE ?? BORDERLINE HIGH ?? HIGH 0-19 Y 0 - 169 170 - 199 >/= 200 20-24 Y 0 - 189 190 - 224 >/= 225 >24 Y 0 - 199 200 - 239 >/= 240 All ranges are based on fasting samples. Specific therapeutic targets will vary based on patient-specific cardiac risk. . Pediatric guidelines reference:Pediatrics 2011, 128(S5). Adult guidelines reference: NCEP ATPIII Guidelines, ??FLAKO 2001, 258:2486-97 . Venipuncture immediately after or during the administration of Metamizole may lead to falsely low results. Testing should be performed immediately prior to Metamizole dosing. HDL31.2(A)mg/dLBROOKE [facility]EN [facility]AVIORAL [facility] LABComment: . ?AGE ?VERY LOW ?? LOW ? NORMAL ?HIGH ?? 0-19 Y < 35 < 40 40-45 ---- 20-24 Y ---- < 40 >45 ---- >24 Y ---- < 40 40-60 >60 . Cholesterol/HDL Ratio8.4(A)[facility] LABComment: REF VALUES DESIRABLE < 3.4 HIGH RISK > 5.0 TNB811(H)0 - 99 mg/dLBROOKE [facility]EN [facility] LABComment: . ? NEAR ?BORD ?AGE ?DESIRABLE ??OPTIMAL ?HIGH ? HIGH ? VERY HIGH 0-19 Y 0 - 109 --- 110-129 >/= 130 ---- 20-24 Y 0 - 119 --- 120-159 >/= 160 ---- >24 Y 0 - 99 100-129 130-159 160-189 >/=190 . VLDL76(H)0 - 40 mg/dLBROOKE [facility]EN [facility] PZVDerwfbnzorqoq872(H)0 - 149 mg/dLBR[facility] LABComment: . ?AGE ?DESIRABLE ?? BORDERLINE HIGH ?? HIGH ? VERY HIGH 0 D-90 D ?19 - 174 ? ---- ? ---- ?---- 91 D- 9 Y 0 - 74 75 - 99 >/= 100 ---- 10-19 Y 0 - 89 90 - 129 >/= 130 ---- 20-24 Y 0 - 114 115 - 149 >/= 150 ---- >24 Y 0 - 149 150 - 199 200- 499 >/= 500 . Venipuncture immediately after or during the administration of Metamizole may lead to falsely low results. Testing should be performed immediately prior to Metamizole dosing. Non HDL Xvieposrvot249lg/dLBROOKE [facility]EN [facility] LABComment: ?AGE ?DESIRABLE ?? BORDERLINE HIGH ?? HIGH ? VERY HIGH 0-19 Y 0 - 119 120 - 144 >/= 145 >/= 160 20-24 Y 0 - 149 150 - 189 >/= 190 ---- >24 Y 30 MG/DL ABOVE LDL CHOLESTEROL GOAL . Specimen (Source)Anatomical Location / LateralityCollection Method / Volume Collection TimeReceived Time08/04/2020 10:47 AM EST08/04/2020 9:11 PM EST Narrative Authorizing ProviderResult TypeResult StatusTmiriam Asencio MDLAB BLOOD ORDERABLES Final ResultPerforming OrganizationAddressCity/State/ZIP CodePhone Number [facility] from Last 3 Months or Most Recently Relevant to Health Maintenance Care Teams Team MemberRelationshipSpecialtyStart DateEnd Date Murali Ferreira DO [facility] - General06/25/19
--- OUTSIDE RECORDS SUMMARY | 2025-04-19 20:49 | XMS_ITS | Clinical Summary ---
Author Organization [facility] Address [address] [facility] [place] [address] Care Team Providers Care Head Operator Name Role Phone Unavailable Primary Care Provider Unavailabl e Source Comments The following information is NOT included in Care Everywhere downloads:Psychiatric notes, ECG results, Cardiac Rehab notes, Pulmonary Function notes, data from SmartForms (includes but not limited toPregnancy data,audiograms, eye exams, pre-surgical evaluation notes, well-child exam data).[facility] Social History Tobacco UseTypesPacks/DayYears UsedDateSmoking Tobacco: Never AssessedSex and Gender InformationValueDate RecordedSex Assigned at BirthNot on fileLegal Sex Male03/29/2012 9:07 AM ESTGender IdentityNot on fileSexual OrientationNot on file Plan of Treatment Health MaintenanceDue DateLast DoneCommentsHIV Test1996Hepatitis C Gvnonmpg85/23/2000Tdap Rutaino0607/18/1999Hepatitis A (HAV) Vaccine (optional start 19+ years)2000Hepatitis B (HBV) Vaccine (1 of 3 - 19+ 3-dose series) 2000Tetanus (Td or Tdap) Pmcpems2207/18/2000HPV Vaccine (optional start 27- 45 years)07/18/20082710Ftehcsffruc27/23/2017COVID-19 Vaccine ( - 2024- season) 2025Influenza Vaccine (#1)2025Shingles (RZV) Vaccine (1 of 2) 2Pneumococcal Vaccine(s)Aged OutNo longer eligible based on patient's age to complete this topic
[2025-04-19] MEDS: PIPERACILLIN SODIUM/TAZOBACTAM 3.375 GM in 0.9 % SODIUM CHLORIDE 50 ML IV (20:53)
[2025-04-19] MEDS: FUROSEMIDE 40 MG/4 ML VIAL IVP (21:10)
[2025-04-19] MEDS: VANCOMYCIN HCL 2,000 MG in 0.9 % SODIUM CHLORIDE 500 ML 250 MG IV (21:26)
[2025-04-20 08:00] LABS: A. calcoaceticus-baumannii Cpx NOT DETECTED (NOT DETECTE); Bacteroides fragilis NOT DETECTED (NOT DETECTE); Candida auris NOT DETECTED (NOT DETECTE); Candida glabrata NOT DETECTED (NOT DETECTE); Enterobacterales NOT DETECTED (NOT DETECTE); Enterococcus faecalis NOT DETECTED (NOT DETECTE); Enterococcus faecium NOT DETECTED (NOT DETECTE); Klebsiella aerogenes NOT DETECTED (NOT DETECTE); Klebsiella pneumoniae group NOT DETECTED (NOT DETECTE); Proteus spp. NOT DETECTED (NOT DETECTE); Salmonella spp. NOT DETECTED (NOT DETECTE); Serratia marcescens NOT DETECTED (NOT DETECTE); Source BLOOD; Staphylococcus epidermidis NOT DETECTED (NOT DETECTE); Staphylococcus lugdunensis NOT DETECTED (NOT DETECTE); Staphylococcus spp. NOT DETECTED (NOT DETECTE); Stenotrophomonas maltophilia NOT DETECTED (NOT DETECTE); Streptococcus pyogenes NOT DETECTED (NOT DETECTE)
[2025-04-20 10:08] LABS: Streptococcus spp. DETECTED (NOT DETECTE)
--- NOTE | 2025-04-20 13:39 | PC.NURSE ---
Faxed + blood culture results to Nate at [address] [place] [address].
--- NOTE | 2025-04-22 09:39 | PC.NURSE ---
WOUND CULTURE RESULTS FAXED TO [facility]
== END 2025-04-19 23:35 | disposition short-term general hospital (02) ==
PROVIDERS: Emergency Provider Internal Medicine
DX: E11.69 Type 2 diabetes mellitus with other specified complication (principal); M86.8X7 Other osteomyelitis, ankle and foot; Z79.4 Long term (current) use of insulin; L03.115 Cellulitis of right lower limb; I50.9 Heart failure, unspecified; R79.89 Other specified abnormal findings of blood chemistry
CPT/HCPCS: 36415; 71045; 73700; 76376; 80048; 82948; 83605; 83880; 84484; 85025; 85652; 86140; 87040; 87077; 87150; 87186; 93005; 96365; 96375; 99285; J1938; J2543; J3373